=== PATIENT | female | born 1930 | race Caucasian/White ===

== ENCOUNTER 2016-12-28 17:46 | Inpatient (IN) | payer OTHER, MEDICARE ==
[~2016-12-28] VITALS: Ht 149.9 cm; Wt 71.5 kg
[~2016-12-28 17:46] MED LIST: ASPCH81X PO; CALCTAB5 PO; CHOL2000 PO; CYAN10005 PO; FERR325T51 PO; FRS/40 PO; LPR25 PO; MAGN250T3 PO; NTRGSL/4 UT; SYN25 PO; [UNRECOGNIZED DRUG - CODE] OPB
[2016-12-28] MEDS ORDERED: SODIUM CHLORIDE 0.9% 1000ML 1,000 ML IV STA (18:22)
[2016-12-28] MEDS ORDERED: ACETAMINOPHEN 500 MG TAB PO STA (18:30)
--- NOTE | 2016-12-28 19:27 | DIAGNOSTIC IMAGING REPORT ---
C-SPINE ROUTINE 4 OR 5 VIEWS CLINICAL HISTORY: Nontraumatic neck pain. COMPARISON STUDY: No previous studies for comparison. FINDINGS: There is minimal anterolisthesis of C3 on C4, C4 on C5 and C5 on C6. There is moderate disc space narrowing with osteophytosis at C6-C7. There is no fracture or suspicious lesion. There is moderate multilevel facet arthrosis. IMPRESSION: 1. No acute cervical spine fracture or subluxation. 2. Moderate degenerative disc disease at C6-C7 and moderate multilevel facet arthrosis. 3. Mild multilevel anterolisthesis of the cervical spine, as described above. Electronically signed by: George Rubi M.D. 12/28/2016 7:25 PM Dictated Date/Time: 12/28/2016 7:24 PM
--- NOTE | 2016-12-28 19:29 | DIAGNOSTIC IMAGING REPORT ---
FRONTAL CHEST RADIOGRAPH CLINICAL HISTORY: Nontraumatic shoulder and neck pain. COMPARISON STUDY: Chest radiograph April 08, 2016. FINDINGS: There are are median sternotomy wires and a prosthetic aortic valve. Moderate cardiomegaly is unchanged. There is no evidence of pulmonary edema. No pneumothorax or pleural effusion is present. IMPRESSION: 1. No acute findings. 2. No significant change in moderate cardiomegaly. Electronically signed by: George Rubi M.D. 12/28/2016 7:27 PM Dictated Date/Time: 12/28/2016 7:26 PM
[2016-12-28] MEDS ORDERED: LEVO25TA PO (19:34)
[2016-12-28 19:38] LABS: PARTIAL THROMBOPLASTIN RATIO 1.2
[2016-12-28 19:40] LABS: BASO % 0.3 %; BASO ABS # 0.04 K/uL (0-0.2); COMPLETE YES; EOS % 2.1 %; HEMATOCRIT 40.1 % (37-47); IG% 0.3 %; LYMPH % 11.8 %; LYMPH ABS # 1.38 K/uL (1.2-3.4); MEAN CELL VOLUME 87.2 fL (80-100); MEAN CORPUSCULAR HEMOGLOBIN 28.7 pg (25-34); MEAN CORPUSCULAR HGB CONC 32.9 g/dl (32-36); MEAN PLATELET VOLUME 11.4 fL (7.4-10.4); MONO % 10.8 %; NEUT % 74.7 %; PLATELET COUNT 178 K/uL (130-400); WHITE BLOOD COUNT 11.74 K/uL (4.8-10.8)
[2016-12-28 19:50] LABS: ALT/SGPT 17 U/L (12-78); AST/SGOT 15 U/L (15-37); BLOOD UREA NITROGEN 16 mg/dl (7-18); CALCIUM 8.8 mg/dl (8.5-10.1); CARBON DIOXIDE 32 mmol/L (21-32); CHLORIDE 104 mmol/L (98-107); CREATININE 0.87 mg/dl (0.60-1.20); GLUCOSE 108 mg/dl (70-99); POTASSIUM 3.7 mmol/L (3.5-5.1); SODIUM 142 mmol/L (136-145)
[2016-12-28 20:01] LABS: ALKALINE PHOSPHATASE 95 U/L (45-117); CKMB/CK RATIO 1.6 (0-3.0)
[2016-12-28] MEDS ORDERED: ASPIRIN 81 MG CHEW PO STA (20:32)
[2016-12-28] MEDS ORDERED: ACETAMINOPHEN 325 MG TAB PO PRN (21:00)
[2016-12-28] MEDS ORDERED: ALUMINUM/MAGNESIUM/SIMETH (MAALOX MAX) 30 ML UDC PO PRN (21:00)
[2016-12-28] MEDS ORDERED: MoRPHine SULFATE 2 MG/ML CARP IV PRN (21:00)
[2016-12-28] MEDS ORDERED: NITROGLYCERIN 0.4 MG SL PER TAB CHARGE SL PRN (21:00)
[2016-12-28] MEDS ORDERED: IV FLUIDS COMPLETED PRN (21:30)
--- NOTE | 2016-12-28 21:32 | EMERGENCY ROOM VISIT NOTE ---
History Report prepared by Oneyda: Patricia Licea Under the Supervision of: Dr. Arnaldo Toro M.D. First contact with patient: 18:20 Chief Complaint: CARDIAC ASSESSMENT Stated Complaint: PAIN IN SHOULDERS History of Present Illness The patient is a 86 year old female who presents to the Emergency Room with complaints of persistent neck and bilateral shoulder pain that began 2 days ago. The patient states that she initially developed left sided chest pain that radiated to the right side of her chest in addition to the neck and shoulder pain while she was at rest. She took 2 Nitro which made her chest pain resolve completely. The chest pain has not come back since then. The Nitro did not help her neck or shoulder pain. She has been using Icy Hot on her neck and shoulders which helps temporarily. Her neck pain was worse with movement to the point that she could not turn her head, but she notes that it is currently not as bad. Past medical history includes heart disease, a-fib, and blood clots. She has a history of an aortic valve replacement and bypass. She takes baby aspirin daily but denies use of other blood thinners. She follows up with Dr. Wood of Cardiology. Pt denies LOC, headache, fevers, chills, diaphoresis, visual changes, breathing difficulties, nausea, vomiting, abdominal pain, back pain, melena, hematochezia, urinary symptoms, numbness, weakness, lymphadenopathy, rash, or other complaints. Source of History: patient Onset: 2 days ago Position: neck, shoulder (bilateral) Timing: other (persistent) Modifying Factors (Relieving): other (Icy Hot) Associated Symptoms: + chest pain (resolved) Review of Systems See HPI for pertinent positives and negatives. A total of ten systems were reviewed and were otherwise negative. Past Medical & Surgical Medical Problems: (1) Acute Diastolic Hrt Failure (2) Acute Venous Embolism & Thrombosis Unsp Deep Vessels Of Le (3) Aortocoronary Bypass (4) Atrial fibrillation, currently in sinus rhythm (5) Congestive Heart Failure Nos (6) Hyperlipidemia Nec/Nos (7) Hypertension (8) Hypertension Nos (9) Mobitz type 2 second degree atrioventricular block Family History Cancer Heart disease Hypertension Kidney disease Social History Smoking Status: Never Smoker Alcohol Use: none Drug Use: none Marital Status: Housing Status: lives with family Occupation Status: retired Current/Historical Medications Scheduled Aspirin (Aspirin Chewable), 81 MG PO DAILY Cholecalciferol (Vitamin D3), 2,000 MG PO DAILY Cyanocobalamin (Vitamin B-12), 1,000 MCG PO DAILY Furosemide (Lasix), 40 MG PO DAILY Homeopathic Products (Similasan Dry Eye Relief), 1 DROP OPB BID Levothyroxine Sodium (Synthroid), 25 MCG PO DAILYBB Metoprolol Tartrate (Lopressor), 25 MG PO BID Scheduled PRN Nitroglycerin (Nitrostat), 0.4 MG UT UD PRN for Chest Pain Allergies Coded Allergies: Amlodipine (Verified Adverse Reaction, Mild, MUSCLE CRAMPS, 12/28/16) Clonidine (Verified Adverse Reaction, Mild, FATIGUE,DIZZINESS, 12/28/16) Diltiazem (Verified Adverse Reaction, Mild, VILLAGOMEZ/DIZZINESS, 12/28/16) Hydralazine (Verified Adverse Reaction, Mild, VILLAGOMEZ/DIZZINESS, 12/28/16) Hydrochlorothiazide w/Triamterene (Verified Adverse Reaction, Mild, DIZZINESS, 12/28/16) Levothyroxine (Verified Adverse Reaction, Mild, MUSCLE CRAMPS, 12/28/16) Valsartan (Verified Adverse Reaction, Mild, DIZZINESS, 12/28/16) CI Pigment Blue 63 (Verified Adverse Reaction, Unknown, NAUSEA, ?STROKE SYMPTOMS, 12/28/16) Lisinopril (Verified Adverse Reaction, Unknown, `, 12/28/16) Nebivolol (Verified Adverse Reaction, Unknown, NAUSEA, ?STROKE SYMPTOMS, ) Sorbitan (Verified Adverse Reaction, Unknown, NAUSEA, ?STROKE SYMPTOMS, ) Yellow Dye (Verified Adverse Reaction, Unknown, NAUSEA, ?STROKE SYMPTOMS, 12/28/16) Physical Exam Vital Signs Date Time Temp Pulse Resp B/P Pulse Ox O2 Delivery O2 Flow Rate FiO2 12/28/16 20:31 54 12/28/16 20:20 61 147/84 92 Room Air 12/28/16 18:44 92 12/28/16 18:38 59 16 175/71 91 Room Air 12/28/16 18:37 95 Room Air 12/28/16 18:37 95 Room Air 12/28/16 18:13 37.1 72 18 202/88 92 Room Air Physical Exam GENERAL: Awake, alert, well-appearing, in no distress HENT: Normocephalic, atraumatic. Oropharynx unremarkable. EYES: Normal conjunctiva. Sclera non-icteric. NECK: There is some mild neck discomfort on the right side elicited with range of motion testing. No nuchal rigidity. FROM. No JVD. RESPIRATORY: Clear to auscultation. CARDIAC: Regular rate, normal rhythm. Extremities warm and well perfused. Pulses equal. ABDOMEN: Soft, non-distended. No tenderness to palpation. No rebound or guarding. No masses. RECTAL: Deferred. MUSCULOSKELETAL: Chest examination reveals no tenderness. The back is symmetrical on inspection without obvious abnormality. There is no CVA tenderness to palpation. No joint edema. LOWER EXTREMITIES: Calves are equal size bilaterally and non-tender. No edema. No discoloration. NEURO: Normal sensorium. No sensory or motor deficits noted. SKIN: No rash or jaundice noted. Medical Decision & Procedures ER Provider Diagnostic Interpretation: Radiology results as stated below per my review and radiologist interpretation: C-SPINE ROUTINE 4 OR 5 VIEWS CLINICAL HISTORY: Nontraumatic neck pain. COMPARISON STUDY: No previous studies for comparison. FINDINGS: There is minimal anterolisthesis of C3 on C4, C4 on C5 and C5 on C6. There is moderate disc space narrowing with osteophytosis at C6-C7. There is no fracture or suspicious lesion. There is moderate multilevel facet arthrosis. IMPRESSION: 1. No acute cervical spine fracture or subluxation. 2. Moderate degenerative disc disease at C6-C7 and moderate multilevel facet arthrosis. 3. Mild multilevel anterolisthesis of the cervical spine, as described above. Electronically signed by: George Rubi M.D. 12/28/2016 7:25 PM Dictated Date/Time: 12/28/2016 7:24 PM FRONTAL CHEST RADIOGRAPH CLINICAL HISTORY: Nontraumatic shoulder and neck pain. COMPARISON STUDY: Chest radiograph April 08, 2016. FINDINGS: There are are median sternotomy wires and a prosthetic aortic valve. Moderate cardiomegaly is unchanged. There is no evidence of pulmonary edema. No pneumothorax or pleural effusion is present. IMPRESSION: 1. No acute findings. 2. No significant change in moderate cardiomegaly. Electronically signed by: George Rubi M.D. 12/28/2016 7:27 PM Dictated Date/Time: 12/28/2016 7:26 PM Laboratory Results 12/28/16 19:19 Red Blood Count 4.60, Mean Corpuscular Volume 87.2, Mean Corpuscular Hemoglobin 28.7, Mean Corpuscular Hemoglobin Concent 32.9, Mean Platelet Volume 11.4, Neutrophils (%) (Auto) 74.7, Lymphocytes (%) (Auto) 11.8, Monocytes (%) (Auto) 10.8, Eosinophils (%) (Auto) 2.1, Basophils (%) (Auto) 0.3, Neutrophils # (Auto ) 8.76, Lymphocytes # (Auto) 1.38, Monocytes # (Auto) 1.27, Eosinophils # (Auto ) 0.25, Basophils # (Auto) 0.04 12/28/16 19:19 Test 12/28/16 19:19 White Blood Count 11.74 K/uL (4.8-10.8) Red Blood Count 4.60 M/uL (4.2-5.4) Hemoglobin 13.2 g/dL (12.0-16.0) Hematocrit 40.1 % (37-47) Mean Corpuscular Volume 87.2 fL (80-100) Mean Corpuscular Hemoglobin 28.7 pg (25-34) Mean Corpuscular Hemoglobin Concent 32.9 g/dl (32-36) Platelet Count 178 K/uL (130-400) Mean Platelet Volume 11.4 fL (7.4-10.4) Neutrophils (%) (Auto) 74.7 % Lymphocytes (%) (Auto) 11.8 % Monocytes (%) (Auto) 10.8 % Eosinophils (%) (Auto) 2.1 % Basophils (%) (Auto) 0.3 % Neutrophils # (Auto) 8.76 K/uL (1.4-6.5) Lymphocytes # (Auto) 1.38 K/uL (1.2-3.4) Monocytes # (Auto) 1.27 K/uL (0.11-0.59) Eosinophils # (Auto) 0.25 K/uL (0-0.5) Basophils # (Auto) 0.04 K/uL (0-0.2) RDW Standard Deviation 45.9 fL (36.4-46.3) RDW Coefficient of Variation 14.4 % (11.5-14.5) Immature Granulocyte % (Auto) 0.3 % Immature Granulocyte # (Auto) 0.04 K/uL (0.00-0.02) Prothrombin Time 11.0 SECONDS (9.0-12.0) Prothromb Time International Ratio 1.0 (0.9-1.1) Activated Partial Thromboplast Time 31.3 SECONDS (21.0-31.0) Partial Thromboplastin Ratio 1.2 Anion Gap 6.0 mmol/L (3-11) Est Creatinine Clear Calc Drug Dose 44.5 ml/min Estimated GFR () 69.4 Estimated GFR (Non- 59.9 BUN/Creatinine Ratio 18.0 (10-20) Calcium Level 8.8 mg/dl (8.5-10.1) Magnesium Level 2.0 mg/dl (1.8-2.4) Total Bilirubin 0.7 mg/dl (0.2-1) Direct Bilirubin 0.2 mg/dl (0-0.2) Aspartate Amino Transf (AST/SGOT) 15 U/L (15-37) Alanine Aminotransferase (ALT/SGPT) 17 U/L (12-78) Alkaline Phosphatase 95 U/L (45-117) Total Creatine Kinase 43 U/L (26-192) Creatine Kinase MB 0.7 ng/ml (0.5-3.6) Creatine Kinase MB Ratio 1.6 (0-3.0) Troponin I < 0.015 ng/ml (0-0.045) Total Protein 6.8 gm/dl (6.4-8.2) Albumin 3.2 gm/dl (3.4-5.0) Thyroid Stimulating Hormone (TSH) 4.380 uIu/ml (0.300-4.500) Laboratory results reviewed by me Medications Administered Medications (Trade) Dose Ordered Sig/Shandra Route Start Time Stop Time Status Last Admin Dose Admin Sodium Chloride (Nss 1000ml) 1,000 ml @ 125 mls/hr Q8H STAT IV 12/28/16 18:22 12/29/16 02:21 12/28/16 18:56 125 MLS/HR Acetaminophen (Tylenol Tab) 1,000 mg NOW STAT PO 12/28/16 18:30 12/28/16 18:31 DC 12/28/16 18:55 1,000 MG Aspirin (Aspirin Chew) 324 mg NOW STAT PO 12/28/16 20:32 12/28/16 20:33 DC 12/28/16 20:44 324 MG ECG Indication: chest pain, back/shoulder pain Rate (beats per minute): 60 Rhythm: normal sinus Findings: LBBB, no acute ischemic change, left axis deviation Comparison ECG Date: 04/08/16 Change: PACs are no longer present. ED Course 1824: The patient was evaluated in room C4. A complete history and physical exam was performed. Ordered NSS 1000 ml @ 125 mls/hr IV. 1829: Ordered Acetaminophen 1000 mg PO. 2030: Upon reexamination, the patient was resting comfortably. I discussed the test results and treatment plan with her. The patient will be evaluated for further management. Ordered Aspirin 324 mg PO. Medical Decision Prior records/ancillary studies reviewed. Triage Nursing notes reviewed and agree them. Additional history obtained from the family. The patient's history was concerning for chest pain. Differential diagnosis: Etiologies such as cardiac ischemia, aortic dissection, pulmonary embolism, pneumonia, pneumothorax, musculoskeletal, infections, pericarditis, myocarditis , esophageal rupture, gastrointestinal, as well as others were entertained. Physical examination: As above. ER treatment provided: Oral Tylenol Oral aspirin On reassessment the patient felt better. Diagnostic interpretation by me: The electrocardiogram was negative for pathologic change. The labs revealed an unremarkable CBC and chemistry panel. Cardiac markers negative. Imaging studies: Chest x-ray and cervical spine as above The patient has a significant coronary history had chest pain relieved by nitroglycerin. Further evaluation will be necessary. The patient also had some neck pain which seems most likely musculoskeletal. Consultation: A consultation was placed with the hospitalist. The case was discussed and diagnostics were reviewed. The patient was evaluated in the ER for further treatment. The chart was completed utilizing [employer] Speech voice recognition software. Grammatical errors, random word insertions, pronoun errors, and incomplete sentences are an occasional consequence of this system due to software limitations, ambient noise, and hardware issues. Any formal questions or concerns about the content, text, or information contained within the body of this dictation should be directly addressed to the physician for clarification. Consults Time Called: 2029 Impression Primary Impression: Substernal chest pain Additional Impression: Neck pain Scribe Attestation The scribe's documentation has been prepared under my direction and personally reviewed by me in its entirety. I confirm that the note above accurately reflects all work, treatment, procedures, and medical decision making performed by me. Departure Information Dispostion Being Evaluated By Hospitalist Referrals RV. Steele MD (PCP) Patient Instructions [facility] Problem Qualifiers
[2016-12-28 22:55] VITALS: BP 182/71; PULSE 58; TEMP 36.8; O2SAT 93; Ht 149.9 cm; Wt 71.5 kg
[2016-12-28] MEDS: METOPROLOL TARTRATE 25 MG TAB PO SCH (23:11)
[2016-12-28] MEDS: HEPARIN SOD 5000 UNIT/0.5 ML CARP SQ SCH (23:12)
[2016-12-28] MEDS ORDERED: INFLUENZA ADMINISTRATION CHARGE ONE (23:15)
[2016-12-28] MEDS ORDERED: INFLUENZA VIRUS QUAD VACCINE 0.5 ML SYR IM. ONE (23:15)
[2016-12-28 23:17] VITALS: BP 142/63; PULSE 56; TEMP 37; O2SAT 94
[2016-12-29] VITALS (11 sets, daily range): BP systolic 123–195; BP diastolic 55–71; PULSE 51–71; TEMP 36.4–36.8; O2SAT 91–94
[2016-12-29] MEDS: HEPARIN SOD 5000 UNIT/0.5 ML CARP SQ SCH ×3 (05:46→20:20)
[2016-12-29] MEDS: LEVOTHYROXINE 25 MCG TAB PO SCH (05:47)
[2016-12-29] MEDS: ASPIRIN 81 MG CHEW PO SCH (08:11)
[2016-12-29] MEDS: FUROSEMIDE 40 MG TAB PO SCH (08:12)
[2016-12-29] MEDS: METOPROLOL TARTRATE 25 MG TAB PO SCH ×2 (08:12→20:19)
[2016-12-29] MEDS: CYANOCOBALAMIN 500 MCG TAB (VIT B-12) PO SCH (08:13)
[2016-12-29] MEDS ORDERED: TRAMADOL HCL 50 MG TAB PO PRN (12:00)
[2016-12-29] MEDS ORDERED: LIDODERM (LIDOCAINE) PATCH 5% TD ONE (12:30)
--- NOTE | 2016-12-29 12:35 | Progress Note ---
Subjective Date of Service: Dec 29, 2016. (Autumn Paul PA-C) Subjective Pt evaluation today including: conversation w/ patient, physical exam, chart review, lab review, review of studies, review of inpatient medication list Patient seen and evaluated. No acute events overnight. Patient has had no further chest pain. Continues to complain mostly of neck pain with movement and some shoulder pain bilaterally. CT of the neck reveals degenerative changes. She denies knowledge of history of polymyalgia rheumatica. Neck is nontender to palpation. Patient with full motion of shoulders and neck however this does produce pain. She denies jaw claudication, tenderness of the temporal region, or acute changes in vision. (Autumn Paul PA-C) Problem List Medical Problems: (1) Hypothyroidism Status: Acute (2) Left sided chest pain Status: Acute (3) Neck pain Status: Acute (4) Palpitations Status: Acute (5) Rapid atrial fibrillation Status: Acute (6) Substernal chest pain Status: Acute (Autumn Paul PA-C) Review of Systems Constitutional: No chills, No fever Eyes: No worsening of vision ENT: No nasal symptoms, No sore throat, No trouble swallowing Respiratory: No shortness of breath Cardiac: No chest pain Abdomen: No constipation, No diarrhea, No nausea, No pain, No vomiting Musculoskeletal: No muscle pain, No swelling Female : No dysuria Skin: No rash (Autumn Paul PA-C) Medications Current Inpatient Medications Medications (Trade) Dose Ordered Sig/Shandra Route Start Time Stop Time Status Last Admin Dose Admin Aspirin (Aspirin Chew) 81 mg DAILY PO 12/29/16 09:00 01/28/17 08:59 12/29/16 08:11 81 MG Cyanocobalamin (Vitamin B-12 Tab) 1,000 mcg DAILY PO 12/29/16 09:00 01/28/17 08:59 12/29/16 08:13 1,000 MCG Furosemide (Lasix Tab) 40 mg DAILY PO 12/29/16 09:00 01/28/17 08:59 Levothyroxine Sodium (Synthroid Tab) 25 mcg DAILYBB PO 12/29/16 06:00 01/28/17 06:59 12/29/16 05:47 25 MCG Metoprolol Tartrate (Lopressor Tab) 25 mg BID PO 12/28/16 21:00 01/27/17 20:59 12/29/16 08:12 25 MG Heparin Sodium (Porcine) (Heparin Sq 5000 Unit/0.5ml) 5,000 unit Q8 SQ 12/28/16 22:00 01/27/17 21:59 12/29/16 05:46 5,000 UNIT Acetaminophen (Tylenol Tab) 650 mg Q4H PRN PO 12/28/16 21:00 01/27/17 20:59 Al Hydrox/Mg Hydrox/Simethicone (Maalox Max Susp) 15 ml Q4H PRN PO 12/28/16 21:00 01/27/17 20:59 Nitroglycerin (Nitrostat Tab) 0.4 mg UD PRN SL 12/28/16 21:00 01/27/17 20:59 Morphine Sulfate (MoRPHine SULFATE INJ) 2 mg Q30M PRN IV 12/28/16 21:00 01/11/17 20:59 12/29/16 08:11 2 MG Miscellaneous (Iv Fluids Completed) 1 ea PRN PRN N/A 12/28/16 21:30 12/28/17 21:29 Lidocaine (Lidoderm Patch 5%) 1 patch QAM TD 12/30/16 09:00 01/29/17 08:59 Lidocaine (Lidoderm Patch 5%) 1 patch 1230 ONCE TD 12/29/16 12:30 12/29/16 12:31 Miscellaneous (Remove Lidoderm Patch) 1 ea DAILY@21 N/A 12/29/16 21:00 01/28/17 20:59 Tramadol HCl (Ultram Tab) 50 mg Q6H PRN PO 12/29/16 12:00 01/28/17 11:59 Prednisone (PredniSONE TAB) 20 mg DAILY PO 12/30/16 09:00 01/29/17 08:59 Prednisone (PredniSONE TAB) 20 mg 1230 ONCE PO 12/29/16 12:30 12/29/16 12:31 (Autumn Paul, MILLER) Objective Vital Signs Date Time Temp Pulse Resp B/P Pulse Ox O2 Delivery O2 Flow Rate FiO2 12/29/16 12:13 36.4 54 16 158/65 94 Room Air 12/29/16 12:00 Room Air 12/29/16 08:08 36.5 56 16 195/71 93 Room Air 167/55 12/29/16 08:00 91 Room Air 12/29/16 04:00 91 Room Air 12/29/16 03:19 36.8 71 18 123/62 91 Room Air 12/29/16 00:00 94 Room Air 12/28/16 23:17 37.0 56 142/63 94 Room Air 12/28/16 22:55 36.8 58 16 182/71 93 Room Air 12/28/16 21:54 37.1 54 16 147/84 92 12/28/16 20:31 54 12/28/16 20:20 61 147/84 92 Room Air 12/28/16 18:44 92 12/28/16 18:38 59 16 175/71 91 Room Air 12/28/16 18:37 95 Room Air 12/28/16 18:37 95 Room Air 12/28/16 18:13 37.1 72 18 202/88 92 Room Air (Autumn Paul, DELIA-C) Physical Exam General Appearance: WD/WN, no apparent distress Eyes: sclerae normal ENT: hearing grossly normal Neck: supple, no adenopathy, thyroid normal, no JVD, trachea midline, + pertinent finding (negative for tenderness with palpation of the spine) Respiratory/Chest: lungs clear, normal breath sounds, no respiratory distress, no accessory muscle use Cardiovascular: regular rate, rhythm, no gallop, no murmur Abdomen: normal bowel sounds, non tender, soft Extremities: non-tender, no pedal edema Neurologic/Psychiatric: alert, oriented x 3 Skin: normal color, warm/dry (Autumn Paul, PA-C) Laboratory Results Last 24 Hours Test 12/28/16 19:19 12/29/16 00:55 12/29/16 05:00 White Blood Count 11.74 K/uL Red Blood Count 4.60 M/uL Hemoglobin 13.2 g/dL Hematocrit 40.1 % Mean Corpuscular Volume 87.2 fL Mean Corpuscular Hemoglobin 28.7 pg Mean Corpuscular Hemoglobin Concent 32.9 g/dl Platelet Count 178 K/uL Mean Platelet Volume 11.4 fL Neutrophils (%) (Auto) 74.7 % Lymphocytes (%) (Auto) 11.8 % Monocytes (%) (Auto) 10.8 % Eosinophils (%) (Auto) 2.1 % Basophils (%) (Auto) 0.3 % Neutrophils # (Auto) 8.76 K/uL Lymphocytes # (Auto) 1.38 K/uL Monocytes # (Auto) 1.27 K/uL Eosinophils # (Auto) 0.25 K/uL Basophils # (Auto) 0.04 K/uL RDW Standard Deviation 45.9 fL RDW Coefficient of Variation 14.4 % Immature Granulocyte % (Auto) 0.3 % Immature Granulocyte # (Auto) 0.04 K/uL Prothrombin Time 11.0 SECONDS Prothromb Time International Ratio 1.0 Activated Partial Thromboplast Time 31.3 SECONDS Partial Thromboplastin Ratio 1.2 Sodium Level 142 mmol/L Potassium Level 3.7 mmol/L Chloride Level 104 mmol/L Carbon Dioxide Level 32 mmol/L Anion Gap 6.0 mmol/L Blood Urea Nitrogen 16 mg/dl Creatinine 0.87 mg/dl Est Creatinine Clear Calc Drug Dose 44.5 ml/min Estimated GFR () 69.4 Estimated GFR (Non- 59.9 BUN/Creatinine Ratio 18.0 Random Glucose 108 mg/dl Calcium Level 8.8 mg/dl Magnesium Level 2.0 mg/dl Total Bilirubin 0.7 mg/dl Direct Bilirubin 0.2 mg/dl Aspartate Amino Transf (AST/SGOT) 15 U/L Alanine Aminotransferase (ALT/SGPT) 17 U/L Alkaline Phosphatase 95 U/L Total Creatine Kinase 43 U/L Creatine Kinase MB 0.7 ng/ml Creatine Kinase MB Ratio 1.6 Troponin I < 0.015 ng/ml 0.020 ng/ml 0.020 ng/ml Total Protein 6.8 gm/dl Albumin 3.2 gm/dl Thyroid Stimulating Hormone (TSH) 4.380 uIu/ml Erythrocyte Sedimentation Rate 24 mm/hr C-Reactive Protein 6.92 mg/dl (Autumn Paul, NIRUC) Assessment and Plan Chest Pain (RESOLVED) and Neck/Shoulder Pain: - Patient reports no further chest pain; chest pain present prior to arrival was relieved with nitroglycerin - Neck and bilateral shoulder pain waxes and wanes - Serial cardiac enzymes have been negative - Echo (2016) - EF 55%; no wall motion abnormalities; LVH; increased right ventricular systolic pressure 40-50 mmHg - ESR and CRP with mild elevations however unlikely PMR and pain likely from degenerative changes as evidence on CT imaging - Tramadol 50 mg Q6H PRN, prednisone 20 mg daily, and Lidoderm patch 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 I agree w/ the santamaria components of her documentation. Pt denies any chest pain in several days. No sob. Neck pain improved. Shoulder pain improved. Neck still hurts with moving the neck. Denies recent fall/injury that preceded the pain. No fevers. VSS although BPs are labile gen - nad neck - JVD present; with passive ROM of the neck there is considerable restriction of movement; there is paraspinal tenderness on the right neck muscles heart - RRR, s1, s2 lungs - CTA b/l abd - soft, NT ext - no edema musculo - right/left shoulder - no pain with passive external rotation, abduction, adduction neuro - no proximal muscle weakness of shoulders; DTRs arms 2+ b/l sed rate 24 crp 6 wbc 11 Cr 0.8 A/P: 1. 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 Doubt PMR given her improvement of symptoms without steroids and given the normal sed rate. Will Rx the DJD/neck pain with tramadol prn, lidoderm patches prn, and low-dose steroids for a couple of days. 2. chest pain in setting of known CAD - resolved, no symptoms in several days. Cardiac enzymes neg x 3 sets. Tele stable. EKGs stable. Would not pursue additional w/u at this time. Possible that some of the pain could have been referred pain from the neck. watch overnight anticipate d/c in AM if stable/doing ok Heladio TA MD (Sanjeev Ta MD)
[2016-12-30] VITALS (8 sets, daily range): BP systolic 149–206; BP diastolic 62–93; PULSE 55–62; TEMP 36.5–36.9; O2SAT 92–97
[2016-12-30 04:31] LABS: URINE APPEARANCE CLOUDY (CLEAR); URINE BILIRUBIN NEG (NEG); URINE COLOR DK YELLOW; URINE EPITHELIAL CELL AUTO >30 /lpf (0-5); URINE NITRITE NEG (NEG); URINE PH 5.5 (4.5-7.5); URINE SPECIFIC GRAVITY 1.022 (1.000-1.030); UROBILINOGEN NEG (NEG)
[2016-12-30 04:35] LABS: MANUAL MICROSCOPIC REQUIRED? NO; REVIEW REQ? NO
[2016-12-30] MEDS: SODIUM CHLORIDE 0.9% 500ML 500 ML IV SCH ×2 (05:54→06:42)
[2016-12-30] MEDS: LEVOTHYROXINE 25 MCG TAB PO SCH (05:58)
[2016-12-30 06:12] LABS: HEMATOCRIT 38.4 % (37-47); MEAN CELL VOLUME 85.3 fL (80-100); MEAN CORPUSCULAR HEMOGLOBIN 27.8 pg (25-34); MEAN CORPUSCULAR HGB CONC 32.6 g/dl (32-36); MEAN PLATELET VOLUME 11.3 fL (7.4-10.4); PLATELET COUNT 187 K/uL (130-400)
[2016-12-30] MEDS: HEPARIN SOD 5000 UNIT/0.5 ML CARP SQ SCH ×3 (06:43→21:57)
[2016-12-30 06:46] LABS: BUN/CREATININE RATIO 20.8 (10-20); CALCIUM 9.1 mg/dl (8.5-10.1); CREATININE 0.91 mg/dl (0.60-1.20); MAGNESIUM 2.1 mg/dl (1.8-2.4)
[2016-12-30] MEDS: METOPROLOL TARTRATE 25 MG TAB PO SCH ×2 (08:00→20:22)
[2016-12-30] MEDS: CYANOCOBALAMIN 500 MCG TAB (VIT B-12) PO SCH (08:00)
[2016-12-30] MEDS: FUROSEMIDE 40 MG TAB PO SCH (08:01)
[2016-12-30] MEDS: ASPIRIN 81 MG CHEW PO SCH (08:01)
[2016-12-30] MEDS ORDERED: LIDODERM (LIDOCAINE) PATCH 5% TD SCH (09:00)
--- NOTE | 2016-12-30 12:56 | DIAGNOSTIC IMAGING REPORT ---
CHEST 2 VIEWS ROUTINE HISTORY: Hypoxic Episodes; H/O Pulm HTN COMPARISON: Chest 12/28/2016. FINDINGS: There are postoperative changes and an aortic valve prosthesis. The heart remains mildly enlarged. No pneumothorax. Progression of the diffuse interstitial thickening most pronounced within the left lung. This suggests mild pulmonary edema. Trace bilateral pleural effusions IMPRESSION: Interval development of mild pulmonary edema and trace bilateral pleural effusions. Electronically signed by: Jeison Bullock M.D. 12/30/2016 12:54 PM Dictated Date/Time: 12/30/2016 12:53 PM
[2016-12-30] MEDS ORDERED: FUROSEMIDE 40 MG/4 ML VIAL ONE (13:06)
[2016-12-30] MEDS ORDERED: FUROSEMIDE INJ 40 MG in SYRINGE 0 ML IV ONE (13:30)
--- NOTE | 2016-12-30 13:35 | Progress Note ---
Subjective Date of Service: Dec 30, 2016. (Autumn Paul PA-C) Subjective Pt evaluation today including: conversation w/ patient, physical exam, chart review, lab review, review of studies, review of inpatient medication list Patient seen and evaluated. Patient reports visual hallucinations overnight. Patient is able to recall these hallucinations and feels that they started after her lidocaine patch was applied. She states she was seeing everything is being covered in a black substance and bugs were crawling and making a black substance this appear. States that she also was seeing picture frames on the wilson and ceiling and that she was able to move them with her eyes. All symptoms are currently resolved. Patient is alert and oriented 3. During routine vital signs she was noted to be hypoxic. Patient does not utilize oxygen at home and reports that she normally does not get shortness of breath. Patient does have fluctuating high blood pressures which are consistent with previous admissions. She also has a known history of pulmonary hypertension with last echocardiogram showing 40-50 mmHg pressure. CXR obtained which shows mild pulmonary edema and trace bilateral pleural effusions which were not present on chest x-ray on admission. Patient is on Lasix 40 mg daily but she refused this medication yesterday morning. She states she is normally compliant with this at home unless she has to go out in public and she will hold her Lasix medication to reduce urinary frequency. Two-step was completed and patient qualifies for continuous oxygen at 2 L at rest and with ambulation. (Autumn Paul PA-C) Problem List Medical Problems: (1) Hypothyroidism Status: Acute (2) Left sided chest pain Status: Acute (3) Neck pain Status: Acute (4) Palpitations Status: Acute (5) Rapid atrial fibrillation Status: Acute (6) Substernal chest pain Status: Acute (Autumn Paul PA-C) Review of Systems Constitutional: No chills, No fever Respiratory: + dyspnea on exertion, No cough, No dyspnea at rest Cardiac: No chest pain Abdomen: No constipation, No diarrhea, No nausea, No pain, No vomiting Musculoskeletal: No muscle pain, No swelling Female : + urinary frequency, No dysuria Neurologic: No numbness/tingling, No vertigo Skin: No rash (Autumn Paul PA-C) Objective Vital Signs Date Time Temp Pulse Resp B/P Pulse Ox O2 Delivery O2 Flow Rate FiO2 3/15/17 12:00 Nasal Cannula 2.0 12/30/16 10:45 36.7 60 206/74 198/93 12/30/16 08:00 Nasal Cannula 2.0 12/30/16 07:28 36.6 58 20 173/67 94 Nasal Cannula 1.0 201/77 12/30/16 04:00 96 Nasal Cannula 12/30/16 02:53 36.6 55 20 186/62 96 Nasal Cannula 2.0 12/30/16 00:00 Room Air 12/29/16 22:42 36.6 52 17 161/63 91 Room Air 12/29/16 20:07 36.8 57 16 181/63 91 Room Air 12/29/16 20:00 91 Room Air 12/29/16 16:00 92 Room Air 12/29/16 15:28 36.8 51 16 174/56 92 Room Air (Autumn Paul, PA-C) Physical Exam General Appearance: WD/WN, no apparent distress Eyes: sclerae normal ENT: hearing grossly normal Neck: supple, no JVD, trachea midline Respiratory/Chest: lungs clear, normal breath sounds, no respiratory distress, no accessory muscle use, + decreased breath sounds Cardiovascular: regular rate, rhythm, no gallop, no murmur, + systolic murmur Abdomen: normal bowel sounds, non tender, soft Extremities: no pedal edema, no calf tenderness Neurologic/Psychiatric: alert, oriented x 3 Skin: normal color, warm/dry (Autumn Paul, PA-C) Laboratory Results Last 24 Hours Test 12/30/16 04:17 12/30/16 05:43 Urine Color DK YELLOW Urine Appearance CLOUDY Urine pH 5.5 Urine Specific [place] 1.022 Urine Protein NEG Urine Glucose (UA) NEG Urine Ketones TRACE Urine Occult Blood NEG Urine Nitrite NEG Urine Bilirubin NEG Urine Urobilinogen NEG Urine Leukocyte Esterase SMALL Urine WBC (Auto) 5-10 /hpf Urine RBC (Auto) 0-4 /hpf Urine Hyaline Casts (Auto) 1-5 /lpf Urine Epithelial Cells (Auto) >30 /lpf Urine Bacteria (Auto) 1+ White Blood Count 10.80 K/uL Red Blood Count 4.50 M/uL Hemoglobin 12.5 g/dL Hematocrit 38.4 % Mean Corpuscular Volume 85.3 fL Mean Corpuscular Hemoglobin 27.8 pg Mean Corpuscular Hemoglobin Concent 32.6 g/dl RDW Standard Deviation 44.8 fL RDW Coefficient of Variation 14.3 % Platelet Count 187 K/uL Mean Platelet Volume 11.3 fL Sodium Level 142 mmol/L Potassium Level 4.0 mmol/L Chloride Level 104 mmol/L Carbon Dioxide Level 32 mmol/L Anion Gap 6.0 mmol/L Blood Urea Nitrogen 19 mg/dl Creatinine 0.91 mg/dl Est Creatinine Clear Calc Drug Dose 37.8 ml/min Estimated GFR () 65.7 Estimated GFR (Non- 56.7 BUN/Creatinine Ratio 20.8 Random Glucose 100 mg/dl Calcium Level 9.1 mg/dl Magnesium Level 2.1 mg/dl (Autumn Paul, MILLER) Assessment and Plan Chest Pain (RESOLVED) and Neck/Shoulder Pain: IMPROVING - Echo (2016) - EF 55%; no wall motion abnormalities; LVH; increased right ventricular systolic pressure 40-50 mmHg - ESR and CRP with mild elevations however unlikely PMR and pain likely from degenerative changes as evidence on CT imaging - Tramadol 50 mg Q6H PRN - Prednisone 20 mg daily - DAY #2/5 Visual Hallucinations: RESOLVED - Patient feels that these occurred due to lidocaine patch - therefore will discontinue - Tramadol is on ordered as needed - will limit use as this may cause hallucinations as well - promote nonnarcotic pain management - Urinalysis with 1+ bacteria - however patient is asymptomatic, afebrile, and without leukocytosis - we'll defer antibiotic treatment at this time pending urine culture 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: - ASA 81 mg daily Acute Respiratory Failure with Hypoxia 2/2 Diastolic Congestive Heart Failure and Pulmonary HTN: - CXR - image and report reviewed - mild pulmonary edema and bilateral trace pleural effusions which were not present on imaging at admission - Lasix 40 mg IV 1 dose and Nitropaste 0.5 inch Q6H - 2 step reveals the need for continuous oxygen at 2 L NC at rest and with ambulation - Lasix 40 mg po daily Hypothyroidism: - Synthroid 25 mcg daily Paroxysmal Atrial Fibrillation: Rate Controlled - Metoprolol tartrate 25 mg BID DVT Prophylaxis: - Heparin 5000 units SC Q8H Code Status: FULL RESUSCITATION Disposition: - Possible discharge tomorrow pending adequate diuresis and symptom resolution - Rx on patient chart for home oxygen Discharge planning: home (Autumn Paul, MILLER) Attending Attestation: Pt seen/examined, chart reviewed, care plan d/w DELIA Paul. I agree w/ the santamaria components of her documentation. Overnight had delirium/encephalopathy. Was seeing bugs on her skin and on the ceiling, wilson, etc. During my visit which was at about 2pm today she states "I saw some bugs in there (the bathroom) earlier." She denies SMITH. She admits to not taking her lasix at times outside of the hospital. She reports significant stress at home with her who is doing poorly physically/mentally. VSS although BPs are high no fever gen - nad neck - JVD present at 90 degrees; with passive ROM of the neck there is no tenderness today and rotation is much better heart - RRR, s1, s2 lungs - bibasilar rales abd - soft, NT ext - 1+ edema b/l, varicose veins WBC count normal today Cr normal u/a with 1+ bacteria and LE A/P: 1. 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 IMPROVED. d/c the prednisone as this could have caused her encephalopathy. tramadol prn. 2. chest pain in setting of known CAD - resolved, no symptoms in several days. Cardiac enzymes neg x 3 sets. Tele stable. EKGs stable. Would not pursue additional ischemic w/u at this time. Possible that some of the pain could have been referred pain from the neck. 3. acute/chronic diastolic CHF - CXR today w/ pulm edema, new from 12/28 cxr. I suspect her markedly elevated BPs along with prednisone could have led to fluid retention. lasix 40mg IV x 1 follow clinical response treat the BP - see below 4. HTN - uncontrolled; add nitropaste q6h; diurese 5. encephalopathy - toxic from prednisone? metabolic from UTI? hospital psychosis/sundowning? may need very low dose seroquel at HS tonight but defer for now try to keep sleep/wake cycle intact with good activity during the day, sun exposure, etc 6. will update daughter and confirm that 's recent issues are in fact true and not part of her delirium will also inquire with daughter about pt's memory, cognition, mental status, etc change observation to admission status due to CHF and encephalopathy In my clinical judgment this beneficiary meets acute admission criteria, established by [facility], that includes being hospitalized through two midnights. Heladio REGALADO MD (Sanjeev Regalado MD)
[2016-12-30] MEDS: NITROGLYCERIN OINT 2% 1GM PACKET EXT SCH ×2 (14:12→20:22)
[2016-12-30] MEDS ORDERED: QUETIAPINE FUMARATE 25 MG TAB PO PRN (17:45)
[2016-12-30] MEDS: CEFAZOLIN IV 1,000 MG in DEXTROSE 5% 50ML 50 ML IV SCH (18:46)
[2016-12-30] MEDS ORDERED: HALOPERIDOL LACTATE 5 MG/ML 1 ML VIAL ONE (22:42)
--- NOTE | 2016-12-30 23:32 | Progress Note ---
Progress Note Date of Service Dec 30, 2016. Progress Note Called overnight that pt was feeling dizzy from Seroquel, then was walking hallways and was hitting staff members, staff spent about 20 minutes trying to calm her down Prescribed 5mg IM Haldol, checked on pt later, she was sleeping comfortably Resident Tracking Resident Involvement: Puppy Walker Coverage Note Care Provided: Adult Hospital Medicine
[2016-12-31] VITALS (10 sets, daily range): BP systolic 130–183; BP diastolic 64–100; PULSE 55–83; TEMP 36.1–37.1; O2SAT 93–98
[2016-12-31] MEDS: NITROGLYCERIN OINT 2% 1GM PACKET EXT SCH ×2 (02:00→08:16)
[2016-12-31 05:48] LABS: HEMATOCRIT 35.7 % (37-47); MEAN CELL VOLUME 86.2 fL (80-100); MEAN CORPUSCULAR HEMOGLOBIN 28.7 pg (25-34); MEAN CORPUSCULAR HGB CONC 33.3 g/dl (32-36); MEAN PLATELET VOLUME 10.7 fL (7.4-10.4); PLATELET COUNT 171 K/uL (130-400); RED BLOOD COUNT 4.14 M/uL (4.2-5.4); WHITE BLOOD COUNT 9.93 K/uL (4.8-10.8)
[2016-12-31] MEDS: HEPARIN SOD 5000 UNIT/0.5 ML CARP SQ SCH ×3 (06:00→22:00)
[2016-12-31] MEDS: LEVOTHYROXINE 25 MCG TAB PO SCH (06:14)
[2016-12-31] MEDS: CEFAZOLIN IV 1,000 MG in DEXTROSE 5% 50ML 50 ML IV SCH (06:16)
[2016-12-31 06:31] LABS: BUN/CREATININE RATIO 24.5 (10-20); CALCIUM 8.8 mg/dl (8.5-10.1); MAGNESIUM 2.1 mg/dl (1.8-2.4); POTASSIUM 3.2 mmol/L (3.5-5.1)
[2016-12-31] MEDS: METOPROLOL TARTRATE 25 MG TAB PO SCH ×2 (09:00→19:44)
[2016-12-31] MEDS: POTASSIUM CHLORIDE 20 MEQ TABCR PO SCH ×3 (09:00→19:43)
[2016-12-31] MEDS: ASPIRIN 81 MG CHEW PO SCH (09:00)
[2016-12-31] MEDS: CYANOCOBALAMIN 500 MCG TAB (VIT B-12) PO SCH (09:00)
[2016-12-31] MEDS: ISOSORBIDE MONONITRATE 30 MG TABCR PO SCH (09:00)
[2016-12-31] MEDS: CEPHALEXIN MONOHYDRATE 500 MG CAP PO SCH (19:43)
[2016-12-31] MEDS ORDERED: QUETIAPINE FUMARATE 25 MG TAB PO SCH (21:00)
--- NOTE | 2016-12-31 22:54 | Progress Note ---
Subjective Date of Service: Dec 31, 2016. Subjective Pt evaluation today including: conversation w/ patient, physical exam, chart review, lab review, review of inpatient medication list Pain: neck, but only mild PO Intake: poor this am, improved later in the day Voiding: no voiding problems overnight - had sundowning once again even despite seroquel was combative and getting out of bed she required IM haldol following such she slept the rest of the night she slept much of the morning and awoke before lunch during my visit she could not tell me the day but she knew she was in the hospital, that it was 2016, and could tell me about her /daughter/etc she still remembers "seeing bugs" on her arms 2 nights ago denies ANY new complaints today Problem List Medical Problems: (1) Hypothyroidism Status: Acute (2) Left sided chest pain Status: Acute (3) Neck pain Status: Acute (4) Palpitations Status: Acute (5) Rapid atrial fibrillation Status: Acute (6) Substernal chest pain Status: Acute Review of Systems Constitutional: No fever Respiratory: No cough, No dyspnea on exertion, No shortness of breath, No sputum Cardiac: No chest pain, No orthopnea Abdomen: + constipation, No pain Objective Vital Signs Date Time Temp Pulse Resp B/P Pulse Ox O2 Delivery O2 Flow Rate FiO2 12/31/16 20:00 Nasal Cannula 2.0 12/31/16 19:33 36.9 70 19 179/75 97 Nasal Cannula 2.0 12/31/16 15:49 36.6 55 20 130/71 96 Nasal Cannula 2.0 12/31/16 15:35 93 Nasal Cannula 2.0 12/31/16 12:10 93 Room Air 12/31/16 10:59 36.1 83 20 133/100 93 BiPAP 12/31/16 10:51 36.7 64 19 183/69 96 Nasal Cannula 2.0 12/31/16 09:57 36.8 58 16 169/70 98 Nasal Cannula 2.0 12/31/16 07:25 Room Air 12/31/16 06:47 37.1 57 20 157/64 95 Nasal Cannula 2.0 12/31/16 04:00 Nasal Cannula 2.0 12/31/16 03:50 37.1 58 15 156/72 94 Nasal Cannula 2.0 12/31/16 00:01 Nasal Cannula 2.0 12/30/16 23:12 36.6 56 16 149/66 92 Nasal Cannula 2.0 Physical Exam General Appearance: no apparent distress ENT: pharynx normal Neck: + JVD Respiratory/Chest: lungs clear, no respiratory distress, no accessory muscle use Cardiovascular: regular rate, rhythm, no gallop Abdomen: normal bowel sounds, non tender, soft, no organomegaly Extremities: no pedal edema Neurologic/Psychiatric: no motor/sensory deficits, alert, oriented x 3 Comments: varicose veins on legs Laboratory Results Last 24 Hours Test 12/31/16 05:33 White Blood Count 9.93 K/uL Red Blood Count 4.14 M/uL Hemoglobin 11.9 g/dL Hematocrit 35.7 % Mean Corpuscular Volume 86.2 fL Mean Corpuscular Hemoglobin 28.7 pg Mean Corpuscular Hemoglobin Concent 33.3 g/dl RDW Standard Deviation 46.0 fL RDW Coefficient of Variation 14.6 % Platelet Count 171 K/uL Mean Platelet Volume 10.7 fL Sodium Level 146 mmol/L Potassium Level 3.2 mmol/L Chloride Level 104 mmol/L Carbon Dioxide Level 38 mmol/L Anion Gap 4.0 mmol/L Blood Urea Nitrogen 24 mg/dl Creatinine 1.00 mg/dl Est Creatinine Clear Calc Drug Dose 33.7 ml/min Estimated GFR () 58.7 Estimated GFR (Non- 50.6 BUN/Creatinine Ratio 24.5 Random Glucose 76 mg/dl Calcium Level 8.8 mg/dl Magnesium Level 2.1 mg/dl Assessment and Plan 86yo female with: 1. 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 IMPROVED. 2. chest pain in setting of known CAD - resolved, no symptoms in several days. Cardiac enzymes neg x 3 sets shortly after admission. Tele stable since admission. EKGs stable. Would not pursue additional ischemic w/u at this time. Possible that some of the pain could have been referred pain from the neck. 3. acute/chronic diastolic CHF - resolved. no further lasix. 4. HTN - improved. stop nitropaste convert to imdur 30mg daily 5. 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 ? of UTI - although urine cx was negative she had a dirty u/a and it is possible a UTI contributed to her mental status received 24 hours of ancef Rx with keflex x 4 more days 7. pulmonary HTN - moderate on last echo likely reason for O2 requirement will need repeat 2-step prior to discharge 8. stage 3 CKD - repeat BMP am for stability 9. hypokalemia - replace; 2nd to diuresis; BMP am 10. hypernatremia - 2nd to over-diuresis; stop lasix; BMP am if she has a good night tonight hopefully home in AM Discharge planning: home with home health
[2017-01-01 04:08] VITALS: BP 172/60; PULSE 76; TEMP 37; O2SAT 98
[2017-01-01] MEDS: HEPARIN SOD 5000 UNIT/0.5 ML CARP SQ SCH (06:00)
[2017-01-01] MEDS: LEVOTHYROXINE 25 MCG TAB PO SCH (06:15)
[2017-01-01 06:59] VITALS: BP 173/57; PULSE 64; TEMP 36.8; O2SAT 96
[2017-01-01 07:06] LABS: BUN/CREATININE RATIO 24.3 (10-20); CALCIUM 8.8 mg/dl (8.5-10.1); CREATININE 0.79 mg/dl (0.60-1.20); POTASSIUM 4.7 mmol/L (3.5-5.1)
[2017-01-01] MEDS: ISOSORBIDE MONONITRATE 30 MG TABCR PO SCH (07:52)
[2017-01-01] MEDS: METOPROLOL TARTRATE 25 MG TAB PO SCH (07:52)
[2017-01-01] MEDS ORDERED: BISACODYL 10 MG SUPP PR STA (07:52)
[2017-01-01] MEDS: CEPHALEXIN MONOHYDRATE 500 MG CAP PO SCH (07:53)
[2017-01-01] MEDS: ASPIRIN 81 MG CHEW PO SCH (08:33)
[2017-01-01] MEDS: CYANOCOBALAMIN 500 MCG TAB (VIT B-12) PO SCH (08:33)
[2017-01-01] MEDS ORDERED: POLYETHYLENE (MIRALAX) 17 GM PACK PO PRN (09:00)
[2017-01-01] MEDS ORDERED: MAGNESIUM HYDROXIDE SUSP 30 ML UDC PO PRN (09:00)
[2017-01-01 10:44] VITALS: BP 135/58; PULSE 58; TEMP 37; O2SAT 98
--- NOTE | 2017-01-01 12:34 | Discharge Instructions ---
Discharge Instructions Date of Service Jan 01, 2017. (Autumn Paul PA-C) Admission Reason for Admission: Anterior Chest Wall Pain (Autumn Paul PA-C) Discharge Discharge Diagnosis / Problem: Non-Cardiac Chest Pain and Neck Pain (Autumn Paul PA-C) Discharge Goals Goal(s): Decrease discomfort, Improve function, Increase independence (Autumn Paul PA-C) Activity Recommendations Activity Limitations: as noted below Lifting Limitations: gradually increase as tolerated Exercise/Sports Limitations: as tolerated Shower/Bathe: no limitations . (Autumn Paul PA-C) Instructions / Follow-Up Instructions / Follow-Up Chest Pain and Neck Pain: - The symptoms are likely due to arthritic changes of the neck that were seen on imaging Acute on Chronic Diastolic Congestive Heart Failure/Pulmonary Hypertension/ Hypertension: - Due to need for oxygen we performed a chest x-ray that showed a little bit of fluid on the lungs - This was treated with Lasix (water pill) which improved your symptoms - Recommend to continue using your home Lasix as previously prescribed - A prescription will be provided for Imdur 30 mg daily - this medication is nitroglycerin and will help with your pulmonary hypertension and your elevated blood pressures - You were walked around the hospital during admission that showed that you will require oxygen at rest and with walking -- Prescription will be provided to have oxygen for home use -- You qualify to use 1 liter of oxygen with walking around but do not need oxygen with rest Urinary Tract Infection: - Continue Keflex 500 mg twice a day and a prescription will be provided Sleep Issues: - He will be provided with a prescription for Seroquel 12.5 mg to use at night as needed for sleep disturbances. - Please discuss with her family doctor if you continue to experience hallucinations. Follow-Up: - Please see your family doctor in 7-10 days (Autumn Paul PA-C) Current Hospital Diet Patient's current hospital diet: AHA Diet (Heart Healthy) (Autumn Paul PA-C) Discharge Diet Recommended Diet: AHA Diet (Heart Healthy) (Autumn Paul PA-C) Pending Studies Studies pending at discharge: no (Autumn Paul PA-C) Medical Emergencies . Who to Call and When: Medical Emergencies: If at any time you feel your situation is an emergency, please call 911 immediately. . (Autumn Paul PA-C) Non-Emergent Contact Non-Emergency issues call your: Primary Care Provider Call Non-Emergent contact if: you have a fever, your pain is concerning you, you have any medication questions . (Autumn Paul PA-C) . "Provider Documentation" section prepared by Autumn Paul. (Autumn Paul PA-C) Attending Attestation: Pt seen/examined and patient care plan d/w DELIA Paul on day of discharge. I agree with her discharge instructions as outlined. Sanjeev Regalado MD (Sanjeev Regalado MD) VTE Core Measure Inpt VTE Proph given/why not?: Unfractionated heparin SQ (Autumn Paul PA-C)
[2017-01-01] MEDS ORDERED: IMDSR30 PO (13:03)
[2017-01-01] MEDS ORDERED: KFL500 PO (13:03)
[2017-01-01] MEDS ORDERED: SRQ25 PO (13:03)
[2017-01-01] MEDS ORDERED: MCRK20 PO (15:12)
[2017-01-01 15:33] VITALS: BP 135/58; PULSE 58; TEMP 37; O2SAT 98
--- NOTE | 2017-01-01 17:53 | Discharge Summary ---
Discharge Summary Date of Service Jan 01, 2017. (Autumn Paul PA-C) Discharge Summary Admission Date: Dec 30, 2016 at 16:14 Discharge Date: Jan 01, 2017 Discharge Disposition: Home with services Principal Diagnosis: Atypical Chest Pain Problems/Secondary Diagnoses: Medical Problems: (1) Acute CHF (2) Acute Diastolic Hrt Failure (3) Acute Venous Embolism & Thrombosis Unsp Deep Vessels Of Le (4) Aortocoronary Bypass (5) Atrial fibrillation, currently in sinus rhythm (6) Congestive Heart Failure Nos (7) Encephalopathy acute (8) Hyperlipidemia Nec/Nos (9) Hypertension (10) Hypertension Nos (11) Mobitz type 2 second degree atrioventricular block Immunizations: Have You Had Influenza Vaccine: Yes Influenza Vaccine Date: Jul 28, 2012 History of Tetanus Vaccine?: Yes History of Pneumococcal: No History of Hepatitis B Vaccine: No Procedures: 1. C-SPINE ROUTINE 4 OR 5 VIEWS CLINICAL HISTORY: Nontraumatic neck pain. COMPARISON STUDY: No previous studies for comparison. FINDINGS: There is minimal anterolisthesis of C3 on C4, C4 on C5 and C5 on C6. There is moderate disc space narrowing with osteophytosis at C6-C7. There is no fracture or suspicious lesion. There is moderate multilevel facet arthrosis. IMPRESSION: 1. No acute cervical spine fracture or subluxation. 2. Moderate degenerative disc disease at C6-C7 and moderate multilevel facet arthrosis. 3. Mild multilevel anterolisthesis of the cervical spine, as described above. 2. FRONTAL CHEST RADIOGRAPH CLINICAL HISTORY: Nontraumatic shoulder and neck pain. COMPARISON STUDY: Chest radiograph April 08, 2016. FINDINGS: There are are median sternotomy wires and a prosthetic aortic valve. Moderate cardiomegaly is unchanged. There is no evidence of pulmonary edema. No pneumothorax or pleural effusion is present. IMPRESSION: 1. No acute findings. 2. No significant change in moderate cardiomegaly. 3. CHEST 2 VIEWS ROUTINE HISTORY: Hypoxic Episodes; H/O Pulm HTN COMPARISON: Chest 12/28/2016. FINDINGS: There are postoperative changes and an aortic valve prosthesis. The heart remains mildly enlarged. No pneumothorax. Progression of the diffuse interstitial thickening most pronounced within the left lung. This suggests mild pulmonary edema. Trace bilateral pleural effusions IMPRESSION: Interval development of mild pulmonary edema and trace bilateral pleural effusions. (Autumn Paul PA-C) Problems/Secondary Diagnoses: acute encephalopathy - toxic vs metabolic vs hospital psychosis - resolved suspected mild cognitive impairment vs early dementia hypothyroidism acute/chronic diastolic CHF CKD stage 3 hypokalemia - resolved cervical spine DJD new onset chronic respiratory failure on home O2; possibly 2nd to pulmonary HTN or undiagnosed lung disease (Sanjeev Regalado MD) Medication Reconciliation New Medications: Cephalexin Monohydrate (Cephalexin) 500 Mg Cap 500 MG PO BID, #7 CAP Take one pill tonight (01/01) then take twice a day until finished Isosorbide Mononitrate (Isosorbide Mononitrate ER) 30 Mg Tabcr 30 MG PO QAM for 30 Days Quetiapine Fumarate (Quetiapine Fumarate) 25 Mg Tab 12.5 MG PO HS PRN for Sleep, #15 TAB Take as needed for sleep disturbances Continued Medications: Aspirin (Aspirin Chewable) 81 Mg Chew 81 MG PO DAILY, TAB Cholecalciferol (Vitamin D3) 2,000 Unit Cap 2000 MG PO DAILY, 3 Refills Cyanocobalamin (Vitamin B-12) 1,000 Mcg Tab 1000 MCG PO DAILY, TAB Furosemide (Lasix) 40 Mg Tab 40 MG PO DAILY, TAB Homeopathic Products (Similasan Dry Eye Relief) 1 Jeevan Jeevan 1 DROP OPB BID Levothyroxine Sodium (Synthroid) 25 Mcg Tab 25 MCG PO DAILYBB, #30 Metoprolol Tartrate (Lopressor) 25 Mg Tab 25 MG PO BID, #60 TAB Nitroglycerin (Nitrostat) 0.4 Mg Tab 0.4 MG UT UD PRN for Chest Pain, BTL Discharge Exam Review of Systems: Constitutional: No chills, No fever Eyes: No worsening of vision ENT: No nasal symptoms, No sore throat, No trouble swallowing Respiratory: + dyspnea on exertion, No cough, No dyspnea at rest Cardiovascular: No chest pain Abdomen: No constipation, No diarrhea, No nausea, No pain, No vomiting Musculoskeletal: No calf pain, No swelling Genitourinary - Female: No dysuria Neurologic: No vertigo Integumentary: No rash Physical Exam: General Appearance: WD/WN, no apparent distress Eyes: sclerae normal ENT: hearing grossly normal Neck: supple, no JVD, trachea midline Respiratory/Chest: lungs clear, normal breath sounds, no respiratory distress, no accessory muscle use Cardiovascular: regular rate, rhythm, no gallop, no murmur Abdomen / GI: normal bowel sounds, non tender, soft Extremities: no calf tenderness, no pedal edema Neurologic/Psychiatric: alert, oriented x 3 Skin: normal color, warm/dry (Autumn Paul, MILLER) Hospital Course ED NOTE: The patient is a 86 year old female who presents to the Emergency Room with complaints of persistent neck and bilateral shoulder pain that began 2 days ago. The patient states that she initially developed left sided chest pain that radiated to the right side of her chest in addition to the neck and shoulder pain while she was at rest. She took 2 Nitro which made her chest pain resolve completely. The chest pain has not come back since then. The Nitro did not help her neck or shoulder pain. She has been using Icy Hot on her neck and shoulders which helps temporarily. Her neck pain was worse with movement to the point that she could not turn her head, but she notes that it is currently not as bad. Past medical history includes heart disease, a-fib, and blood clots. She has a history of an aortic valve replacement and bypass. She takes baby aspirin daily but denies use of other blood thinners. She follows up with Dr. Wood of Cardiology. Pt denies LOC, headache, fevers, chills, diaphoresis, visual changes, breathing difficulties, nausea, vomiting, abdominal pain, back pain, melena, hematochezia, urinary symptoms, numbness, weakness, lymphadenopathy, rash, or other complaints. HOSPITAL COURSE: Ms. Ralph was admitted for chest pain rule out with atypical pain of the neck and shoulders. It is suspected that her pain was more musculoskeletal with some radiation down into the chest. Upon initial admission , only complaint was of this neck pain and shoulder pain which has completely resolved. CT of the cervical spine with evidence of degenerative changes. Please see procedures for official report. Due to her known coronary artery disease she was placed on telemetry for rhythm monitoring. Cardiac enzymes were obtained and negative. No additional echocardiogram or stress testing was warranted. Previous echocardiogram from March 2016 with ejection fraction 55%, normal segmental wall motion, moderate LVH, and right ventricular systolic pressure elevation 40-50 mmHg. Due to inclement weather and concern for patient safety with she was initially unable to be discharged home. Neck pain was treated with lidocaine patch and prednisone 20 mg daily. After administration, patient was noted to be hallucinating. She was able to recall these hallucinations which consisted of bugs crawling around and picture frames moving onto wilson. She contributes this to the lidocaine patch however suspicion is low. Likely this was an episode of sundowning versus prednisone. Patient continued to have occasional sundowning. She was started on Seroquel at bedtime. She was discharged home with a prescription for Seroquel 12.5 mg HS PRN. EKG obtained without evidence of prolonged QT. Is was obtained that did show 1+ bacteria however urine culture without significant growth. She was started on antibiotics and converted to Keflex 500 mg twice a day and a prescription was provided. Due to this finding she was gently hydrated with one 500 mL bolus.The patient experienced a hypoxic episode. Due to her history of pulmonary hypertension a chest x-ray was performed. Report reveals mild pulmonary congestion and trace pleural effusions bilaterally which were not present on initial x-ray on admission. Patient is intermittently compliant with medications and refused several medications during admission. Upon chest x -ray findings she was treated with Lasix 40 mg IV 1 dose. Nitropaste 0.5 inch Q6H initiated. She diuresed sufficiently and was continued on her normal home dose furosemide. She was placed on Imdur 30 mg daily and a prescription was provided. Due to these hypoxic episodes at 2 step was performed. Patient did qualify for oxygen at 1 L with ambulation. A prescription was provided set up with home oxygen. Home health services through [facility] initiated. PT evaluations obtained patient is safe to return home. Patient expresses concern for her who has been showing signs of confusion. She states that he is exhibiting some odd behavior including purchasing a gun online. Updated daughter, who reports that there is a gun in the home but it is appropriately locked up. She has expressed that both of her parents have some underlying dementia. Daughter expresses that she is able to care for both of her parents at home but would benefit from home health services. DVT Prophylaxis: - Heparin 5000 units SC Q8H Code Status: FULL RESUSCITATION Disposition: - PCP follow-up in 7-10 days Total Time Spent: Greater than 30 minutes This includes examination of the patient, discharge planning, medication reconciliation, and communication with other providers. (Autumn Paul PA-C) Attending Attestation: Pt seen & examined and care plan d/w DELIA Paul on the day of discharge. I agree with the santamaria components of her discharge summary. 86yo female with history of CAD, chronic diastolic CHF, and HTN who presented with posterior neck pain that radiated to her b/l shoulders. About 2-3 days prior to presentation she had had a transient episode of chest pain. Work-up while here revealed considerable cervical spine DJD; this was felt to be the cause of her neck/shoulder pain. PMR was not suspected. Cardiac enzymes and telemetry while hospitalized were normal. On the first night of her admission she developed sundowning. This ultimately required the usage of antipsychotics. She responded well to these without side effects or QT prolongation. Cause of her encephalopathy was not entirely known; possibly induced by prednisone, UTI, or simply hospital psychosis. We later found out from her family that she had been having memory issues for at least 6 months at home. Her course was complicated by acute/chronic diastolic CHF. Despite adequate diuresis the patient continued to have an O2 requirement with activity only. Two-step exercise oxygen test demonstrated a need for oxygen with activity. It is possible that her O2 requirement is from pulmonary HTN or, alternatively, an undetermined pulmonary process. Discharge exam: gen - NAD neck - no JVD heart - RRR, s1, s2 lungs - CTA b/l abd - soft, NT ext - no edema psych - a/o x 3 Sanjeev Regalado MD (Sanjeev Regalado MD) Discharge Instructions Please refer to the electronic Patient Visit Report (Discharge Instructions) for additional information. (Autumn Paul, PA-C) Additional Copies To RV. Steele MD
--- NOTE | 2017-02-12 19:21 | History and Physical ---
History & Physical Date & Time of Service: Dec 28, 2016 at 23:09 Chief Complaint: Anterior Chest Wall Pain Primary Care Physician: RV. Steele MD History of Present Illness Source: patient 86 y/o F Hx CAD, diastolic CHF, AVR, pulmonary HTN, LBBB. Pt has had neck and shoulder pain for 3-4 days which is her primary complaint, however she then developed central CP which lasted a few minutes and was relieved by 2 NTG. She denies SOB, N/V, diaphoresis or lightheadedness. Her shoulder and neck pain are exacerbated by movement and came about acutely. Imaging obtained in the ER revealed degenerative disease and arthrosis without acute findings. EKG was unchanged and initial troponin is negative. Past Medical/Surgical History Medical Problems: (1) Acute Diastolic Hrt Failure Status: Resolved (2) Acute Venous Embolism & Thrombosis Unsp Deep Vessels Of Le Status: Resolved (3) Aortocoronary Bypass Status: Resolved (4) Atrial fibrillation, currently in sinus rhythm Status: Resolved (5) Congestive Heart Failure Nos Status: Chronic (6) Hyperlipidemia Nec/Nos Status: Chronic (7) Hypertension Nos Status: Chronic (8) Mobitz type 2 second degree atrioventricular block Status: Resolved Family History Cancer Heart disease Hypertension Kidney disease Social History Smoking Status: Never Smoker Drug Use: none Marital Status: Housing status: lives with family Occupational Status: retired Immunizations History of Influenza Vaccine: Yes Influenza Vaccine Date: Jul 28, 2012 History of Tetanus Vaccine?: Yes History of Pneumococcal: No History of Hepatitis B Vaccine: No Multi-Drug Resistant Organisms History of MDRO: No Allergies Coded Allergies: Amlodipine (Verified Adverse Reaction, Mild, MUSCLE CRAMPS, 12/28/16) Clonidine (Verified Adverse Reaction, Mild, FATIGUE,DIZZINESS, 12/28/16) Diltiazem (Verified Adverse Reaction, Mild, VILLAGOMEZ/DIZZINESS, 12/28/16) Hydralazine (Verified Adverse Reaction, Mild, VILLAGOMEZ/DIZZINESS, 12/28/16) Hydrochlorothiazide w/Triamterene (Verified Adverse Reaction, Mild, DIZZINESS, 12/28/16) Levothyroxine (Verified Adverse Reaction, Mild, MUSCLE CRAMPS, 12/28/16) Valsartan (Verified Adverse Reaction, Mild, DIZZINESS, 12/28/16) CI Pigment Blue 63 (Verified Adverse Reaction, Unknown, NAUSEA, ?STROKE SYMPTOMS, 12/28/16) Lisinopril (Verified Adverse Reaction, Unknown, `, 12/28/16) Nebivolol (Verified Adverse Reaction, Unknown, NAUSEA, ?STROKE SYMPTOMS, ) Sorbitan (Verified Adverse Reaction, Unknown, NAUSEA, ?STROKE SYMPTOMS, ) Yellow Dye (Verified Adverse Reaction, Unknown, NAUSEA, ?STROKE SYMPTOMS, 12/28/16) Home Medications Scheduled Aspirin (Aspirin Chewable), 81 MG PO DAILY Cephalexin Monohydrate (Cephalexin), 500 MG PO BID Cholecalciferol (Vitamin D3), 2,000 MG PO DAILY Cyanocobalamin (Vitamin B-12), 1,000 MCG PO DAILY Furosemide (Lasix), 40 MG PO DAILY Homeopathic Products (Similasan Dry Eye Relief), 1 DROP OPB BID Isosorbide Mononitrate (Isosorbide Mononitrate ER), 30 MG PO QAM Levothyroxine Sodium (Synthroid), 25 MCG PO DAILYBB Metoprolol Tartrate (Lopressor), 25 MG PO BID Scheduled PRN Nitroglycerin (Nitrostat), 0.4 MG UT UD PRN for Chest Pain Quetiapine Fumarate (Quetiapine Fumarate), 12.5 MG PO HS PRN for Sleep Review of Systems Constitutional: No chills, No fever, No sweats Eyes: No eye pain, No worsening of vision ENT: No hearing loss, No nasal symptoms, No unusual epistaxis Respiratory: No cough, No sputum, No wheezing Cardiovascular: + chest pain, No PND, No orthopnea Abdomen: No nausea, No pain, No vomiting Musculoskeletal: + joint pain, + muscle pain, + problem reported (Neck and shoulder pain as above.) Physical Exam Vital Signs Date Time Temp Pulse Resp B/P Pulse Ox O2 Delivery O2 Flow Rate FiO2 12/28/16 22:55 36.8 58 16 182/71 93 Room Air 12/28/16 21:54 37.1 54 16 147/84 92 12/28/16 20:31 54 12/28/16 20:20 61 147/84 92 Room Air 12/28/16 18:44 92 12/28/16 18:38 59 16 175/71 91 Room Air 12/28/16 18:37 95 Room Air 12/28/16 18:37 95 Room Air 12/28/16 18:13 37.1 72 18 202/88 92 Room Air Diagnostics Laboratory Results Results Past 24 Hours Test 12/28/16 19:19 12/28/16 23:00 Range/Units White Blood Count 11.74 4.8-10.8 K/uL Red Blood Count 4.60 4.2-5.4 M/uL Hemoglobin 13.2 12.0-16.0 g/dL Hematocrit 40.1 37-47 % Mean Corpuscular Volume 87.2 80-100 fL Mean Corpuscular Hemoglobin 28.7 25-34 pg Mean Corpuscular Hemoglobin Concent 32.9 32-36 g/dl Platelet Count 178 130-400 K/uL Mean Platelet Volume 11.4 7.4-10.4 fL Neutrophils (%) (Auto) 74.7 % Lymphocytes (%) (Auto) 11.8 % Monocytes (%) (Auto) 10.8 % Eosinophils (%) (Auto) 2.1 % Basophils (%) (Auto) 0.3 % Neutrophils # (Auto) 8.76 1.4-6.5 K/uL Lymphocytes # (Auto) 1.38 1.2-3.4 K/uL Monocytes # (Auto) 1.27 0.11-0.59 K/uL Eosinophils # (Auto) 0.25 0-0.5 K/uL Basophils # (Auto) 0.04 0-0.2 K/uL RDW Standard Deviation 45.9 36.4-46.3 fL RDW Coefficient of Variation 14.4 11.5-14.5 % Immature Granulocyte % (Auto) 0.3 % Immature Granulocyte # (Auto) 0.04 0.00-0.02 K/uL Prothrombin Time 11.0 9.0-12.0 SECONDS Prothromb Time International Ratio 1.0 0.9-1.1 Activated Partial Thromboplast Time 31.3 21.0-31.0 SECONDS Partial Thromboplastin Ratio 1.2 Sodium Level 142 136-145 mmol/L Potassium Level 3.7 3.5-5.1 mmol/L Chloride Level 104 98-107 mmol/L Carbon Dioxide Level 32 21-32 mmol/L Anion Gap 6.0 3-11 mmol/L Blood Urea Nitrogen 16 7-18 mg/dl Creatinine 0.87 0.60-1.20 mg/dl Est Creatinine Clear Calc Drug Dose 44.5 ml/min Estimated GFR () 69.4 Estimated GFR (Non- 59.9 BUN/Creatinine Ratio 18.0 10-20 Random Glucose 108 70-99 mg/dl Calcium Level 8.8 8.5-10.1 mg/dl Magnesium Level 2.0 1.8-2.4 mg/dl Total Bilirubin 0.7 0.2-1 mg/dl Direct Bilirubin 0.2 0-0.2 mg/dl Aspartate Amino Transf (AST/SGOT) 15 15-37 U/L Alanine Aminotransferase (ALT/SGPT) 17 12-78 U/L Alkaline Phosphatase 95 45-117 U/L Total Creatine Kinase 43 26-192 U/L Creatine Kinase MB 0.7 0.5-3.6 ng/ml Creatine Kinase MB Ratio 1.6 0-3.0 Troponin I < 0.015 0-0.045 ng/ml Total Protein 6.8 6.4-8.2 gm/dl Albumin 3.2 3.4-5.0 gm/dl Thyroid Stimulating Hormone (TSH) 4.380 0.300-4.500 uIu/ml Diagnostic Radiology XR cervical 1. No acute cervical spine fracture or subluxation. 2. Moderate degenerative disc disease at C6-C7 and moderate multilevel facet arthrosis. 3. Mild multilevel anterolisthesis of the cervical spine, as described above. Impression Advanced Directives Existing Power of School Lunch Manager: No VTE Prophylaxis VTE Risk Assessment Done? Y/N: Yes Risk Level: Very Low
== END 2017-01-01 16:06 | disposition home health service (06) | DRG 551 ==
LOC: ENRESERVDT → ENRESERVTM → C.EDB 17:48 → C.2T 21:02 → OBSVTOIN 12-30 16:14 → C.2T 12-30 18:39
PROVIDERS: ADMIT Internal Medicine; ATTEND Internal Medicine
DX: M47.892 Other spondylosis, cervical region (principal); I50.33 Acute on chronic diastolic (congestive) heart failure; J96.01 Acute respiratory failure with hypoxia; G93.40 Encephalopathy, unspecified; E87.0 Hyperosmolality and hypernatremia; R07.89 Other chest pain; I27.2 Other secondary pulmonary hypertension; E03.9 Hypothyroidism, unspecified; N18.3 Chronic kidney disease, stage 3 (moderate); I48.0 Paroxysmal atrial fibrillation; R44.1 Visual hallucinations; E78.5 Hyperlipidemia, unspecified; I12.9 Hypertensive chronic kidney disease with stage 1 through stage 4 chronic kidney disease, or unspecified chronic kidney disease; I44.1 Atrioventricular block, second degree; E87.6 Hypokalemia; I25.10 Atherosclerotic heart disease of native coronary artery without angina pectoris; Z86.718 Personal history of other venous thrombosis and embolism; Z95.1 Presence of aortocoronary bypass graft; Z95.2 Presence of prosthetic heart valve

== ENCOUNTER → 2017-02-09 | Outpatient (CLI) | payer OTHER, MEDICARE ==
[~2017-02-09] MED LIST changes: -CALCTAB5 PO; +CEFD1CAP14 PO; +CEFD300C3 PO; +DICL1GEL12 TOP; -FERR325T51 PO; +IMDSR30 PO; +KFL500 PO; +LEVO25TA PO; -MAGN250T3 PO; +METO25TA56 PO; +OXGN; +RIVA1.5T PO; +SRQ25 PO; -SYN25 PO; +VLTG EXT; +XRL15 PO
[2017-02-09 12:26] LABS: BASO % 0.3 %; BASO ABS # 0.03 K/uL (0-0.2); COMPLETE YES; EOS % 4.2 %; HEMATOCRIT 44.5 % (37-47); IG% 0.2 %; LYMPH % 17.7 %; LYMPH ABS # 1.61 K/uL (1.2-3.4); MEAN CELL VOLUME 88.1 fL (80-100); MEAN CORPUSCULAR HEMOGLOBIN 28.5 pg (25-34); MEAN CORPUSCULAR HGB CONC 32.4 g/dl (32-36); MEAN PLATELET VOLUME 11.9 fL (7.4-10.4); MONO % 9.9 %; NEUT % 67.7 %; PLATELET COUNT 207 K/uL (130-400); RED BLOOD COUNT 5.05 M/uL (4.2-5.4); WHITE BLOOD COUNT 9.09 K/uL (4.8-10.8)
[2017-02-09 13:39] LABS: C-REACTIVE PROTEIN 0.36 mg/dl (0-0.29); THYROID STIMULATING HORMONE 5.14 uIu/ml (0.300-4.500)
== END | disposition home or self-care (01) ==
LOC: C.LAB1850 11:08
PROVIDERS: ATTEND Internal Medicine
DX: D64.9 Anemia, unspecified (principal); E55.9 Vitamin D deficiency, unspecified; R53.83 Other fatigue; E03.9 Hypothyroidism, unspecified; E53.8 Deficiency of other specified B group vitamins

== ENCOUNTER → 2017-03-09 | Outpatient (CLI) | payer OTHER, MEDICARE | END | disposition home or self-care (01) | LOC: C.MAMM 10:59 | PROVIDERS: ATTEND Internal Medicine Endocrinology, Diabetes & Metabolism | DX: E55.9 Vitamin D deficiency, unspecified (principal); M85.851 Other specified disorders of bone density and structure, right thigh; M85.852 Other specified disorders of bone density and structure, left thigh ==

== ENCOUNTER 2017-07-07 08:34 | Emergency (ER) | payer OTHER, MEDICARE ==
[~2017-07-07] VITALS: Ht 149.9 cm; Wt 72.0 kg
[~2017-07-07 08:34] MED LIST changes: -CEFD1CAP14 PO; -CEFD300C3 PO; -DICL1GEL12 TOP; -METO25TA56 PO; -OXGN; -RIVA1.5T PO; -VLTG EXT; -XRL15 PO
[2017-07-07 08:43] VITALS: TEMP 37; O2SAT 94; Ht 149.9 cm; Wt 72.0 kg
[2017-07-07] MEDS ORDERED: METOPROLOL TARTRATE 1 MG/ML VIAL IV STA (08:48)
--- NOTE | 2017-07-07 09:20 | EMERGENCY ROOM VISIT NOTE ---
History Report prepared by Oneyda: Miranda Esposito Under the Supervision of: Dr. Don Hernandez M.D. First contact with patient: 08:42 Chief Complaint: CARDIAC ASSESSMENT Stated Complaint: CHEST PAIN History of Present Illness The patient is a 86 year old female who presents to the Emergency Room for a cardiac assessment. The patient developed chest pain/pressure shortly after she woke up this morning. This pain developed about 2 hours prior to her arrival in the ED. She had never experienced pain like this before. She rated her pain as an 8/10 in severity. She was also feeling short of breath. EMS arrived on scene and placed the patient on NC/O2, which improved her symptoms. The patient has a history of an aortic valve replacement and atrial fibrillation/flutter. She denies any history of a previous GA. She denies any recent fevers or chills. small lipoma to the right of the 1_ pretiebaila pedal edema sternotomy scar and to the right of scar has small lipoma. hx of arthiritis. 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 Please see Additional Medical History Sheet. 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 (4) Aortocoronary Bypass (5) Atrial fibrillation, currently in sinus rhythm (6) Congestive Heart Failure Nos (7) Encephalopathy acute (8) Hyperlipidemia Nec/Nos (9) Hypertension (10) Hypertension Nos (11) Mobitz type 2 second degree atrioventricular block Family History Cancer Heart disease Hypertension Kidney disease Social History Smoking Status: Never Smoker Alcohol Use: none Drug Use: none Marital Status: Housing Status: lives with significant other Occupation Status: retired Current/Historical Medications Scheduled Aspirin (Aspirin Chewable), 81 MG PO DAILY Cholecalciferol (Vitamin D3), 2,000 MG PO DAILY Cyanocobalamin (Vitamin B-12), 1,000 MCG PO DAILY Furosemide (Lasix), 40 MG PO DAILY Homeopathic Products (Similasan Dry Eye Relief), 1 DROP OPB BID Allergies Coded Allergies: Amlodipine (Verified Adverse Reaction, Mild, MUSCLE CRAMPS, 07/07/17) Clonidine (Verified Adverse Reaction, Mild, FATIGUE,DIZZINESS, 07/07/17) Diltiazem (Verified Adverse Reaction, Mild, VILLAGOMEZ/DIZZINESS, 07/07/17) Hydralazine (Verified Adverse Reaction, Mild, VILLAGOMEZ/DIZZINESS, 07/07/17) Hydrochlorothiazide w/Triamterene (Verified Adverse Reaction, Mild, DIZZINESS, 07/07/17) Levothyroxine (Verified Adverse Reaction, Mild, MUSCLE CRAMPS, 07/07/17) Valsartan (Verified Adverse Reaction, Mild, DIZZINESS, 07/07/17) CI Pigment Blue 63 (Verified Adverse Reaction, Unknown, NAUSEA, ?STROKE SYMPTOMS, 07/07/17) Lisinopril (Verified Adverse Reaction, Unknown, `, 07/07/17) Nebivolol (Verified Adverse Reaction, Unknown, NAUSEA, ?STROKE SYMPTOMS, ) Sorbitan (Verified Adverse Reaction, Unknown, NAUSEA, ?STROKE SYMPTOMS, ) Yellow Dye (Verified Adverse Reaction, Unknown, NAUSEA, ?STROKE SYMPTOMS, 07/07/17) Physical Exam Vital Signs Date Time Temp Pulse Resp B/P (MAP) Pulse Ox O2 Delivery O2 Flow Rate FiO2 07/07/17 12:10 72 18 169/89 95 07/07/17 11:05 70 16 171/85 07/07/17 10:23 98 16 165/95 07/07/17 09:58 77 16 129/60 94 07/07/17 09:25 73 16 139/71 94 Nasal Cannula 2.0 07/07/17 09:10 86 16 131/103 95 Nasal Cannula 2.0 07/07/17 08:59 99 134/96 07/07/17 08:48 118 07/07/17 08:43 94 Room Air 07/07/17 08:43 37.0 120 16 134/96 94 Room Air Physical Exam GENERAL: Patient awake, alert, oriented x 3. Patient follows commands. Patient does not appear toxic. Patient is adequately hydrated and well- nourished. SKIN: No erythema, pallor, cyanosis or rash HEENT: Normal head, pupils equal, reactive to light and accommodation. Ears normal. Oral cavity and posterior pharynx appear normal. Neck: Without adenopathy, no neck vein distention. LUNGS: Clear to auscultation. No wheezes, no rales, no rhonchi. HEART: Irregularly irregular rate with rapid rhythm. No murmurs. ABDOMEN: No masses, no rebound, no hepatomegaly or splenomegaly. BACK: Patient is kyphotic. EXTREMITIES: No signs of trauma. 1+ pedal/pretibial edema. NEUROLOGIC: Cranial nerves II-XII within normal limits. No gross motor sensory function deficits. Medical Decision & Procedures ER Provider Diagnostic Interpretation: Radiology results as stated below per my review and radiologist interpretation: CHEST ONE VIEW PORTABLE CLINICAL HISTORY: A fib cardiac arrhythmia COMPARISON STUDY: 12/30/2016 FINDINGS: Moderate stable cardiomegaly. Prior median sternotomy. Diaphragms are smooth. Moderate prominence of the pulmonary vasculature considered chronic. IMPRESSION: Chronic and postoperative change. No acute process. The above report was generated using voice recognition software. It may contain grammatical, syntax or spelling errors. Electronically signed by: Rubio Rosa M.D. 07/07/2017 9:19 AM Dictated Date/Time: 07/07/2017 9:19 AM Laboratory Results 07/07/17 09:05 07/07/17 09:05 Test 07/07/17 09:05 07/07/17 10:15 Red Blood Count 4.55 M/uL (4.2-5.4) Mean Corpuscular Volume 90.3 fL (80-100) Mean Corpuscular Hemoglobin 28.8 pg (25-34) Mean Corpuscular Hemoglobin Concent 31.9 g/dl (32-36) RDW Standard Deviation 47.6 fL (36.4-46.3) RDW Coefficient of Variation 14.5 % (11.5-14.5) Mean Platelet Volume 11.2 fL (7.4-10.4) Anion Gap 6.0 mmol/L (3-11) Est Creatinine Clear Calc Drug Dose 39.4 ml/min Estimated GFR () 69.4 Estimated GFR (Non- 59.9 BUN/Creatinine Ratio 23.2 (10-20) Calcium Level 8.9 mg/dl (8.5-10.1) Troponin I 0.018 ng/ml (0-0.045) Thyroid Stimulating Hormone (TSH) 3.120 uIu/ml (0.300-4.500) Urine Color DK YELLOW Urine Appearance CLEAR (CLEAR) Urine pH 5.0 (4.5-7.5) Urine Specific Prospect 1.027 (1.000-1.030) Urine Protein TRACE (NEG) Urine Glucose (UA) NEG (NEG) Urine Ketones NEG (NEG) Urine Occult Blood NEG (NEG) Urine Nitrite NEG (NEG) Urine Bilirubin NEG (NEG) Urine Urobilinogen NEG (NEG) Urine Leukocyte Esterase SMALL (NEG) Urine WBC (Auto) 5-10 /hpf (0-5) Urine RBC (Auto) 0-4 /hpf (0-4) Urine Hyaline Casts (Auto) 1-5 /lpf (0-5) Urine Epithelial Cells (Auto) >30 /lpf (0-5) Urine Bacteria (Auto) 1+ (NEG) Laboratory results as stated above per my review. Medications Administered Medications (Trade) Dose Ordered Sig/Shandra Route Start Time Stop Time Status Last Admin Dose Admin Metoprolol Tartrate (Lopressor Iv) 15 mg NOW STAT IV 07/07/17 08:48 07/07/17 08:50 DC 07/07/17 08:59 5 MG Metoprolol Tartrate (Lopressor Tab) 25 mg NOW STAT PO 07/07/17 10:01 07/07/17 10:02 DC 07/07/17 10:22 25 MG ECG Indication: chest pain Rate (beats per minute): 111 Rhythm: atrial fibrillation Findings: LBBB, left axis deviation ED Course 0842: Past medical records reviewed. The patient was evaluated in room A2. A complete history and physical examination was performed. 0848: Lopressor 15 mg IV 0958: Upon reevaluation the patient is resting comfortably. 1001: Lopressor 25 mg PO 1052: At this time I spoke with Dr. Mendez of cardiology. We discussed the patient's case. We discussed the options of Coumadin or other anticoagulation and he did not feel that it was necessary at this time. He recommended having the patient follow-up as an outpatient. 1055: I reassessed the patient at this time. She is feeling better and resting comfortably. I discussed the results and treatment plan with the patient. I answered all pertaining questions that she had. She expressed understanding and verbalized agreement. The patient will be discharged home after we arrange outpatient follow-up with cardiology. 1129: The patient has a follow-up appointment scheduled with cardiology. She was feeling well and was discharged home. Medical Decision Differential diagnoses includes A-fib, A-flutter, GA, metabolic disorder. Review of old records reveals a prior history of intermittent atrial fibrillation/atrial flutter. The patient was in a sinus rhythm recently. The patient arrived here with atrial fibrillation with a rate of around 140. Rate was controlled with 3 doses of metoprolol 5 mg IV. The patient was also given an oral dose of Metoprolol 25 mg. Multiple labs, EKG and imaging were obtained. Please see above. Blood sugar is elevated to 172. The patient was observed in the ED for approximately 3 hours. I discussed care with Dr. Mendez. We discussed options regarding anticoagulation but opted to wait and not prescribe those medications at this time.. The patient will be discharged and followed up with cardiology this week. Medication Reconcilliation Current Medication List: was personally reviewed by me Blood Pressure Screening Patient's blood pressure: Normal blood pressure Consults Time Called: 1052 Consulting Physician: Dr. Mendez Returned Call: [phone] At this time I spoke with Dr. Mendez of cardiology. We discussed the patient's case. We discussed the options of Coumadin or other anticoagulation and he did not feel that it was necessary at this time. He recommended having the patient follow-up as an outpatient. Impression Primary Impression: Atrial fibrillation Scribe Attestation The scribe's documentation has been prepared under my direction and personally reviewed by me in its entirety. I confirm that the note above accurately reflects all work, treatment, procedures, and medical decision making performed by me. Departure Information Dispostion Home / Self-Care Referrals RV. Steele MD (PCP) Forms IMPORTANT VISIT INFORMATION Patient Instructions My [facility] Additional Instructions Follow-up with cardiology this week as scheduled. Continue all of your current medications as prescribed. Return here sooner if you develop chest pain, shortness of breath or a fast heart rate. Problem Qualifiers Primary Impression: Atrial fibrillation Atrial fibrillation type: unspecified Qualified Codes: I48.91 - Unspecified atrial fibrillation
[2017-07-07 09:23] LABS: HEMATOCRIT 41.1 % (37-47); MEAN CELL VOLUME 90.3 fL (80-100); MEAN CORPUSCULAR HEMOGLOBIN 28.8 pg (25-34); MEAN CORPUSCULAR HGB CONC 31.9 g/dl (32-36); MEAN PLATELET VOLUME 11.2 fL (7.4-10.4); PLATELET COUNT 181 K/uL (130-400); RED BLOOD COUNT 4.55 M/uL (4.2-5.4); WHITE BLOOD COUNT 8.79 K/uL (4.8-10.8)
[2017-07-07 09:42] LABS: BUN/CREATININE RATIO 23.2 (10-20); CALCIUM 8.9 mg/dl (8.5-10.1); CREATININE 0.87 mg/dl (0.60-1.20); POTASSIUM 3.8 mmol/L (3.5-5.1)
[2017-07-07 09:52] LABS: THYROID STIMULATING HORMONE 3.12 uIu/ml (0.300-4.500)
[2017-07-07] MEDS ORDERED: METOPROLOL TARTRATE 50 MG TAB PO STA (10:01)
[2017-07-07 10:36] LABS: MANUAL MICROSCOPIC REQUIRED? NO; REVIEW REQ? NO; URINE APPEARANCE CLEAR (CLEAR); URINE BILIRUBIN NEG (NEG); URINE COLOR DK YELLOW; URINE EPITHELIAL CELL AUTO >30 /lpf (0-5); URINE NITRITE NEG (NEG); URINE SPECIFIC GRAVITY 1.027 (1.000-1.030); UROBILINOGEN NEG (NEG); ZZUR CULT IF INDIC CLEAN CATCH YES
[2017-07-07 12:10] VITALS: BP 169/89; PULSE 72; O2SAT 95
[2017-07-18] MEDS ORDERED: CEFD300C3 PO (14:29)
[2017-07-18] MEDS ORDERED: VLTG EXT (14:29)
[2017-07-18] MEDS ORDERED: OXGN (14:41)
== END 2017-07-07 12:10 | disposition home or self-care (01) ==
LOC: EDBD 08:34 → C.EDA 08:38
DX: I48.91 Unspecified atrial fibrillation (principal); I10 Essential (primary) hypertension; E78.5 Hyperlipidemia, unspecified; I50.9 Heart failure, unspecified; I50.30 Unspecified diastolic (congestive) heart failure; G93.40 Encephalopathy, unspecified; Z95.1 Presence of aortocoronary bypass graft; Z86.718 Personal history of other venous thrombosis and embolism; Z79.82 Long term (current) use of aspirin; Z79.899 Other long term (current) drug therapy; Z88.8 Allergy status to other drugs, medicaments and biological substances; Z91.018 Allergy to other foods

== ENCOUNTER 2017-07-13 09:44 | Inpatient (IN) | payer OTHER, MEDICARE ==
[~2017-07-13] VITALS: Ht 154.9 cm; Wt 68.1 kg
[~2017-07-13 09:44] MED LIST changes: -IMDSR30 PO; -KFL500 PO; -LEVO25TA PO; -LPR25 PO; -NTRGSL/4 UT; -SRQ25 PO
[2017-07-13 10:18] LABS: BASO % 0.2 %; BASO ABS # 0.02 K/uL (0-0.2); COMPLETE YES; EOS % 2.7 %; HEMATOCRIT 40.7 % (37-47); IG% 0.2 %; LYMPH % 10.2 %; LYMPH ABS # 1.02 K/uL (1.2-3.4); MEAN CELL VOLUME 89.8 fL (80-100); MEAN CORPUSCULAR HEMOGLOBIN 29.1 pg (25-34); MEAN CORPUSCULAR HGB CONC 32.4 g/dl (32-36); MEAN PLATELET VOLUME 11.4 fL (7.4-10.4); MONO % 9.9 %; NEUT % 76.8 %; PLATELET COUNT 189 K/uL (130-400); RED BLOOD COUNT 4.53 M/uL (4.2-5.4); WHITE BLOOD COUNT 9.98 K/uL (4.8-10.8)
[2017-07-13 10:27] LABS: INR 1.3 (0.9-1.1); PARTIAL THROMBOPLASTIN RATIO 1.4; PROTHROMBIN TIME (PATIENT) 14.6 SECONDS (9.0-12.0)
[2017-07-13] MEDS ORDERED: METOPROLOL TARTRATE 1 MG/ML VIAL IV STA (10:29)
--- NOTE | 2017-07-13 10:33 | DIAGNOSTIC IMAGING REPORT ---
CHEST ONE VIEW PORTABLE HISTORY: 86 years-old Female EVALUATE WEAKNESS acute weakness with shortness of breath. COMPARISON: Chest radiograph 07/07/2017 TECHNIQUE: Portable upright AP view of the chest FINDINGS: Cardiac silhouette is again mildly enlarged. Prior median sternotomy. There is atherosclerosis of the aorta. No pneumothorax or large pleural effusion identified. Only vascular congestion is noted with background interstitial coarsening which appears chronic. Linear subsegmental opacities are present of the bilateral lung bases with blunting right costophrenic angle suggesting atelectasis. Calcifications about the bilateral humeral heads are noted suggesting calcific tendinosis or calcific bursitis. IMPRESSION: 1. Cardiomegaly with mild pulmonary vascular congestion and progressive linear bibasilar opacities suggesting atelectasis. 2. No lobar airspace consolidation to suggest pneumonia. The above report was generated using voice recognition software. It may contain grammatical, syntax or spelling errors. Electronically signed by: Fortino Mcallister M.D. 07/13/2017 10:31 AM Dictated Date/Time: 07/13/2017 10:27 AM
[2017-07-13 10:35] LABS: ALT/SGPT 57 U/L (12-78); BLOOD UREA NITROGEN 16 mg/dl (7-18); CALCIUM 8.8 mg/dl (8.5-10.1); CARBON DIOXIDE 27 mmol/L (21-32); CHLORIDE 108 mmol/L (98-107); CREATININE 0.93 mg/dl (0.60-1.20); GLUCOSE 126 mg/dl (70-99); MAGNESIUM 2.2 mg/dl (1.8-2.4); POTASSIUM 4.1 mmol/L (3.5-5.1); SODIUM 143 mmol/L (136-145)
[2017-07-13 10:46] LABS: ALKALINE PHOSPHATASE 112 U/L (45-117); AST/SGOT 35 U/L (15-37); CKMB/CK RATIO 3.8 (0-3.0)
[2017-07-13] MEDS ORDERED: RIVA1.5T PO (11:12)
[2017-07-13] MEDS ORDERED: METO25TA56 PO (11:12)
[2017-07-13] MEDS ORDERED: DIGOXIN 0.125 MG TAB PO ONE (13:00)
[2017-07-13 13:35] VITALS: O2SAT 94; Ht 154.9 cm; Wt 68.1 kg
[2017-07-13] MEDS ORDERED: ACETAMINOPHEN 325 MG TAB PO PRN (13:45)
[2017-07-13] MEDS ORDERED: NITROGLYCERIN 0.4 MG SL PER TAB CHARGE SL PRN (13:45)
[2017-07-13] MEDS ORDERED: METOPROLOL TARTRATE 50 MG TAB PO ONE (13:54)
[2017-07-13] MEDS ORDERED: METOPROLOL TARTRATE 1 MG/ML VIAL IV PRN (14:00)
[2017-07-13] MEDS ORDERED: DIGOXIN 0.25 MG TAB PO ONE (14:30)
[2017-07-13] MEDS ORDERED: INFLUENZA ADMINISTRATION CHARGE ONE (14:45)
[2017-07-13] MEDS ORDERED: INFLUENZA VACCINE HIGH DOSE 65+ 0.5 ML SYR IM. ONE (14:45)
--- NOTE | 2017-07-13 15:01 | EMERGENCY ROOM VISIT NOTE ---
History Report prepared by Oneyda: Ronn Noguera Under the Supervision of: Dr. Arnaldo Toro M.D. First contact with patient: 09:54 Chief Complaint: TACHYCARDIA Stated Complaint: DIFFICULTING BREATHING W/EXERTION, TACHYCARDIA History of Present Illness The patient is a 86 year old female who presents to the Emergency Room with complaints of constant tachycardia starting yesterday. The patient additionally states that she has been short of breath. The patient has a history of A-fib with RVR on June 06 which lasted for about a day. Afterwards, she was put on Xarelto. She states that she has a bovine aortic valve. She states that it is worse with exertion, and improved with rest, and she states that laying down does not make it worse. The patient additionally has a history of atrial flutter , left bundle branch block, and CHF. Pt denies LOC, headache, dizziness, fevers , chills, diaphoresis, visual changes, neck pain, chest pain, nausea, vomiting, abdominal pain, back pain, leg swelling, leg pain, melena, hematochezia, urinary symptoms, numbness, weakness, lymphadenopathy, rash, or other complaints. Source of History: patient Onset: Position: other (heart) Quality: other (tachycardia) Timing: constant Modifying Factors (Worsening): exertion Modifying Factors (Relieving): rest Associated Symptoms: + SOB Review of Systems See HPI for pertinent positives and negatives. A total of ten systems were reviewed and were otherwise negative. 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 (4) Aortocoronary Bypass (5) Atrial fibrillation, currently in sinus rhythm (6) Congestive Heart Failure Nos (7) Encephalopathy acute (8) Hyperlipidemia Nec/Nos (9) Hypertension (10) Hypertension Nos (11) Mobitz type 2 second degree atrioventricular block (12) SVT (supraventricular tachycardia) Family History Cancer Heart disease Hypertension Kidney disease Social History Smoking Status: Never Smoker Alcohol Use: none Drug Use: none Marital Status: Housing Status: lives with significant other Occupation Status: retired Current/Historical Medications Scheduled Aspirin (Aspirin Chewable), 81 MG PO DAILY Cholecalciferol (Vitamin D3), 2,000 MG PO DAILY Cyanocobalamin (Vitamin B-12), 1,000 MCG PO DAILY Furosemide (Lasix), 40 MG PO DAILY Homeopathic Products (Similasan Dry Eye Relief), 1 DROP OPB BID Metoprolol Tartrate (Lopressor) (Lopressor), 25 MG PO BID Rivaroxaban (Xarelto), 15 MG PO BID Allergies Coded Allergies: Amlodipine (Verified Adverse Reaction, Mild, MUSCLE CRAMPS, 07/13/17) Clonidine (Verified Adverse Reaction, Mild, FATIGUE,DIZZINESS, 07/13/17) Diltiazem (Verified Adverse Reaction, Mild, VILLAGOMEZ/DIZZINESS, 07/13/17) Hydralazine (Verified Adverse Reaction, Mild, VILLAGOMEZ/DIZZINESS, 07/13/17) Hydrochlorothiazide w/Triamterene (Verified Adverse Reaction, Mild, DIZZINESS, 07/13/17) Levothyroxine (Verified Adverse Reaction, Mild, MUSCLE CRAMPS, 07/13/17) Valsartan (Verified Adverse Reaction, Mild, DIZZINESS, 07/13/17) CI Pigment Blue 63 (Verified Adverse Reaction, Unknown, NAUSEA, ?STROKE SYMPTOMS, 07/13/17) Lisinopril (Verified Adverse Reaction, Unknown, `, 07/13/17) Nebivolol (Verified Adverse Reaction, Unknown, NAUSEA, ?STROKE SYMPTOMS, ) Sorbitan (Verified Adverse Reaction, Unknown, NAUSEA, ?STROKE SYMPTOMS, ) Yellow Dye (Verified Adverse Reaction, Unknown, NAUSEA, ?STROKE SYMPTOMS, 07/13/17) Physical Exam Vital Signs Date Time Temp Pulse Resp B/P (MAP) Pulse Ox O2 Delivery O2 Flow Rate FiO2 07/13/17 14:18 94 117/87 95 Nasal Cannula 2.0 07/13/17 14:16 88 07/13/17 14:08 88 21 133/103 95 Room Air 07/13/17 13:35 94 Nasal Cannula 2.0 07/13/17 13:06 122 07/13/17 12:59 Nasal Cannula 2.0 07/13/17 12:59 120 89 Room Air 07/13/17 12:00 92 16 128/89 95 Nasal Cannula 2.0 07/13/17 11:45 114 20 142/91 95 Room Air 07/13/17 11:08 88 18 118/85 97 Nasal Cannula 2.0 07/13/17 11:02 84 18 129/79 98 Nasal Cannula 2.0 07/13/17 10:45 88 137/74 07/13/17 10:28 89 07/13/17 10:21 95 Nasal Cannula 2.0 07/13/17 10:15 95 Nasal Cannula 2.0 07/13/17 10:15 95 Nasal Cannula 2.0 07/13/17 10:10 91 Room Air 07/13/17 10:09 123 07/13/17 09:50 36.6 127 20 164/93 95 Room Air Physical Exam GENERAL: Awake, alert, tired-appearing, in no distress HENT: Normocephalic, atraumatic. Oropharynx unremarkable. EYES: Normal conjunctiva. Sclera non-icteric. NECK: Supple. No nuchal rigidity. FROM. No JVD. RESPIRATORY: Clear to auscultation. CARDIAC: Tachycardic rate, irregular rhythm. Extremities warm and well perfused. Pulses equal. ABDOMEN: Soft, non-distended. No tenderness to palpation. No rebound or guarding. No masses. RECTAL: Deferred. MUSCULOSKELETAL: Chest examination reveals no tenderness. The back is symmetrical on inspection without obvious abnormality. There is no CVA tenderness to palpation. No joint edema. LOWER EXTREMITIES: Calves are equal size bilaterally and non-tender. No edema. No discoloration. NEURO: Normal sensorium. No sensory or motor deficits noted. SKIN: No rash or jaundice noted. Medical Decision & Procedures ER Provider Diagnostic Interpretation: Radiology results as stated below per my review and radiologist interpretation: CHEST ONE VIEW PORTABLE HISTORY: 86 years-old Female EVALUATE WEAKNESS acute weakness with shortness of breath. COMPARISON: Chest radiograph 07/07/2017 TECHNIQUE: Portable upright AP view of the chest FINDINGS: Cardiac silhouette is again mildly enlarged. Prior median sternotomy. There is atherosclerosis of the aorta. No pneumothorax or large pleural effusion identified. Only vascular congestion is noted with background interstitial coarsening which appears chronic. Linear subsegmental opacities are present of the bilateral lung bases with blunting right costophrenic angle suggesting atelectasis. Calcifications about the bilateral humeral heads are noted suggesting calcific tendinosis or calcific bursitis. IMPRESSION: 1. Cardiomegaly with mild pulmonary vascular congestion and progressive linear bibasilar opacities suggesting atelectasis. 2. No lobar airspace consolidation to suggest pneumonia. The above report was generated using voice recognition software. It may contain grammatical, syntax or spelling errors. Electronically signed by: Fortino Mcallister M.D. 07/13/2017 10:31 AM Dictated Date/Time: 07/13/2017 10:27 AM Laboratory Results 07/13/17 10:05 Red Blood Count 4.53, Mean Corpuscular Volume 89.8, Mean Corpuscular Hemoglobin 29.1, Mean Corpuscular Hemoglobin Concent 32.4, Mean Platelet Volume 11.4, Neutrophils (%) (Auto) 76.8, Lymphocytes (%) (Auto) 10.2, Monocytes (%) (Auto) 9.9, Eosinophils (%) (Auto) 2.7, Basophils (%) (Auto) 0.2, Neutrophils # (Auto) 7.66, Lymphocytes # (Auto) 1.02, Monocytes # (Auto) 0.99, Eosinophils # (Auto) 0.27, Basophils # (Auto) 0.02 07/13/17 10:05 Test 07/13/17 10:05 White Blood Count 9.98 K/uL (4.8-10.8) Red Blood Count 4.53 M/uL (4.2-5.4) Hemoglobin 13.2 g/dL (12.0-16.0) Hematocrit 40.7 % (37-47) Mean Corpuscular Volume 89.8 fL (80-100) Mean Corpuscular Hemoglobin 29.1 pg (25-34) Mean Corpuscular Hemoglobin Concent 32.4 g/dl (32-36) Platelet Count 189 K/uL (130-400) Mean Platelet Volume 11.4 fL (7.4-10.4) Neutrophils (%) (Auto) 76.8 % Lymphocytes (%) (Auto) 10.2 % Monocytes (%) (Auto) 9.9 % Eosinophils (%) (Auto) 2.7 % Basophils (%) (Auto) 0.2 % Neutrophils # (Auto) 7.66 K/uL (1.4-6.5) Lymphocytes # (Auto) 1.02 K/uL (1.2-3.4) Monocytes # (Auto) 0.99 K/uL (0.11-0.59) Eosinophils # (Auto) 0.27 K/uL (0-0.5) Basophils # (Auto) 0.02 K/uL (0-0.2) RDW Standard Deviation 48.5 fL (36.4-46.3) RDW Coefficient of Variation 14.8 % (11.5-14.5) Immature Granulocyte % (Auto) 0.2 % Immature Granulocyte # (Auto) 0.02 K/uL (0.00-0.02) Prothrombin Time 14.6 SECONDS (9.0-12.0) Prothromb Time International Ratio 1.3 (0.9-1.1) Activated Partial Thromboplast Time 37.0 SECONDS (21.0-31.0) Partial Thromboplastin Ratio 1.4 Anion Gap 8.0 mmol/L (3-11) Est Creatinine Clear Calc Drug Dose 38.3 ml/min Estimated GFR () 64.0 Estimated GFR (Non- 55.3 BUN/Creatinine Ratio 17.0 (10-20) Calcium Level 8.8 mg/dl (8.5-10.1) Magnesium Level 2.2 mg/dl (1.8-2.4) Total Bilirubin 0.7 mg/dl (0.2-1) Direct Bilirubin 0.3 mg/dl (0-0.2) Aspartate Amino Transf (AST/SGOT) 35 U/L (15-37) Alanine Aminotransferase (ALT/SGPT) 57 U/L (12-78) Alkaline Phosphatase 112 U/L (45-117) Total Creatine Kinase 55 U/L (26-192) Creatine Kinase MB 2.1 ng/ml (0.5-3.6) Creatine Kinase MB Ratio 3.8 (0-3.0) Troponin I < 0.015 ng/ml (0-0.045) Total Protein 6.7 gm/dl (6.4-8.2) Albumin 3.2 gm/dl (3.4-5.0) Thyroid Stimulating Hormone (TSH) 2.790 uIu/ml (0.300-4.500) Digoxin Level 0.1 ng/ml (0.8-2.0) Laboratory results reviewed by me Medications Administered Medications (Trade) Dose Ordered Sig/Shandra Route Start Time Stop Time Status Last Admin Dose Admin Metoprolol Tartrate (Lopressor Iv) 2.5 mg NOW STAT IV 07/13/17 10:29 07/13/17 10:30 DC 07/13/17 10:45 2.5 MG Digoxin (Lanoxin Tab) 0.125 mg NOW ONCE PO 07/13/17 13:00 07/13/17 13:01 DC 07/13/17 13:06 0.125 MG Metoprolol Tartrate (Lopressor Tab) 50 mg 1354 ONCE PO 07/13/17 13:54 07/13/17 13:55 DC 07/13/17 14:16 50 MG ECG Indication: tachycardia Rate (beats per minute): 123 Rhythm: atrial flutter Findings: LBBB, no acute ischemic change, left axis deviation ED Course 1018: The patient was evaluated in room A9. A complete history and physical exam was performed. 1029: Lopressor IV 2.5mg IV 1229: I discussed the patient's case with Dr. Jones, Cardiology, and recommends oral digoxin. If the patient can ambulate and is doing well, the she can go home and follow up with him. If she does not do well, then she should be evaluated by the hospitalist. 1240: I reevaluated the patient, and she was doing well. 1300: Digoxin Tab 0.125mg PO 1319: I reevaluated her, and she did not do well on her ambulation trial. I updated the patient on the treatment plan, and she was agreeable. 1410: Discussed the patient's case with Dr. Kang, [facility]. The patient will be evaluated for further treatment and disposition. Medical Decision Triage Nursing notes reviewed. The patient's presentation and history were concerning for rapid A. fib and shortness of breath. Etiologies such as dysrhythmia, pneumonia, COPD, reactive airway disease, CHF, cardiac ischemia, pulmonary embolism, pneumothorax, musculoskeletal, infections , gastrointestinal, as well as others were entertained. The patient was evaluated. She was in rapid A. fib. She was given 2.5 mg of IV Lopressor. She was observed. Her blood work was unremarkable. Chest x-ray as above. The patient had a consultation placed with cardiology. Digoxin and outpatient follow-up was recommended if the patient could tolerate exertion. The patient had an ambulatory trial performed and was found that developed hypoxia and tachycardia. Because of this she will need further evaluation and management in the hospital. She was given a dose of oral digoxin. Consultation was made with internal medicine. The patient was evaluated in the Emergency Room for further management. Medication Reconcilliation Current Medication List: was personally reviewed by me Blood Pressure Screening Patient's blood pressure: Normal blood pressure Consults Time Called: 1223 Consulting Physician: Dr. Jones Returned Call: 1221 I discussed the patient's case with Dr. Jones, Cardiology, and recommends oral digoxin. If the patient can ambulate and is doing well, the she can go home and follow up with him. If she does not do well, then she should be evaluated by the hospitalist. Additional Consults: Time Called: 1324 Consulted Physician: Dr. Kang Returned Call: [phone] Additional Comments: Discussed the patient's case with Dr. Kang, [facility]. The patient will be evaluated for further treatment and disposition. Impression Primary Impression: Atrial fibrillation with rapid ventricular response Scribe Attestation The scribe's documentation has been prepared under my direction and personally reviewed by me in its entirety. I confirm that the note above accurately reflects all work, treatment, procedures, and medical decision making performed by me. Departure Information Dispostion Being Evaluated By Hospitalist Referrals RV. Steele MD (PCP) Patient Instructions My [facility]
[2017-07-13 15:15] VITALS: BP 170/108; PULSE 122; TEMP 36.6; O2SAT 100
[2017-07-13] MEDS ORDERED: PNEUMOCOCCAL ADMINISTRATION CHARGE ONE (15:30)
[2017-07-13] MEDS ORDERED: PNEUMOCOCCAL POLYSACCHARIDES 25 MCG/0.5 ML VIAL/SYR IM. ONE (15:30)
[2017-07-13] MEDS: NSS + 20MEQ KCL 1000ML 1,000 ML IV SCH (15:47)
--- NOTE | 2017-07-13 17:44 | Cardiology Consultation ---
Cardiology Consultation Date of Consultation: Jul 13, 2017. Requesting Physician: Elisabeth Reason for Consultation: tachycardia Pt evaluation today including: conversation w/ patient, physical exam, chart review, lab review, review of studies, conversation w/ investment consultant History of Present Illness The patient is an 86-year-old woman with remote history of atrial fibrillation who was evaluated in [facility] Emergency room on the 07 of July for tachycardia, palpitations and dyspnea on exertion. She was discovered to have atrial fibrillation. She received some beta blockers in the emergency room was discharged with follow-up the following day in the clinic. At that visit she was felt to still be in atrial fibrillation and advised to start anticoagulation and digoxin. Patient did start anticoagulation but not digoxin. She states her approximately 2 days she felt well and had resume most of her usual activity. However earlier today she developed worsening shortness of breath with exertion and rapid heart rates. She presented to the emergency room again today and was noted to have a tachycardia described as atrial fibrillation. The patient was administered a very small dose of the metoprolol and then ambulated. She continues to have rapid rates with ambulation and dyspnea with exertion. She states that she does not have notable dizziness or lightheadedness associated with these episodes. She has not suffered a syncopal episode. She denies any associated chest pain or chest discomfort. She states that she does become slightly while [place] when she ambulates but is limited mostly by the dyspnea and tachycardia. In general she is an active woman who is accustomed to gardening and reading. She is able to perform routine activity with minimal limitation. She does not report limiting dyspnea or exertional chest discomfort. Generally speaking she is not aware of any palpitations. She denies any dyspnea at rest. She has no orthopnea or paroxysmal nocturnal dyspnea. She has not described any swelling in her lower extremities. Past Medical/Surgical History Aortic valve disease status post replacement Anemia Bradycardia Cataracts Hypertension Hyperlipidemia Atrial fibrillation Hypothyroidism Nephrolithiasis Sleep apnea Surgical history Bioprosthetic aortic valve replacement in 2002 Hysterectomy Knee surgery Family History Cancer Heart disease Hypertension Kidney disease Hypertension Social History Smoking Status: Never Smoker History of Alcohol Use: No Patient currently lives with her who has progressive dementia Review of Systems Constitutional: + see HPI Respiratory: + see HPI Cardiac: + see HPI Female : + see HPI Neurologic: + see HPI Heme: + see HPI Skin: + see HPI All Other Systems: Reviewed and Negative Allergies Coded Allergies: Amlodipine (Verified Adverse Reaction, Mild, MUSCLE CRAMPS, 07/13/17) Clonidine (Verified Adverse Reaction, Mild, FATIGUE,DIZZINESS, 07/13/17) Diltiazem (Verified Adverse Reaction, Mild, VILLAGOMEZ/DIZZINESS, 07/13/17) Hydralazine (Verified Adverse Reaction, Mild, VILLAGOMEZ/DIZZINESS, 07/13/17) Hydrochlorothiazide w/Triamterene (Verified Adverse Reaction, Mild, DIZZINESS, 07/13/17) Levothyroxine (Verified Adverse Reaction, Mild, MUSCLE CRAMPS, 07/13/17) Valsartan (Verified Adverse Reaction, Mild, DIZZINESS, 07/13/17) CI Pigment Blue 63 (Verified Adverse Reaction, Unknown, NAUSEA, ?STROKE SYMPTOMS, 07/13/17) Lisinopril (Verified Adverse Reaction, Unknown, `, 07/13/17) Nebivolol (Verified Adverse Reaction, Unknown, NAUSEA, ?STROKE SYMPTOMS, ) Sorbitan (Verified Adverse Reaction, Unknown, NAUSEA, ?STROKE SYMPTOMS, ) Yellow Dye (Verified Adverse Reaction, Unknown, NAUSEA, ?STROKE SYMPTOMS, 07/13/17) Medications Current Inpatient Medications Medications (Trade) Dose Ordered Sig/Shandra Route Start Time Stop Time Status Last Admin Dose Admin Potassium Chloride/Sodium Chloride 1,000 ml @ 100 mls/hr Q10H IV 07/13/17 16:00 08/12/17 15:59 07/13/17 15:47 100 MLS/HR Acetaminophen (Tylenol Tab) 650 mg Q4H PRN PO 07/13/17 13:45 08/12/17 13:44 Nitroglycerin (Nitrostat Tab) 0.4 mg UD PRN SL 07/13/17 13:45 08/12/17 13:44 Aspirin (Ecotrin Tab) 81 mg QAM PO 07/14/17 09:00 08/13/17 08:59 Cyanocobalamin (Vitamin B-12 Tab) 1,000 mcg DAILY PO 07/14/17 09:00 08/13/17 08:59 Metoprolol Tartrate (Lopressor Tab) 50 mg BID PO 07/13/17 21:00 08/12/17 20:59 Rivaroxaban (Xarelto Tab) 15 mg BID PO 07/13/17 21:00 08/12/17 20:59 Cholecalciferol (Vitamin D Tab) 2,000 inter.unit QAM PO 07/14/17 09:00 08/13/17 08:59 Metoprolol Tartrate (Lopressor Iv) 5 mg Q4 PRN IV 07/13/17 14:00 08/12/17 13:59 Physical Exam Vital Signs Past 12 Hours Date Time Temp Pulse Resp B/P (MAP) Pulse Ox O2 Delivery O2 Flow Rate FiO2 07/13/17 16:34 118 07/13/17 15:15 36.6 122 20 170/108 (128) 100 Nasal Cannula 2.0 07/13/17 15:02 90 20 146/99 94 Nasal Cannula 2.0 07/13/17 14:18 94 117/87 95 Nasal Cannula 2.0 07/13/17 14:16 88 07/13/17 14:08 88 21 133/103 95 Room Air 07/13/17 13:35 94 Nasal Cannula 2.0 07/13/17 13:06 122 07/13/17 12:59 Nasal Cannula 2.0 07/13/17 12:59 120 89 Room Air 07/13/17 12:00 92 16 128/89 95 Nasal Cannula 2.0 07/13/17 11:45 114 20 142/91 95 Room Air 07/13/17 11:08 88 18 118/85 97 Nasal Cannula 2.0 07/13/17 11:02 84 18 129/79 98 Nasal Cannula 2.0 07/13/17 10:45 88 137/74 07/13/17 10:28 89 07/13/17 10:21 95 Nasal Cannula 2.0 07/13/17 10:15 95 Nasal Cannula 2.0 07/13/17 10:15 95 Nasal Cannula 2.0 07/13/17 10:10 91 Room Air 07/13/17 10:09 123 07/13/17 09:50 36.6 127 20 164/93 95 Room Air She is alert and oriented x3. Mood affect appear normal. She answered all questions appropriately. HEENT: Sclerae are anicteric. Pupils are equal and reactive to light and accommodation. Extraocular movements were intact. Neuro: Cranial nerves intact Neck: Examination of the submandibular region did not reveal any significant lymphadenopathy. Carotids are palpable bilaterally and free of bruits on auscultation. There was no evidence of jugular venous distention. The thyroid was not enlarged. Lungs: Lungs are clear to auscultation bilaterally. There are no rales wheezes or rhonchi. She has normal respiratory effort without use of accessory muscles. There is normal pulmonary excursion. Chest: She has well-healed sternotomy scar. Cardiac: The rhythm was irregular. S1 and S2 were normal. S2 is crisp. There are no murmurs on examination. The PMI was not markedly displaced on palpation. Abdomen: The abdomen was soft and nontender. Extremities: Patient has bilateral radial pulses that are equal in intensity. There is no evidence cyanosis or clubbing. There was no evidence of significant peripheral edema bilaterally. Skin: There are no rashes noted on examination today. Data Laboratory Results: Last 24 Hours Test 07/13/17 10:05 White Blood Count 9.98 K/uL Red Blood Count 4.53 M/uL Hemoglobin 13.2 g/dL Hematocrit 40.7 % Mean Corpuscular Volume 89.8 fL Mean Corpuscular Hemoglobin 29.1 pg Mean Corpuscular Hemoglobin Concent 32.4 g/dl Platelet Count 189 K/uL Mean Platelet Volume 11.4 fL Neutrophils (%) (Auto) 76.8 % Lymphocytes (%) (Auto) 10.2 % Monocytes (%) (Auto) 9.9 % Eosinophils (%) (Auto) 2.7 % Basophils (%) (Auto) 0.2 % Neutrophils # (Auto) 7.66 K/uL Lymphocytes # (Auto) 1.02 K/uL Monocytes # (Auto) 0.99 K/uL Eosinophils # (Auto) 0.27 K/uL Basophils # (Auto) 0.02 K/uL RDW Standard Deviation 48.5 fL RDW Coefficient of Variation 14.8 % Immature Granulocyte % (Auto) 0.2 % Immature Granulocyte # (Auto) 0.02 K/uL Prothrombin Time 14.6 SECONDS Prothromb Time International Ratio 1.3 Activated Partial Thromboplast Time 37.0 SECONDS Partial Thromboplastin Ratio 1.4 Sodium Level 143 mmol/L Potassium Level 4.1 mmol/L Chloride Level 108 mmol/L Carbon Dioxide Level 27 mmol/L Anion Gap 8.0 mmol/L Blood Urea Nitrogen 16 mg/dl Creatinine 0.93 mg/dl Est Creatinine Clear Calc Drug Dose 38.3 ml/min Estimated GFR () 64.0 Estimated GFR (Non- 55.3 BUN/Creatinine Ratio 17.0 Random Glucose 126 mg/dl Calcium Level 8.8 mg/dl Magnesium Level 2.2 mg/dl Total Bilirubin 0.7 mg/dl Direct Bilirubin 0.3 mg/dl Aspartate Amino Transf (AST/SGOT) 35 U/L Alanine Aminotransferase (ALT/SGPT) 57 U/L Alkaline Phosphatase 112 U/L Total Creatine Kinase 55 U/L Creatine Kinase MB 2.1 ng/ml Creatine Kinase MB Ratio 3.8 Troponin I < 0.015 ng/ml Total Protein 6.7 gm/dl Albumin 3.2 gm/dl Thyroid Stimulating Hormone (TSH) 2.790 uIu/ml Digoxin Level 0.1 ng/ml Imaging: Chest x-ray did not demonstrate any acute cardiopulmonary process EKG: Consistent with atrial flutter and left bundle branch block Telemetry reviewed: Atrial flutter with variable ventricular response Echocardiogram performed on 04/09/2016: Normal left ventricular systolic function. Normal aortic valve gradient. Moderate to severe mitral annular calcification with [id number] mitral regurgitation. Assessment & Plan 1. Atrial flutter: Patient had atrial fibrillation during her last evaluation emergency room. She reports having had 2 days of feeling better. Whether she converted at that time or simply had improved rate control is not clear. Her symptoms appear to worsen today and her rhythm upon presentation with atrial flutter. This is much more difficult to control and is not likely to resolve on its own. More aggressive rate control would likely be ineffective and has the potential to cause significant bradycardia upon conversion. I think for the current rhythm the best strategy would be cardioversion. I discussed with the patient the option for cardioversion including the risks benefits and alternatives. Given the abbreviated duration of her anticoagulation she would require a FIDEL prior to any cardioversion to exclude clot in the left atrial appendage. I described this to her will plan on proceeding tomorrow. She should be maintained on her current dose of Xarelto which is appropriately dose for her renal function. Long-term, she is likely to be more aggressive therapy. She will have additional episodes of atrial fibrillation and possibly atrial flutter. More aggressive rate control would be hampered by her baseline bradycardia. I did describe the potential need for a pacemaker in the future based on any recurrent episodes and difficulty with rate control. While some patients would be a candidate for a a flutter ablation, with her history of atrial fibrillation this would likely be less satisfactory. Attempts at rhythm control could be made. Once again given her baseline bradycardia agents such as sotalol, amiodarone or dronedarone would be less desirable. Dofetilide would be possible but her renal function is slightly compromise based on her GFR calculation. 2. Valvular heart disease: Patient has a normally functioning bioprosthetic valve. She also had an element of mitral valve disease and her last evaluation in 2015. We will re-evaluate the valve tomorrow. She is not likely to be a candidate for any mitral valve surgery given her advanced age and prior history. However, this may give us some information regarding her risk of recurrent atrial arrhythmias.
[2017-07-13 20:00] VITALS: BP 142/42; PULSE 84; TEMP 37; O2SAT 96
--- NOTE | 2017-07-13 20:16 | History and Physical ---
History & Physical Date & Time of Service: Jul 13, 2017 at 20:05 Chief Complaint: SVT Primary Care Physician: RV. Steele MD History of Present Illness Source: patient The patient is an 86-year-old female with PMH of atrial flutter, left bundle branch block, CHF, A. fib with RVR, who presents emergency department with increased heart rate since early yesterday, accompanied by shortness of breath. She has a history of A. fib with RVR on June 06, he was placed on Xarelto at that time. Her tachycardia is worse with activity, and is improved by rest. Past Medical/Surgical History Medical Problems: (1) Acute Diastolic Hrt Failure Status: Resolved (2) Acute Venous Embolism & Thrombosis Unsp Deep Vessels Of Le Status: Resolved (3) Aortocoronary Bypass Status: Resolved (4) Atrial fibrillation, currently in sinus rhythm Status: Resolved (5) Congestive Heart Failure Nos Status: Chronic (6) Hyperlipidemia Nec/Nos Status: Chronic (7) Hypertension Nos Status: Chronic (8) Mobitz type 2 second degree atrioventricular block Status: Resolved Family History Cancer Heart disease Hypertension Kidney disease Social History Smoking Status: Never Smoker Smokeless Tobacco Use: No Alcohol Use: none Drug Use: none Marital Status: Housing status: lives with family Occupational Status: retired Immunizations History of Influenza Vaccine: Yes Influenza Vaccine Date: Jul 28, 2012 History of Tetanus Vaccine?: Yes History of Pneumococcal: No History of Hepatitis B Vaccine: No Multi-Drug Resistant Organisms History of MDRO: No Allergies Coded Allergies: Amlodipine (Verified Adverse Reaction, Mild, MUSCLE CRAMPS, 07/13/17) Clonidine (Verified Adverse Reaction, Mild, FATIGUE,DIZZINESS, 07/13/17) Diltiazem (Verified Adverse Reaction, Mild, VILLAGOMEZ/DIZZINESS, 07/13/17) Hydralazine (Verified Adverse Reaction, Mild, VILLAGOMEZ/DIZZINESS, 07/13/17) Hydrochlorothiazide w/Triamterene (Verified Adverse Reaction, Mild, DIZZINESS, 07/13/17) Levothyroxine (Verified Adverse Reaction, Mild, MUSCLE CRAMPS, 07/13/17) Valsartan (Verified Adverse Reaction, Mild, DIZZINESS, 07/13/17) CI Pigment Blue 63 (Verified Adverse Reaction, Unknown, NAUSEA, ?STROKE SYMPTOMS, 07/13/17) Lisinopril (Verified Adverse Reaction, Unknown, `, 07/13/17) Nebivolol (Verified Adverse Reaction, Unknown, NAUSEA, ?STROKE SYMPTOMS, ) Sorbitan (Verified Adverse Reaction, Unknown, NAUSEA, ?STROKE SYMPTOMS, ) Yellow Dye (Verified Adverse Reaction, Unknown, NAUSEA, ?STROKE SYMPTOMS, 07/13/17) Home Medications Scheduled Aspirin (Aspirin Chewable), 81 MG PO DAILY Cholecalciferol (Vitamin D3), 2,000 MG PO DAILY Cyanocobalamin (Vitamin B-12), 1,000 MCG PO DAILY Furosemide (Lasix), 40 MG PO DAILY Homeopathic Products (Similasan Dry Eye Relief), 1 DROP OPB BID Metoprolol Tartrate (Lopressor) (Lopressor), 25 MG PO BID Rivaroxaban (Xarelto), 15 MG PO BID Review of Systems The patient denies chest pain, cough, lower extremity swelling, vision change, hearing change, sore throat, fevers, chills, sweats, weight change, fatigue, nausea, vomiting, diarrhea or constipation, abdominal pain, pelvic pain, blood in urine or stool, dysuria, urinary frequency or urgency, lightheadedness, dizziness, headache, memory loss, rash, abnormal bruising or bleeding, imbalance , focal or generalized weakness, numbness or tingling in arms or legs, generalized arthralgias or myalgias, back or neck pain, night sweats, or allergy symptoms. The review of systems is otherwise negative other than for that already noted above, and at least 10 systems have been reviewed. Physical Exam Vital Signs Date Time Temp Pulse Resp B/P (MAP) Pulse Ox O2 Delivery O2 Flow Rate FiO2 07/13/17 16:34 118 07/13/17 15:15 36.6 122 20 170/108 (128) 100 Nasal Cannula 2.0 07/13/17 15:02 90 20 146/99 94 Nasal Cannula 2.0 07/13/17 14:18 94 117/87 95 Nasal Cannula 2.0 07/13/17 14:16 88 07/13/17 14:08 88 21 133/103 95 Room Air 07/13/17 13:35 94 Nasal Cannula 2.0 07/13/17 13:06 122 07/13/17 12:59 Nasal Cannula 2.0 07/13/17 12:59 120 89 Room Air 07/13/17 12:00 92 16 128/89 95 Nasal Cannula 2.0 07/13/17 11:45 114 20 142/91 95 Room Air 07/13/17 11:08 88 18 118/85 97 Nasal Cannula 2.0 07/13/17 11:02 84 18 129/79 98 Nasal Cannula 2.0 07/13/17 10:45 88 137/74 07/13/17 10:28 89 07/13/17 10:21 95 Nasal Cannula 2.0 07/13/17 10:15 95 Nasal Cannula 2.0 07/13/17 10:15 95 Nasal Cannula 2.0 07/13/17 10:10 91 Room Air 07/13/17 10:09 123 07/13/17 09:50 36.6 127 20 164/93 95 Room Air The patient is awake, well-developed and adequately nourished, alert and oriented 3, normocephalic and atraumatic, lying in bed and in no acute distress. HEENT--PERRL, EOMI, mucous membranes and oropharynx dry. Neck--supple, no JVD or bruits, thyroid normal, trachea midline, no adenopathy. Heart--tachycardic, no murmurs, rubs or gallops. Lungs--clear bilaterally with good air movement, no respiratory distress, no accessory muscle use. Abdomen--normal bowel sounds and soft, nontender and nondistended, no hernias or masses, no organomegaly. Extremities--no cyanosis, clubbing or edema. There are good distal pulses b/l. Dermatologic--normal skin turgor, normal color, warm and dry, no abnormal lymph nodes, no rash. Neurologic--cranial nerves II through XII grossly intact, motor and sensory examination normal. Rheumatologic--normal range of motion, nontender, muscles and joints. Psychiatric--normal affect. Diagnostics Laboratory Results Results Past 24 Hours Test 07/13/17 10:05 07/13/17 17:44 Range/Units White Blood Count 9.98 4.8-10.8 K/uL Red Blood Count 4.53 4.2-5.4 M/uL Hemoglobin 13.2 12.0-16.0 g/dL Hematocrit 40.7 37-47 % Mean Corpuscular Volume 89.8 80-100 fL Mean Corpuscular Hemoglobin 29.1 25-34 pg Mean Corpuscular Hemoglobin Concent 32.4 32-36 g/dl Platelet Count 189 130-400 K/uL Mean Platelet Volume 11.4 7.4-10.4 fL Neutrophils (%) (Auto) 76.8 % Lymphocytes (%) (Auto) 10.2 % Monocytes (%) (Auto) 9.9 % Eosinophils (%) (Auto) 2.7 % Basophils (%) (Auto) 0.2 % Neutrophils # (Auto) 7.66 1.4-6.5 K/uL Lymphocytes # (Auto) 1.02 1.2-3.4 K/uL Monocytes # (Auto) 0.99 0.11-0.59 K/uL Eosinophils # (Auto) 0.27 0-0.5 K/uL Basophils # (Auto) 0.02 0-0.2 K/uL RDW Standard Deviation 48.5 36.4-46.3 fL RDW Coefficient of Variation 14.8 11.5-14.5 % Immature Granulocyte % (Auto) 0.2 % Immature Granulocyte # (Auto) 0.02 0.00-0.02 K/uL Prothrombin Time 14.6 9.0-12.0 SECONDS Prothromb Time International Ratio 1.3 0.9-1.1 Activated Partial Thromboplast Time 37.0 21.0-31.0 SECONDS Partial Thromboplastin Ratio 1.4 Sodium Level 143 136-145 mmol/L Potassium Level 4.1 3.5-5.1 mmol/L Chloride Level 108 98-107 mmol/L Carbon Dioxide Level 27 21-32 mmol/L Anion Gap 8.0 3-11 mmol/L Blood Urea Nitrogen 16 7-18 mg/dl Creatinine 0.93 0.60-1.20 mg/dl Est Creatinine Clear Calc Drug Dose 38.3 ml/min Estimated GFR () 64.0 Estimated GFR (Non- 55.3 BUN/Creatinine Ratio 17.0 10-20 Random Glucose 126 70-99 mg/dl Calcium Level 8.8 8.5-10.1 mg/dl Magnesium Level 2.2 1.8-2.4 mg/dl Total Bilirubin 0.7 0.2-1 mg/dl Direct Bilirubin 0.3 0-0.2 mg/dl Aspartate Amino Transf (AST/SGOT) 35 15-37 U/L Alanine Aminotransferase (ALT/SGPT) 57 12-78 U/L Alkaline Phosphatase 112 45-117 U/L Total Creatine Kinase 55 26-192 U/L Creatine Kinase MB 2.1 0.5-3.6 ng/ml Creatine Kinase MB Ratio 3.8 0-3.0 Troponin I < 0.015 0-0.045 ng/ml Total Protein 6.7 6.4-8.2 gm/dl Albumin 3.2 3.4-5.0 gm/dl Thyroid Stimulating Hormone (TSH) 2.790 0.300-4.500 uIu/ml Digoxin Level 0.1 0.8-2.0 ng/ml Microbiology Results 07/13/17 MRSA DNA Surveillance Screen, Received Pending Diagnostic Radiology Patient Name: CORONA SUNG Unit Number: [id number] Dictated: 07/13/171026 Transcribed: 07/13/171026 JRB Printed Date/Time: [~ rep prt dt]/[~ rep prt tm] [~ rep ct labl] - [~ rep ct ivnm] [facility] Radiology Department [place], [place] [id number] Dictated: 07/13/171026 Transcribed: 07/13/171026 JRB Printed Date/Time: [~ rep prt dt]/[~ rep prt tm] [~ rep ct labl] - [~ rep ct ivnm] [~ rep ct add3]] CHEST ONE VIEW PORTABLE HISTORY: 86 years-old Female EVALUATE WEAKNESS acute weakness with shortness of breath. COMPARISON: Chest radiograph 07/07/2017 TECHNIQUE: Portable upright AP view of the chest FINDINGS: Cardiac silhouette is again mildly enlarged. Prior median sternotomy. There is atherosclerosis of the aorta. No pneumothorax or large pleural effusion identified. Only vascular congestion is noted with background interstitial coarsening which appears chronic. Linear subsegmental opacities are present of the bilateral lung bases with blunting right costophrenic angle suggesting atelectasis. Calcifications about the bilateral humeral heads are noted suggesting calcific tendinosis or calcific bursitis. IMPRESSION: 1. Cardiomegaly with mild pulmonary vascular congestion and progressive linear bibasilar opacities suggesting atelectasis. 2. No lobar airspace consolidation to suggest pneumonia. The above report was generated using voice recognition software. It may contain grammatical, syntax or spelling errors. Electronically signed by: Fortino Mcallister M.D. 07/13/2017 10:31 AM Dictated Date/Time: 07/13/2017 10:27 AM The status of this report is Signed. Draft = Not yet reviewed or approved by Radiologist. Signed = Reviewed and approved by Radiologist. <AttendingPhy></AttendingPhy> <FamilyPhy>Asael Wood M.D.</FamilyPhy> < PrimaryPhy>RV. Steele MD</PrimaryPhy> <UnitNumber>[id number]</ UnitNumber> <VisitNumber>[id number]</VisitNumber> <PatientName>CORONA SUNG </PatientName> <DateOfBirth>1930</DateOfBirth> <Location>[facility]</Location> <ServiceDate>07/13/17</ServiceDate> <MNE>ESINDI</MNE> <OrderingPhy>Arnaldo Toro MD</OrderingPhy> <OrderingPhyMNE>f rep ord dr plunkett</OrderingPhyMNE> < DictatingPhyMNE>f rep dict dr plunkett</DictatingPhyMNE> <CCListMNE>f rep ct dimitrios</ CCListMNE> <AdmittingPhyMNE>f pt admit dr plunkett</AdmittingPhyMNE> <AttendingPhyMNE >f pt attend dr plunkett</AttendingPhyMNE> <ConsultingPhyMNE>f pt consult dr plunkett</ConsultingPhyMNE> <FamilyPhyMNE>f pt fam dr plunkett</FamilyPhyMNE> <OtherPhyMNE>f pt other dr plunkett</OtherPhyMNE> < PrimaryPhyMNE>f pt prim care dr plunkett</PrimaryPhyMNE> <ReferringPhyMNE>f pt referring dr plunkett</ReferringPhyMNE> EKG EKG shows atrial flutter with 2-1 heart block at 123 bpm, left axis deviation, left bundle branch block. Impression Assessment and Plan Atrial flutter with 2-1 heart block/left axis deviation/left bundle-branch block /A. fib with RVR history/CHF-- The patient will be admitted to telemetry for serial cardiac enzymes, cardiac rhythm monitoring and a 2-D echocardiogram with Dopplers. Continue aspirin chewable 81 mg by mouth daily, furosemide 40 mg by mouth daily , and Xarelto 15 mg by mouth twice a day. Increased metoprolol tartrate from 25 mg twice a day to 50 mg by mouth twice a day. Vitamin B12 deficiency-- Continue supplement 1000 g by mouth daily. Level of Care Telemetry Advanced Directives Existing Advance Directive: No Existing Living Will: Yes Existing Power of Piping Manager: No Resuscitation Status FULL RESUSCITATION VTE Prophylaxis VTE Risk Assessment Done? Y/N: Yes Risk Level: Moderate Given or contraindicated: Other Anticoagulation (Xarelto)
[2017-07-13] MEDS: RIVAROXABAN TAB 15 MG TAB PO SCH (20:18)
[2017-07-13] MEDS: METOPROLOL TARTRATE 50 MG TAB PO SCH (20:18)
--- NOTE | 2017-07-13 20:22 | Progress Note ---
Progress Note Date of Service Jul 13, 2017. Progress Note 86 year old lady previously with excellent functional capacity for her age presented with increasing SMITH and was found to be AFlutter with RVR. She is planned for FIDEL and cardioversion due to insufficient duration of anticoagulation. 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 Labs and studies were reviewed. On exam the patient is now rate controlled but remains in AFlutt. She is edentulous and her airway exam is reassuring. I discussed the anesthesia plan and addressed all patient concerns regarding risks and benefits. Consent was obtained. 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
[2017-07-13 21:27] LABS: CKMB/CK RATIO 3.9 (0-3.0)
[2017-07-13 23:40] VITALS: BP 132/99; PULSE 95; TEMP 36.7; O2SAT 90
[2017-07-13 23:59] VITALS: O2SAT 92
[2017-07-14] VITALS (13 sets, daily range): BP systolic 124–170; BP diastolic 58–98; PULSE 51–117; TEMP 36.5–37.1; O2SAT 89–96
[2017-07-14] MEDS: NSS + 20MEQ KCL 1000ML 1,000 ML IV SCH ×2 (01:12→11:59)
[2017-07-14] MEDS ORDERED: LIDOCAINE HCL 2% 2 ML VIAL (20MG/ML) ONE (07:17)
[2017-07-14] MEDS ORDERED: PROPOFOL IV EMULSION 10 MG/ML 20 ML VIAL IV ONE (07:18)
--- NOTE | 2017-07-14 07:52 | Procedure Note ---
Procedure Note Date of Service Jul 14, 2017. Procedure Note Procedure performed: Electrocardioversion Staff can line examiner: Red Jones MD Indication: The patient is an 86-year-old woman with a history of atrial fibrillation who presented to [facility] with symptomatic atrial flutter. Based on her symptoms and difficulty controlling her rate she was advised to consider cardioversion Procedure in detail: The patient was informed of the risks benefits and alternatives to the intended procedure. She understood such which proceed. She was taken to the cardiac catheterization holding area. A general anesthetic was administered by the Anesthesiology Service. Once appropriately anesthetized the patient underwent an initial cardioversion from atrial flutter to atrial fibrillation with 30 joules delivered in a biphasic fashion. Atrial fibrillation with subsequent converted to normal sinus rhythm with additional application of 200 joules delivered in a biphasic fashion. This returned the patient to sinus rhythm. Subsequent to the procedure the patient appeared to be neurologically intact. The rhythm was confirmed with an EKG. There are no immediate complications. Impression: Successful cardioversion from atrial flutter to sinus rhythm Plan: Patient will need to be maintained on her daily dose of Xarelto I would reduce her metoprolol to her prior dose of 25 milligrams twice daily
--- NOTE | 2017-07-14 08:59 | Anesthesiology Progress Note ---
Anesthesia Post Op Note Date & Time Jul 14, 2017 at 08:58 Vital Signs Pain Intensity: 0 Vital Signs Past 12 Hours Date Time Temp Pulse Resp B/P (MAP) Pulse Ox O2 Delivery O2 Flow Rate FiO2 07/14/17 08:10 53 18 125/55 (78) 92 Nasal Cannula 6 07/14/17 08:00 53 18 138/55 (82) 90 Nasal Cannula 6 07/14/17 07:50 53 18 124/55 (78) 90 Nasal Cannula 6 07/14/17 07:45 51 20 126/61 89 Nasal Cannula 6 07/14/17 07:40 106 20 124/61 90 Nasal Cannula 6 07/14/17 07:35 115 20 170/98 93 Nasal Cannula 6 07/14/17 07:30 106 20 156/95 93 Nasal Cannula 6 07/14/17 07:25 117 18 164/92 93 Nasal Cannula 6 07/14/17 04:00 92 4.0 07/14/17 04:00 36.5 93 24 126/87 (100) 92 Nasal Cannula 4.0 07/13/17 23:59 92 2.0 07/13/17 23:50 119 07/13/17 23:40 36.7 95 20 132/99 (110) 90 Nasal Cannula 2.0 Notes Mental Status: alert / awake / arousable, participated in evaluation Pt Amnestic to Procedure: Yes Nausea / Vomiting: adequately controlled Pain: adequately controlled Airway Patency, RR, SpO2: stable & adequate BP & HR: stable & adequate Hydration State: stable & adequate Anesthetic Complications: no major complications apparent
[2017-07-14] MEDS: METOPROLOL TARTRATE 50 MG TAB PO SCH (09:00)
--- NOTE | 2017-07-14 10:56 | Clinical Documentation Query ---
CLINICAL DOCUMENTATION QUERY QUERY 1 OF 2 86 year old female who presents to the Emergency Room with complaints of constant tachycardia starting yesterday. The patient additionally states that she has been short of breath. In your clinical opinion is this patient being managed for: ( X) Acute on chronic diastolic (congestive) heart failure ( ) Not Agree ( ) Other explanation of clinical findings (Please Explain) ( ) Unable to determine (Please Define) ( ) Need to Discuss The medical record reflects the following clinical findings, treatment, and risk factors. Clinical Indicators: Atrial flutter with 2-1 heart block/left axis deviation/left bundle-branch block/A. fib with RVR history/documented history of chronic diastolic CHF/ HTN/shortness of breath with hypoxia (89% RA) Treatment: O2, monitor, I&O, home lasix PO Risk Factors: Age/A-flutter with RVR/hx A-Fib/chronic diastolic CHF QUERY 2 OF 2 Chronic Kidney Disease (CKD), stages 1-5. Documenting the stage of CKD will improve data integrity and will help clarify vague terms such as "renal insufficiency" or "chronic renal failure." The stages of CKD according to the [employer] are as follows: Stage I: GFR >90 Stage II: GFR 60-89 Stage III: GFR 30-59 Stage IV: GFR 15-29 Stage V: GFR <15 The patient's GFR is 55.3. In your clinical opinion is this patient being managed for: ( X ) Chronic kidney disease, stage 3 ( ) Not Agree Please clarify and document your clinical opinion in the progress notes and discharge summary. Terms such as "probable", "suspected", "likely", "questionable", "possible", or "still to be ruled out" are acceptable. IF IN AGREEMENT, YOU MUST DOCUMENT ABOVE DIAGNOSTIC STATEMENT IN DAILY PROGRESS NOTES AND DISCHARGE SUMMARY. This document is not part of the patient's record. Thank You, Blanca Colvin RN [phone]
[2017-07-14] MEDS ORDERED: NURSING VERBAL MED ORDER ONE (11:45)
--- NOTE | 2017-07-14 11:56 | TEE ---
*NOTICE TO RECEIVING CONSTITUTION PARTY AGENCY This information is strictly Confidential and protected under [place] law. [place] law prohibits you from making any further disclosure of this information unless further disclosure is expressly permitted by the written consent of the person to whom it pertains or is authorized by law. A general authorization for the release of medical or other information is not sufficient for this purpose. Hospital accepts no responsibility if the information is made available to any other person, INCLUDING THE PATIENT. Interpretation Summary * Name: CORONA SUNG Study Date: 07/14/2017 07:14 AM BP: 168/102 mmHg * Patient Location: .MSICU\S\E111\S\1 HR: 115 * : 1930 (M/d/yyy) Gender: Female Height: 61 in * Age: 86 yrs Ethnicity: [place] Weight: 155 lb * Ordering Physician: Christopher. Jones MD * Performed By: Stephanie Hewitt * * Reason For Study: A-FLUTTER * BSA: 1.7 m2 * -- Conclusions -- * There is a bioprosthetic aortic valve. * There is mild to moderate mitral regurgitation. * No thrombus is detected in the left atrial appendage. * Left ventricular systolic function is normal. * There is moderate concentric left ventricular hypertrophy. Procedure Details * The transesophageal portion of this study was personally supervised by the undersigned interpreting physician. * FIDEL Probe #1 utilized for procedure. * The study was performed in Cardiac Catheterization Lab. * Time out was conducted by the physician, nurse, and technology adoption manager with positive identification of patient and procedure. * Informed consent for Transesophageal Echocardiogram was obtained prior to the procedure. * An intravenous line was placed. A topical anesthetic agent was used for oropharangeal anesthesia. A bite block was inserted. * Sedation performed by the anesthesia department. * The patient's vital signs, including blood pressure, heart rate, pulse oximetry and cardiac rhythm were monitored throughout the procedure . * Start time was 7:26am 10mg of lidocaine and 50mg of propofol was used during the test. End time was 7:39am. * A multifrequency, multiplane transesopheageal echocardiographic endoscope was inserted and manipulated in the standard fashion to achieve multiplane views. * The transesophageal probe was passed without difficulty. * Limited views were obtained. * The patient tolerated the procedure well without evidence of orophangeal or esophageal trauma. * A 2D transesophageal echocardiogram with spectral and color flow Doppler was performed. * A 2D transesophageal echocardiogram was performed. * A 2D transesophageal echocardiogram with color flow Doppler was performed. * A 2D transesophageal echocardiogram with Doppler and color flow Doppler was performed. Left Ventricle * The left ventricle is grossly normal size. * There is moderate concentric left ventricular hypertrophy. * Left ventricular systolic function is normal. Atria * The left atrium is borderline dilated. * No thrombus is detected in the left atrial appendage. * Right atrial size is normal. * The interatrial septum is intact with no evidence for an atrial septal defect. Mitral Valve * The mitral valve leaflets appear thickened, but open well. * There is mild to moderate mitral regurgitation. Tricuspid Valve * The tricuspid valve anatomy is normal. * There is mild tricuspid regurgitation. Aortic Valve * There is no significant aortic regurgitation. * There is a bioprosthetic aortic valve. Pericardium * There is no pericardial effusion. Right Ventricle * The right ventricular wall motion is normal.
[2017-07-14] MEDS: METOPROLOL TARTRATE 25 MG TAB PO SCH ×2 (11:58→20:44)
[2017-07-14] MEDS: RIVAROXABAN TAB 15 MG TAB PO SCH (11:58)
[2017-07-14] MEDS: CYANOCOBALAMIN 500 MCG TAB (VIT B-12) PO SCH (11:59)
[2017-07-14] MEDS: CHOLECALCIFEROL 1000 INTER.UNIT TAB PO SCH (11:59)
[2017-07-14] MEDS: ASPIRIN 81 MG ECTAB PO SCH (11:59)
--- NOTE | 2017-07-14 12:24 | Cardiology Follow-Up ---
Subjective Date of Service: Jul 14, 2017. Pt evaluation today including: conversation w/ patient, physical exam, chart review, lab review, conversation w/ attending History of Present Illness She is feeling well after her cardioversion. She claims to be tired and not sleep well last night. She denies any breathing difficulty currently she has no symptoms of discomfort. Social History Smoking Status: Never Smoker History of Alcohol Use: No Review of Systems Respiratory: + see HPI Cardiac: + see HPI Objective Vital Signs Past 12 Hours Date Time Temp Pulse Resp B/P (MAP) Pulse Ox O2 Delivery O2 Flow Rate FiO2 07/14/17 08:30 36.5 52 25 146/79 (101) 95 Nasal Cannula 4.0 07/14/17 08:30 96 Nasal Cannula 4.0 07/14/17 08:10 53 18 125/55 (78) 92 Nasal Cannula 6 07/14/17 08:00 53 18 138/55 (82) 90 Nasal Cannula 6 07/14/17 07:50 53 18 124/55 (78) 90 Nasal Cannula 6 07/14/17 07:45 51 20 126/61 89 Nasal Cannula 6 07/14/17 07:40 106 20 124/61 90 Nasal Cannula 6 07/14/17 07:35 115 20 170/98 93 Nasal Cannula 6 07/14/17 07:30 106 20 156/95 93 Nasal Cannula 6 07/14/17 07:25 117 18 164/92 93 Nasal Cannula 6 07/14/17 04:00 92 4.0 07/14/17 04:00 36.5 93 24 126/87 (100) 92 Nasal Cannula 4.0 Last Recorded Weight-Kilograms: 67.500 Physical Exam She is alert and oriented x3. Mood affect appear normal. She answered all questions appropriately. HEENT: Sclerae are anicteric. Pupils are equal and reactive to light and accommodation. Extraocular movements were intact. Neuro: Cranial nerves intact Neck: Examination of the submandibular region did not reveal any significant lymphadenopathy. Carotids are palpable bilaterally and free of bruits on auscultation. There was no evidence of jugular venous distention. The thyroid was not enlarged. Lungs: Lungs are clear to auscultation bilaterally. There are no rales wheezes or rhonchi. She has normal respiratory effort without use of accessory muscles. There is normal pulmonary excursion. Chest: She has well-healed sternotomy scar. Cardiac: The rhythm was regular with occasional ectopy. S1 and S2 were normal. S2 is crisp. There are no murmurs on examination. The PMI was not markedly displaced on palpation. Abdomen: The abdomen was soft and nontender. Extremities: Patient has bilateral radial pulses that are equal in intensity. There is no evidence cyanosis or clubbing. There was no evidence of significant peripheral edema bilaterally. Skin: There are no rashes noted on examination today. Data Laboratory Results: Last 24 Hours Test 07/13/17 20:53 Total Creatine Kinase 36 U/L Creatine Kinase MB 1.4 ng/ml Creatine Kinase MB Ratio 3.9 Troponin I 0.021 ng/ml Telemetry reviewed: Currently in sinus rhythm Assessment and Plan 1. Atrial flutter: Converted from atrial flutter to atrial fibrillation today. Subsequent cardioversion returned her to sinus rhythm. Reviewed to see a significant improvement in her symptoms that she has not yet been out of bed. She has relatively slow heart rate and is not a good candidate for any increase in her beta-leslie dose. Her returned to 25 mg twice daily and she should be discharged on this dose. If she has recurrent episodes of atrial flutter or fibrillation she may require permanent pacing in order to facilitate more adequate rate control or even antiarrhythmic therapy. He should be maintained on her current dose of Xarelto. I think if she is ambulatory later today and has no oxygen requirement she could be discharged home. 2. Valvular heart disease: Aortic valve appeared well functioning on her echocardiogram today. He has [id number] mitral regurgitation.
[2017-07-14] MEDS ORDERED: FUROSEMIDE INJ 40 MG in SYRINGE 0 ML IV SCH (13:45)
[2017-07-14] MEDS ORDERED: XRL15 PO (15:25)
[2017-07-14 22:15] LABS: URINE APPEARANCE CLEAR (CLEAR); URINE BILIRUBIN NEG (NEG); URINE COLOR YELLOW; URINE NITRITE NEG (NEG); URINE SPECIFIC GRAVITY 1.016 (1.000-1.030); UROBILINOGEN NEG (NEG)
[2017-07-14 22:16] LABS: MANUAL MICROSCOPIC REQUIRED? NO; REVIEW REQ? NO
--- NOTE | 2017-07-14 23:57 | Progress Note ---
Subjective Date of Service: Jul 14, 2017. Subjective Pt evaluation today including: conversation w/ patient, physical exam, chart review, lab review, review of studies (echo), conversation w/ medical cost consultant ( cardiology) Pain: denies PO Intake: npo s/p cardioversion Voiding: no voiding problems patient successfully cardioverted this am from a. flutter to a. fib and finally NSR she is in sinus sayda during my visit staff have noted O2 requirement she denies any dyspnea during my assessment Problem List Medical Problems: (1) Atrial fibrillation Status: Acute (2) Atrial fibrillation with rapid ventricular response Status: Acute (3) Hypothyroidism Status: Acute (4) Left sided chest pain Status: Acute (5) Neck pain Status: Acute (6) Palpitations Status: Acute (7) Rapid atrial fibrillation Status: Acute (8) Substernal chest pain Status: Acute Review of Systems Constitutional: No fever Respiratory: No shortness of breath Cardiac: No chest pain Abdomen: No pain Objective Vital Signs Date Time Temp Pulse Resp B/P (MAP) Pulse Ox O2 Delivery O2 Flow Rate FiO2 07/14/17 20:12 37.1 76 23 162/86 (111) 94 Nasal Cannula 2.0 07/14/17 20:00 93 Nasal Cannula 2.0 07/14/17 16:15 36.7 60 22 143/58 (86) 93 Nasal Cannula 2.0 07/14/17 16:00 93 Nasal Cannula 2.0 07/14/17 12:00 96 Nasal Cannula 2.0 07/14/17 08:30 36.5 52 25 146/79 (101) 95 Nasal Cannula 4.0 07/14/17 08:30 96 Nasal Cannula 4.0 07/14/17 08:10 53 18 125/55 (78) 92 Nasal Cannula 6 07/14/17 08:00 53 18 138/55 (82) 90 Nasal Cannula 6 07/14/17 07:50 53 18 124/55 (78) 90 Nasal Cannula 6 07/14/17 07:45 51 20 126/61 89 Nasal Cannula 6 07/14/17 07:40 106 20 124/61 90 Nasal Cannula 6 07/14/17 07:35 115 20 170/98 93 Nasal Cannula 6 07/14/17 07:30 106 20 156/95 93 Nasal Cannula 6 07/14/17 07:25 117 18 164/92 93 Nasal Cannula 6 07/14/17 04:00 92 4.0 07/14/17 04:00 36.5 93 24 126/87 (100) 92 Nasal Cannula 4.0 07/13/17 23:59 92 2.0 07/13/17 23:50 119 Physical Exam General Appearance: no apparent distress ENT: pharynx normal Neck: + JVD Respiratory/Chest: no respiratory distress, no accessory muscle use, + rales ( fine, both bases (mild)) Cardiovascular: no gallop, no murmur, + bradycardia Abdomen: normal bowel sounds, non tender, soft, no organomegaly Extremities: no pedal edema Neurologic/Psychiatric: alert Laboratory Results Last 24 Hours Test 07/14/17 21:30 Urine Color YELLOW Urine Appearance CLEAR Urine pH 5.0 Urine Specific [place] 1.016 Urine Protein NEG Urine Glucose (UA) NEG Urine Ketones NEG Urine Occult Blood NEG Urine Nitrite NEG Urine Bilirubin NEG Urine Urobilinogen NEG Urine Leukocyte Esterase NEG Assessment and Plan 86yo female: 1. a flutter - s/p successful FIDEL cardioversion this am by Dr. Jones. Now sinus sayda. Cont BB but reduce dose back to 25mg BID. Xarelto - correct dose is 15mg once daily. 2. acute hypoxic respiratory failure - O2 requirement this am and was hypoxic last pm. I took care of Ms. Ralph in December 2016. During that admission, despite Rx of her diastolic CHF, she required O2 w/ activity. The exact etiology was uncertain. Her acute O2 requirement may be from acute/chronic diastolic CHF. d/c fluids, lasix IV x 1. If her o2 requirement persists consider primary lung disease (prior chest x- rays with interstitial infiltrates - perhaps chronic ILD?), pulmonary HTN, other. 3. CKD stage 3 - creatinine stable this am. BMP in am. 4. possible acute/chronic diastolic CHF - stop fluids, lasix IV, re-eval in am. 5. h/o hypothyroidism - TSH is compensated w/o meds at this time. 6. HTN - controlled. 7. DVT proph - xarelto. 8. PT eval to ensure she will be safe to return home 9. h/o CAD - noted. No ischemic symptoms at this time. Troponins negative. continue telemetry status Continued [facility] stay due to: multiple IV medications needed Discharge planning: uncertain
[2017-07-15] VITALS (7 sets, daily range): BP systolic 128–168; BP diastolic 58–71; PULSE 52–83; TEMP 36.7–37.7; O2SAT 90–96
[2017-07-15 06:40] LABS: BUN/CREATININE RATIO 20.6 (10-20); CALCIUM 8.7 mg/dl (8.5-10.1); CREATININE 0.82 mg/dl (0.60-1.20); POTASSIUM 3.8 mmol/L (3.5-5.1)
--- NOTE | 2017-07-15 07:49 | DIAGNOSTIC IMAGING REPORT ---
CHEST 2 VIEWS ROUTINE CLINICAL HISTORY: 86 years-old Female presenting with ?CHF. TECHNIQUE: Portable upright AP view of the chest was obtained. COMPARISON: 07/13/2017. FINDINGS: Median sternotomy wires and prosthetic aortic valve noted. Atherosclerosis of the aortic arch. Cardiac silhouette remains mildly enlarged. Persistent prominence of lung markings with a mid to basilar predominance. Hazy opacity in the right lower lung. Trace bilateral pleural effusions suspected. No pneumothorax. Degenerative changes of the thoracic spine. Upper abdomen normal. IMPRESSION: 1. Cardiomegaly with interstitial prominence and developing right basilar opacity. This is favored to represent volume overload with developing pulmonary edema, although a focal consolidation in the right lower lung cannot be excluded. Continued follow-up advised. 2. Trace bilateral pleural effusions suggested. Electronically signed by: Bryan Bautista M.D. 07/15/2017 7:48 AM Dictated Date/Time: 07/15/2017 7:44 AM
[2017-07-15] MEDS: METOPROLOL TARTRATE 25 MG TAB PO SCH ×2 (08:45→20:33)
[2017-07-15] MEDS: CYANOCOBALAMIN 500 MCG TAB (VIT B-12) PO SCH (08:46)
[2017-07-15] MEDS: CHOLECALCIFEROL 1000 INTER.UNIT TAB PO SCH (08:46)
[2017-07-15] MEDS: ASPIRIN 81 MG ECTAB PO SCH (08:46)
--- NOTE | 2017-07-15 09:18 | Cardiology Follow-Up ---
Subjective Date of Service: Jul 15, 2017. Pt evaluation today including: conversation w/ patient, physical exam, chart review, lab review, review of studies History of Present Illness This morning the patient complains of some mild abdominal discomfort. This appears to be lower abdominal. He is nontender to palpation. It did not seem to worsen with eating breakfast. She described as a somewhat crampy in nature. She also has which she describes as kidney pain. She states that she had some element of dyspnea on exertion yesterday when she was ambulatory. She did not describe dizziness. She has no chest pain. Social History Smoking Status: Never Smoker History of Alcohol Use: No Review of Systems Respiratory: No shortness of breath Cardiac: No chest pain Objective Vital Signs Past 12 Hours Date Time Temp Pulse Resp B/P (MAP) Pulse Ox O2 Delivery O2 Flow Rate FiO2 07/15/17 07:25 37.3 83 24 164/69 (100) 91 Nasal Cannula 2.0 07/15/17 05:00 37.7 52 22 168/71 (103) 90 Nasal Cannula 2.0 07/15/17 04:00 93 Nasal Cannula 2.0 07/14/17 23:59 37.0 75 21 163/61 (95) 90 Nasal Cannula 07/14/17 23:59 93 Nasal Cannula 2.0 Last Recorded Weight-Kilograms: 63.100 Physical Exam She is alert and oriented x3. Mood affect appear normal. She answered all questions appropriately. HEENT: Sclerae are anicteric. Pupils are equal and reactive to light and accommodation. Extraocular movements were intact. Neuro: Cranial nerves intact Neck: Examination of the submandibular region did not reveal any significant lymphadenopathy. Carotids are palpable bilaterally and free of bruits on auscultation. There was no evidence of jugular venous distention. The thyroid was not enlarged. Lungs: Lungs are clear to auscultation bilaterally. There are no rales wheezes or rhonchi. She has normal respiratory effort without use of accessory muscles. There is normal pulmonary excursion. Chest: She has well-healed sternotomy scar. Cardiac: The rhythm was regular with occasional ectopy. S1 and S2 were normal. S2 is crisp. There are no murmurs on examination. The PMI was not markedly displaced on palpation. Abdomen: The abdomen was soft and nontender. There was no pain with palpation. No rebound. Extremities: Patient has bilateral radial pulses that are equal in intensity. There is no evidence cyanosis or clubbing. There was no evidence of significant peripheral edema bilaterally. Skin: There are no rashes noted on examination today. Data Laboratory Results: Last 24 Hours Test 07/14/17 21:30 07/15/17 06:03 Urine Color YELLOW Urine Appearance CLEAR Urine pH 5.0 Urine Specific [place] 1.016 Urine Protein NEG Urine Glucose (UA) NEG Urine Ketones NEG Urine Occult Blood NEG Urine Nitrite NEG Urine Bilirubin NEG Urine Urobilinogen NEG Urine Leukocyte Esterase NEG Sodium Level 140 mmol/L Potassium Level 3.8 mmol/L Chloride Level 103 mmol/L Carbon Dioxide Level 29 mmol/L Anion Gap 8.0 mmol/L Blood Urea Nitrogen 17 mg/dl Creatinine 0.82 mg/dl Est Creatinine Clear Calc Drug Dose 41.1 ml/min Estimated GFR () 74.6 Estimated GFR (Non- 64.3 BUN/Creatinine Ratio 20.6 Random Glucose 93 mg/dl Calcium Level 8.7 mg/dl EKG: Sinus rhythm with PACs and left bundle branch block Telemetry reviewed: Sinus rhythm with sinus bradycardia Assessment and Plan 1. Atrial flutter: Maintaining sinus rhythm. She has been maintained on Xarelto and should continue on the current dose. She also has a history of atrial fibrillation which is likely better tolerated than the flutter. This point will continue her on her metoprolol 25 milligrams b.i.d.. We will monitor her for recurrence. Based on the nature of her symptoms and the rhythm identified at the time of recurrence we will need to developed an alternate strategy for control. 2. Valvular heart disease: Normally functioning bioprosthetic aortic valve. Mild to moderate mitral regurgitation 3. Abdominal pain: Patient's symptoms appear to be quite mild. Unclear whether these started prior to her admission. She appears to be tolerating a diet and had no pain with palpation. There is always concern for a mesenteric thrombus in the setting of an atrial arrhythmia. However, at this point I think this is unlikely given the very mild nature of her symptoms. 4. Hypoxia: She still has a slight oxygen requirement. Her lung examination is clear today. She may have an element of diastolic dysfunction. Will reinitiate her outpatient oral Lasix. The possibility of some intrinsic lung disease also exists.
[2017-07-15] MEDS: FUROSEMIDE 40 MG TAB PO SCH (10:50)
[2017-07-15] MEDS: RIVAROXABAN TAB 15 MG TAB PO SCH (16:11)
--- NOTE | 2017-07-15 16:50 | Progress Note ---
Subjective Date of Service: Jul 15, 2017. Subjective Pt remains well but is asymptomatic with her bradycardia after successful cardioversion to sinus, will need to ambulate and also discover why she is hypoxic Problem List Medical Problems: (1) Atrial fibrillation Status: Acute (2) Atrial fibrillation with rapid ventricular response Status: Acute (3) Hypothyroidism Status: Acute (4) Left sided chest pain Status: Acute (5) Neck pain Status: Acute (6) Palpitations Status: Acute (7) Rapid atrial fibrillation Status: Acute (8) Substernal chest pain Status: Acute Review of Systems Constitutional: No fever, No chills Respiratory: + dyspnea on exertion, No cough, No sputum, No shortness of breath Cardiac: No chest pain, No PND, No edema Objective Vital Signs Date Time Temp Pulse Resp B/P (MAP) Pulse Ox O2 Delivery O2 Flow Rate FiO2 07/15/17 07:25 37.3 83 24 164/69 (100) 91 Nasal Cannula 2.0 07/15/17 05:00 37.7 52 22 168/71 (103) 90 Nasal Cannula 2.0 07/15/17 04:00 93 Nasal Cannula 2.0 07/14/17 23:59 37.0 75 21 163/61 (95) 90 Nasal Cannula 07/14/17 23:59 93 Nasal Cannula 2.0 07/14/17 20:12 37.1 76 23 162/86 (111) 94 Nasal Cannula 2.0 07/14/17 20:00 93 Nasal Cannula 2.0 07/14/17 16:15 36.7 60 22 143/58 (86) 93 Nasal Cannula 2.0 07/14/17 16:00 93 Nasal Cannula 2.0 07/14/17 12:00 96 Nasal Cannula 2.0 07/14/17 08:30 36.5 52 25 146/79 (101) 95 Nasal Cannula 4.0 07/14/17 08:30 96 Nasal Cannula 4.0 Physical Exam General Appearance: WD/WN, no apparent distress Eyes: PERRL, EOMI Respiratory/Chest: chest non-tender, lungs clear, normal breath sounds Cardiovascular: regular rate, rhythm, + systolic murmur Abdomen: normal bowel sounds, no organomegaly, no pulsatile mass Extremities: no pedal edema, no calf tenderness Neurologic/Psychiatric: alert, oriented x 3 Laboratory Results Last 24 Hours Test 07/14/17 21:30 07/15/17 06:03 Urine Color YELLOW Urine Appearance CLEAR Urine pH 5.0 Urine Specific [place] 1.016 Urine Protein NEG Urine Glucose (UA) NEG Urine Ketones NEG Urine Occult Blood NEG Urine Nitrite NEG Urine Bilirubin NEG Urine Urobilinogen NEG Urine Leukocyte Esterase NEG Sodium Level 140 mmol/L Potassium Level 3.8 mmol/L Chloride Level 103 mmol/L Carbon Dioxide Level 29 mmol/L Anion Gap 8.0 mmol/L Blood Urea Nitrogen 17 mg/dl Creatinine 0.82 mg/dl Est Creatinine Clear Calc Drug Dose 41.1 ml/min Estimated GFR () 74.6 Estimated GFR (Non- 64.3 BUN/Creatinine Ratio 20.6 Random Glucose 93 mg/dl Calcium Level 8.7 mg/dl Assessment and Plan 86yo F who underwent Cardioversion 07/14, had some post procedure hypoxia from acute on chronic diastolic heart failure a flutter - s/p successful FIDEL cardioversion by Dr. Jones. post procedure bradycardia will reduce metoprolol dose back to 25mg BID. Xarelto - 15mg once daily. Acute hypoxic respiratory failure - O2 requirement this am and was hypoxic last pm, current consideration is acute on chronic diastolic heart failure. During the admission of December 2016, despite Rx of her diastolic CHF, she required O2 w/ activity. If her o2 requirement persists consider primary lung disease (prior chest x- rays with interstitial infiltrates - perhaps chronic ILD?), pulmonary HTN, cardiology has started po lasix daily h/o CAD - noted. No ischemic symptoms CKD stage 3 - stable h/o hypothyroidism - TSH is compensated no medication pre hospital DVT proph - xarelto. Continued [facility] stay due to: multiple IV medications needed Discharge planning: uncertain
[2017-07-16] VITALS (8 sets, daily range): BP systolic 131–153; BP diastolic 56–65; PULSE 51–62; TEMP 36.7–37.4; O2SAT 91–93
[2017-07-16] MEDS ORDERED: GUAIFENESIN 600 MG TABCR PO ONE (04:27)
[2017-07-16] MEDS: CYANOCOBALAMIN 500 MCG TAB (VIT B-12) PO SCH (08:26)
[2017-07-16] MEDS: CHOLECALCIFEROL 1000 INTER.UNIT TAB PO SCH (08:26)
[2017-07-16] MEDS: FUROSEMIDE 40 MG TAB PO SCH (08:26)
[2017-07-16] MEDS: ASPIRIN 81 MG ECTAB PO SCH (08:26)
[2017-07-16] MEDS: METOPROLOL TARTRATE 25 MG TAB PO SCH ×2 (08:27→20:38)
[2017-07-16] MEDS: GUAIFENESIN 600 MG TABCR PO SCH ×2 (08:29→20:38)
[2017-07-16] MEDS ORDERED: OXYCODONE HCL IR 5 MG TAB (IMMEDIATE RELEASE) PO PRN (09:00)
--- NOTE | 2017-07-16 09:57 | DIAGNOSTIC IMAGING REPORT ---
LUMBAR SPINE 2 OR 3 VIEWS CLINICAL HISTORY: 86 years-old Female presenting with back pain. TECHNIQUE: Frontal, lateral, and coned in lateral views of the lumbar spine were obtained. COMPARISON: 02/23/2013. FINDINGS: Normal lumbar lordosis. Vertebral bodies maintain normal height and alignment. Minimal intervertebral disc height loss at L2-3. Remainder of intervertebral disc spaces essentially preserved. Anterior osteophytosis noted at nearly every level. Facet arthropathy suggested at L4-5 and L5-S1. No significant osseous neural foraminal narrowing is apparent. No radiographic evidence of fracture or subluxation. 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 Nonobstructive bowel gas pattern. Calcification projects over the left ilium, unchanged in position, possibly bone island. Round calcification in the right upper quadrant consistent with a gallstone. IMPRESSION: 1. Mild multilevel degenerative change. This is similar to 2012. 2. No radiographic evidence of acute osseous injury of the lumbar spine. Electronically signed by: Bryan Bautista M.D. 07/16/2017 9:56 AM Dictated Date/Time: 07/16/2017 9:53 AM
[2017-07-16] MEDS: ACETAMINOPHEN 500 MG TAB PO PRN ×2 (12:16→23:43)
--- NOTE | 2017-07-16 16:15 | Progress Note ---
Subjective Date of Service: Jul 16, 2017. Subjective pt has some back pain, she has improvement with tylenol, no other complaints of chest pain or sob, but did do well at PT Problem List Medical Problems: (1) Atrial fibrillation Status: Acute (2) Atrial fibrillation with rapid ventricular response Status: Acute (3) Hypothyroidism Status: Acute (4) Left sided chest pain Status: Acute (5) Neck pain Status: Acute (6) Palpitations Status: Acute (7) Rapid atrial fibrillation Status: Acute (8) Substernal chest pain Status: Acute Review of Systems Constitutional: No fever, No chills Respiratory: No cough, No shortness of breath Objective Vital Signs Date Time Temp Pulse Resp B/P (MAP) Pulse Ox O2 Delivery O2 Flow Rate FiO2 07/16/17 15:47 37.1 53 18 131/64 (86) 92 Room Air 2.0 07/16/17 12:00 Nasal Cannula 2.0 07/16/17 11:29 37.0 51 19 144/56 (85) 91 Nasal Cannula 2.0 07/16/17 08:00 Nasal Cannula 3.0 07/16/17 07:02 37.0 62 18 153/62 (92) 92 Nasal Cannula 3.0 07/16/17 04:00 Nasal Cannula 3.0 07/16/17 03:53 37.3 58 16 140/57 (84) 93 Nasal Cannula 3.0 07/16/17 00:31 93 Nasal Cannula 3.0 07/16/17 00:00 Nasal Cannula 3.0 07/15/17 23:40 37.0 58 20 130/64 (86) 90 Nasal Cannula 2.0 07/15/17 20:00 Nasal Cannula 2.0 07/15/17 18:00 37.1 61 18 128/62 (84) 96 Room Air Physical Exam General Appearance: WD/WN, + mild distress Eyes: PERRL, EOMI Respiratory/Chest: chest non-tender, lungs clear, normal breath sounds Cardiovascular: no murmur, + bradycardia Abdomen: normal bowel sounds, non tender, soft Extremities: no pedal edema, no calf tenderness Neurologic/Psychiatric: alert, oriented x 3, + pertinent finding (no radicular back pain or pain with slr) Assessment and Plan 86yo F who underwent Cardioversion 07/14, had some post procedure hypoxia from acute on chronic diastolic heart failure a flutter - s/p successful FIDEL cardioversion by Dr. Jones. post procedure bradycardia will reduce metoprolol dose back to 25mg BID. Xarelto - 15mg once daily. [facility] c/o pain is 19.95$ a month Acute hypoxic respiratory failure - O2 requirement this am and was hypoxic last pm, current consideration is acute on chronic diastolic heart failure. During the admission of December 2016, despite Rx of her diastolic CHF, she required O2 w/ activity. If her o2 requirement persists consider primary lung disease (prior chest x- rays with interstitial infiltrates - perhaps chronic ILD?), pulmonary HTN, cardiology has started po lasix daily h/o CAD - noted. No ischemic symptoms CKD stage 3 - stable h/o hypothyroidism - TSH is compensated no medication pre hospital DVT proph - xarelto. Pt is living will ill slightly confused , will need home health and close outpt follow up Continued [facility] stay due to: multiple IV medications needed Discharge planning: uncertain
[2017-07-16] MEDS: RIVAROXABAN TAB 15 MG TAB PO SCH (18:57)
[2017-07-17 06:55] VITALS: BP 133/63; PULSE 52; TEMP 37.1; O2SAT 91
[2017-07-17 07:46] VITALS: PULSE 67
[2017-07-17] MEDS: CHOLECALCIFEROL 1000 INTER.UNIT TAB PO SCH (07:49)
[2017-07-17] MEDS: ASPIRIN 81 MG ECTAB PO SCH (07:49)
[2017-07-17] MEDS: GUAIFENESIN 600 MG TABCR PO SCH ×2 (07:49→20:13)
[2017-07-17] MEDS: CYANOCOBALAMIN 500 MCG TAB (VIT B-12) PO SCH (07:49)
[2017-07-17] MEDS: METOPROLOL TARTRATE 25 MG TAB PO SCH ×2 (07:49→20:13)
[2017-07-17] MEDS: FUROSEMIDE 40 MG TAB PO SCH (07:50)
[2017-07-17] MEDS ORDERED: TRAMADOL HCL 50 MG TAB PO PRN (13:00)
[2017-07-17] MEDS: ACETAMINOPHEN 500 MG TAB PO SCH ×2 (13:51→20:12)
[2017-07-17] MEDS: DICLOFENAC SOD 1% GEL 100 GM TUBE EXT SCH ×3 (13:52→21:00)
--- NOTE | 2017-07-17 15:07 | DIAGNOSTIC IMAGING REPORT ---
(CHEST) THORAX WITHOUT CLINICAL HISTORY: 86 years-old Female presenting with eval for ILD. TECHNIQUE: Multidetector CT imaging of the chest was performed without the use of intravenous contrast. IV contrast: None. A dose lowering technique was used consistent with the principles of ALARA (as low as reasonably achievable). COMPARISON: 10/02/2009. CT DOSE (mGy.cm): The estimated cumulative dose is 259.82 mGy.cm. FINDINGS: [employer] topogram: Median sternotomy wires and cardiomegaly. Hyperinflation. On soft tissue windows, normal thyroid and thoracic inlet. Subcutaneous cystic lesion in the midline of the anterior chest wall, unchanged and likely sebaceous cyst. Multiple prominent subcentimeter mediastinal lymph nodes, possibly reactive. Evaluation of the alberto is limited due to lack of intravenous contrast. Atherosclerosis of aorta. Multichamber enlargement of the heart. Mitral annular, coronary artery, and aortic valve calcification. No pericardial effusion. Moderate right and small left pleural effusions. Cholelithiasis. On lung windows, dependent opacities and volume loss likely passive atelectasis. Patchy groundglass opacities in the left upper and lower lobes as well as more solid nodular consolidation in the left upper lobe measuring 2 cm in diameter (series 3 image 26). Mosaic attenuation in the upper lobes. Few punctate nodules bilaterally measuring up to 4 mm. No significant interlobular septal thickening. Airways patent. On bone windows, degenerative changes of the spine. Well-healed sternotomy. IMPRESSION: 1. Focal nodular consolidation in the left upper lobe. This is indeterminate. Given associated patchy groundglass opacities in the left upper lobe, this may be infectious. Follow-up after treatment should be considered to exclude an underlying neoplastic nodule. Alternatively, groundglass opacity could relate to pulmonary edema, although this be expected to have more of a basilar predominance. 2. Mosaic attenuation in the upper lobes could suggest small airways disease. 3. Cardiomegaly. 4. Moderate right and small left pleural effusions with associated extensive passive atelectasis. Electronically signed by: Bryan Bautista M.D. 07/17/2017 3:06 PM Dictated Date/Time: 07/17/2017 2:54 PM
[2017-07-17 15:09] VITALS: BP 128/67; PULSE 76; TEMP 37.6; O2SAT 95
[2017-07-17] MEDS ORDERED: POTASSIUM CHLORIDE 10 MEQ TABCR PO ONE (16:00)
[2017-07-17] MEDS ORDERED: FUROSEMIDE INJ 20 MG in SYRINGE 0 ML IV ONE (16:00)
[2017-07-17] MEDS: RIVAROXABAN TAB 15 MG TAB PO SCH (16:05)
[2017-07-17] MEDS: CEFDINIR 300 MG CAP PO SCH (20:19)
[2017-07-17 20:21] VITALS: BP 170/69; PULSE 80
--- NOTE | 2017-07-17 21:13 | Progress Note ---
Subjective Date of Service: Jul 17, 2017. Subjective Pt evaluation today including: conversation w/ patient, physical exam, chart review, lab review, review of studies (CT chest), review of inpatient medication list Pain: back, started yesterday PO Intake: good Voiding: no voiding problems asks about when she might be discharged denies any dyspnea at rest denies cough feels pretty good no chest pain or palpitations no prior h/o smoking or occupational exposures still w/ o2 requirement Problem List Medical Problems: (1) Atrial fibrillation Status: Acute (2) Atrial fibrillation with rapid ventricular response Status: Acute (3) Hypothyroidism Status: Acute (4) Left sided chest pain Status: Acute (5) Neck pain Status: Acute (6) Palpitations Status: Acute (7) Rapid atrial fibrillation Status: Acute (8) Substernal chest pain Status: Acute Review of Systems Constitutional: No fever Respiratory: No dyspnea at rest Cardiac: No chest pain, No orthopnea Abdomen: No pain Objective Vital Signs Date Time Temp Pulse Resp B/P (MAP) Pulse Ox O2 Delivery O2 Flow Rate FiO2 07/17/17 15:51 Nasal Cannula 2.0 07/17/17 15:09 37.6 76 18 128/67 (87) 95 Nasal Cannula 2.0 07/17/17 08:00 Nasal Cannula 2.0 07/17/17 07:46 67 07/17/17 06:55 37.1 52 18 133/63 (86) 91 Nasal Cannula 2.0 07/17/17 00:00 Nasal Cannula 2.0 07/16/17 23:43 37.4 62 16 132/56 (81) 91 Nasal Cannula 2.0 Physical Exam General Appearance: no apparent distress ENT: pharynx normal Neck: + JVD Respiratory/Chest: lungs clear, no respiratory distress, no accessory muscle use Cardiovascular: no gallop, no murmur, + irregularly irregular Abdomen: normal bowel sounds, non tender, soft, no organomegaly Extremities: no pedal edema Neurologic/Psychiatric: alert, oriented x 3 Skin: + pertinent finding (varicose veins legs) Comments: musculoskeletal - back - tender paraspinal areas l-spine region on right; no SI joint pain Assessment and Plan 86yo female: 1. a flutter - s/p successful FIDEL cardioversion by Dr. Jones earlier this stay. Cont BB 25mg BID. Xarelto 15mg daily. 2. acute hypoxic respiratory failure - O2 requirement - ongoing. I took care of Ms. Ralph in December 2016. During that admission, despite Rx of her diastolic CHF, she required O2 w/ activity. The exact etiology was uncertain. Due to ongoing hypoxia will repeat her CT chest. r/o ILD, ongoing CHF, etc. 3. CKD stage 3 - creatinine stable this am. BMP in am. 4. acute/chronic diastolic CHF - still with JVD; give another dose of lasix IV today. Repeat labs am. 5. h/o hypothyroidism - TSH is compensated w/o meds at this time. 6. HTN - controlled. 7. DVT proph - xarelto. 8. h/o CAD - noted. No ischemic symptoms at this time. 9. 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 tylenol 1gm TID voltaren gel qid k-pad heating pad system PT, OT x-rays reviewed hopefully d/c home tomorrow two-step o2 test tomorrow Continued [facility] stay due to: multiple IV medications needed Discharge planning: uncertain
[2017-07-17 23:56] VITALS: BP 110/46; PULSE 53; TEMP 36.4; O2SAT 90
[2017-07-18] VITALS: O2SAT 90
[2017-07-18 07:27] VITALS: BP 152/67; PULSE 49; TEMP 36.7; O2SAT 91
[2017-07-18 07:41] LABS: BUN/CREATININE RATIO 22.4 (10-20); CALCIUM 9.1 mg/dl (8.5-10.1); CREATININE 0.97 mg/dl (0.60-1.20); POTASSIUM 3.6 mmol/L (3.5-5.1)
[2017-07-18 08:21] VITALS: BP 130/65; PULSE 71
[2017-07-18] MEDS: CYANOCOBALAMIN 500 MCG TAB (VIT B-12) PO SCH (08:22)
[2017-07-18] MEDS: METOPROLOL TARTRATE 25 MG TAB PO SCH (08:22)
[2017-07-18] MEDS: GUAIFENESIN 600 MG TABCR PO SCH (08:22)
[2017-07-18] MEDS: ASPIRIN 81 MG ECTAB PO SCH (08:22)
[2017-07-18] MEDS: CHOLECALCIFEROL 1000 INTER.UNIT TAB PO SCH (08:23)
[2017-07-18] MEDS: ACETAMINOPHEN 500 MG TAB PO SCH ×2 (08:23→13:23)
[2017-07-18] MEDS: CEFDINIR 300 MG CAP PO SCH (08:23)
[2017-07-18] MEDS: DICLOFENAC SOD 1% GEL 100 GM TUBE EXT SCH ×3 (08:24→17:25)
[2017-07-18] MEDS: FUROSEMIDE 40 MG TAB PO SCH (08:24)
[2017-07-18] MEDS ORDERED: VLTG EXT (14:29)
[2017-07-18] MEDS ORDERED: CEFD300C3 PO (14:29)
[2017-07-18] MEDS ORDERED: OXGN (14:41)
--- NOTE | 2017-07-18 14:41 | Discharge Instructions ---
Discharge Instructions Date of Service Jul 18, 2017. Admission Reason for Admission: atrial flutter Discharge Discharge Diagnosis / Problem: atrial flutter -- with electrical cardioversion by Dr. Jones Discharge Goals Goal(s): Learn about illness, Diagnostic testing, Therapeutic intervention Activity Recommendations Activity Limitations: resume your previous activity . Instructions / Follow-Up Instructions / Follow-Up From Dr. Regalado: 1. Atrial flutter - * Dr. Jones shocked the heart to put your heart back in a normal rhythm * continue your metoprolol 25mg twice a day * continue your xarelto blood thinner once a day * please see Dr. Wood within the next week if possible 2. Left upper lobe lung nodule - * this was seen on your CAT scan of the lungs * this could represent a small area of infection or could represent something more serious * please take 9 days of omnicef (cefdinir) antibiotic in the event it represents a small amount of infection * you will need a repeat CAT scan in the future * you will need a pulmonary referral (lung specialist) after discharge * the lung specialist will determine when to get a repeat CAT scan 3. Congestive heart failure - * you had a mild amount of congestive heart failure in the midst of your hospital stay * it is doing much better at this time * please resume your lasix 40mg once daily starting 07/19/17 * check your weight every day * watch your salt intake (no more than 2000mg each day) * watch your fluid intake (no more than 1500cc each day) Call your Primary Care doctor or cattle feeder if any of the following symptoms or problems start or get worse: * Shortness of breath or difficulty breathing * Wake up at night short of breath * Chest pain * Cough * Swelling of your hands, feet, or legs * More fatigued or tired with your normal activity * Palpitations - sudden fast heart beats WEIGHT * Weigh yourself every morning after using the bathroom. * Use the same scale. * Wear the same amount of clothing. * Write your weight down on a chart. * Call your Primary Care doctor or cattle feeder if you gain more than 2-3 pounds in 1-2 days. MEDICATIONS * Use this discharge instruction sheet for medication instructions. * Take your medications at the time your doctor ordered. * Do not skip a dose of your medicines. * If you miss a dose of medicine, take it as soon as possible, but DO NOT DOUBLE A DOSE. * Read your medicine information when you get home. * Know all of the side effects of your medicine. If in doubt, ask your pharmacist * Call your Primary Care doctor's office if you have any side effects. * Be sure all of your doctors know what medicine and herbs you take (including cold, flu, and herbal medicine). Take the following with you to your follow-up doctor appointments: * Weight Chart * Medication List * List of questions Do not drink excessive alcohol, beer or wine. 4. Oxygen - please use your oxygen at all times -- 2 liters continuously. People should NOT smoke in your home as this could lead to a fire. Take your oxygen with you at all times when you leave your home. 5. Return to [facility] if - * you develop chest pain, shortness of breath, rapid pulse / palpitations ( heart feels like it is racing) * you develop fever over 100.4 degrees * any other concerns 6. Follow-up - * please see Dr. Wood within 1 week * please see your family doctor - Dr. Childs - within 4-5 days 7. Back pain - * may use the voltaren gel that was given to you at discharge * simply rub the gel in the area of pain and use 4 times a day * may also use [id number] tylenol for pain * heating pad may help as well. Current Hospital Diet Patient's current hospital diet: AHA Diet (Heart Healthy) Discharge Diet Recommended Diet: AHA Diet (Heart Healthy) Fluid Restriction: 1500 ml (6 cups) Procedures Procedures Performed: 1. cardioversion (shocking of the heart) - successful. 2. chest x-rays. 3. lumbar spine x-rays. 4. CAT scan of the lungs showing a nodule in the left upper lobe. Pending Studies Studies pending at discharge: no Medical Emergencies . Who to Call and When: Call 911 or go to the Emergency Room if: * If at any time you feel your situation is an emergency * You have tightness or pain in your chest that does not go away with rest or Nitroglycerin * You are very short of breath even with rest . Non-Emergent Contact Non-Emergency issues call your: Primary Care Provider Call Non-Emergent contact if: temperature is above 100.5, your pain is not controlled, your pain is worsening, your pain is unusual for you, your pain is concerning you, you have any medication questions . . "Provider Documentation" section prepared by Sanjeev Regalado. . VTE Core Measure Inpt VTE Proph given/why not?: Other Anticoagulation (Xarelto)
[2017-07-18 15:28] VITALS: BP 130/65; PULSE 71; TEMP 36.7; O2SAT 91
[2017-07-18] MEDS: RIVAROXABAN TAB 15 MG TAB PO SCH (16:59)
--- NOTE | 2017-07-18 22:46 | Discharge Summary ---
Discharge Summary Date of Service Jul 18, 2017. Discharge Summary Admission Date: Jul 13, 2017 at 13:49 Discharge Date: Jul 18, 2017 Discharge Disposition: Home with services Principal Diagnosis: rapid a. flutter s/p cardioversion Problems/Secondary Diagnoses: 1. Aortic valve disease status post replacement with bioprosthetic valve in 2002 2. CKD stage 3 3. chronic hypoxic respiratory failure, exact etiology uncertain 4. HTN 5. hyperlipidemia 6. probable acute/chronic diastolic CHF 7. hypothyroidism 8. atrial fibrillation 9. history of sleep apnea 10. history of nephrolithiasis 11. HAYLEE lung consolidation/nodule - will need follow-up CT imaging in future Immunizations: Have You Had Influenza Vaccine: Yes Influenza Vaccine Date: Jul 28, 2012 History of Tetanus Vaccine?: Yes History of Pneumococcal: No History of Hepatitis B Vaccine: No Procedures: 1. elective FIDEL cardioversion - Dr. Red Jones; successful hoahaoism of NSR from a. flutter/fib 2. CT chest, noncontrast: IMPRESSION: 1. Focal nodular consolidation in the left upper lobe. This is indeterminate. Given associated patchy groundglass opacities in the left upper lobe, this may be infectious. Follow-up after treatment should be considered to exclude an underlying neoplastic nodule. Alternatively, groundglass opacity could relate to pulmonary edema, although this be expected to have more of a basilar predominance. 2. Mosaic attenuation in the upper lobes could suggest small airways disease. 3. Cardiomegaly. 4. Moderate right and small left pleural effusions with associated extensive passive atelectasis. 3. transesophageal echocardiogram: * -- Conclusions -- * There is a bioprosthetic aortic valve. * There is mild to moderate mitral regurgitation. * No thrombus is detected in the left atrial appendage. * Left ventricular systolic function is normal. * There is moderate concentric left ventricular hypertrophy. 4. lumbar spine x-rays: IMPRESSION: 1. Mild multilevel degenerative change. This is similar to 2013. Consultations: cardiology - Red Jones MD PT OT Medication Reconciliation New Medications: Home O2 Therapy (Oxygen) Gas 2 LITERS NA CONTINOUS, #1 0 Refills Cefdinir (Cefdinir) 300 Mg Cap 300 MG PO BID for 9 Days, #18 CAP 0 Refills Diclofenac Sod (Voltaren) 100 Appln/100 Gm Gel 1 APPLN EXT QID, #1 TUBE 1 Refill apply to areas of pain on back Continued Medications: Aspirin (Aspirin Chewable) 81 Mg Chew 81 MG PO DAILY, TAB Cholecalciferol (Vitamin D3) 2,000 Unit Cap 2000 MG PO DAILY, 3 Refills Cyanocobalamin (Vitamin B-12) 1,000 Mcg Tab 1000 MCG PO DAILY, TAB Furosemide (Lasix) 40 Mg Tab 40 MG PO DAILY, TAB Homeopathic Products (Similasan Dry Eye Relief) 1 Jeevan Jeevan 1 DROP OPB BID Metoprolol Tartrate (Lopressor) (Lopressor) 25 Mg Tab 25 MG PO BID, TAB Rivaroxaban (Xarelto) 15 Mg Tab 15 MG PO DAILY Referrals At Discharge Follow up Referrals: Pharmacogeneticist Referral - Within 1 Week with Asael Wood M.D. Physician Referral - Within 1 Week with RV. Ivette MD Discharge Exam Physical Exam: General Appearance: no apparent distress ENT: pharynx normal Neck: + JVD Respiratory/Chest: lungs clear, no respiratory distress, no accessory muscle use Cardiovascular: regular rate, rhythm, no gallop, no murmur, normal peripheral pulses Abdomen / GI: normal bowel sounds, non tender, soft, no organomegaly Extremities: no pedal edema, + pertinent finding (varicose veins legs b/l ) Neurologic/Psychiatric: alert, oriented x 3 Hospital Course HISTORY OF PRESENT ILLNESS: The patient is an 86-year-old woman with remote history of atrial fibrillation who was evaluated in [facility] Emergency room on the 07 of July for tachycardia, palpitations and dyspnea on exertion. She was discovered to have atrial fibrillation. She received some beta blockers in the emergency room and was discharged with follow-up the following day in the cardiology clinic. At that visit she was felt to still be in atrial fibrillation and advised to start anticoagulation and digoxin. Patient did start anticoagulation with xarelto but not digoxin. She states for approximately 2 days she felt well and was able to resume most of her usual activity. However, on the day of admission, she developed worsening shortness of breath with exertion and rapid heart rates. She presented to the emergency room again and was noted to have a tachycardia described as atrial fibrillation. The patient was administered a very small dose of metoprolol without appreciable benefit. She continues to have rapid rates with ambulation and dyspnea with exertion. She states that she does not have notable dizziness or lightheadedness associated with these episodes. She has not suffered a syncopal episode. She denies any associated chest pain or chest discomfort. HOSPITAL COURSE: About 24 hours after admission the patient underwent a successful FIDEL cardioversion by Dr. Jones. During the FIDEL the patient converted from a. flutter to a. fib to NSR. She remained in NSR for the remainder of her stay following her cardioversion. Beta leslie and xarelto were continued post-FIDEL. Her hospital stay was complicated by hypoxia, an oxygen requirement, and low back pain. Of note - in December 2016 the patient was discharged home with home O2. She apparently used it for a period of time and ultimately it was discontinued. Despite treatment of suspected acute/chronic diastolic CHF her oxygen requirement persisted. CT chest was done to exclude interstitial lung disease (ILD) or any other process that would explain her O2 need. CT did NOT show findings suggestive of ILD. There was an area of consolidation in the HAYLEE of undetermined etiology, however. As a precautionary measure she was begun on antibiotics in the event the lesion represented a focus of infection. [id number] I do not believe that the HAYLEE pathology was the principal cause of her oxygen requirement. I counseled the patient that she will need the following - 1. follow[facility]up with [facility] for additional testing 2. repeat CT chest in the future to ensure the HAYLEE lung lesion has resolved 3. 2 liters of NC O2 at ALL TIMES Past echocardiograms have demonstrated some element of pulmonary HTN and thus perhaps this condition is contributing to her oxygen requirement. Her back pain gradually improved with use of voltaren gel and pain medications. All other medical problems including her CKD stage 3, HTN, etc remained stable while hospitalized. She was seen by PT/OT both of whom felt she could return home. However, home health, PT, and OT were all recommended and will be arranged for her following discharge. Total Time Spent: Greater than 30 minutes This includes examination of the patient, discharge planning, medication reconciliation, and communication with other providers. Discharge Instructions Please refer to the electronic Patient Visit Report (Discharge Instructions) for additional information. Follow-Up 1. see PCP, Dr. Childs, within [address] Wood or Dr. Jones, [facility], within 1 week Additional Copies To RV. Steele MD; Asael Wood M.D.; Red Jones MD
== END 2017-07-18 18:20 | disposition home health service (06) | DRG 308 ==
LOC: C.EDB 09:46 → C.MSICU 13:49 → ENRESERV 14:25 → C.MSICU 07-15 13:34 → C.2T 07-15 17:52 → ENRESERV 07-16 16:45 → C.MS2W 07-16 18:20
PROVIDERS: ADMIT Hospitalist; ATTEND Internal Medicine
PROC: 5A2204Z Restoration of Cardiac Rhythm, Single (ICD-10-PCS; principal; 2017-07-14 07:30)
DX: I48.92 Unspecified atrial flutter (principal); I50.33 Acute on chronic diastolic (congestive) heart failure; I38 Endocarditis, valve unspecified; N18.3 Chronic kidney disease, stage 3 (moderate); E78.5 Hyperlipidemia, unspecified; I12.9 Hypertensive chronic kidney disease with stage 1 through stage 4 chronic kidney disease, or unspecified chronic kidney disease; I44.7 Left bundle-branch block, unspecified; E53.8 Deficiency of other specified B group vitamins; G47.30 Sleep apnea, unspecified; Z95.1 Presence of aortocoronary bypass graft; Z79.82 Long term (current) use of aspirin; Z80.9 Family history of malignant neoplasm, unspecified; Z82.49 Family history of ischemic heart disease and other diseases of the circulatory system; Z84.1 Family history of disorders of kidney and ureter

== ENCOUNTER 2017-07-27 04:31 | Emergency (ER) | payer OTHER, MEDICARE ==
[~2017-07-27] VITALS: Ht 160 cm; Wt 68.9 kg
[~2017-07-27 04:31] MED LIST changes: +CEFD300C3 PO; +METO25TA56 PO; +OXGN; +VLTG EXT; +XRL15 PO
[2017-07-27 04:37] VITALS: Ht 160 cm; Wt 68.9 kg
[2017-07-27] MEDS ORDERED: METOPROLOL TARTRATE 25 MG TAB PO STA (04:51)
[2017-07-27] MEDS ORDERED: DILTIAZEM HCL 5 MG/ML 5 ML VIAL IV STA (04:51)
[2017-07-27] MEDS ORDERED: METOPROLOL TARTRATE 50 MG TAB ONE (05:00)
--- NOTE | 2017-07-27 05:01 | EMERGENCY ROOM VISIT NOTE ---
History Report prepared by Oneyda: Noe Hargrove Under the Supervision of: Betsy OrozcoO. First contact with patient: 04:36 Chief Complaint: RAPID HEART RATE Stated Complaint: RAID AF Nursing Triage Summary: Pt ran out of metoprolol 2 days ago and has been experiencing intermittent tachycardia. Tonight it became worse. EMS reports sustained a-fib at 130's-150' s prior to medication. Pt states she feels better after medication (HR 70's-100's after meds). Pt denies symptoms upon arrival. History of Present Illness The patient is an 86 year old female who presents to the Emergency Room with complaints of a worsening rapid heart rate beginning two days ago. The patient states she ran out of metoprolol 2 days ago, and she has been experiencing an intermittent rapid heart rate. She reports she typically would go to the pharmacy to get her medication, but her at-home arranged for her to receive her medication through the mail. The patient notes she did not receive her medication yet, and she was supposed to receive it yesterday. She states she is set up to receive it as soon as possible. She reports her heart was racing extremely fast, and she became dizzy. The patient notes she has had this happen to her before, but it resolved on its own. She states she takes 25mg of metoprolol twice a day. The patient reports she takes aspirin daily, and she was never placed on a blood thinner before. She denies nausea, shortness of breath, and medication alterations. Source of History: patient Onset: 2 days ago Position: other (global) Quality: other (rapid heart rate) Timing: intermittent Associated Symptoms: No SOB, No nausea Note: Associated symptoms: dizziness Denies: medication alterations Review of Systems See HPI for pertinent positives & negatives. A total of 10 systems reviewed and were otherwise negative. 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 (4) Aortocoronary Bypass (5) Atrial fibrillation, currently in sinus rhythm (6) Congestive Heart Failure Nos (7) Encephalopathy acute (8) Hyperlipidemia Nec/Nos (9) Hypertension (10) Hypertension Nos (11) Mobitz type 2 second degree atrioventricular block (12) SVT (supraventricular tachycardia) Family History Cancer Heart disease Hypertension Kidney disease Social History Smoking Status: Never Smoker Alcohol Use: none Drug Use: none Marital Status: Housing Status: lives with significant other Occupation Status: retired Current/Historical Medications Scheduled Aspirin (Aspirin Chewable), 81 MG PO DAILY Cefdinir (Omnicef), 300 MG PO BID Cholecalciferol (Vitamin D3), 2,000 MG PO DAILY Cyanocobalamin (Vitamin B-12), 1,000 MCG PO DAILY Furosemide (Lasix), 40 MG PO DAILY Homeopathic Products (Similasan Dry Eye Relief), 1 DROP OPB BID Metoprolol Tartrate (Lopressor) (Lopressor), 25 MG PO BID Rivaroxaban (Xarelto), 15 MG PO DAILY Scheduled PRN Diclofenac Sodium (Topical) (Voltaren 1% Top Gel), 1 APPLN TOP QID PRN for BACK PAIN Home O2 Therapy (Oxygen), 2 LITERS NA HS PRN for Shortness of Breath Allergies Coded Allergies: Amlodipine (Verified Adverse Reaction, Mild, MUSCLE CRAMPS, 07/27/17) Clonidine (Verified Adverse Reaction, Mild, FATIGUE,DIZZINESS, 07/27/17) Diltiazem (Verified Adverse Reaction, Mild, VILLAGOMEZ/DIZZINESS, 07/27/17) Hydralazine (Verified Adverse Reaction, Mild, VILLAGOMEZ/DIZZINESS, 07/27/17) Hydrochlorothiazide w/Triamterene (Verified Adverse Reaction, Mild, DIZZINESS, 07/27/17) Levothyroxine (Verified Adverse Reaction, Mild, MUSCLE CRAMPS, 07/27/17) Valsartan (Verified Adverse Reaction, Mild, DIZZINESS, 07/27/17) CI Pigment Blue 63 (Verified Adverse Reaction, Unknown, NAUSEA, ?STROKE SYMPTOMS, 07/27/17) Lisinopril (Verified Adverse Reaction, Unknown, `, 07/27/17) Nebivolol (Verified Adverse Reaction, Unknown, NAUSEA, ?STROKE SYMPTOMS, 07/27/17) Sorbitan (Verified Adverse Reaction, Unknown, NAUSEA, ?STROKE SYMPTOMS, ) Yellow Dye (Verified Adverse Reaction, Unknown, NAUSEA, ?STROKE SYMPTOMS, 07/27/17) Physical Exam Vital Signs Date Time Temp Pulse Resp B/P (MAP) Pulse Ox O2 Delivery O2 Flow Rate FiO2 07/27/17 09:37 75 18 122/69 94 07/27/17 08:38 70 18 126/66 95 Room Air 07/27/17 07:06 67 18 123/50 93 Room Air 07/27/17 06:03 55 17 99 07/27/17 06:01 135/75 07/27/17 05:48 51 20 95 07/27/17 05:46 143/63 07/27/17 05:33 59 18 99 07/27/17 05:29 Nasal Cannula 2.0 07/27/17 05:28 59 20 131/67 98 Nasal Cannula 2.0 07/27/17 05:21 143/68 87 Room Air 07/27/17 05:16 74 16 95 07/27/17 05:02 156/74 07/27/17 05:01 108 13 91 07/27/17 04:46 124 14 96 Room Air 07/27/17 04:40 108 07/27/17 04:37 147/77 07/27/17 04:37 37.0 122 19 147/77 97 Room Air Physical Exam GENERAL: alert, well appearing, well nourished, no distress, non-toxic EYE EXAM: normal conjunctiva, PERRL and EOM's grossly intact OROPHARYNX: no exudate, no erythema, lips, buccal mucosa, and tongue normal and mucous membranes are moist NECK: supple, no nuchal rigidity, no adenopathy, non-tender LUNGS: Clear to auscultation. Normal chest wall mechanics HEART: Irregular and tachycardic. no murmurs, S1 normal and S2 normal ABDOMEN: abdomen soft, non-tender, normo-active bowel sounds, no masses, no rebound or guarding. BACK: Back is symmetrical on inspection and there is no deformity, no midline tenderness, no CVA tenderness. SKIN: no rashes and no bruising UPPER EXTREMITIES: upper extremities are grossly normal. LOWER EXTREMITIES: No pitting edema. NEURO EXAM: Normal sensorium, cranial nerves II-XII grossly intact, normal speech, no gross weakness of arms, no gross weakness of legs. Medical Decision & Procedures ER Provider Diagnostic Interpretation: XRAY:Chest: A one view study was reviewed, no cardiomegaly, no effusion, no wide mediastinum, sternotomy wires present, no focal infiltrate was seen. Improved compared to prior. Laboratory Results 07/27/17 05:15 Red Blood Count 4.26, Mean Corpuscular Volume 89.4, Mean Corpuscular Hemoglobin 29.1, Mean Corpuscular Hemoglobin Concent 32.5, Mean Platelet Volume 10.6, Neutrophils (%) (Auto) 75.3, Lymphocytes (%) (Auto) 11.9, Monocytes (%) (Auto) 9.6, Eosinophils (%) (Auto) 2.5, Basophils (%) (Auto) 0.4, Neutrophils # (Auto) 5.70, Lymphocytes # (Auto) 0.90, Monocytes # (Auto) 0.73, Eosinophils # (Auto) 0.19, Basophils # (Auto) 0.03 07/27/17 05:15 Test 07/27/17 05:15 White Blood Count 7.57 K/uL (4.8-10.8) Red Blood Count 4.26 M/uL (4.2-5.4) Hemoglobin 12.4 g/dL (12.0-16.0) Hematocrit 38.1 % (37-47) Mean Corpuscular Volume 89.4 fL (80-100) Mean Corpuscular Hemoglobin 29.1 pg (25-34) Mean Corpuscular Hemoglobin Concent 32.5 g/dl (32-36) Platelet Count 283 K/uL (130-400) Mean Platelet Volume 10.6 fL (7.4-10.4) Neutrophils (%) (Auto) 75.3 % Lymphocytes (%) (Auto) 11.9 % Monocytes (%) (Auto) 9.6 % Eosinophils (%) (Auto) 2.5 % Basophils (%) (Auto) 0.4 % Neutrophils # (Auto) 5.70 K/uL (1.4-6.5) Lymphocytes # (Auto) 0.90 K/uL (1.2-3.4) Monocytes # (Auto) 0.73 K/uL (0.11-0.59) Eosinophils # (Auto) 0.19 K/uL (0-0.5) Basophils # (Auto) 0.03 K/uL (0-0.2) RDW Standard Deviation 46.7 fL (36.4-46.3) RDW Coefficient of Variation 14.2 % (11.5-14.5) Immature Granulocyte % (Auto) 0.3 % Immature Granulocyte # (Auto) 0.02 K/uL (0.00-0.02) Prothrombin Time 11.5 SECONDS (9.0-12.0) Prothromb Time International Ratio 1.1 (0.9-1.1) Urine Color YELLOW Urine Appearance CLEAR (CLEAR) Urine pH 7.5 (4.5-7.5) Urine Specific [place] 1.013 (1.000-1.030) Urine Protein NEG (NEG) Urine Glucose (UA) NEG (NEG) Urine Ketones TRACE (NEG) Urine Occult Blood NEG (NEG) Urine Nitrite NEG (NEG) Urine Bilirubin NEG (NEG) Urine Urobilinogen NEG (NEG) Urine Leukocyte Esterase NEG (NEG) Anion Gap 8.0 mmol/L (3-11) Est Creatinine Clear Calc Drug Dose 41.9 ml/min Estimated GFR () 68.5 Estimated GFR (Non- 59.1 BUN/Creatinine Ratio 16.0 (10-20) Calcium Level 8.5 mg/dl (8.5-10.1) Magnesium Level 2.2 mg/dl (1.8-2.4) Total Bilirubin 0.6 mg/dl (0.2-1) Aspartate Amino Transf (AST/SGOT) 21 U/L (15-37) Alanine Aminotransferase (ALT/SGPT) 24 U/L (12-78) Alkaline Phosphatase 96 U/L (45-117) Troponin I < 0.015 ng/ml (0-0.045) Pro-B-Type Natriuretic Peptide 2625 pg/ml (0-1800) Total Protein 6.7 gm/dl (6.4-8.2) Albumin 3.1 gm/dl (3.4-5.0) Globulin 3.6 gm/dl (2.5-4.0) Albumin/Globulin Ratio 0.9 (0.9-2) Thyroid Stimulating Hormone (TSH) 2.050 uIu/ml (0.300-4.500) Laboratory results per my review. Medications Administered Medications (Trade) Dose Ordered Sig/Shandra Route Start Time Stop Time Status Last Admin Dose Admin Diltiazem HCl (Cardizem Inj) 10 mg NOW STAT IV 07/27/17 04:51 07/27/17 04:52 DC 07/27/17 04:51 10 MG Metoprolol Tartrate (Lopressor Tab) 50 mg STK-MED ONCE .ROUTE 07/27/17 05:00 07/27/17 05:01 DC 07/27/17 05:00 25 MG ECG Indication: palpitations Rate (beats per minute): 97 Rhythm: atrial fibrillation Findings: LBBB, left axis deviation Comparison ECG Date: 07/15/17 Change: no significant change ED Course 0440: The patient was evaluated in room A03. A complete history and physical exam was performed. 0451: Ordered Cardizem 10mg IV 0500: Ordered Metoprolol Tartrate 25mg po. 0614: I reevaluated the patient, she is still in atrial fibrillation; however, the rate is controlled. 0634: I discussed the patient's case with Dr. Gann, [facility] Hospitalist. He will evaluate the patient for further management and care. 0654: Dr. Gann suggested the patient be evaluated by cardiology to evaluate the patient for outpatient treatment. 0659: I discussed the patient's case with Dr. Toney, Cardiology. He agrees with the treatment plan. The patient will follow up as an outpatient. 0719: Case management is helping the patient find medication sources. Medical Decision Differential diagnosis includes etiologies such as premature contractions, electrolyte abnormality, cardiac dysrhythmia, thyroid dysfunction, pulmonary embolism, infection, gastrointestinal, as well as others were entertained. Upon further investigation, patient found to be taking anticoagulation daily, Xarelto. Patient now with recurrence of her A. fib, likely in part due to missing her metoprolol over the last 2 days. Patient had prior FIDEL and successful cardioversion recently. Patient here otherwise with stable vital signs, reassuring labs, and symptoms resolved once patient rate controlled. Case management involved to help sure patient could obtain her usual metoprolol. I discussed the case initially with hospitalist for admission and then after additional information came to light during their evaluation, discussed with cardiology as patient seems stable for potential outpatient management. They were agreeable with plan, and patient subsequently arranged for discharge and close outpatient follow-up. Medication Reconcilliation Current Medication List: was personally reviewed by me Blood Pressure Screening Patient's blood pressure: Elevated blood pressure Blood pressure disposition: Elevated BP felt to be situational Consults Time Called: 0615 Consulting Physician: Dr. Gann, [facility] Hospitalist Returned Call: 0634 I discussed the patient's case with Dr. Gann [facility] Hospitalist. He will evaluate the patient for further management and care. 0654: Dr. Gann suggested the patient be evaluated by cardiology to evaluate the patient for outpatient treatment. Additional Consults: Time Called: 0658 Consulted Physician: Dr. Toney, Cardiology Returned Call: [phone] Additional Comments: I discussed the patient's case with Dr. Toney, Cardiology. He agrees with the treatment plan. The patient will follow up as an outpatient. Impression Primary Impression: A-fib Additional Impression: Palpitations Critical Care I have personally spent greater than 35 minutes of critical care time in the direct management of this patient. This includes bedside care, interpretation of diagnostic studies, and testing, discussion with consultants, patient, and family members, and other required patient management activities. This 35 minutes is in excess of all separately billable procedures. Scribe Attestation The scribe's documentation has been prepared under my direction and personally reviewed by me in its entirety. I confirm that the note above accurately reflects all work, treatment, procedures, and medical decision making performed by me. Departure Information Dispostion Home / Self-Care Referrals RV. Steele MD (PCP) Patient Instructions My [facility] Additional Instructions Please call and follow-up with cardiology. Please take your regular medications as prescribed. Please take your metoprolol daily. If you have any recurrent palpitations, develop lightheadedness, dizziness, vomiting, fevers, bleeding from any site, chest pain/pressure, or you have any other new or concerning symptoms, please return to the emergency room. Problem Qualifiers Primary Impression: A-fib Atrial fibrillation type: unspecified Qualified Codes: I48.91 - Unspecified atrial fibrillation
[2017-07-27] MEDS ORDERED: DICL1GEL12 TOP (05:07)
[2017-07-27] MEDS ORDERED: CEFD1CAP14 PO (05:07)
[2017-07-27] MEDS ORDERED: OXGN (05:07)
[2017-07-27 05:36] LABS: BASO % 0.4 %; BASO ABS # 0.03 K/uL (0-0.2); COMPLETE YES; EOS % 2.5 %; HEMATOCRIT 38.1 % (37-47); IG% 0.3 %; LYMPH % 11.9 %; MEAN CELL VOLUME 89.4 fL (80-100); MEAN CORPUSCULAR HEMOGLOBIN 29.1 pg (25-34); MEAN CORPUSCULAR HGB CONC 32.5 g/dl (32-36); MEAN PLATELET VOLUME 10.6 fL (7.4-10.4); MONO % 9.6 %; NEUT % 75.3 %; PLATELET COUNT 283 K/uL (130-400); RED BLOOD COUNT 4.26 M/uL (4.2-5.4); WHITE BLOOD COUNT 7.57 K/uL (4.8-10.8)
[2017-07-27 05:46] LABS: URINE APPEARANCE CLEAR (CLEAR); URINE BILIRUBIN NEG (NEG); URINE COLOR YELLOW; URINE NITRITE NEG (NEG); URINE PH 7.5 (4.5-7.5); URINE SPECIFIC GRAVITY 1.013 (1.000-1.030); UROBILINOGEN NEG (NEG)
[2017-07-27 05:48] LABS: MANUAL MICROSCOPIC REQUIRED? NO; REVIEW REQ? NO
[2017-07-27 05:50] LABS: INR 1.1 (0.9-1.1); PROTHROMBIN TIME (PATIENT) 11.5 SECONDS (9.0-12.0)
[2017-07-27 05:52] LABS: ALT/SGPT 24 U/L (12-78); AST/SGOT 21 U/L (15-37); BLOOD UREA NITROGEN 14 mg/dl (7-18); CALCIUM 8.5 mg/dl (8.5-10.1); CARBON DIOXIDE 28 mmol/L (21-32); CHLORIDE 109 mmol/L (98-107); CREATININE 0.88 mg/dl (0.60-1.20); GLUCOSE 100 mg/dl (70-99); MAGNESIUM 2.2 mg/dl (1.8-2.4); POTASSIUM 3.3 mmol/L (3.5-5.1); SODIUM 145 mmol/L (136-145)
[2017-07-27 06:03] LABS: ALB/GLOB RATIO 0.9 (0.9-2); ALKALINE PHOSPHATASE 96 U/L (45-117)
--- NOTE | 2017-07-27 07:13 | DIAGNOSTIC IMAGING REPORT ---
CHEST ONE VIEW PORTABLE CLINICAL HISTORY: 86 years-old Female presenting with palpitations. TECHNIQUE: Portable upright AP view of the chest was obtained. COMPARISON: 07/15/2017. FINDINGS: Median sternotomy wires and prosthetic aortic valve again noted. Atherosclerosis of aortic arch. Cardiac silhouette mildly enlarged, unchanged. Slight persistence of pulmonary vascular prominence in the upper lungs. Interval decrease in right mid and lower lung opacity. Minimal bandlike opacity at the left lung base persists. No large effusion or pneumothorax. Degenerative changes of the thoracic spine. Upper abdomen normal. IMPRESSION: 1. Interval decrease in right mid and lower lung opacity. Minimal left basilar atelectasis persists. 2. Cardiomegaly with mild pulmonary vascular prominence. No patrick pulmonary edema. Electronically signed by: Bryan Bautista M.D. 07/27/2017 7:11 AM Dictated Date/Time: 07/27/2017 7:10 AM
[2017-07-27 09:37] VITALS: BP 122/69; PULSE 75; O2SAT 94
== END 2017-07-27 09:38 | disposition home or self-care (01) ==
LOC: EDBD 04:31 → C.EDA 04:32
DX: I48.91 Unspecified atrial fibrillation (principal); R00.2 Palpitations; I50.9 Heart failure, unspecified; Z86.718 Personal history of other venous thrombosis and embolism; I11.0 Hypertensive heart disease with heart failure; E78.5 Hyperlipidemia, unspecified; Z80.9 Family history of malignant neoplasm, unspecified; Z82.49 Family history of ischemic heart disease and other diseases of the circulatory system; Z84.1 Family history of disorders of kidney and ureter; Z79.82 Long term (current) use of aspirin; Z79.899 Other long term (current) drug therapy; Z79.01 Long term (current) use of anticoagulants

== ENCOUNTER 2017-12-27 02:39 | Inpatient (IN) | payer OTHER, MEDICARE ==
[~2017-12-27] VITALS: Ht 157.5 cm; Wt 66.5 kg
[2017-12-27] VITALS (14 sets, daily range): BP systolic 114–162; BP diastolic 56–76; PULSE 55–74; TEMP 36.5–37; O2SAT 89–97; Ht 157.5 cm; Wt 66.5 kg
[~2017-12-27 02:39] MED LIST changes: +CEFD1CAP14 PO; -CEFD300C3 PO; +DICL1GEL12 TOP; -VLTG EXT
--- NOTE | 2017-12-27 02:54 | EMERGENCY ROOM VISIT NOTE ---
History Report prepared by Oneyda: Horace Aguillon Under the Supervision of: Dr. Arabella Maldonado D.O. First contact with patient: 02:43 Chief Complaint: CARDIAC ASSESSMENT Stated Complaint: NECK PAIN/SHORT OF BREATH History of Present Illness The patient is an 87 year old female who presents to the Emergency Room with complaints of constant left-sided chest pain beginning 2 hours ago. The patient states that her chest pain woke her up tonight. She notes that her chest pain was located in her left chest, but reports that it radiated to her shoulder and felt like a "burning with an occasional stabbing pain." She also complains of SOB. The patient states that she waited 2 hours before calling EMS. Upon EMS arrival, the patient notes that she was no longer having any pain. She reports that she is currently experiencing pain in her left chest rated at a 3-4/10. The patient states that her pain worsens when she takes a deep breath. She notes that she was not experiencing any pain throughout the day. She denies any leg swelling. She reports that she has a history of an aortic valve replacement. Source of History: patient Onset: 2 hours ago Position: chest (left-sided) Symptom Intensity: 3-4/10 Quality: other ("burning with an occasional stabbing pain") Timing: constant Modifying Factors (Worsening): breathing (deep breaths) Associated Symptoms: + SOB Note: The patient denies any leg swelling. Review of Systems See HPI for pertinent positives & negatives. A total of 10 systems reviewed and were otherwise negative. 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 (4) Aortocoronary Bypass (5) Atrial fibrillation, currently in sinus rhythm (6) Congestive Heart Failure Nos (7) Encephalopathy acute (8) Hyperlipidemia Nec/Nos (9) Hypertension (10) Hypertension Nos (11) Mobitz type 2 second degree atrioventricular block (12) SVT (supraventricular tachycardia) Family History Cancer Heart disease Hypertension Kidney disease Social History Smoking Status: Never Smoker Alcohol Use: none Drug Use: none Marital Status: Housing Status: lives with family Occupation Status: retired Current/Historical Medications Scheduled Aspirin (Aspirin Ec), 81 MG PO DAILY Cholecalciferol (Vitamin D3), 1,000 UNIT PO DAILY Digoxin (Digoxin), 0.125 MG PO DAILY Furosemide (Lasix), 40 MG PO DAILY Isosorbide Mononitrate Ext Rel (Imdur Ext Rel), 30 MG PO DAILY Levothyroxine Sodium (Levothyroxine Sodium), 25 MCG PO DAILY Magnesium (Magnesium 250 mg), 250 MG PO DAILY Metoprolol Tartrate (Lopressor) (Lopressor), 25 MG PO BID Warfarin Sod (Jantoven), 5 MG PO DAILY Allergies Coded Allergies: Amlodipine (Verified Adverse Reaction, Mild, MUSCLE CRAMPS, 12/27/17) Clonidine (Verified Adverse Reaction, Mild, FATIGUE,DIZZINESS, 12/27/17) Diltiazem (Verified Adverse Reaction, Mild, VILLAGOMEZ/DIZZINESS, 12/27/17) Hydralazine (Verified Adverse Reaction, Mild, VILLAGOMEZ/DIZZINESS, 12/27/17) Hydrochlorothiazide w/Triamterene (Verified Adverse Reaction, Mild, DIZZINESS, 12/27/17) Levothyroxine (Verified Adverse Reaction, Mild, MUSCLE CRAMPS, 12/27/17) Valsartan (Verified Adverse Reaction, Mild, DIZZINESS, 12/27/17) CI Pigment Blue 63 (Verified Adverse Reaction, Unknown, NAUSEA, ?STROKE SYMPTOMS, 12/27/17) Lisinopril (Verified Adverse Reaction, Unknown, `, 12/27/17) Nebivolol (Verified Adverse Reaction, Unknown, NAUSEA, ?STROKE SYMPTOMS, ) Sorbitan (Verified Adverse Reaction, Unknown, NAUSEA, ?STROKE SYMPTOMS, 10/04) Yellow Dye (Verified Adverse Reaction, Unknown, NAUSEA, ?STROKE SYMPTOMS, 12/27/17) Physical Exam Vital Signs Date Time Temp Pulse Resp B/P (MAP) Pulse Ox O2 Delivery O2 Flow Rate FiO2 12/27/17 06:10 65 12/27/17 05:45 97 Nasal Cannula 2.0 12/27/17 05:45 97 Nasal Cannula 2.0 12/27/17 05:42 86 Room Air 12/27/17 05:01 149/70 12/27/17 05:00 49 22 92 12/27/17 04:01 156/83 12/27/17 04:00 54 17 92 12/27/17 03:56 61 14 169/80 92 Room Air 12/27/17 03:09 58 13 92 12/27/17 03:02 168/65 3/12/18 02:48 61 12/27/17 02:44 173/76 12/27/17 02:39 93 Room Air 12/27/17 02:39 93 Room Air 12/27/17 02:39 36.7 67 13 173/76 93 Room Air Physical Exam HEENT: Head - normocephalic and atraumatic Pupils are equal, round, and reactive to light. Extraocular eye muscles are intact, and sclera are anicteric. Nose - moist nasal mucosa without discharge. Mouth - moist buccal mucosa. Oropharynx is nonerythematous and there is no tonsillar exudate or edema noted. Neck: Supple; no JVD, nuchal rigidity, cervical lymphadenopathy. Heart: Regular rate and rhythm. There is a normal S1 and S2 with no murmurs, clicks, or gallops appreciated. Lungs: Clear to auscultation bilaterally with no wheezes, rales, or rhonchi. Abdomen: Soft, completely nontender, nondistended, with good bowel sounds. There are no palpable pulsatile masses or hepatosplenomegaly. There is no guarding, rigidity, or rebound noted. Extremities: No evidence of cyanosis, clubbing, or edema. There are easily palpable peripheral pulses. Skin: warm and dry with good turgor and no rashes. Medical Decision & Procedures ER Provider Diagnostic Interpretation: Radiology results as stated below per my review and interpretation: CHEST X-RAY: Moderate pulmonary vascular congestion. Median sternotomy wires. CT CHEST With Contrast: Comparison is made to prior CT chest on 07/17/2017. No pulmonary embolus identified. Prominence of the pulmonary artery may represent pulmonary arterial hypertension. Atherosclerotic changes of the aorta without aneurysm. Small right greater than left pleural effusions. Associated atelectasis. Interlobular septal thickening and mild groundglass opacities throughout the lungs may represent pulmonary edema. Findings are suggestive of CHF. Reflux of contrast into the hepatic veins suggests elevated right heart pressures. Cardiomegaly. Coronary artery and mitral annular calcifications. Aortic valve prosthesis. Median sternotomy changes. Nonspecific thickening of the adrenal glands. Similar probably sebaceous cyst in the anterior chest wall. Nonspecific mildly enlarged mediastinal and hilar lymph nodes. Radiologist: Washington Batista M.D. Laboratory Results 12/27/17 02:46 Red Blood Count 4.42, Mean Corpuscular Volume 87.3, Mean Corpuscular Hemoglobin 29.0, Mean Corpuscular Hemoglobin Concent 33.2, Mean Platelet Volume 11.4, Neutrophils (%) (Auto) 78.4, Lymphocytes (%) (Auto) 9.8, Monocytes (%) (Auto) 8.2, Eosinophils (%) (Auto) 2.9, Basophils (%) (Auto) 0.3, Neutrophils # (Auto) 8.98, Lymphocytes # (Auto) 1.12, Monocytes # (Auto) 0.94, Eosinophils # (Auto) 0.33, Basophils # (Auto) 0.03 12/27/17 02:46 Test 12/27/17 02:46 12/27/17 06:25 White Blood Count 11.45 K/uL (4.8-10.8) Red Blood Count 4.42 M/uL (4.2-5.4) Hemoglobin 12.8 g/dL (12.0-16.0) Hematocrit 38.6 % (37-47) Mean Corpuscular Volume 87.3 fL (80-100) Mean Corpuscular Hemoglobin 29.0 pg (25-34) Mean Corpuscular Hemoglobin Concent 33.2 g/dl (32-36) Platelet Count 209 K/uL (130-400) Mean Platelet Volume 11.4 fL (7.4-10.4) Neutrophils (%) (Auto) 78.4 % Lymphocytes (%) (Auto) 9.8 % Monocytes (%) (Auto) 8.2 % Eosinophils (%) (Auto) 2.9 % Basophils (%) (Auto) 0.3 % Neutrophils # (Auto) 8.98 K/uL (1.4-6.5) Lymphocytes # (Auto) 1.12 K/uL (1.2-3.4) Monocytes # (Auto) 0.94 K/uL (0.11-0.59) Eosinophils # (Auto) 0.33 K/uL (0-0.5) Basophils # (Auto) 0.03 K/uL (0-0.2) RDW Standard Deviation 48.1 fL (36.4-46.3) RDW Coefficient of Variation 15.2 % (11.5-14.5) Immature Granulocyte % (Auto) 0.4 % Immature Granulocyte # (Auto) 0.05 K/uL (0.00-0.02) Prothrombin Time 11.4 SECONDS (9.0-12.0) Prothromb Time International Ratio 1.1 (0.9-1.1) Activated Partial Thromboplast Time 25.1 SECONDS (21.0-31.0) Partial Thromboplastin Ratio 1.0 D-Dimer 1700 ug/L FEU (0-500) Anion Gap 7.0 mmol/L (3-11) Est Creatinine Clear Calc Drug Dose 38.8 ml/min Estimated GFR () 62.8 Estimated GFR (Non- 54.2 BUN/Creatinine Ratio 17.2 (10-20) Calcium Level 8.6 mg/dl (8.5-10.1) Total Creatine Kinase 146 U/L (26-192) Creatine Kinase MB 16.2 ng/ml (0.5-3.6) Creatine Kinase MB Ratio 11.1 (0-3.0) Triglycerides Level 124 mg/dl (0-150) Cholesterol Level 129 mg/dl (0-200) HDL Cholesterol 31 mg/dl LDL Cholesterol, Calculated 73 mg/dl VLDL Cholesterol, Calculated 25 mg/dl Cholesterol/HDL Ratio 4.2 Laboratory results per my review. Medications Administered Medications (Trade) Dose Ordered Sig/Shandra Route Start Time Stop Time Status Last Admin Dose Admin Nitroglycerin (Nitrostat Tab) 0.4 mg NOW STAT SL 12/27/17 02:56 12/27/17 02:59 DC 12/27/17 03:06 0.4 MG Heparin Sodium/ Dextrose (Heparin 25,000 Unit/500ml D5W) 25,000 unit STK-MED ONCE .ROUTE 12/27/17 05:57 12/27/17 05:58 DC 12/27/17 06:23 25,000 UNIT Nitroglycerin (Nitroglycerin 2% Oint) 18 inch STK-MED ONCE EXT 12/27/17 06:12 12/27/17 06:13 DC 12/27/17 06:14 1 [facility] Procedure 0256: Nitroglycerin 0.4mg SL 0535: Heparin Sodium/Dextrose 1ea N/A ECG Per My Interpretation Indication: chest pain Rate (beats per minute): 70 Rhythm: atrial fibrillation Findings: LBBB Comparison ECG Date: 07/27/2017 Change: no significant change ED Course 0248: Past medical records reviewed. The patient was evaluated in room B6. A complete history and physical exam was performed. Labs are drawn as above and a 12-lead EKG was obtained. 0256: Nitroglycerin 0.4mg SL. The patient had a portable chest x-ray as described above. 0336: The patient states that nitroglycerin did not help with her pain. The patient had an elevated d-dimer and will go for CT scan of the chest to rule out PE. 0534: Upon reevaluation, I discussed findings and results with the patient. She verbalized agreement of the treatment plan. I spoke with Dr. Kang ( resident) of the [facility] Hospitalist Service. The patient will be evaluated for further management and care. 0535: Heparin drip was started. Medical Decision The patient is an 87 year old female who presents to the Emergency Room with complaints of constant left-sided chest pain beginning 2 hours ago. Differential diagnoses include: pneumonia, PE, CHF, acute coronary syndrome, and STEMI. Lab Results Show: White count 11.4. Stable H&H. Troponin 1.29. Total CK of 147. CK-MB 16.2. Glucose 108. Normal renal function. D dimer 36719. This is an 87-year-old female patient presents to the emergency department with a sudden onset of left-sided chest discomfort that radiated up to her left shoulder. Chest x-ray was concerning for pulmonary vascular congestion/CHF. The patient' s chest discomfort was not relieved with nitroglycerin. CT scan showed no evidence of PE. This appears to be consistent with a non-ST segment elevation AK and CHF. The patient was started on heparin drip. She is currently chest pain-free. I discussed the case with the [facility] hospitalist resident. Medication Reconcilliation Current Medication List: was personally reviewed by me Blood Pressure Screening Patient's blood pressure: Elevated blood pressure Blood pressure disposition: Elevated BP felt to be situational (secondary to CHF) Consults Time Called: [phone] Consulting Physician: Dr. Kang - Hospitalist, [facility] Returned Call: [phone] Discussed the patient's case. The patient will be evaluated for further management. Impression Primary Impression: NSTEMI (non-ST elevated myocardial infarction) Additional Impression: CHF (congestive heart failure) Scribe Attestation The scribe's documentation has been prepared under my direction and personally reviewed by me in its entirety. I confirm that the note above accurately reflects all work, treatment, procedures, and medical decision making performed by me. Departure Information Dispostion Being Evaluated By Hospitalist Referrals RV. Steele MD (PCP) Patient Instructions My [facility] Problem Qualifiers Additional Impression: CHF (congestive heart failure) Heart failure type: unspecified Heart failure chronicity: acute Qualified Codes: I50.9 - Heart failure, unspecified
[2017-12-27] MEDS ORDERED: NITROGLYCERIN 0.4 MG SL PER TAB CHARGE SL STA (02:56)
[2017-12-27 03:07] LABS: BASO % 0.3 %; BASO ABS # 0.03 K/uL (0-0.2); EOS % 2.9 %; EOS ABS # 0.33 K/uL (0-0.5); HEMATOCRIT 38.6 % (37-47); HEMOGLOBIN 12.8 g/dL (12.0-16.0); IG# 0.05 K/uL (0.00-0.02); LYMPH % 9.8 %; LYMPH ABS # 1.12 K/uL (1.2-3.4); MEAN CELL VOLUME 87.3 fL (80-100); MEAN CORPUSCULAR HGB CONC 33.2 g/dl (32-36); MEAN PLATELET VOLUME 11.4 fL (7.4-10.4); MONO % 8.2 %; MONO ABS # 0.94 K/uL (0.11-0.59); NEUT % 78.4 %; NEUT ABS # 8.98 K/uL (1.4-6.5); PLATELET COUNT 209 K/uL (130-400); RED CELL DISTRIBUTION WIDTH CV 15.2 % (11.5-14.5); RED CELL DISTRIBUTION WIDTH SD 48.1 fL (36.4-46.3); WHITE BLOOD COUNT 11.45 K/uL (4.8-10.8)
[2017-12-27] MEDS ORDERED: ISOS30TA35 PO (03:15)
[2017-12-27] MEDS ORDERED: LNX125 PO (03:15)
[2017-12-27] MEDS ORDERED: LEVO25TA5 PO (03:17)
[2017-12-27] MEDS ORDERED: ASPI81TA28 PO (03:17)
[2017-12-27] MEDS ORDERED: MAGN250T3 PO (03:17)
[2017-12-27] MEDS ORDERED: CHOL1000 PO (03:18)
[2017-12-27] MEDS ORDERED: WARF5TAB7 PO (03:22)
[2017-12-27 03:26] LABS: CALCIUM 8.6 mg/dl (8.5-10.1); CREATININE 0.94 mg/dl (0.60-1.20); POTASSIUM 4.1 mmol/L (3.5-5.1)
[2017-12-27 03:27] LABS: INR 1.1 (0.9-1.1); PTT PATIENT 25.1 SECONDS (21.0-31.0)
[2017-12-27 03:36] LABS: CKMB 16.2 ng/ml (0.5-3.6)
[2017-12-27] MEDS ORDERED: OPTIRAY 320 IV PRN (03:45)
[2017-12-27] MEDS ORDERED: HEPARIN 25000 UNIT/500 ML D5W ONE (05:57)
[2017-12-27] MEDS ORDERED: NITROGLYCERIN 2% OINTMENT 30GM TUBE EXT ONE (06:12)
--- NOTE | 2017-12-27 06:13 | History and Physical ---
History & Physical Date & Time of Service: Dec 27, 2017 at 06:13 Chief Complaint: Neck Pain/Short Of Breath Primary Care Physician: RV. Steele MD History of Present Illness Source: patient 87-year-old female with past medical history of hypertension, hyperlipidemia, chronic kidney disease, chronic diastolic CHF, atrial fibrillation, sleep apnea presented to the ER with complaints of left-sided chest pain which started when she went to bed but worsened at around 3 AM. She stated the pain was radiating to her left neck area and had occasional stabbing pain. Denies any lightheadedness or dizziness but complains of nausea , tachycardia and shortness of breath. Past Medical/Surgical History 1. Aortic valve disease status post replacement with bioprosthetic valve in 2002 2. CKD stage 3 3. chronic hypoxic respiratory failure, exact etiology uncertain 4. HTN 5. hyperlipidemia 6. probable acute/chronic diastolic CHF 7. hypothyroidism 8. atrial fibrillation 9. history of sleep apnea 10. history of nephrolithiasis 11. HAYLEE lung consolidation/nodule - will need follow-up CT imaging in future Family History Cancer Heart disease Hypertension Kidney disease Social History Smoking Status: Never Smoker Smokeless Tobacco Use: No Alcohol Use: none Drug Use: none Marital Status: Housing status: lives with family Occupational Status: retired Immunizations History of Influenza Vaccine: Yes Influenza Vaccine Date: Jul 28, 2012 History of Tetanus Vaccine?: Yes History of Pneumococcal: No History of Hepatitis B Vaccine: No Allergies Coded Allergies: Amlodipine (Verified Adverse Reaction, Mild, MUSCLE CRAMPS, 12/27/17) Clonidine (Verified Adverse Reaction, Mild, FATIGUE,DIZZINESS, 12/27/17) Diltiazem (Verified Adverse Reaction, Mild, VILLAGOMEZ/DIZZINESS, 12/27/17) Hydralazine (Verified Adverse Reaction, Mild, VILLAGOMEZ/DIZZINESS, 12/27/17) Hydrochlorothiazide w/Triamterene (Verified Adverse Reaction, Mild, DIZZINESS, 12/27/17) Levothyroxine (Verified Adverse Reaction, Mild, MUSCLE CRAMPS, 12/27/17) Valsartan (Verified Adverse Reaction, Mild, DIZZINESS, 12/27/17) CI Pigment Blue 63 (Verified Adverse Reaction, Unknown, NAUSEA, ?STROKE SYMPTOMS, 12/27/17) Lisinopril (Verified Adverse Reaction, Unknown, `, 12/27/17) Nebivolol (Verified Adverse Reaction, Unknown, NAUSEA, ?STROKE SYMPTOMS, ) Sorbitan (Verified Adverse Reaction, Unknown, NAUSEA, ?STROKE SYMPTOMS, 10/04) Yellow Dye (Verified Adverse Reaction, Unknown, NAUSEA, ?STROKE SYMPTOMS, 12/27/17) Home Medications Scheduled Aspirin (Aspirin Ec), 81 MG PO DAILY Atorvastatin (Lipitor), 40 MG PO QAM Cholecalciferol (Vitamin D3), 1,000 UNIT PO DAILY Clopidogrel Bisulfate (Clopidogrel), 75 MG PO QAM Digoxin (Digoxin), 0.125 MG PO DAILY Furosemide (Lasix), 40 MG PO DAILY Isosorbide Mononitrate Ext Rel (Imdur Ext Rel), 30 MG PO DAILY Levothyroxine Sodium (Levothyroxine Sodium), 25 MCG PO DAILY Losartan Potassium (Losartan Potassium), 50 MG PO QAM Magnesium (Magnesium 250 mg), 250 MG PO DAILY Metoprolol Tartrate (Lopressor) (Lopressor), 0.5 TAB PO BID Review of Systems Constitutional: No fever, No chills Eyes: No worsening of vision ENT: No hearing loss Respiratory: No cough, No sputum Cardiovascular: No chest pain Abdomen: No pain, No nausea, No vomiting Genitourinary - Female: No dysuria, No urinary frequency, No urinary urgency Neurologic: No memory loss Psychiatric: No depression symptoms Endocrine: No fatigue Hematologic / Lymphatic: No abnormal bleeding/bruising Physical Exam Vital Signs Date Time Temp Pulse Resp B/P (MAP) Pulse Ox O2 Delivery O2 Flow Rate FiO2 12/27/17 06:10 65 12/27/17 05:45 97 Nasal Cannula 2.0 12/27/17 05:45 97 Nasal Cannula 2.0 12/27/17 05:42 86 Room Air 12/27/17 05:01 149/70 12/27/17 05:00 49 22 92 12/27/17 04:01 156/83 12/27/17 04:00 54 17 92 12/27/17 03:56 61 14 169/80 92 Room Air 12/27/17 03:09 58 13 92 12/27/17 03:02 168/65 12/27/17 02:48 61 12/27/17 02:44 173/76 12/27/17 02:39 93 Room Air 12/27/17 02:39 93 Room Air 12/27/17 02:39 36.7 67 13 173/76 93 Room Air General Appearance: WD/WN Eyes: normal inspection ENT: normal ENT inspection, hearing grossly normal Neck: supple Respiratory/Chest: chest non-tender, normal breath sounds, + crackles Cardiovascular: + irregularly irregular Abdomen/GI: normal bowel sounds, non tender, soft Extremities/Musculoskelatal: + pedal edema (trace) Neurologic/Psych: alert, normal mood/affect, oriented x 3 Skin: normal color Diagnostics Laboratory Results Results Past 24 Hours Test 12/27/17 02:46 Range/Units White Blood Count 11.45 4.8-10.8 K/uL Red Blood Count 4.42 4.2-5.4 M/uL Hemoglobin 12.8 12.0-16.0 g/dL Hematocrit 38.6 37-47 % Mean Corpuscular Volume 87.3 80-100 fL Mean Corpuscular Hemoglobin 29.0 25-34 pg Mean Corpuscular Hemoglobin Concent 33.2 32-36 g/dl Platelet Count 209 130-400 K/uL Mean Platelet Volume 11.4 7.4-10.4 fL Neutrophils (%) (Auto) 78.4 % Lymphocytes (%) (Auto) 9.8 % Monocytes (%) (Auto) 8.2 % Eosinophils (%) (Auto) 2.9 % Basophils (%) (Auto) 0.3 % Neutrophils # (Auto) 8.98 1.4-6.5 K/uL Lymphocytes # (Auto) 1.12 1.2-3.4 K/uL Monocytes # (Auto) 0.94 0.11-0.59 K/uL Eosinophils # (Auto) 0.33 0-0.5 K/uL Basophils # (Auto) 0.03 0-0.2 K/uL RDW Standard Deviation 48.1 36.4-46.3 fL RDW Coefficient of Variation 15.2 11.5-14.5 % Immature Granulocyte % (Auto) 0.4 % Immature Granulocyte # (Auto) 0.05 0.00-0.02 K/uL Prothrombin Time 11.4 9.0-12.0 SECONDS Prothromb Time International Ratio 1.1 0.9-1.1 Activated Partial Thromboplast Time 25.1 21.0-31.0 SECONDS Partial Thromboplastin Ratio 1.0 D-Dimer 1700 0-500 ug/L FEU Sodium Level 140 136-145 mmol/L Potassium Level 4.1 3.5-5.1 mmol/L Chloride Level 106 98-107 mmol/L Carbon Dioxide Level 27 21-32 mmol/L Anion Gap 7.0 3-11 mmol/L Blood Urea Nitrogen 16 7-18 mg/dl Creatinine 0.94 0.60-1.20 mg/dl Est Creatinine Clear Calc Drug Dose 38.8 ml/min Estimated GFR () 62.8 Estimated GFR (Non- 54.2 BUN/Creatinine Ratio 17.2 10-20 Random Glucose 108 70-99 mg/dl Calcium Level 8.6 8.5-10.1 mg/dl Total Creatine Kinase 146 26-192 U/L Creatine Kinase MB 16.2 0.5-3.6 ng/ml Creatine Kinase MB Ratio 11.1 0-3.0 Troponin I 1.290 0-0.045 ng/ml Diagnostic Radiology [~ rep ct add3]] CT ANGIOGRAPHY OF THE CHEST, PULMONARY EMBOLUS PROTOCOL CLINICAL HISTORY: Left-sided chest pain and shortness of breath. COMPARISON STUDY: Chest CT July 17, 2017 and chest radiograph December 27, 2017. TECHNIQUE: Following IV administration of 91 mL of [id number]-[id number], helical axial images of the chest were obtained utilizing the pulmonary embolus protocol. Maximal intensity projections and sagittal and coronal reformats were viewed on an independent 3D workstation. IV contrast was administered without complication. A dose lowering technique was utilized adhering to the principles of ALARA. CT DOSE: 250.63 mGy.cm FINDINGS: No pulmonary emboli are identified although the segmental and subsegmental pulmonary arteries are suboptimally assessed due to respiratory motion. There are median sternotomy wires and postsurgical findings consistent with bypass grafting. Moderate cardiomegaly is noted. There is a prosthetic aortic valve. There is no pericardial effusion. There are mildly enlarged mediastinal and bilateral bilateral hilar lymph nodes. Index subcarinal lymph node measures 1.1 cm in short axis diameter. 2.4 cm water attenuation right anterior chest wall lesion is unchanged from earlier exams. This is likely benign. This likely reflects a sebaceous cyst. Small right and trace left pleural effusions are present. Is no pneumothorax. There are calcified mediastinal and hilar lymph nodes. There are mild groundglass opacities and interlobular septal thickening within the lungs. A few left lung nodules are unchanged since CT of October 02, 2009. There are no suspicious osseous lesions. There is reflux of contrast into the IVC and hepatic veins. IMPRESSION: 1. No pulmonary emboli identified although segmental and subsegmental pulmonary arteries suboptimally assessed due to respiratory motion. 2. Groundglass opacities and interlobular septal thickening suggestive of pulmonary edema. 3. Small right and trace left pleural effusions. 4. Moderate cardiomegaly. 5. Mild mediastinal and bilateral hilar lymphadenopathy. This is nonspecific. Electronically signed by: George Rubi M.D. 12/27/2017 6:51 AM Dictated Date/Time: 12/27/2017 6:43 AM [~ rep ct add3]] CHEST ONE VIEW PORTABLE CLINICAL HISTORY: cp dyspnea COMPARISON STUDY: 07/27/2017 FINDINGS: Moderate cardiomegaly. Prior median sternotomy. Increased prominence of the bronchovascular markings bilaterally. IMPRESSION: Mild congestive failure versus diffuse bilateral parenchymal infiltrative change. The above report was generated using voice recognition software. It may contain grammatical, syntax or spelling errors. Electronically signed by: Rubio Rosa M.D. 12/27/2017 6:50 AM EKG Atrial fibrillation Left axis deviation Left bundle branch block Abnormal ECG When compared with ECG of 27-DEC-2017 02:41, (unconfirmed) Previous ECG has undetermined rhythm, needs review Impression Assessment and Plan 87-year-old female with past medical history of hypertension, hyperlipidemia, chronic kidney disease, chronic diastolic CHF, atrial fibrillation, sleep apnea presented to the ER with complaints of left-sided chest pain which started when she went to bed but worsened at around 3 AM. She stated the pain was radiating to her left neck area and had occasional stabbing pain. Denies any lightheadedness or dizziness but complains of nausea , tachycardia and shortness of breath. Precordial chest pain: -EKG concerning for Atrial fibrillation, Left axis deviation, Left bundle branch block - CTA chest negative for pulmonary embolism but suggestive of pulmonary edema and small bilateral pleural effusions -Initial troponin I.2, trended q6 hours -Continue aspirin, metoprolol, Imdur -Started on low-dose heparin drip and nitro paste -Cardiology consult Atrial fibrillation: -Currently rate controlled -Continue Lopressor 25 mg twice daily, digoxin - Anticoagulation with Coumadin but patient states that she has not been using it. - INR 1.1 CHF -continue Lasix 40 mg daily: -Last echo: 07/04: * There is a bioprosthetic aortic valve. * There is mild to moderate mitral regurgitation. * No thrombus is detected in the left atrial appendage. * Left ventricular systolic function is normal. * There is moderate concentric left ventricular hypertrophy Hypothyroidism: -Continue Synthroid DVT prophylaxis: Heparin drip DNR Disposition: admitted to telemetry Attending addendum: I have physically seen this patient, have supervised the medical residents activities, and agree with the H&P unless as otherwise noted. Assessment and Plan: Precordial chest pain/atrial fibrillation/left bundle branch block/pulmonary edema/bioprosthetic aortic valve The patient will be admitted to telemetry for serial cardiac enzymes, serial EKG's, cardiac rhythm monitoring and a 2-D echocardiogram with Dopplers. Continue aspirin, M Shira and metoprolol tartrate. Heparin drip low dose without bolus per protocol. Continue Lasix 40 mg daily. Consult cardiology Resuscitation Status DNR VTE Prophylaxis Will order VTE Prophylaxis: Yes Resident Tracking Resident Involvement: Resident Care Provided Care Provided: Adult Hospital Medicine
[2017-12-27] MEDS ORDERED: ACETAMINOPHEN 325 MG TAB PO PRN (06:15)
[2017-12-27] MEDS ORDERED: POLYETHYLENE (MIRALAX) 17 GM PACK PO PRN (06:15)
[2017-12-27] MEDS ORDERED: ONDANSETRON INJ 2 MG/ML 2 ML VIAL IV PRN (06:15)
[2017-12-27] MEDS ORDERED: HEPARIN IV LOW DOSE NO BOLUS SCH (06:22)
[2017-12-27] MEDS ORDERED: HEPARIN 25,000 UNIT/500ML D5W 500 ML IV PRN (06:30)
--- NOTE | 2017-12-27 06:51 | DIAGNOSTIC IMAGING REPORT ---
CHEST ONE VIEW PORTABLE CLINICAL HISTORY: cp dyspnea COMPARISON STUDY: 07/27/2017 FINDINGS: Moderate cardiomegaly. Prior median sternotomy. Increased prominence of the bronchovascular markings bilaterally. IMPRESSION: Mild congestive failure versus diffuse bilateral parenchymal infiltrative change. The above report was generated using voice recognition software. It may contain grammatical, syntax or spelling errors. Electronically signed by: Rubio Rosa M.D. 12/27/2017 6:50 AM Dictated Date/Time: 12/27/2017 6:49 AM
--- NOTE | 2017-12-27 06:53 | DIAGNOSTIC IMAGING REPORT ---
CT ANGIOGRAPHY OF THE CHEST, PULMONARY EMBOLUS PROTOCOL CLINICAL HISTORY: Left-sided chest pain and shortness of breath. COMPARISON STUDY: Chest CT July 17, 2017 and chest radiograph December 27, 2017. TECHNIQUE: Following IV administration of 91 mL of Optiray-320, helical axial images of the chest were obtained utilizing the pulmonary embolus protocol. Maximal intensity projections and sagittal and coronal reformats were viewed on an independent 3D workstation. IV contrast was administered without complication. A dose lowering technique was utilized adhering to the principles of ALARA. CT DOSE: 250.63 mGy.cm FINDINGS: No pulmonary emboli are identified although the segmental and subsegmental pulmonary arteries are suboptimally assessed due to respiratory motion. There are median sternotomy wires and postsurgical findings consistent with bypass grafting. Moderate cardiomegaly is noted. There is a prosthetic aortic valve. There is no pericardial effusion. There are mildly enlarged mediastinal and bilateral bilateral hilar lymph nodes. Index subcarinal lymph node measures 1.1 cm in short axis diameter. 2.4 cm water attenuation right anterior chest wall lesion is unchanged from earlier exams. This is likely benign. This likely reflects a sebaceous cyst. Small right and trace left pleural effusions are present. Is no pneumothorax. There are calcified mediastinal and hilar lymph nodes. There are mild groundglass opacities and interlobular septal thickening within the lungs. A few left lung nodules are unchanged since CT of October 02, 2009. There are no suspicious osseous lesions. There is reflux of contrast into the IVC and hepatic veins. IMPRESSION: 1. No pulmonary emboli identified although segmental and subsegmental pulmonary arteries suboptimally assessed due to respiratory motion. 2. Groundglass opacities and interlobular septal thickening suggestive of pulmonary edema. 3. Small right and trace left pleural effusions. 4. Moderate cardiomegaly. 5. Mild mediastinal and bilateral hilar lymphadenopathy. This is nonspecific. Electronically signed by: George Rubi M.D. 12/27/2017 6:51 AM Dictated Date/Time: 12/27/2017 6:43 AM
[2017-12-27] MEDS ORDERED: ASPIRIN 324 MG CHEW PO STA (06:55)
--- NOTE | 2017-12-27 07:55 | Family Medicine Progress Note ---
Progress Note Date of Service Dec 27, 2017. Subjective Pt evaluation today including: conversation w/ patient, physical exam, chart review, lab review, review of studies, conversation w/ cardiology consultants, review of inpatient medication list Patient states she is comfortable, she has not had recurrent chest pain symptoms since admission. She denies palpitations, heart racing, dyspnea, nausea , diaphoresis. She acknowledges she has a prosthetic aortic valve. She states she has history of atrial fibrillation, but was never put on warfarin, she is unsure why. She denies other cardiac history. She otherwise has not had fevers/chills, headaches, abdominal pain, lower extremity swelling or rashes. She states she is tolerating diet without nausea or vomiting, ambulating without exacerbating symptoms, and voiding and stooling appropriately. ROS is unremarkable except as noted above. Objective Vital Signs Date Time Temp Pulse Resp B/P (MAP) Pulse Ox O2 Delivery O2 Flow Rate FiO2 12/27/17 07:02 163/77 12/27/17 06:55 97 Nasal Cannula 2.0 12/27/17 06:11 60 17 97 Nasal Cannula 2.0 12/27/17 06:10 65 12/27/17 06:06 72 23 97 Nasal Cannula 2.0 12/27/17 06:02 174/80 12/27/17 05:45 97 Nasal Cannula 2.0 12/27/17 05:45 97 Nasal Cannula 2.0 12/27/17 05:42 86 Room Air 12/27/17 05:06 39 21 12/27/17 05:01 149/70 12/27/17 05:00 49 22 92 12/27/17 04:01 156/83 12/27/17 04:00 54 17 92 12/27/17 03:56 61 14 169/80 92 Room Air 12/27/17 03:09 58 13 92 12/27/17 03:02 168/65 12/27/17 02:48 61 12/27/17 02:44 173/76 12/27/17 02:39 93 Room Air 12/27/17 02:39 93 Room Air 12/27/17 02:39 36.7 67 13 173/76 93 Room Air Physical Exam General Appearance: WD/WN, no apparent distress Eyes: normal inspection ENT: hearing grossly normal, pharynx normal Neck: supple, no adenopathy, no JVD Respiratory/Chest: chest non-tender, lungs clear, normal breath sounds, no respiratory distress, no accessory muscle use Cardiovascular: + bradycardia, + irregularly irregular Abdomen: normal bowel sounds, non tender, soft Extremities: no calf tenderness, + pedal edema (trace) Neurologic/Psychiatric: alert, normal mood/affect Skin: normal color, warm/dry, no rash Laboratory Results Results Past 24 Hours Test 12/27/17 02:46 12/27/17 06:58 12/27/17 08:38 12/27/17 12:07 Range/Units White Blood Count 11.45 4.8-10.8 K/uL Red Blood Count 4.42 4.2-5.4 M/uL Hemoglobin 12.8 12.0-16.0 g/dL Hematocrit 38.6 37-47 % Mean Corpuscular Volume 87.3 80-100 fL Mean Corpuscular Hemoglobin 29.0 25-34 pg Mean Corpuscular Hemoglobin Concent 33.2 32-36 g/dl Platelet Count 209 130-400 K/uL Mean Platelet Volume 11.4 7.4-10.4 fL Neutrophils (%) (Auto) 78.4 % Lymphocytes (%) (Auto) 9.8 % Monocytes (%) (Auto) 8.2 % Eosinophils (%) (Auto) 2.9 % Basophils (%) (Auto) 0.3 % Neutrophils # (Auto) 8.98 1.4-6.5 K/uL Lymphocytes # (Auto) 1.12 1.2-3.4 K/uL Monocytes # (Auto) 0.94 0.11-0.59 K/uL Eosinophils # (Auto) 0.33 0-0.5 K/uL Basophils # (Auto) 0.03 0-0.2 K/uL RDW Standard Deviation 48.1 36.4-46.3 fL RDW Coefficient of Variation 15.2 11.5-14.5 % Immature Granulocyte % (Auto) 0.4 % Immature Granulocyte # (Auto) 0.05 0.00-0.02 K/uL Prothrombin Time 11.4 9.0-12.0 SECONDS Prothromb Time International Ratio 1.1 0.9-1.1 Activated Partial Thromboplast Time 25.1 28.7 21.0-31.0 SECONDS Partial Thromboplastin Ratio 1.0 1.1 D-Dimer 1700 0-500 ug/L FEU Sodium Level 140 136-145 mmol/L Potassium Level 4.1 3.5-5.1 mmol/L Chloride Level 106 98-107 mmol/L Carbon Dioxide Level 27 21-32 mmol/L Anion Gap 7.0 3-11 mmol/L Blood Urea Nitrogen 16 7-18 mg/dl Creatinine 0.94 0.60-1.20 mg/dl Est Creatinine Clear Calc Drug Dose 38.8 ml/min Estimated GFR () 62.8 Estimated GFR (Non- 54.2 BUN/Creatinine Ratio 17.2 10-20 Random Glucose 108 70-99 mg/dl Calcium Level 8.6 8.5-10.1 mg/dl Total Creatine Kinase 146 26-192 U/L Creatine Kinase MB 16.2 0.5-3.6 ng/ml Creatine Kinase MB Ratio 11.1 0-3.0 Troponin I 1.290 13.700 46.500 0-0.045 ng/ml Triglycerides Level 124 0-150 mg/dl Cholesterol Level 129 0-200 mg/dl HDL Cholesterol 31 mg/dl LDL Cholesterol, Calculated 73 mg/dl VLDL Cholesterol, Calculated 25 mg/dl Cholesterol/HDL Ratio 4.2 Digoxin Level 1.4 0.8-2.0 ng/ml Assessment and Plan 87 year old female with past medical history of chronic diastolic CHF, atrial fibrillation, hypertension, hyperlipidemia, chronic kidney disease, sleep apnea presented to the ED with chest pain and admitted for NSTEMI. NSTEMI: S/p PCI of late-mid to distal LAD with single BLAYNE - Continue heparin drip and nitro paste - Continue aspirin, metoprolol, Imdur. - Started clopidogrel (dual-antiplatelet therapy for at least 1 year) - Started atorvastatin - Started on IVF NSS @ 100cc/hr per cardiology, furosemide held - Serial troponin show elevations: 1.29 -> 13.7 -> 46.5. Continue labs q6h until downtrending - Echo report pending - will trace - Continue monitoring in telemetry - Cardiac rehab referral on discharge - CTA chest negative for pulmonary embolism but suggestive of pulmonary edema and small bilateral pleural effusions. Atrial fibrillation: - Currently rate controlled, with some episodes of bradycardia - Continue metoprolol and digoxin - Patient was supposed to be on warfarin with anticoagulation but did not comply with regimen. INR 1.1 on admission. Currently on therapeutic heparin - May need to restarted on warfarin Hypertension: - Continue losartan and metoprolol Hypothyroidism: - Continue Synthroid Dementia Mild dementia, which the patient is able to mask well at times. Discussion with patient's PCP, Dr. Childs reveals that patient's licence was recently revoked and despite patient's views to the contrary, patient is not able to manage her own care/medication regimen. Discussion with reveals that patient cares for herself and manages medication administration by herself. He does admit he has to prompt her on occasions. - dining services manager consulted DVT prophylaxis: - Heparin drip Code status: DNR Continued [facility] stay due to: abnormal vital signs Discharge planning: uncertain Resident Tracking Resident Involvement: Resident Care Provided Care Provided: Adult Hospital Medicine
[2017-12-27] MEDS ORDERED: NITROGLYCERIN 2% OINTMENT 30GM TUBE EXT SCH (12:00)
[2017-12-27 12:36] LABS: PTT PATIENT 28.7 SECONDS (21.0-31.0)
[2017-12-27] MEDS ORDERED: MIDAZOLAM HCL 1 MG/ML 2ML VIAL ONE (13:18)
[2017-12-27] MEDS ORDERED: FENTANYL CITRATE INJ 50 MCG/1 ML 2 ML VIAL ONE (13:19)
[2017-12-27] MEDS ORDERED: NiCARDipine HCL INJ 2.5 MG/ML 10 ML AMP ONE (13:19)
[2017-12-27] MEDS ORDERED: HEPARIN SOD (PORCINE) 1000 UNIT/ML 10 ML VIAL ONE (13:19)
[2017-12-27] MEDS ORDERED: NITROGLYCERIN/D5W 100MCG/ML 20ML SYR ONE (13:20)
[2017-12-27] MEDS ORDERED: LIDOCAINE HCL 1% 20 ML VIAL ONE (13:23)
[2017-12-27] MEDS ORDERED: HEPARIN IV BOLUS 4,000 UNIT in SYRINGE 0 ML IV ONE (14:00)
[2017-12-27] MEDS ORDERED: CLOPIDOGREL BISULFATE 300 MG TAB PO ONE (15:00)
--- NOTE | 2017-12-27 15:10 | Post Sedation Assessment ---
Post Sedation Assessment General Date of Sedation Dec 27, 2017. Vital Signs: Vital Signs Past 12 Hours Date Time Temp Pulse Resp B/P (MAP) Pulse Ox O2 Delivery O2 Flow Rate FiO2 12/27/17 15:02 61 16 134/69 (90) 92 Room Air 12/27/17 14:57 66 16 152/76 (101) 92 Room Air 12/27/17 14:52 63 16 148/66 (93) 92 Room Air 12/27/17 11:26 37.0 63 18 149/69 (95) 89 12/27/17 08:43 36.8 74 16 155/71 (99) 92 Room Air 12/27/17 08:00 92 Room Air 12/27/17 07:56 63 18 171/87 93 12/27/17 07:02 163/77 12/27/17 06:55 97 Nasal Cannula 2.0 12/27/17 06:11 60 17 97 Nasal Cannula 2.0 12/27/17 06:10 65 12/27/17 06:06 72 23 97 Nasal Cannula 2.0 12/27/17 06:02 174/80 12/27/17 05:45 97 Nasal Cannula 2.0 12/27/17 05:45 97 Nasal Cannula 2.0 12/27/17 05:42 86 Room Air 12/27/17 05:06 39 21 12/27/17 05:01 149/70 12/27/17 05:00 49 22 92 12/27/17 04:01 156/83 12/27/17 04:00 54 17 92 12/27/17 03:56 61 14 169/80 92 Room Air Post Procedure Recovery Score Activity: (2) Moves 4 extremities * Respiration: (2) Deep breath/cough Circulation: (2) +/-20% PreAnes Value Consciousness: (2) Fully Awake Oxygen Saturation: (2) > 92% On Room Air Post Anesthesia Score: 10 Discharge Sedation Level of Care: Fast Track Phase II Post Sedation Plan On clinical assessment, the patient appears to have tolerated the sedation without complications. Patient is recovering as anticipated. Patient will continue to be monitored by nursing and may be discharged when sedation discharge criteria are met per below protocol. Upon Completions of procedure and additional 15 minutes continue every 5 minute vital signs and the P.A.R. score; then discharge to a Phase I or Fast Track to Phase II per the following guidelines: * Discharge Patient to appropriate Phase II area if PAR is 8 or greater or return to pre- procedure baseline. The post - procedure orders will be as directed. * If PAR score is less than 8 or not return to pre-procedure baseline then patient will follow Phase I monitoring till PAR is reached for Phase II. The Phase I may be done in procedure room or may call to secure a Phase I area. * If naloxone or flumazenil are used for reversal, hold in Phase I for an additional 60 -120 minutes before discharge to Phase II. Please call the Sedation Physician to re-evaluate and complete post-note for discharge to Phase II area. Do NOT discharge from procedure sedation or Phase 1 until post- sedation evaluation note is complete by procedure /sedation MD Sedation Discharge Instructions to be given to the patient at discharge to home.
--- NOTE | 2017-12-27 15:10 | Pre Sedation Assessment ---
Pre Sedation Assessment General Date of Sedation: Dec 27, 2017. Vital Signs Past 12 Hours Date Time Temp Pulse Resp B/P (MAP) Pulse Ox O2 Delivery O2 Flow Rate FiO2 12/27/17 15:02 61 16 134/69 (90) 92 Room Air 12/27/17 14:57 66 16 152/76 (101) 92 Room Air 12/27/17 14:52 63 16 148/66 (93) 92 Room Air 12/27/17 11:26 37.0 63 18 149/69 (95) 89 12/27/17 08:43 36.8 74 16 155/71 (99) 92 Room Air 12/27/17 08:00 92 Room Air 12/27/17 07:56 63 18 171/87 93 12/27/17 07:02 163/77 12/27/17 06:55 97 Nasal Cannula 2.0 12/27/17 06:11 60 17 97 Nasal Cannula 2.0 12/27/17 06:10 65 12/27/17 06:06 72 23 97 Nasal Cannula 2.0 12/27/17 06:02 174/80 12/27/17 05:45 97 Nasal Cannula 2.0 12/27/17 05:45 97 Nasal Cannula 2.0 12/27/17 05:42 86 Room Air 12/27/17 05:06 39 21 12/27/17 05:01 149/70 12/27/17 05:00 49 22 92 12/27/17 04:01 156/83 12/27/17 04:00 54 17 92 12/27/17 03:56 61 14 169/80 92 Room Air Review Cardiovascular: regular rate, rhythm, no edema Lungs: chest non-tender, lungs clear Pre-Sedation Airway Assessment Smoking Status: Never Smoker Hx of Sleep Apnea: No Hx of difficult intubation: No Short Thick Neck: No Thyro-mental Distance: > 3 Finger Breadths Oral Cavity: Dentures Mallampati Classification: Class III ASA Classification: Class III NPO Status Date of Last Intake of Fluids: Dec 26, 2017 Time of Last Intake of Fluids: 2199 Date of Last Intake of Solids: Dec 26, 2017 Time of Last Intake of Solids: 2199 Procedure Planning Contraindications for Sedation: None Current Medications Reviewed: Yes Notes The planned sedation has been discussed with the patient. Informed Consent was obtained. I have identified the patient, determined the appropriateness of sedation and have assessed the patient immediately prior to the procedure. All medicine(s) and interventions are by my order.
--- NOTE | 2017-12-27 15:34 | Cardiac Catheterization ---
Procedure Note Procedure Date Dec 27, 2017. 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 Moderate 1st diagonal with luminal irregularities. Circumflex - Dominant, large caliber, 30-40% mid stenosis; moderate OM3 with 50- 60% proximal stenosis RCA - Non-dominant, luminal irregularities. -- PCI -- Antithrombotic therapy: Heparin, Clopidogrel Procedure: LM cannulated with EBU 3.5 guide BMW wire passed across lesion into apical LAD Mid LAD lesion predilated with 2.5 compliant balloon Distal/apical LAD treated with POBA with 2.0 balloon. Dilated mid-distal lesion stented with 2.25 x 26 Mahesh BLAYNE Post stent inflation extravasation noted from distal aspect of stent --> treated with 4 min low pressure balloon inflation Post balloon tamponade no further extravasation noted IC vasodilators administered for spasm Post procedure AGUSTÍN 3 flow, stent well expanded with minimal residual stenosis and no apparent cardiac complications. Arterial Closure: TR Band Summary: 1. Severe single vessel coronary artery disease - Subtotal late-mid LAD occlusion with distal severe diffuse disease 2. Moderate non-obstructive circumflex disease - Mid segment 30-40%; OM3 50-60% stenosis 3. Successful PCI of late-mid to distal LAD with single BLAYNE (2.25 x 26 Christine BLAYNE) . - POBA with 2.0 balloon to severe diffuse apical LAD disease Recommendations: To PCU for continued monitoring Loaded with clopidogrel 600mg in pathology laboratory aides teacher Continue dual-antiplatelet therapy for at least 1 year Continue statin, and ASCVD risk factor modification Consult cardiac Rehab Hemodynamics Rest Ao: 149/59/95 Final Ao: 145/49/89 LV: -- Recommendations PCI without planned CABG Specimens None Radiation Exposure (mGy) 3082 Contrast (mls) 160 Visi Fluids (cc crystalloids) 120 NS Drains None Anesthesia Moderate Procedural Complication(s) None Disposition PCU ACC Data Cardiac Status Clinical evaluation leading to the procedure CAD Presntation: Non STEMI Anginal Classification: CCS IV Heart Failure: No, NYHA Class: CCS I Cardiogenic Shock w/in 24Hrs: No Cardiac Arrest w/in 24Hrs: No Imaging studies past 6 months: No Stress studies past 6 months: No Closure Device Percutaneous Entry Location: Radial Closure Device: Radial Band Recommendations: PCI without planned CABG PCI Indication: PCI for high risk Non-STEMI Lesion Segment Name: Mid to distal LAD Culprit Artery: Yes Stenosis Prior to Rx (%): 99 Chronic Total Occlusion: No IVUS: No FFR: No Pre-Procedure AGUSTÍN Flow: 1 Previously Treated Lesion: No Lesion Complexity: Non-High/Non-C Lesion Length (mm): 35 Thrombus Present: No Bifurcation Lesion: No Guidewire Across Lesion: Yes Guidewire: Stenosis Post-Procedure (%): 0 Post-Procedure AGUSTÍN Flow: 3 Device(s) Deployed: Yes Intraprocedure Events Significant Dissection: No Perforation: No
[2017-12-27] MEDS ORDERED: SODIUM CHLORIDE 0.9% 1000ML 1,000 ML IV SCH (16:00)
[2017-12-27] MEDS ORDERED: NURSING DECISION MEDICATION ORDER SCH (20:00)
[2017-12-27] MEDS: METOPROLOL TARTRATE 25 MG TAB PO SCH (20:20)
--- NOTE | 2017-12-27 23:50 | CARDIOLOGY CONSULTATION ---
DATE OF CONSULTATION: 12/27/2017 CONSULTATION REQUESTED BY: Dr. Mustafa. REASON FOR CONSULTATION: NSTEMI. HISTORY OF PRESENT ILLNESS: Mr. Ralph is an 87-year-old woman with a complex past medical history as outlined below for whom cardiology was consulted for further management of an NSTEMI. The patient is followed by Dr. Wood as an outpatient and was last seen in cardiology clinic back in July 2017. She was in her usual state of health until the night prior to admission when developed some brief intermittent chest discomfort. She went to sleep as usual but was awoken around 2 in the morning with severe substernal chest pain that did not resolve and as a result lead her to contact EMS. On arrival, she was found to have a chronic old left bundle branch with subtle changes in 1 and aVL from prior EKG. Her initial troponin was positive at 1.29 before rising to 13.7 this morning. The patient's chest pain resolved in the ED and at time of interview this morning, the patient was chest pain free. The patient eventually underwent a diagnostic cardiac catheterization via right radial artery, which showed a subtotal occlusion of her late mid LAD with diffuse distal LAD disease. This was treated with placement of 1 drug-eluting stent to her mid to distal LAD and balloon angioplasty to her apical LAD. The procedure was complicated by limited LAD perforation which was treated with balloon tamponade and resulting resolution of extravasation. No significant pericardial effusion noticed onpost-procedure echocardiogram and post-procedure patient was chest pain free, hemodynamically stable. PAST MEDICAL HISTORY: 1. History of valvular heart disease, status post bioprosthetic AVR in 2002 at [place] (per report, no significant coronary artery disease at that time. 2. Paroxysmal atrial fibrillation. 3. Tachybrady syndrome. 4. Hypertension. 5. Pulmonary hypertension. 6. Chronic left bundle branch block. 7. Diastolic heart failure. 8. Hypothyroidism. 9. Osteoarthritis. 10. Prediabetes. 11. Sleep apnea. FAMILY HISTORY: Noncontributory based on patient's age and known comorbidities. SOCIAL HISTORY: Denies significant alcohol or illicit drugs. She is and lives with her and one of her children. HOME MEDICATIONS: Include aspirin 81, cholecalciferol, digoxin 0.25, furosemide 40, isosorbide mononitrate 30 mg, levothyroxine, magnesium, metoprolol tartrate 25 mg b.i.d. and Coumadin. ALLERGIES: INCLUDE AMLODIPINE, CLONIDINE, DILTIAZEM, HYDRALAZINE, HYDROCHLOROTHIAZIDE WITH TRIAMTERENE, LEVOTHYROXINE, LISINOPRIL, NEBIVOLOL, SORBITAN, VALSARTAN AND YELLOW DYE. REVIEW OF SYSTEMS: Otherwise negative unless stated in HPI. PHYSICAL EXAMINATION: VITAL SIGNS: Temperature 36.5, pulse 62, blood pressure 129/72, satting 97% on 2 liters. GENERAL: The patient appeared comfortable in no acute distress post-procedure. HEENT: Sclerae are anicteric. Oropharynx is clear. Mucous members are moist. NECK: Supple with no lymphadenopathy. She has no jugular venous distention. She has no bruits. CARDIAC: She has distant heart sounds. She is irregularly irregular with a 2/6 systolic murmur heard best at the left upper sternal border and a holosystolic murmur heard at the apex. ABDOMEN: Soft, nontender. EXTREMITIES: Warm with no significant lower extremity edema. SKIN: Showed no rashes or lesions. NEUROLOGIC: Grossly nonfocal. LABORATORY DATA: Sodium 140, potassium 4.1, BUN of 16, creatinine 0.9, troponin 1.29-13.7-46.5, total cholesterol of 119, triglycerides 124, HDL 31, LDL of 73. Hemoglobin of 12.8. INR of 1.1. Digoxin level was 1.4. Chest x-ray showed questionable congestion, no other acute cardiopulmonary process. A CTA was negative for PE. There are ground-glass opacities and septal thickening suggestive of questionable pulmonary edema with small right trace left pleural effusions. Prior cardiac studies include a FIDEL on June 2017 showed normal LV size and function, moderate LVH, normal functioning bioprosthetic aortic valve, mild to moderate MR. Echo, March 2016, EF of 55%, expected transvalvular gradient across bioprosthetic aortic valve, moderate TI, moderate to severe MAC with mild to moderate MR and mild pulmonary hypertension with an estimated PASP of 40-50. IMPRESSION AND PLAN: 1. Pnw-CN-[id number] elevation myocardial infarction. 2. Single vessel coronary artery disease status post PCI with drug-eluting stent in mid to distal LAD 3. Atrial fibrillation, tachybrady syndrome. 4. Chronic left bundle branch block. 5. Pulmonary hypertension. 6. Chronic diastolic heart failure. 7. Hypertension. Mrs. Ralph is now status post percutaneous coronary intervention with drug-eluting stent to mid LAD and POBA to apical LAD for high risk NSTEMI. The patient tolerated the procedure well with good angiographic result. Post-procedure, the patient is chest pain free, hemodynamically and electrically stable. Going forward, recommend continuing on dual antiplatelet therapy with aspirin and Plavix. Will plan to resume home metoprolol 25 mg b.i.d. If unable to tolerate long term care administrator, would have to consider possible pacemaker now with Class I indication for beta- leslie therapy. Also plan to start and titrate ARB and statin as able. Repeat echocardiogram is pending. We will continue to follow along while in hospital. Thank you for allowing us to participate in care of this patient. LEROY
[2017-12-28] VITALS (7 sets, daily range): BP systolic 123–156; BP diastolic 62–84; PULSE 59–82; TEMP 36.7–37.1; O2SAT 91–96
[2017-12-28 06:46] LABS: HEMATOCRIT 36.3 % (37-47); HEMOGLOBIN 11.7 g/dL (12.0-16.0); MEAN CELL VOLUME 88.1 fL (80-100); MEAN CORPUSCULAR HEMOGLOBIN 28.4 pg (25-34); MEAN CORPUSCULAR HGB CONC 32.2 g/dl (32-36); MEAN PLATELET VOLUME 10.8 fL (7.4-10.4); PLATELET COUNT 179 K/uL (130-400); RED CELL DISTRIBUTION WIDTH CV 15.9 % (11.5-14.5); RED CELL DISTRIBUTION WIDTH SD 50.5 fL (36.4-46.3); WHITE BLOOD COUNT 11.16 K/uL (4.8-10.8)
[2017-12-28 06:53] LABS: PTT PATIENT 25.9 SECONDS (21.0-31.0)
[2017-12-28 07:15] LABS: CREATININE 0.93 mg/dl (0.60-1.20)
--- NOTE | 2017-12-28 07:42 | Family Medicine Progress Note ---
Progress Note Date of Service Dec 28, 2017. Subjective Pt evaluation today including: conversation w/ patient, physical exam, chart review, lab review, review of studies, conversation w/ field service consultant, review of inpatient medication list Patient states she is comfortable, she has not had recurrent chest pain symptoms since admission. She denies palpitations, heart racing, dyspnea, nausea , diaphoresis. She otherwise has not had fevers/chills, headaches, abdominal pain, lower extremity swelling or rashes. She states she is tolerating diet without nausea or vomiting, ambulating without exacerbating symptoms, and voiding and stooling appropriately. ROS is unremarkable except as noted above. Objective Vital Signs Date Time Temp Pulse Resp B/P (MAP) Pulse Ox O2 Delivery O2 Flow Rate FiO2 12/28/17 07:03 37.1 59 18 144/62 (89) 96 Nasal Cannula 2.0 12/28/17 04:00 Nasal Cannula 3.0 12/28/17 03:46 37.0 71 18 156/74 (101) 95 12/28/17 00:00 Nasal Cannula 3.0 12/27/17 23:45 37.0 55 16 114/58 (76) 93 3.0 12/27/17 20:00 Nasal Cannula 3.0 12/27/17 19:01 36.8 69 20 161/69 (99) 95 Nasal Cannula 3.0 12/27/17 18:26 36.5 74 18 151/56 (87) 97 Nasal Cannula 2.0 12/27/17 17:26 36.5 74 18 144/58 (86) 97 Nasal Cannula 2.0 12/27/17 16:56 36.5 70 18 142/58 (86) 97 Nasal Cannula 2.0 12/27/17 16:26 36.5 62 18 129/72 (91) 97 Nasal Cannula 2.0 12/27/17 16:11 36.5 66 18 136/76 (96) 97 Nasal Cannula 2.0 12/27/17 15:56 36.5 65 18 128/72 (90) 97 Nasal Cannula 2.0 12/27/17 15:41 36.5 59 18 132/74 (93) 96 Nasal Cannula 2.0 12/27/17 15:19 36.9 65 16 162/70 (100) 95 Nasal Cannula 2.0 12/27/17 15:07 63 16 137/69 (91) 92 Room Air 12/27/17 15:02 61 16 134/69 (90) 92 Room Air 12/27/17 14:57 66 16 152/76 (101) 92 Room Air 12/27/17 14:52 63 16 148/66 (93) 92 Room Air 12/27/17 11:26 37.0 63 18 149/69 (95) 89 12/27/17 08:43 36.8 74 16 155/71 (99) 92 Room Air 12/27/17 08:00 92 Room Air 12/27/17 07:56 63 18 171/87 93 Physical Exam Notes: General Appearance: WD/WN, no apparent distress Eyes: normal inspection ENT: hearing grossly normal, pharynx normal Neck: supple, no adenopathy, no JVD Respiratory/Chest: chest non-tender, lungs clear, normal breath sounds, no respiratory distress, no accessory muscle use Cardiovascular: + tachycardia, + bradycardia, + irregularly irregular Abdomen: normal bowel sounds, non tender, soft Extremities: no calf tenderness, + pedal edema (trace) Neurologic/Psychiatric: alert, normal mood/affect Skin: normal color, warm/dry, no rash Laboratory Results Results Past 24 Hours Test 12/28/17 06:29 Range/Units White Blood Count 11.16 4.8-10.8 K/uL Red Blood Count 4.12 4.2-5.4 M/uL Hemoglobin 11.7 12.0-16.0 g/dL Hematocrit 36.3 37-47 % Mean Corpuscular Volume 88.1 80-100 fL Mean Corpuscular Hemoglobin 28.4 25-34 pg Mean Corpuscular Hemoglobin Concent 32.2 32-36 g/dl RDW Standard Deviation 50.5 36.4-46.3 fL RDW Coefficient of Variation 15.9 11.5-14.5 % Platelet Count 179 130-400 K/uL Mean Platelet Volume 10.8 7.4-10.4 fL Activated Partial Thromboplast Time 25.9 21.0-31.0 SECONDS Partial Thromboplastin Ratio 1.0 Sodium Level 139 136-145 mmol/L Potassium Level 4.0 3.5-5.1 mmol/L Chloride Level 105 98-107 mmol/L Carbon Dioxide Level 27 21-32 mmol/L Anion Gap 7.0 3-11 mmol/L Blood Urea Nitrogen 16 7-18 mg/dl Creatinine 0.93 0.60-1.20 mg/dl Est Creatinine Clear Calc Drug Dose 37.0 ml/min Estimated GFR () 63.6 Estimated GFR (Non- 54.9 BUN/Creatinine Ratio 17.1 10-20 Random Glucose 118 70-99 mg/dl Calcium Level 8.0 8.5-10.1 mg/dl Troponin I 14.900 0-0.045 ng/ml Assessment and Plan 87 year old female with past medical history of chronic diastolic CHF, atrial fibrillation, hypertension, hyperlipidemia, chronic kidney disease, sleep apnea presented to the ED with chest pain and admitted for NSTEMI. NSTEMI: S/p PCI of late-mid to distal LAD with single BLAYNE. Serial troponin show elevations peaked at 46.5, then downtrended. Echo shows borderline concentric LVH with EF 55-60%. Akinesis of the septum and dyskinesis of the apical portions of the septum and right ventricle. - Continue heparin drip and nitro paste - Continue aspirin, metoprolol, Imdur. - Started clopidogrel (dual-antiplatelet therapy for at least 1 year) - Started atorvastatin and losartan - Started on IVF NSS @ 100cc/hr per cardiology, furosemide held - Continue monitoring in telemetry - Cardiac rehab referral on discharge Moderate to Severe TR - Moderate to severe tricuspid regurgitation. Elevated RV systolic pressure at 50- 60mmHg, worsened since echo in 2016. CTA chest negative for pulmonary embolism but suggestive of pulmonary edema and small bilateral pleural effusions. - Consider sleep study as outpatient. Atrial fibrillation: s/p AVR - Intermittent episodes of bradycardia and tachycardia, usually rate controlled - Continue metoprolol and digoxin - Patient was supposed to be on warfarin with anticoagulation but did not comply with regimen. INR 1.1 on admission. Restarted on warfarin with heparin bridge Hypertension: - Continue Imdur, losartan and metoprolol Hypothyroidism: - Continue levothyroxine Dementia Mild dementia, which the patient is able to mask well at times. Discussion with patient's PCP, Dr. Childs reveals that patient's licence was recently revoked and despite patient's views to the contrary, patient is not able to manage her own care/medication regimen. Discussion with reveals that patient cares for herself and manages medication administration by herself. He does admit he has to prompt her on occasions. [place] Cognitive Assessment screen administered with score 19/30, which is consistent with mild cognitive impairment - fitness services manager consulted DVT prophylaxis: - Heparin drip Discharge planning: uncertain Resident Tracking Resident Involvement: Resident Care Provided Care Provided: Adult Hospital Medicine Reviewed: Pt Seen/Exam by Me Constitutional: denies: fever Respiratory: negative: short of breath Cardiovascular: denies chest pain Gastrointestinal/Abdominal: negative: abdominal pain General Appearance: no apparent distress Respiratory: lungs clear, no respiratory distress Cardiovascular: regular rate, rhythm Neurologic/Psychiatric: alert, oriented x 3 Skin Characteristics: warm/dry Assessment/Plan Resident Physician Supervision Note: I independently interviewed and examined the patient and verified the santamaria history and physical, reviewed labs and image studies, discussed the case with the resident Dr. Rizzo and agree with the findings and care plan.
[2017-12-28] MEDS: CLOPIDOGREL BISULFATE 75 MG TAB PO SCH (07:56)
[2017-12-28] MEDS: LOSARTAN POTASSIUM 25 MG TAB PO SCH (07:56)
[2017-12-28] MEDS: METOPROLOL TARTRATE 25 MG TAB PO SCH ×2 (07:56→19:45)
[2017-12-28] MEDS: ASPIRIN 81 MG ECTAB PO SCH (07:56)
[2017-12-28] MEDS: ATORVASTATIN 40 MG TAB PO SCH (07:56)
--- NOTE | 2017-12-28 12:10 | ECHOCARDIOGRAM REPORT ---
*NOTICE TO RECEIVING LIBERTARIAN AGENCY This information is strictly Confidential and protected under [place] law. [place] law prohibits you from making any further disclosure of this information unless further disclosure is expressly permitted by the written consent of the person to whom it pertains or is authorized by law. A general authorization for the release of medical or other information is not sufficient for this purpose. Hospital accepts no responsibility if the information is made available to any other person, INCLUDING THE PATIENT. Interpretation Summary * Name: CORONA SUNG Study Date: 12/27/2017 02:40 PM BP: 149/69 mmHg * Patient Location: C.2T\S\S241\S\1 HR: 63 * : 1930 (M/d/y) Gender: Female Height: 62 in * Age: 87 yrs Ethnicity: [place] Weight: 162 lb * Ordering Physician: Hyacinth Keyes * Referring Physician: Self, Referred * Performed By: Areli Christopher RDCS * * Reason For Study: Chest Pain, S/P Cath * BSA: 1.7 m2 * -- Conclusions -- * There is borderline concentric left ventricular hypertrophy. * Left ventricular systolic function is normal. * There are regional wall motion abnormalities as specified. * The left atrium is mildly dilated. * There is a bioprosthetic aortic valve. * There is severe mitral annular calcification. * There is mild to moderate mitral regurgitation. * There is moderate to severe tricuspid regurgitation. * Right ventricular systolic pressure is elevated at 50-60mmHg. * Compared to a study from 04/09/2016, there are new wall motion abnormalities and the pulmonary pressures are slightly higher * Aortic valve gradients appears stable. Procedure Details * A complete two-dimensional transthoracic echocardiogram was performed (2D, M-mode, Doppler and color flow Doppler). Left Ventricle * The left ventricle is normal in size. * There is borderline concentric left ventricular hypertrophy. * Ejection Fraction = 55-60%. * Left ventricular systolic function is normal. * There are regional wall motion abnormalities as specified. * There is akinesis of the septum and dyskinesis of the apical portions of the septum and right ventricle. Right Ventricle * The right ventricle is normal in size and function. * The right ventricular systolic function is normal as assessed by tricuspid annular plane systolic excursion (TAPSE) (normal >1.5 cm). Atria * The left atrium is mildly dilated. * Right atrial size is normal. Mitral Valve * There is severe mitral annular calcification. * There is no mitral valve stenosis. * There is mild to moderate mitral regurgitation. Tricuspid Valve * The tricuspid valve is not well visualized, but is grossly normal. * There is moderate to severe tricuspid regurgitation. * Right ventricular systolic pressure is elevated at 50-60mmHg. Aortic Valve * There is no significant aortic regurgitation. * There is a bioprosthetic aortic valve. * Gradients appear normal for this valve Great Vessels * The aortic root is normal size. Pericardium/Pleural * There is no pericardial effusion. Right Ventricle * There are regional wall motion abnormalities. Great Vessels * Normal inferior vena cava diameter and respiratory variation suggests normal central venous pressure. MMode 2D Measurements and Calculations IVSd 1.4 cm IVSs 1.5 cm LVIDd 4.2 cm LVIDs 2.9 cm LVPWd 1.2 cm LVPWs 1.5 cm IVS/LVPW 1.2 FS 31.3 % EDV(Teich) 77.3 ml ESV(Teich) 31.3 ml EF(Teich) 59.5 % EDV(cubed) 72.6 ml ESV(cubed) 23.5 ml EF(cubed) 67.5 % % IVS thick 9.6 % % LVPW thick 26.6 % LV mass(C)d 199.3 grams LV mass(C)dI 114.0 grams/m\S\2 LV mass(C)s 154.2 grams LV mass(C)sI 88.2 grams/m\S\2 SV(Teich) 46.0 ml SI(Teich) 26.3 ml/m\S\2 SV(cubed) 49.0 ml SI(cubed) 28.0 ml/m\S\2 Ao root diam 2.5 cm Ao root area 4.7 cm\S\2 ACS 1.5 cm LA dimension 3.9 cm LA/Ao 1.6 LVOT diam 1.9 cm LVOT area 2.9 cm\S\2 LVAd ap4 28.8 cm\S\2 LVLd ap4 8.4 cm EDV(MOD-sp4) 79.7 ml EDV(sp4-el) 83.6 ml LVAs ap4 16.5 cm\S\2 LVLs ap4 7.5 cm ESV(MOD-sp4) 31.9 ml ESV(sp4-el) 30.9 ml EF(MOD-sp4) 60.0 % EF(sp4-el) 63.1 % LVAd ap2 27.6 cm\S\2 LVLd ap2 8.4 cm EDV(MOD-sp2) 86.0 ml EDV(sp2-el) 77.5 ml LVAs ap2 18.6 cm\S\2 LVLs ap2 8.0 cm ESV(MOD-sp2) 42.0 ml ESV(sp2-el) 36.5 ml EF(MOD-sp2) 51.2 % EF(sp2-el) 52.9 % LVLd %diff -0.57 % EDV(MOD-bp) 81.2 ml LVLs %diff 6.8 % ESV(MOD-bp) 36.8 ml EF(MOD-bp) 54.7 % SV(MOD-sp4) 47.8 ml SI(MOD-sp4) 27.3 ml/m\S\2 SV(MOD-sp2) 44.0 ml SI(MOD-sp2) 25.2 ml/m\S\2 SV(MOD-bp) 44.4 ml SI(MOD-bp) 25.4 ml/m\S\2 SV(sp4-el) 52.8 ml SI(sp4-el) 30.2 ml/m\S\2 SV(sp2-el) 41.0 ml SI(sp2-el) 23.5 ml/m\S\2 Doppler Measurements and Calculations MV E max kade 172.6 cm/sec MV A max kade 52.8 cm/sec MV E/A 3.3 MV V2 max 171.4 cm/sec MV max PG 11.8 mmHg MV V2 mean 85.8 cm/sec MV mean PG 3.7 mmHg MV V2 VTI 34.9 cm MVA(VTI) 2.0 cm\S\2 MV P1/2t max kade 182.2 cm/sec MV P1/2t 70.6 msec MVA(P1/2t) 3.1 cm\S\2 MV dec slope 755.5 cm/sec\S\2 MV dec time 0.21 sec Ao V2 max 245.6 cm/sec Ao max PG 24.1 mmHg Ao max PG (full) 18.2 mmHg Ao V2 mean 147.0 cm/sec Ao mean PG 10.4 mmHg Ao mean PG (full) 8.2 mmHg Ao V2 VTI 44.2 cm SHAY(I,A) 1.6 cm\S\2 SHAY(I,D) 1.6 cm\S\2 SHAY(V,A) 1.4 cm\S\2 SHAY(V,D) 1.4 cm\S\2 AI max kade 211.9 cm/sec AI max PG 18.0 mmHg AI dec slope 119.0 cm/sec\S\2 AI P1/2t 521.4 msec LV V1 max PG 5.9 mmHg LV V1 mean PG 2.3 mmHg LV V1 max 121.3 cm/sec LV V1 mean 65.7 cm/sec LV V1 VTI 24.0 cm SV(Ao) 208.6 ml SI(Ao) 119.3 ml/m\S\2 SV(LVOT) 70.0 ml SI(LVOT) 40.0 ml/m\S\2 PA V2 max 127.6 cm/sec PA max PG 6.9 mmHg PI max kade 201.8 cm/sec PI max PG 16.5 mmHg PI dec slope 301.7 cm/sec\S\2 PI P1/2t 195.8 msec TR max kade 339.6 cm/sec
[2017-12-28] MEDS: DIGOXIN 0.125 MG TAB PO SCH (16:11)
--- NOTE | 2017-12-28 22:05 | Cardiology Follow-Up ---
Subjective Subjective Date of Service: Dec 28, 2017. Pt evaluation today including: conversation w/ patient, physical exam, chart review, lab review, review of studies, review of inpatient medication list Additional Details: Feeling well. No chest pain. Up walking to bathroom. No other new complaints. Tele reviewed - atrial fibrillation, intermittent bradycardia to 40s and intermittently tachy to 120-130s Problem List Medical Problems: (1) A-fib Status: Acute (2) Atrial fibrillation Status: Acute (3) Atrial fibrillation with rapid ventricular response Status: Acute (4) CHF (congestive heart failure) Status: Acute (5) Hypothyroidism Status: Acute (6) Left sided chest pain Status: Acute (7) Neck pain Status: Acute (8) NSTEMI (non-ST elevated myocardial infarction) Status: Acute (9) Palpitations Status: Acute (10) Palpitations Status: Acute (11) Rapid atrial fibrillation Status: Acute (12) Substernal chest pain Status: Acute Review of Systems Constitutional: No fever, No chills Respiratory: No cough Cardiac: No chest pain, No orthopnea Heme: No abnormal bleeding/bruising Skin: No rash Objective Vital Signs Last Vital Signs Documentation Date Time Temp Pulse Resp B/P (MAP) Pulse Ox O2 Delivery O2 Flow Rate FiO2 12/28/17 19:42 36.9 82 22 134/65 (88) 92 Nasal Cannula 1.5 Physical Exam: General Appearance: no apparent distress ENT: hearing grossly normal Neck: no JVD Respiratory/Chest: lungs clear, no respiratory distress, no accessory muscle use, + wheezing (few at right bases) Cardiovascular: + systolic murmur (2/6 systolic murmur), + irregularly irregular, + pertinent finding (right radial artery access site--no hematoma/ ecchymosis, intact distal pulses/sensation) Abdomen: normal bowel sounds, non tender, soft Extremities: no calf tenderness, + pertinent finding (no edema, signs of chronic venous insufficiency) Neurologic/Psychiatric: alert, normal mood/affect Skin: normal color, warm/dry, no rash Assessment and Plan 1. [id number] elevation myocardial infarction. 2. Single vessel coronary artery disease status post PCI with drug-eluting stent in mid to distal LAD 3. Atrial fibrillation, tachybrady syndrome. 4. Apical akinesis 5. Chronic diastolic heart failure 6. Hypertension 7. Pulmonary hypertension 8. Well-functioning bioprothestic AVR Chest pain free. Troponin peaked. Hemodynamically stable. No access site complications. Apical akinesis but overall LV function preserved. Well perfused today without significant congestion. AF ventricular rates for most part reasonably controlled, occasional asymptomatic bradycardia. -- Continue DAPT with ASA, plavix -- continue current beta-leslie, digoxin -- Titrate ARB as needed for BP -- Resume home lasix tomorrow AM -- Ideally would resume coumadin but appears patient has not been taking for months -- may be of benefit to hold and simplify regimen so that more likely to adhere to DAPT. -- Potentially OK for discharge tomorrow from a cardiac standpoint Discharge planning: uncertain Medications: Current Inpatient Medications Medications (Trade) Dose Ordered Sig/Shandra Route Start Time Stop Time Status Last Admin Dose Admin Ioversol (Optiray 320) 100 ml UD PRN IV 12/27/17 03:45 12/31/17 03:44 Acetaminophen (Tylenol Tab) 650 mg Q4H PRN PO 12/27/17 06:15 01/26/18 06:14 Ondansetron HCl (Zofran Inj) 4 mg Q6H PRN IV 12/27/17 06:15 01/26/18 06:14 Polyethylene (Miralax Powder Packet) 17 gm DAILY PRN PO 12/27/17 06:15 01/26/18 06:14 Clopidogrel Bisulfate (plAVix TAB) 75 mg QAM PO 12/28/17 09:00 01/27/18 08:59 12/28/17 07:56 75 MG Aspirin (Ecotrin Tab) 81 mg DAILY PO 12/28/17 09:00 01/27/18 08:59 12/28/17 07:56 81 MG Digoxin (Lanoxin Tab) 0.125 mg DAILY@1600 PO 12/28/17 16:00 01/27/18 15:59 12/28/17 16:11 0.125 MG Metoprolol Tartrate (Lopressor Tab) 25 mg BID PO 12/27/17 21:00 01/26/18 20:59 12/28/17 19:45 25 MG Atorvastatin Calcium (Lipitor Tab) 40 mg QAM PO 12/28/17 09:00 01/27/18 08:59 12/28/17 07:56 40 MG Losartan Potassium (coZAAR TAB) 25 mg QAM PO 12/28/17 09:00 01/27/18 08:59 12/28/17 07:56 25 MG Warfarin Sodium (Coumadin Tab) 5 mg DAILY@16 PO 12/29/17 16:00 01/28/18 15:59 Lab Results: 12/28/17 06:29 12/28/17 06:29 Test 12/28/17 06:29 Red Blood Count 4.12 M/uL (4.2-5.4) Mean Corpuscular Volume 88.1 fL (80-100) Mean Corpuscular Hemoglobin 28.4 pg (25-34) Mean Corpuscular Hemoglobin Concent 32.2 g/dl (32-36) RDW Standard Deviation 50.5 fL (36.4-46.3) RDW Coefficient of Variation 15.9 % (11.5-14.5) Mean Platelet Volume 10.8 fL (7.4-10.4) Activated Partial Thromboplast Time 25.9 SECONDS (21.0-31.0) Partial Thromboplastin Ratio 1.0 Anion Gap 7.0 mmol/L (3-11) Est Creatinine Clear Calc Drug Dose 37.0 ml/min Estimated GFR () 63.6 Estimated GFR (Non- 54.9 BUN/Creatinine Ratio 17.1 (10-20) Calcium Level 8.0 mg/dl (8.5-10.1) Troponin I 14.900 ng/ml (0-0.045)
[2017-12-29] VITALS (9 sets, daily range): BP systolic 123–164; BP diastolic 47–83; PULSE 54–72; TEMP 36.3–37.1; O2SAT 90–96
[2017-12-29] MEDS: LEVOTHYROXINE 25 MCG TAB PO SCH (06:01)
[2017-12-29 07:44] LABS: INR 1.1 (0.9-1.1); PTT PATIENT 27.3 SECONDS (21.0-31.0)
[2017-12-29] MEDS: ATORVASTATIN 40 MG TAB PO SCH (07:50)
[2017-12-29] MEDS: CLOPIDOGREL BISULFATE 75 MG TAB PO SCH (07:50)
[2017-12-29] MEDS: MAGNESIUM OXIDE 400 MG TAB PO SCH (07:50)
[2017-12-29] MEDS: METOPROLOL TARTRATE 25 MG TAB PO SCH ×2 (07:50→20:50)
[2017-12-29] MEDS: CHOLECALCIFEROL 1000 INTER.UNIT TAB PO SCH (07:50)
[2017-12-29] MEDS: ISOSORBIDE MONONITRATE 30 MG TABCR PO SCH (07:51)
[2017-12-29] MEDS: LOSARTAN POTASSIUM 25 MG TAB PO SCH (07:51)
[2017-12-29] MEDS: ASPIRIN 81 MG ECTAB PO SCH (07:51)
--- NOTE | 2017-12-29 11:49 | Cardiology Follow-Up ---
Subjective Subjective Date of Service: Dec 29, 2017. Pt evaluation today including: conversation w/ patient, physical exam, chart review, lab review, review of studies, conversation w/ outreach consultant, review of inpatient medication list Additional Details: Denies chest pain or shortness of breath this morning. Intermittent hypoxia requiring 1-2 liters Tele reviewed -- remains in AF, HR around 70s overnight with intermittent high 30/low 40s. Brief tachy episodes yesterday to 130-140s. Problem List Medical Problems: (1) A-fib Status: Acute (2) Atrial fibrillation Status: Acute (3) Atrial fibrillation with rapid ventricular response Status: Acute (4) CHF (congestive heart failure) Status: Acute (5) Hypothyroidism Status: Acute (6) Left sided chest pain Status: Acute (7) Neck pain Status: Acute (8) NSTEMI (non-ST elevated myocardial infarction) Status: Acute (9) Palpitations Status: Acute (10) Palpitations Status: Acute (11) Rapid atrial fibrillation Status: Acute (12) Substernal chest pain Status: Acute Review of Systems Constitutional: No fever, No chills Respiratory: No cough Cardiac: No chest pain, No orthopnea Heme: No abnormal bleeding/bruising Skin: No rash Objective Vital Signs Last Vital Signs Documentation Date Time Temp Pulse Resp B/P (MAP) Pulse Ox O2 Delivery O2 Flow Rate FiO2 12/29/17 08:00 Nasal Cannula 1.0 12/29/17 07:18 37.0 54 16 145/68 (93) 90 Physical Exam: General Appearance: no apparent distress ENT: hearing grossly normal Neck: no JVD Respiratory/Chest: lungs clear, no respiratory distress, no accessory muscle use, + stridor, + wheezing Cardiovascular: + systolic murmur (2/6 systolic murmur), + irregularly irregular, + pertinent finding (right radial artery access site--no hematoma/ ecchymosis, intact distal pulses/sensation) Abdomen: normal bowel sounds, non tender, soft Extremities: no calf tenderness, + pertinent finding (no edema, signs of chronic venous insufficiency) Neurologic/Psychiatric: alert, normal mood/affect Skin: normal color, warm/dry, no rash Assessment and Plan 1. [id number] elevation myocardial infarction. 2. Single vessel coronary artery disease status post PCI with drug-eluting stent in mid to distal LAD 3. Atrial fibrillation with variable ventricular response 4. Apical akinesis 5. Chronic diastolic heart failure 6. Hypertension 7. Pulmonary hypertension 8. Well-functioning bioprothestic AVR Remains chest pain free. Remains in atrial fibrillation, ventricular rates variable, intermittently with asymptomatic bradycardia -- restart home Lasix this morning. -- Continue DAPT with ASA, plavix -- continue current beta-leslie, digoxin -- Titrate ARB as needed for BP -- patient has not been taking Coumadin recently an effort to simplify current regimen will hold off anticoagulation for now If able to wean off oxygen and walk halls without symptoms okay from cardiac standpoint for discharge with close cardiac follow-up. Would plan for patient to be seen back in 1-2 weeks Appreciate Hospital Medicine team care. Discharge planning: uncertain Medications: Current Inpatient Medications Medications (Trade) Dose Ordered Sig/Shandra Route Start Time Stop Time Status Last Admin Dose Admin Ioversol (Optiray 320) 100 ml UD PRN IV 12/27/17 03:45 12/31/17 03:44 Acetaminophen (Tylenol Tab) 650 mg Q4H PRN PO 12/27/17 06:15 01/26/18 06:14 Ondansetron HCl (Zofran Inj) 4 mg Q6H PRN IV 12/27/17 06:15 01/26/18 06:14 Polyethylene (Miralax Powder Packet) 17 gm DAILY PRN PO 12/27/17 06:15 01/26/18 06:14 Clopidogrel Bisulfate (plAVix TAB) 75 mg QAM PO 12/28/17 09:00 01/27/18 08:59 12/29/17 07:50 75 MG Aspirin (Ecotrin Tab) 81 mg DAILY PO 12/28/17 09:00 01/27/18 08:59 12/29/17 07:51 81 MG Digoxin (Lanoxin Tab) 0.125 mg DAILY@1600 PO 12/28/17 16:00 01/27/18 15:59 12/28/17 16:11 0.125 MG Metoprolol Tartrate (Lopressor Tab) 25 mg BID PO 12/27/17 21:00 01/26/18 20:59 12/29/17 07:50 25 MG Atorvastatin Calcium (Lipitor Tab) 40 mg QAM PO 12/28/17 09:00 01/27/18 08:59 12/29/17 07:50 40 MG Losartan Potassium (coZAAR TAB) 25 mg QAM PO 12/28/17 09:00 01/27/18 08:59 12/29/17 07:51 25 MG Warfarin Sodium (Coumadin Tab) 5 mg DAILY@16 PO 12/29/17 16:00 01/28/18 15:59 Cholecalciferol (Vitamin D Tab) 1,000 inter.unit DAILY PO 12/29/17 09:00 01/28/18 08:59 12/29/17 07:50 1,000 INTER.UNIT Isosorbide Mononitrate (Imdur Ext Rel Tab) 30 mg DAILY PO 12/29/17 09:00 01/28/18 08:59 12/29/17 07:51 30 MG Levothyroxine Sodium (Synthroid Tab) 25 mcg DAILYBB PO 12/29/17 06:00 01/28/18 05:59 12/29/17 06:01 25 MCG Magnesium Oxide (Mag-Ox Tab) 200 mg DAILY PO 12/29/17 09:00 01/28/18 08:59 12/29/17 07:50 200 MG Lab Results: Test 12/29/17 06:59 Prothrombin Time 11.4 SECONDS (9.0-12.0) Prothromb Time International Ratio 1.1 (0.9-1.1) Activated Partial Thromboplast Time 27.3 SECONDS (21.0-31.0) Partial Thromboplastin Ratio 1.1
[2017-12-29] MEDS ORDERED: FUROSEMIDE 40 MG TAB PO ONE (12:32)
--- NOTE | 2017-12-29 14:46 | Family Medicine Progress Note ---
Progress Note Date of Service Dec 29, 2017. Subjective Pt evaluation today including: conversation w/ patient, physical exam, chart review, lab review, review of studies, conversation w/ neuropsychology medical consultant, review of inpatient medication list Patient states she is comfortable, she has not had recurrent chest pain symptoms since admission. She denies palpitations, heart racing, dyspnea, nausea , diaphoresis. She is still on oxygen but is not sure why since she "feels fine. " She otherwise has not had fevers/chills, headaches, abdominal pain, lower extremity swelling or rashes. She states she is tolerating diet without nausea or vomiting, ambulating without exacerbating symptoms, and voiding and stooling appropriately. ROS is unremarkable except as noted above. Objective Vital Signs Date Time Temp Pulse Resp B/P (MAP) Pulse Ox O2 Delivery O2 Flow Rate FiO2 12/29/17 12:00 Nasal Cannula 1.0 12/29/17 11:33 37.1 61 18 127/61 (83) 93 Room Air 12/29/17 08:00 Nasal Cannula 1.0 12/29/17 07:18 37.0 54 16 145/68 (93) 90 Nasal Cannula 1.0 12/29/17 04:00 Nasal Cannula 1.5 12/29/17 03:39 36.7 59 18 123/64 (83) 96 2.0 12/29/17 00:09 36.7 67 16 135/47 (76) 94 2.0 12/29/17 00:00 Nasal Cannula 1.5 12/28/17 20:00 Nasal Cannula 1.5 12/28/17 19:42 36.9 82 22 134/65 (88) 92 Nasal Cannula 1.5 12/28/17 16:11 71 12/28/17 16:10 92 Nasal Cannula 1.5 12/28/17 16:04 36.9 74 22 155/84 (107) 92 Nasal Cannula 2.0 Physical Exam General Appearance: WD/WN, no apparent distress, + pertinent finding (2L O2 via nasal cannula) Eyes: normal inspection ENT: hearing grossly normal Neck: supple, no adenopathy, no JVD Respiratory/Chest: chest non-tender, lungs clear, normal breath sounds, no respiratory distress, no accessory muscle use Cardiovascular: regular rate, rhythm, + irregularly irregular Abdomen: normal bowel sounds, non tender, soft Extremities: no pedal edema, no calf tenderness Neurologic/Psychiatric: alert, normal mood/affect, oriented x 3 Skin: normal color, warm/dry, no rash Laboratory Results Results Past 24 Hours Test 12/29/17 06:59 Range/Units Prothrombin Time 11.4 9.0-12.0 SECONDS Prothromb Time International Ratio 1.1 0.9-1.1 Activated Partial Thromboplast Time 27.3 21.0-31.0 SECONDS Partial Thromboplastin Ratio 1.1 Assessment and Plan 87 year old female with past medical history of chronic diastolic CHF, atrial fibrillation, hypertension, hyperlipidemia, chronic kidney disease, sleep apnea presented to the ED with chest pain and admitted for NSTEMI. NSTEMI: S/p PCI of late-mid to distal LAD with single BLAYNE. Serial troponin show elevations peaked at 46.5, then downtrended. Echo shows borderline concentric LVH with EF 55-60%. Akinesis of the septum and dyskinesis of the apical portions of the septum and right ventricle. - Continue aspirin, clopidogrel (dual-antiplatelet therapy for at least 1 year) , metoprolol, losartan, Imdur, atorvastatin. - Continue monitoring in telemetry - Cardiac rehab referral on discharge Hypoxia sec to fluid overload. - Patient has ongoing oxygen demand, likely secondary to fluid overload. Will diurese with furosemide 40mg daily (home med), and reassess oxygen requirements tomorrow. Moderate to Severe TR: Moderate to severe tricuspid regurgitation. Elevated RV systolic pressure at 50- 60mmHg, worsened since echo in 2016. CTA chest negative for pulmonary embolism but suggestive of pulmonary edema and small bilateral pleural effusions. - Consider sleep study as outpatient Atrial fibrillation s/p AVR (bioprosthetic valve): - Intermittent episodes of bradycardia and tachycardia, usually rate controlled - Continue metoprolol and digoxin - Patient was supposed to be on warfarin with anticoagulation but did not comply with regimen. INR 1.1 on admission. Discussed with cardiology - recommend placing emphasis on compliance with dual anti-platelet therapy and leaving patient off of anticoagulation. Given age and renal status, patient not a great candidate for NOAC either. Discussed switching metoprolol tartrate to succinate to simplify regimen further, but given patient's sayda episodes in 30s -40s, will leave her on shorter acting doses for now. Hypertension: - Continue metoprolol and Imdur. Losartan titrated up to 50mg. Hypothyroidism: - Continue levothyroxine Dementia Mild dementia, which the patient is able to mask well at times. Discussion with patient's PCP, Dr. Childs reveals that patient's licence was recently revoked and despite patient's views to the contrary, patient is not able to manage her own care/medication regimen. Discussion with reveals that patient cares for herself and manages medication administration by herself. He does admit he has to prompt her on occasions. 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 [place] Cognitive Assessment screen administered with score 19/30, which is consistent with mild cognitive impairment - client services administrator consulted - Discussed with pharmacy option of pre-packaged medication calendar. Pharmacy will try to correspond further with case management to determine feasibility. DVT prophylaxis: - Heparin BID SC Continued [facility] stay due to: abnormal vital signs Discharge planning: home Resident Tracking Resident Involvement: Resident Care Provided Care Provided: Adult Hospital Medicine Reviewed: Pt Seen/Exam by Me History has been needing oxygen. failed 2 step. lasix given and to monitor overnight Constitutional: denies: fever Respiratory: negative: short of breath Cardiovascular: denies chest pain General Appearance: no apparent distress Respiratory: lungs clear, no respiratory distress Cardiovascular: regular rate, rhythm Gastrointestinal: soft Neurologic/Psychiatric: alert, oriented x 3 Skin Characteristics: warm/dry Assessment/Plan Resident Physician Supervision Note: I independently interviewed and examined the patient and verified the santamaria history and physical, reviewed labs and image studies, discussed the case with the resident Dr. Rizzo and agree with the findings and care plan.
[2017-12-29] MEDS ORDERED: LOSARTAN POTASSIUM 25 MG TAB PO ONE (15:30)
[2017-12-29] MEDS ORDERED: WARFARIN SOD 5 MG TAB PO SCH (16:00)
[2017-12-29] MEDS: DIGOXIN 0.125 MG TAB PO SCH (16:09)
[2017-12-29] MEDS: HEPARIN SOD 5000 UNIT/0.5 ML CARP SQ SCH (20:53)
[2017-12-30] VITALS (7 sets, daily range): BP systolic 124–171; BP diastolic 67–77; PULSE 59–79; TEMP 36.7–37.1; O2SAT 91–97
[2017-12-30] MEDS: LEVOTHYROXINE 25 MCG TAB PO SCH (06:12)
[2017-12-30 06:53] LABS: HEMATOCRIT 36.6 % (37-47); HEMOGLOBIN 11.7 g/dL (12.0-16.0); MEAN CELL VOLUME 89.1 fL (80-100); MEAN CORPUSCULAR HEMOGLOBIN 28.5 pg (25-34); MEAN PLATELET VOLUME 11.5 fL (7.4-10.4); PLATELET COUNT 211 K/uL (130-400); RED CELL DISTRIBUTION WIDTH CV 16.1 % (11.5-14.5); RED CELL DISTRIBUTION WIDTH SD 51.9 fL (36.4-46.3)
[2017-12-30 07:00] LABS: INR 1.1 (0.9-1.1); PTT PATIENT 27.8 SECONDS (21.0-31.0)
[2017-12-30 07:24] LABS: CALCIUM 8.4 mg/dl (8.5-10.1); CREATININE 1.02 mg/dl (0.60-1.20); POTASSIUM 4.1 mmol/L (3.5-5.1)
[2017-12-30] MEDS: CLOPIDOGREL BISULFATE 75 MG TAB PO SCH (07:41)
[2017-12-30] MEDS: CHOLECALCIFEROL 1000 INTER.UNIT TAB PO SCH (07:41)
[2017-12-30] MEDS: ISOSORBIDE MONONITRATE 30 MG TABCR PO SCH (07:41)
[2017-12-30] MEDS: METOPROLOL TARTRATE 25 MG TAB PO SCH ×2 (07:41→20:36)
[2017-12-30] MEDS: ATORVASTATIN 40 MG TAB PO SCH (07:41)
[2017-12-30] MEDS: MAGNESIUM OXIDE 400 MG TAB PO SCH (07:41)
[2017-12-30] MEDS: ASPIRIN 81 MG ECTAB PO SCH (07:41)
[2017-12-30] MEDS: FUROSEMIDE 40 MG TAB PO SCH (07:41)
[2017-12-30] MEDS: LOSARTAN POTASSIUM 50 MG TAB PO SCH (07:42)
[2017-12-30] MEDS: HEPARIN SOD 5000 UNIT/0.5 ML CARP SQ SCH ×2 (07:42→20:38)
[2017-12-30] MEDS ORDERED: FUROSEMIDE INJ 20 MG in SYRINGE 0 ML IV ONE (12:30)
--- NOTE | 2017-12-30 13:57 | Cardiology Follow-Up ---
Subjective Subjective Date of Service: Dec 30, 2017. Pt evaluation today including: conversation w/ patient, conversation w/ family , chart review, lab review, review of studies, conversation w/ store consultant, review of inpatient medication list Additional Details: Feeling well. Denies chest pain. No other new concerns Telemetry reviewed -- AF, primarily in 60-70s, occasional brief episodes to 130- 140s, asymptomatic Problem List Medical Problems: (1) A-fib Status: Acute (2) Atrial fibrillation Status: Acute (3) Atrial fibrillation with rapid ventricular response Status: Acute (4) CHF (congestive heart failure) Status: Acute (5) Hypothyroidism Status: Acute (6) Left sided chest pain Status: Acute (7) Neck pain Status: Acute (8) NSTEMI (non-ST elevated myocardial infarction) Status: Acute (9) Palpitations Status: Acute (10) Palpitations Status: Acute (11) Rapid atrial fibrillation Status: Acute (12) Substernal chest pain Status: Acute Review of Systems Constitutional: No fever, No chills Respiratory: No cough Cardiac: No chest pain, No orthopnea Heme: No abnormal bleeding/bruising Skin: No rash Objective Vital Signs Last Vital Signs Documentation Date Time Temp Pulse Resp B/P (MAP) Pulse Ox O2 Delivery O2 Flow Rate FiO2 12/30/17 12:00 Nasal Cannula 2.0 12/30/17 11:32 36.8 73 20 157/72 (100) 93 Physical Exam: General Appearance: no apparent distress, + pertinent finding (2L O2 via nasal cannula) ENT: hearing grossly normal Neck: supple, no adenopathy, + JVD (~10) Respiratory/Chest: lungs clear, normal breath sounds, no accessory muscle use Cardiovascular: regular rate, rhythm, + irregularly irregular Abdomen: normal bowel sounds, non tender, soft Extremities: no pedal edema, no calf tenderness Neurologic/Psychiatric: alert, normal mood/affect, oriented x 3 Skin: normal color, warm/dry, no rash Assessment and Plan 1. [id number] elevation myocardial infarction. 2. Single vessel coronary artery disease status post PCI with drug-eluting stent in mid to distal LAD 3. Atrial fibrillation with variable ventricular response 4. Ischemic cardiomyopathy/Acute on chronic diastolic heart failure 5. Hypertension 6. Pulmonary hypertension 7. Well-functioning bioprothestic AVR Remains chest pain free. Ventricular rates variable but reasonably controlled and no symptomatic bradycardia. Persistent systemic venous congestion on exam today. -- Agree with IV diuretics today; follow-up I/Os and weights, renal function -- titrate losartan for BP -- continue DAPT with ASA/plavix -- no change to current beta-leslie, digoxin. -- coumadin held -- restart home Lasix this morning. -- Continue DAPT with ASA, plavix -- continue current beta-leslie, digoxin -- Titrate ARB as needed for BP -- patient has not been taking Coumadin recently an effort to simplify current regimen will hold off anticoagulation for now If able to wean off oxygen and walk halls without symptoms okay from cardiac standpoint for discharge with close cardiac follow-up. Would plan for patient to be seen back in 1-2 weeks Appreciate Hospital Medicine team care. Continued [facility] stay due to: abnormal vital signs Discharge planning: home Medications: Current Inpatient Medications Medications (Trade) Dose Ordered Sig/Shandra Route Start Time Stop Time Status Last Admin Dose Admin Ioversol (Optiray 320) 100 ml UD PRN IV 12/27/17 03:45 12/31/17 03:44 Acetaminophen (Tylenol Tab) 650 mg Q4H PRN PO 12/27/17 06:15 01/26/18 06:14 Ondansetron HCl (Zofran Inj) 4 mg Q6H PRN IV 12/27/17 06:15 01/26/18 06:14 Polyethylene (Miralax Powder Packet) 17 gm DAILY PRN PO 12/27/17 06:15 01/26/18 06:14 Clopidogrel Bisulfate (plAVix TAB) 75 mg QAM PO 12/28/17 09:00 01/27/18 08:59 12/30/17 07:41 75 MG Aspirin (Ecotrin Tab) 81 mg DAILY PO 12/28/17 09:00 01/27/18 08:59 12/30/17 07:41 81 MG Digoxin (Lanoxin Tab) 0.125 mg DAILY@1600 PO 12/28/17 16:00 01/27/18 15:59 12/29/17 16:09 0.125 MG Metoprolol Tartrate (Lopressor Tab) 25 mg BID PO 12/27/17 21:00 01/26/18 20:59 12/30/17 07:41 25 MG Atorvastatin Calcium (Lipitor Tab) 40 mg QAM PO 12/28/17 09:00 01/27/18 08:59 12/30/17 07:41 40 MG Cholecalciferol (Vitamin D Tab) 1,000 inter.unit DAILY PO 12/29/17 09:00 01/28/18 08:59 12/30/17 07:41 1,000 INTER.UNIT Isosorbide Mononitrate (Imdur Ext Rel Tab) 30 mg DAILY PO 12/29/17 09:00 01/28/18 08:59 12/30/17 07:41 30 MG Levothyroxine Sodium (Synthroid Tab) 25 mcg DAILYBB PO 12/29/17 06:00 01/28/18 05:59 12/30/17 06:12 25 MCG Magnesium Oxide (Mag-Ox Tab) 200 mg DAILY PO 12/29/17 09:00 01/28/18 08:59 12/30/17 07:41 200 MG Furosemide (Lasix Tab) 40 mg DAILY PO 12/30/17 09:00 01/29/18 08:59 12/30/17 07:41 40 MG Heparin Sodium (Porcine) (Heparin Sq 5000 Unit/0.5ml) 5,000 unit Q12 SQ 12/29/17 21:00 01/28/18 20:59 12/30/17 07:42 5,000 UNIT Losartan Potassium (coZAAR TAB) 50 mg QAM PO 12/30/17 09:00 01/27/18 08:59 12/30/17 07:42 50 MG Lab Results: 12/30/17 06:06 12/30/17 06:06 Test 12/30/17 06:06 Red Blood Count 4.11 M/uL (4.2-5.4) Mean Corpuscular Volume 89.1 fL (80-100) Mean Corpuscular Hemoglobin 28.5 pg (25-34) Mean Corpuscular Hemoglobin Concent 32.0 g/dl (32-36) RDW Standard Deviation 51.9 fL (36.4-46.3) RDW Coefficient of Variation 16.1 % (11.5-14.5) Mean Platelet Volume 11.5 fL (7.4-10.4) Prothrombin Time 11.6 SECONDS (9.0-12.0) Prothromb Time International Ratio 1.1 (0.9-1.1) Activated Partial Thromboplast Time 27.8 SECONDS (21.0-31.0) Partial Thromboplastin Ratio 1.1 Anion Gap 5.0 mmol/L (3-11) Est Creatinine Clear Calc Drug Dose 35.1 ml/min Estimated GFR () 56.9 Estimated GFR (Non- 49.1 BUN/Creatinine Ratio 15.4 (10-20) Calcium Level 8.4 mg/dl (8.5-10.1)
[2017-12-30] MEDS: DIGOXIN 0.125 MG TAB PO SCH (15:45)
[2017-12-31] VITALS (8 sets, daily range): BP systolic 101–154; BP diastolic 55–74; PULSE 54–73; TEMP 36.7–37.1; O2SAT 87–96
--- NOTE | 2017-12-31 02:42 | Family Medicine Progress Note ---
Progress Note Date of Service Dec 30, 2017. Subjective Pt evaluation today including: conversation w/ patient, physical exam, chart review, lab review, review of studies, conversation w/ work and family life consultant, review of inpatient medication list Patient states she is comfortable, she has not had recurrent chest pain symptoms since admission. She denies palpitations, heart racing, nausea, diaphoresis. With furosemide she has been frequenting the toilet and notes dyspnea on exertion without the supplemental oxygen. She otherwise has not had fevers/chills, headaches, abdominal pain, lower extremity swelling or rashes. She states she is tolerating diet without nausea or vomiting, and stooling appropriately. ROS is unremarkable except as noted above. Objective Vital Signs Date Time Temp Pulse Resp B/P (MAP) Pulse Ox O2 Delivery O2 Flow Rate FiO2 12/31/17 00:01 Nasal Cannula 2.0 12/30/17 23:35 36.7 59 18 124/67 (86) 97 Nasal Cannula 3.0 12/30/17 20:00 Nasal Cannula 2.0 12/30/17 19:12 36.8 70 20 151/72 (98) 95 Nasal Cannula 2.0 12/30/17 16:00 Nasal Cannula 2.0 12/30/17 15:45 64 12/30/17 15:38 36.7 70 20 159/77 (104) 97 Nasal Cannula 2.0 12/30/17 12:00 Nasal Cannula 2.0 12/30/17 11:32 36.8 73 20 157/72 (100) 93 Nasal Cannula 2.0 12/30/17 09:10 36.9 74 20 154/73 (100) 91 12/30/17 08:00 Nasal Cannula 2.0 12/30/17 07:38 37.1 79 20 171/75 (107) 94 Nasal Cannula 2.0 12/30/17 04:55 37.1 69 18 159/75 (103) 94 Nasal Cannula 12/30/17 04:02 Nasal Cannula 2.0 Physical Exam Notes: General Appearance: WD/WN, no apparent distress, + pertinent finding (2L O2 via nasal cannula) Eyes: normal inspection ENT: hearing grossly normal Neck: supple, no adenopathy, JVD Respiratory/Chest: chest non-tender, lungs clear, normal breath sounds, no respiratory distress, no accessory muscle use Cardiovascular: regular rate, rhythm, + irregularly irregular Abdomen: normal bowel sounds, non tender, soft Extremities: no pedal edema, no calf tenderness Neurologic/Psychiatric: alert, normal mood/affect, oriented x 3 Skin: normal color, warm/dry, no rash Laboratory Results Results Past 24 Hours Test 12/30/17 06:06 Range/Units White Blood Count 11.10 4.8-10.8 K/uL Red Blood Count 4.11 4.2-5.4 M/uL Hemoglobin 11.7 12.0-16.0 g/dL Hematocrit 36.6 37-47 % Mean Corpuscular Volume 89.1 80-100 fL Mean Corpuscular Hemoglobin 28.5 25-34 pg Mean Corpuscular Hemoglobin Concent 32.0 32-36 g/dl RDW Standard Deviation 51.9 36.4-46.3 fL RDW Coefficient of Variation 16.1 11.5-14.5 % Platelet Count 211 130-400 K/uL Mean Platelet Volume 11.5 7.4-10.4 fL Prothrombin Time 11.6 9.0-12.0 SECONDS Prothromb Time International Ratio 1.1 0.9-1.1 Activated Partial Thromboplast Time 27.8 21.0-31.0 SECONDS Partial Thromboplastin Ratio 1.1 Sodium Level 140 136-145 mmol/L Potassium Level 4.1 3.5-5.1 mmol/L Chloride Level 104 98-107 mmol/L Carbon Dioxide Level 31 21-32 mmol/L Anion Gap 5.0 3-11 mmol/L Blood Urea Nitrogen 16 7-18 mg/dl Creatinine 1.02 0.60-1.20 mg/dl Est Creatinine Clear Calc Drug Dose 35.1 ml/min Estimated GFR () 56.9 Estimated GFR (Non- 49.1 BUN/Creatinine Ratio 15.4 10-20 Random Glucose 92 70-99 mg/dl Calcium Level 8.4 8.5-10.1 mg/dl Assessment and Plan 87 year old female with past medical history of chronic diastolic CHF, atrial fibrillation, hypertension, hyperlipidemia, chronic kidney disease, sleep apnea presented to the ED with chest pain and admitted for NSTEMI. NSTEMI: S/p PCI of late-mid to distal LAD with single BLAYNE. Serial troponin show elevations peaked at 46.5, then downtrended. Echo shows borderline concentric LVH with EF 55-60%. Akinesis of the septum and dyskinesis of the apical portions of the septum and right ventricle. - Continue aspirin, clopidogrel (dual-antiplatelet therapy for at least 1 year) , metoprolol, losartan, Imdur, atorvastatin. - Continue monitoring in telemetry - Cardiac rehab referral on discharge Hypoxia likely secondary to fluid overload - Will continue diuresis with furosemide 40mg daily (home med), and reassess oxygen requirements tomorrow. s/p extra dose of IV furosemide 20mg this morning. Pulm HTN with moderate to severe TR: Echo shows moderate to severe tricuspid regurgitation. Elevated RV systolic pressure at 50-60mmHg, worsened since echo in 2016. CTA chest negative for pulmonary embolism but suggestive of pulmonary edema and small bilateral pleural effusions. - Consider sleep study as outpatient Atrial fibrillation s/p AVR (bioprosthetic valve): - Intermittent episodes of bradycardia and tachycardia, usually rate controlled - Continue metoprolol and digoxin - Patient was supposed to be on warfarin with anticoagulation but did not comply with regimen. INR 1.1 on admission. Discussed with cardiology - recommend placing emphasis on compliance with dual anti-platelet therapy and leaving patient off of anticoagulation. Given age and renal status, patient not a great candidate for NOAC either. Discussed switching metoprolol tartrate to succinate to simplify regimen further, but given patient's sayda episodes in 30s -40s, will leave her on shorter acting doses for now. Hypertension: - Continue metoprolol, losartan and Imdur. Hypothyroidism: - Continue levothyroxine Dementia Mild dementia, which the patient is able to mask well at times. Discussion with patient's PCP, Dr. Childs reveals that patient's licence was recently revoked and despite patient's views to the contrary, patient is not able to manage her own care/medication regimen. Discussion with reveals that patient cares for herself and manages medication administration by herself. He does admit he has to prompt her on occasions. 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 [place] Cognitive Assessment screen administered with score 19/30, which is consistent with mild cognitive impairment - environmental services supervisor consulted - Discussed with pharmacy option of pre-packaged medication calendar. Pharmacy will try to correspond further with case management to determine feasibility. DVT prophylaxis: - Heparin BID SC Continued [facility] stay due to: abnormal vital signs Discharge planning: home with home health Resident Tracking Resident Involvement: Resident Care Provided Care Provided: Adult Hospital Medicine Reviewed: Pt Seen/Exam by Me History still needing oxygen at rest Constitutional: denies: fever Respiratory: negative: short of breath Cardiovascular: denies chest pain General Appearance: no apparent distress Respiratory: lungs clear, no respiratory distress Cardiovascular: irregularly irregular Neurologic/Psychiatric: alert, oriented x 3 Skin Characteristics: warm/dry Assessment/Plan Resident Physician Supervision Note: I independently interviewed and examined the patient and verified the santamaria history and physical, reviewed labs and image studies, discussed the case with the resident Dr. Rizzo and agree with the findings and care plan.
[2017-12-31 05:54] LABS: HEMATOCRIT 35.5 % (37-47); HEMOGLOBIN 11.4 g/dL (12.0-16.0); MEAN CELL VOLUME 89.4 fL (80-100); MEAN CORPUSCULAR HEMOGLOBIN 28.7 pg (25-34); MEAN CORPUSCULAR HGB CONC 32.1 g/dl (32-36); MEAN PLATELET VOLUME 10.9 fL (7.4-10.4); PLATELET COUNT 201 K/uL (130-400); RED CELL DISTRIBUTION WIDTH CV 15.9 % (11.5-14.5); RED CELL DISTRIBUTION WIDTH SD 51.4 fL (36.4-46.3); WHITE BLOOD COUNT 10.04 K/uL (4.8-10.8)
[2017-12-31 06:04] LABS: INR 1.1 (0.9-1.1); PTT PATIENT 27.4 SECONDS (21.0-31.0)
[2017-12-31] MEDS: LEVOTHYROXINE 25 MCG TAB PO SCH (06:09)
[2017-12-31 06:33] LABS: CALCIUM 8.2 mg/dl (8.5-10.1); CREATININE 0.95 mg/dl (0.60-1.20); POTASSIUM 3.8 mmol/L (3.5-5.1)
[2017-12-31] MEDS: MAGNESIUM OXIDE 400 MG TAB PO SCH (08:29)
[2017-12-31] MEDS: ASPIRIN 81 MG ECTAB PO SCH (08:29)
[2017-12-31] MEDS: METOPROLOL TARTRATE 25 MG TAB PO SCH ×2 (08:30→21:03)
[2017-12-31] MEDS: ISOSORBIDE MONONITRATE 30 MG TABCR PO SCH (08:30)
[2017-12-31] MEDS: CLOPIDOGREL BISULFATE 75 MG TAB PO SCH (08:30)
[2017-12-31] MEDS: LOSARTAN POTASSIUM 50 MG TAB PO SCH (08:30)
[2017-12-31] MEDS: CHOLECALCIFEROL 1000 INTER.UNIT TAB PO SCH (08:30)
[2017-12-31] MEDS: FUROSEMIDE 40 MG TAB PO SCH (08:30)
[2017-12-31] MEDS: ATORVASTATIN 40 MG TAB PO SCH (08:30)
[2017-12-31] MEDS: HEPARIN SOD 5000 UNIT/0.5 ML CARP SQ SCH ×2 (08:31→21:11)
--- NOTE | 2017-12-31 09:04 | Cardiology Follow-Up ---
Subjective Subjective Date of Service: Dec 31, 2017. Pt evaluation today including: conversation w/ patient, physical exam, chart review, lab review, review of studies, review of inpatient medication list Additional Details: Feeling fine. No chest pain. No other new complaints. Tele reviewed -- primarily in 70-80s, intermittently tachy to 130s, rare bradycardia to 30s. Problem List Medical Problems: (1) A-fib Status: Acute (2) Atrial fibrillation Status: Acute (3) Atrial fibrillation with rapid ventricular response Status: Acute (4) CHF (congestive heart failure) Status: Acute (5) Hypothyroidism Status: Acute (6) Left sided chest pain Status: Acute (7) Neck pain Status: Acute (8) NSTEMI (non-ST elevated myocardial infarction) Status: Acute (9) Palpitations Status: Acute (10) Palpitations Status: Acute (11) Rapid atrial fibrillation Status: Acute (12) Substernal chest pain Status: Acute Review of Systems Constitutional: No fever, No chills Respiratory: No cough Cardiac: No chest pain, No orthopnea Heme: No abnormal bleeding/bruising Skin: No rash Objective Vital Signs Last Vital Signs Documentation Date Time Temp Pulse Resp B/P (MAP) Pulse Ox O2 Delivery O2 Flow Rate FiO2 12/31/17 08:02 Nasal Cannula 2.0 12/31/17 07:59 36.8 58 16 152/74 (100) 96 12/31/17 05:31 92 Physical Exam: General Appearance: no apparent distress, + pertinent finding (2L O2 via nasal cannula) ENT: hearing grossly normal Neck: supple, no adenopathy, + JVD (~10) Respiratory/Chest: lungs clear, normal breath sounds, no accessory muscle use Cardiovascular: + JVD (~9-10), + systolic murmur (2/6 systolic ejection murmur , crisp bioprothestic closure), + irregularly irregular Abdomen: normal bowel sounds, non tender, soft Extremities: no pedal edema, no calf tenderness Neurologic/Psychiatric: alert, normal mood/affect Skin: normal color, warm/dry, no rash Assessment and Plan 1. [id number] elevation myocardial infarction. 2. Single vessel coronary artery disease status post PCI with drug-eluting stent in mid to distal LAD 3. Atrial fibrillation with variable ventricular response 4. Ischemic cardiomyopathy/Acute on chronic diastolic heart failure 5. Hypertension 6. Pulmonary hypertension 7. Well-functioning bioprothestic AVR Comfortable, still requiring O2. Lungs clear, JVP still elevated. Modest diuresis yesterday. Renal function stable. -- Would continue IV diuresis --> 40mg IV today, follow-up I/Os and weights, renal function -- continue DAPT with ASA/plavix -- continue current beta-leslie, losartan, digoxin. -- coumadin held -- On discharge will need close heart failure follow-up next week. Will arrange cardiac rehab as an outpatient. Continued [facility] stay due to: abnormal vital signs Discharge planning: home with home health Medications: Current Inpatient Medications Medications (Trade) Dose Ordered Sig/Shandra Route Start Time Stop Time Status Last Admin Dose Admin Acetaminophen (Tylenol Tab) 650 mg Q4H PRN PO 12/27/17 06:15 01/26/18 06:14 Ondansetron HCl (Zofran Inj) 4 mg Q6H PRN IV 12/27/17 06:15 01/26/18 06:14 Polyethylene (Miralax Powder Packet) 17 gm DAILY PRN PO 12/27/17 06:15 01/26/18 06:14 Clopidogrel Bisulfate (plAVix TAB) 75 mg QAM PO 12/28/17 09:00 01/27/18 08:59 12/31/17 08:30 75 MG Aspirin (Ecotrin Tab) 81 mg DAILY PO 12/28/17 09:00 01/27/18 08:59 12/31/17 08:29 81 MG Digoxin (Lanoxin Tab) 0.125 mg DAILY@1600 PO 12/28/17 16:00 01/27/18 15:59 12/30/17 15:45 0.125 MG Metoprolol Tartrate (Lopressor Tab) 25 mg BID PO 12/27/17 21:00 01/26/18 20:59 12/31/17 08:30 25 MG Atorvastatin Calcium (Lipitor Tab) 40 mg QAM PO 12/28/17 09:00 01/27/18 08:59 12/31/17 08:30 40 MG Cholecalciferol (Vitamin D Tab) 1,000 inter.unit DAILY PO 12/29/17 09:00 01/28/18 08:59 12/31/17 08:30 1,000 INTER.UNIT Isosorbide Mononitrate (Imdur Ext Rel Tab) 30 mg DAILY PO 12/29/17 09:00 01/28/18 08:59 12/31/17 08:30 30 MG Levothyroxine Sodium (Synthroid Tab) 25 mcg DAILYBB PO 12/29/17 06:00 01/28/18 05:59 12/31/17 06:09 25 MCG Magnesium Oxide (Mag-Ox Tab) 200 mg DAILY PO 12/29/17 09:00 01/28/18 08:59 12/31/17 08:29 200 MG Furosemide (Lasix Tab) 40 mg DAILY PO 12/30/17 09:00 01/29/18 08:59 12/31/17 08:30 40 MG Heparin Sodium (Porcine) (Heparin Sq 5000 Unit/0.5ml) 5,000 unit Q12 SQ 12/29/17 21:00 01/28/18 20:59 12/31/17 08:31 5,000 UNIT Losartan Potassium (coZAAR TAB) 50 mg QAM PO 12/30/17 09:00 01/27/18 08:59 12/31/17 08:30 50 MG Lab Results: 12/31/17 05:40 12/31/17 05:40 Test 12/31/17 05:40 Red Blood Count 3.97 M/uL (4.2-5.4) Mean Corpuscular Volume 89.4 fL (80-100) Mean Corpuscular Hemoglobin 28.7 pg (25-34) Mean Corpuscular Hemoglobin Concent 32.1 g/dl (32-36) RDW Standard Deviation 51.4 fL (36.4-46.3) RDW Coefficient of Variation 15.9 % (11.5-14.5) Mean Platelet Volume 10.9 fL (7.4-10.4) Prothrombin Time 11.5 SECONDS (9.0-12.0) Prothromb Time International Ratio 1.1 (0.9-1.1) Activated Partial Thromboplast Time 27.4 SECONDS (21.0-31.0) Partial Thromboplastin Ratio 1.1 Anion Gap 5.0 mmol/L (3-11) Est Creatinine Clear Calc Drug Dose 37.1 ml/min Estimated GFR () 62.0 Estimated GFR (Non- 53.5 BUN/Creatinine Ratio 15.7 (10-20) Calcium Level 8.2 mg/dl (8.5-10.1)
--- NOTE | 2017-12-31 11:55 | Family Medicine Progress Note ---
Progress Note Date of Service Dec 31, 2017. Subjective Pt evaluation today including: conversation w/ patient, physical exam, chart review, lab review, review of studies, conversation w/ talent acquisition consultant, review of inpatient medication list Patient states she is comfortable, she has not had recurrent chest pain symptoms since admission. She denies palpitations, heart racing, nausea, diaphoresis. With furosemide she has been frequenting the toilet and notes dyspnea on exertion without the supplemental oxygen, although she states this is improved from yesterday. She otherwise has not had fevers/chills, headaches, abdominal pain, lower extremity swelling or rashes. She states she is tolerating diet without nausea or vomiting, and stooling appropriately. ROS is unremarkable except as noted above. Objective Vital Signs Date Time Temp Pulse Resp B/P (MAP) Pulse Ox O2 Delivery O2 Flow Rate FiO2 12/31/17 11:52 36.8 64 16 139/71 (93) 95 Nasal Cannula 2.0 12/31/17 08:02 Nasal Cannula 2.0 12/31/17 07:59 36.8 58 16 152/74 (100) 96 Nasal Cannula 2.0 12/31/17 05:31 87 Nasal Cannula 3.0 92 12/31/17 04:02 36.7 72 18 116/55 (75) 96 Nasal Cannula 3.0 12/31/17 04:02 Nasal Cannula 3.0 12/31/17 00:01 Nasal Cannula 2.0 12/30/17 23:35 36.7 59 18 124/67 (86) 97 Nasal Cannula 3.0 12/30/17 20:00 Nasal Cannula 2.0 12/30/17 19:12 36.8 70 20 151/72 (98) 95 Nasal Cannula 2.0 12/30/17 16:00 Nasal Cannula 2.0 12/30/17 15:45 64 12/30/17 15:38 36.7 70 20 159/77 (104) 97 Nasal Cannula 2.0 12/30/17 12:00 Nasal Cannula 2.0 Physical Exam Notes: General Appearance: WD/WN, no apparent distress, + pertinent finding (2L O2 via nasal cannula) Eyes: normal inspection ENT: hearing grossly normal Neck: supple, no adenopathy, JVD Respiratory/Chest: chest non-tender, lungs clear, normal breath sounds, no respiratory distress, no accessory muscle use Cardiovascular: regular rate, rhythm, + irregularly irregular Abdomen: normal bowel sounds, non tender, soft Extremities: no pedal edema, no calf tenderness Neurologic/Psychiatric: alert, normal mood/affect, oriented x 3 Skin: normal color, warm/dry, no rash Laboratory Results Results Past 24 Hours Test 12/31/17 05:40 Range/Units White Blood Count 10.04 4.8-10.8 K/uL Red Blood Count 3.97 4.2-5.4 M/uL Hemoglobin 11.4 12.0-16.0 g/dL Hematocrit 35.5 37-47 % Mean Corpuscular Volume 89.4 80-100 fL Mean Corpuscular Hemoglobin 28.7 25-34 pg Mean Corpuscular Hemoglobin Concent 32.1 32-36 g/dl RDW Standard Deviation 51.4 36.4-46.3 fL RDW Coefficient of Variation 15.9 11.5-14.5 % Platelet Count 201 130-400 K/uL Mean Platelet Volume 10.9 7.4-10.4 fL Prothrombin Time 11.5 9.0-12.0 SECONDS Prothromb Time International Ratio 1.1 0.9-1.1 Activated Partial Thromboplast Time 27.4 21.0-31.0 SECONDS Partial Thromboplastin Ratio 1.1 Sodium Level 140 136-145 mmol/L Potassium Level 3.8 3.5-5.1 mmol/L Chloride Level 103 98-107 mmol/L Carbon Dioxide Level 32 21-32 mmol/L Anion Gap 5.0 3-11 mmol/L Blood Urea Nitrogen 15 7-18 mg/dl Creatinine 0.95 0.60-1.20 mg/dl Est Creatinine Clear Calc Drug Dose 37.1 ml/min Estimated GFR () 62.0 Estimated GFR (Non- 53.5 BUN/Creatinine Ratio 15.7 10-20 Random Glucose 87 70-99 mg/dl Calcium Level 8.2 8.5-10.1 mg/dl Assessment and Plan 87 year old female with past medical history of chronic diastolic CHF, atrial fibrillation, hypertension, hyperlipidemia, chronic kidney disease, sleep apnea presented to the ED with chest pain and admitted for NSTEMI. NSTEMI: S/p PCI of late-mid to distal LAD with single BLAYNE. Serial troponin show elevations peaked at 46.5, then downtrended. Echo shows borderline concentric LVH with EF 55-60%. Akinesis of the septum and dyskinesis of the apical portions of the septum and right ventricle. - Continue aspirin, clopidogrel (dual-antiplatelet therapy for at least 1 year) , metoprolol, losartan, Imdur, atorvastatin. - Continue monitoring in telemetry - Cardiac rehab referral on discharge Hypoxia likely secondary to fluid overload - O2 via nasal cannula per protocol, wean as tolerated - Will continue diuresis with furosemide 40mg daily (home med), and reassess oxygen requirements tomorrow. - s/p extra dose of IV furosemide 40mg this morning for more aggressive diuresis. 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 Elevated RV systolic pressure at 50-60mmHg, worsened since echo in 2016. CTA chest negative for pulmonary embolism but suggestive of pulmonary edema and small bilateral pleural effusions. - Consider sleep study as outpatient Atrial fibrillation s/p AVR (bioprosthetic valve): - Intermittent episodes of bradycardia and tachycardia, usually rate controlled - Continue metoprolol and digoxin - Patient was supposed to be on warfarin with anticoagulation but did not comply with regimen. INR 1.1 on admission. Discussed with cardiology - recommend placing emphasis on compliance with dual anti-platelet therapy and leaving patient off of anticoagulation. Given age and renal status, patient not a great candidate for NOAC either. Discussed switching metoprolol tartrate to succinate to simplify regimen further, but given patient's sayda episodes in 30s -40s, will leave her on shorter acting doses for now. Hypertension: - Continue metoprolol, losartan and Imdur. Hypothyroidism: - Continue levothyroxine Dementia Mild dementia, which the patient is able to mask well at times. Discussion with patient's PCP, Dr. Childs reveals that patient's licence was recently revoked and despite patient's views to the contrary, patient is not able to manage her own care/medication regimen. Discussion with reveals that patient cares for herself and manages medication administration by herself. He does admit he has to prompt her on occasions. 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 [place] Cognitive Assessment screen administered with score 19/30, which is consistent with mild cognitive impairment - managed services consultant consulted DVT prophylaxis: - Heparin BID SC Continued [facility] stay due to: abnormal vital signs Discharge planning: home Resident Tracking Resident Involvement: Resident Care Provided Care Provided: Adult Hospital Medicine Reviewed: Pt Seen/Exam by Me History remains hypoxic and needing oxygen Constitutional: denies: fever Respiratory: negative: short of breath Cardiovascular: denies chest pain General Appearance: no apparent distress Respiratory: lungs clear, no respiratory distress Cardiovascular: irregularly irregular Gastrointestinal: normal bowel sounds, non tender, soft Neurologic/Psychiatric: alert, oriented x 3 Skin Characteristics: warm/dry Assessment/Plan Resident Physician Supervision Note: I independently interviewed and examined the patient and verified the santamaria history and physical, reviewed labs and image studies, discussed the case with the resident Dr. Rizzo and agree with the findings and care plan.
[2017-12-31] MEDS ORDERED: FUROSEMIDE INJ 40 MG in SYRINGE 0 ML IV ONE (12:15)
[2017-12-31] MEDS: DIGOXIN 0.125 MG TAB PO SCH (15:47)
[2018-01-01] VITALS (9 sets, daily range): BP systolic 99–153; BP diastolic 47–72; PULSE 44–78; TEMP 36.5–36.9; O2SAT 93–96
[2018-01-01] MEDS: LEVOTHYROXINE 25 MCG TAB PO SCH (06:23)
[2018-01-01 06:58] LABS: MEAN CORPUSCULAR HEMOGLOBIN 27.5 pg (25-34); MEAN PLATELET VOLUME 11.3 fL (7.4-10.4); PLATELET COUNT 240 K/uL (130-400); RED CELL DISTRIBUTION WIDTH CV 15.7 % (11.5-14.5); RED CELL DISTRIBUTION WIDTH SD 50.9 fL (36.4-46.3); WHITE BLOOD COUNT 9.18 K/uL (4.8-10.8)
[2018-01-01 07:08] LABS: PTT PATIENT 26.3 SECONDS (21.0-31.0)
[2018-01-01 07:19] LABS: CALCIUM 8.5 mg/dl (8.5-10.1); CREATININE 1.14 mg/dl (0.60-1.20); POTASSIUM 3.9 mmol/L (3.5-5.1)
[2018-01-01] MEDS: ATORVASTATIN 40 MG TAB PO SCH (07:35)
[2018-01-01] MEDS: ASPIRIN 81 MG ECTAB PO SCH (07:35)
[2018-01-01] MEDS: FUROSEMIDE 40 MG TAB PO SCH (07:35)
[2018-01-01] MEDS: CHOLECALCIFEROL 1000 INTER.UNIT TAB PO SCH (07:35)
[2018-01-01] MEDS: ISOSORBIDE MONONITRATE 30 MG TABCR PO SCH (07:35)
[2018-01-01] MEDS: METOPROLOL TARTRATE 25 MG TAB PO SCH ×2 (07:35→20:48)
[2018-01-01] MEDS: LOSARTAN POTASSIUM 50 MG TAB PO SCH (07:35)
[2018-01-01] MEDS: MAGNESIUM OXIDE 400 MG TAB PO SCH (07:36)
[2018-01-01] MEDS: CLOPIDOGREL BISULFATE 75 MG TAB PO SCH (07:36)
[2018-01-01] MEDS: HEPARIN SOD 5000 UNIT/0.5 ML CARP SQ SCH ×2 (07:40→20:49)
[2018-01-01] MEDS ORDERED: FUROSEMIDE 40 MG/4 ML VIAL ONE (12:30)
[2018-01-01] MEDS ORDERED: NURSING VERBAL MED ORDER ONE (12:45)
--- NOTE | 2018-01-01 15:41 | Family Medicine Progress Note ---
Progress Note Date of Service Jan 01, 2018. Subjective Pt evaluation today including: conversation w/ patient, physical exam, chart review, lab review The patient was seen and examined at bedside. No acute overnight events. Telemetry showed sinus rhythm in the 60-80s overnight. Pt is doing well. Has no complaints. Would like to go home. Is still on oxygen on room air. Desats to <80s when O2 is taken off. Patient is resting comfortably in bed. Denies having any pain. Eating and urinating well. Plan of care was described to the patient and all questions were answered. Constitutional: No fever, No chills, No sweats Eyes: No worsening of vision ENT: No hearing loss Respiratory: + shortness of breath, + dyspnea on exertion, No cough, No sputum, No wheezing Cardiovascular: No chest pain Abdomen: No pain, No nausea, No vomiting, No diarrhea, No constipation Musculoskeletal: No joint pain Neurologic: No memory loss Skin: No rash Objective Physical Exam Notes: General Appearance: WD/WN, no apparent distress, + pertinent finding (2L O2 via nasal cannula) Eyes: normal inspection ENT: hearing grossly normal Neck: supple, no adenopathy Respiratory/Chest: chest non-tender, lungs clear, normal breath sounds, no respiratory distress, no accessory muscle use Cardiovascular: regular rate, rhythm, + irregularly irregular Abdomen: normal bowel sounds, non tender, soft Extremities: no pedal edema, no calf tenderness Neurologic/Psychiatric: alert, normal mood/affect, oriented x 3 Skin: normal color, warm/dry, no rash , 2cm lipoma on right side of sternum ( hasn't changed in years). Assessment and Plan 87F with past medical history of chronic diastolic CHF, atrial fibrillation, hypertension, hyperlipidemia, chronic kidney disease, sleep apnea presented to the ED with chest pain and admitted for NSTEMI. Pt underwent cath on 12/[address] Antonio. NSTEMI s/p Cath on 12/28 PCI of late-mid to distal LAD with single BLAYNE. Serial troponin show elevations peaked at 46.5, then downtrended. Echo shows borderline concentric LVH with EF 55-60%. Akinesis of the septum and dyskinesis of the apical portions of the septum and right ventricle. Continue aspirin, clopidogrel (dual-antiplatelet therapy for at least 1 year), metoprolol, losartan, Imdur, atorvastatin. Continue monitoring in telemetry Cardiac rehab referral on discharge Hypoxia likely secondary to fluid overload O2 via nasal cannula per protocol, wean as tolerated c/w furosemide 40mg daily (home med) + extra IV furosemide 40mg today. -800mL out yesterday, 400+mL since admission. Pulm HTN with moderate to severe TR: Echo shows moderate to severe tricuspid regurgitation. Elevated RV systolic pressure at 50-60mmHg, worsened since echo in 2016. CTA chest negative for pulmonary embolism but suggestive of pulmonary edema and small bilateral pleural effusions. - Consider sleep study as outpatient Atrial fibrillation s/p AVR (bioprosthetic valve): Continue metoprolol and digoxin - Patient was supposed to be on warfarin with anticoagulation but did not comply with regimen. INR 1.1 on admission. Discussed with cardiology - recommend placing emphasis on compliance with dual anti-platelet therapy and leaving patient off of anticoagulation. Given age and renal status, patient not a great candidate for NOAC either. Discussed switching metoprolol tartrate to succinate to simplify regimen further, but given patient's sayda episodes in 30s -40s, will leave her on shorter acting doses for now. Hypertension: Continue metoprolol, losartan and Imdur. Hypothyroidism: c/w levothyroxine 25mcg daily. Dementia Mild dementia, which the patient is able to mask well at times. Discussion with patient's PCP, Dr. Childs reveals that patient's licence was recently revoked and despite patient's views to the contrary, patient is not able to manage her own care/medication regimen. Discussion with reveals that patient cares for herself and manages medication administration by herself. He does admit he has to prompt her on occasions. 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 [place] Cognitive Assessment screen administered with score 19/30, which is consistent with mild cognitive impairment - representative phlebotomy services consulted DVT prophylaxis: - Heparin BID SC Resident Involvement: Resident Care Provided Care Provided: Adult Hospital Medicine Reviewed: Pt Seen/Exam by Me History no concerns. Constitutional: denies: fever Respiratory: negative: short of breath Cardiovascular: denies chest pain General Appearance: no apparent distress Respiratory: lungs clear, no respiratory distress Cardiovascular: irregularly irregular Gastrointestinal: soft Neurologic/Psychiatric: alert, oriented x 3 Skin Characteristics: warm/dry Assessment/Plan Resident Physician Supervision Note: I independently interviewed and examined the patient and verified the santamaria history and physical, reviewed labs and image studies, discussed the case with the resident Dr. Yeh and agree with the findings and care plan.
[2018-01-01] MEDS: DIGOXIN 0.125 MG TAB PO SCH (20:48)
[2018-01-02] VITALS: O2SAT 93
[2018-01-02 03:23] VITALS: BP 144/75; PULSE 63; TEMP 37; O2SAT 92
[2018-01-02 04:00] VITALS: O2SAT 93
[2018-01-02] MEDS: LEVOTHYROXINE 25 MCG TAB PO SCH (06:15)
[2018-01-02 07:34] VITALS: BP 120/66; PULSE 56; TEMP 36.8; O2SAT 92
[2018-01-02] MEDS: METOPROLOL TARTRATE 25 MG TAB PO SCH (07:57)
[2018-01-02] MEDS: ATORVASTATIN 40 MG TAB PO SCH (07:57)
[2018-01-02] MEDS: LOSARTAN POTASSIUM 50 MG TAB PO SCH (07:57)
[2018-01-02] MEDS: CLOPIDOGREL BISULFATE 75 MG TAB PO SCH (07:57)
[2018-01-02] MEDS: CHOLECALCIFEROL 1000 INTER.UNIT TAB PO SCH (07:57)
[2018-01-02] MEDS: ISOSORBIDE MONONITRATE 30 MG TABCR PO SCH (07:58)
[2018-01-02] MEDS: MAGNESIUM OXIDE 400 MG TAB PO SCH (07:58)
[2018-01-02] MEDS: FUROSEMIDE 40 MG TAB PO SCH (07:58)
[2018-01-02] MEDS: ASPIRIN 81 MG ECTAB PO SCH (07:58)
[2018-01-02] MEDS: HEPARIN SOD 5000 UNIT/0.5 ML CARP SQ SCH (08:01)
[2018-01-02 08:23] LABS: CREATININE 1.11 mg/dl (0.60-1.20)
[2018-01-02 08:24] LABS: CALCIUM 8.8 mg/dl (8.5-10.1); POTASSIUM 3.7 mmol/L (3.5-5.1)
--- NOTE | 2018-01-02 09:35 | DIAGNOSTIC IMAGING REPORT ---
CHEST ONE VIEW PORTABLE HISTORY: 87 years-old Female continued hypoxia, eval for pulm edema acute posterior COMPARISON: Chest radiograph 12/27/2017, CTA chest 12/27/2017 TECHNIQUE: Portable AP view of the chest FINDINGS: Cardiac silhouette is again enlarged. Prior median sternotomy with prosthetic aortic valve. There is atherosclerosis of the aorta. There is no pneumothorax. Small right pleural effusion is noted with subsegmental bibasilar opacities. Mild pulmonary vascular congestion without overt pulmonary edema. Degenerative changes are seen within the shoulders and spine. IMPRESSION: 1. Cardiomegaly and mild pulmonary vascular congestion with mildly improved aeration of the bilateral lungs from comparison. 2. Small right pleural effusion with bibasilar opacities suggesting atelectasis or pneumonitis. The above report was generated using voice recognition software. It may contain grammatical, syntax or spelling errors. Electronically signed by: Fortino Mcallister M.D. 01/02/2018 9:34 AM Dictated Date/Time: 01/02/2018 9:32 AM
[2018-01-02 11:02] VITALS: BP 117/69; PULSE 68; TEMP 36.4; O2SAT 96
[2018-01-02 12:47] VITALS: BP 117/69; PULSE 68; TEMP 36.4; O2SAT 96
[2018-01-02] MEDS ORDERED: LPT40 PO (12:54)
[2018-01-02] MEDS ORDERED: PLV75 PO (12:54)
[2018-01-02] MEDS ORDERED: CZR50 PO (12:54)
[2018-01-02] MEDS ORDERED: METO25TA56 PO (12:54)
--- NOTE | 2018-01-02 13:29 | Discharge Summary ---
Discharge Summary Date of Service Jan 02, 2018. Discharge Summary Admission Date: Dec 27, 2017 at 06:13 Discharge Date: Jan 02, 2018 Discharge Disposition: Home Principal Diagnosis: NSTEMI Immunizations: Have You Had Influenza Vaccine: Yes Influenza Vaccine Date: Jul 28, 2012 History of Tetanus Vaccine?: Yes History of Pneumococcal: No History of Hepatitis B Vaccine: No Procedures: CARDIAC CATH 12/27/17 : Indication: High-risk NSTEMI Access: 6Fr right radial artery Catheters: [place]; EBU 3.5 guide Findings: LM - Luminal irregularities LAD - Moderate caliber, subtotal late-mid occlusion; severe diffuse distal disease as wraps around apex. Moderate 1st diagonal with luminal irregularities. Circumflex - Dominant, large caliber, 30-40% mid stenosis; moderate OM3 with 50-60% proximal stenosis RCA - Non-dominant, luminal irregularities. Summary: 1. Severe single vessel coronary artery disease - Subtotal late-mid LAD occlusion with distal severe diffuse disease 2. Moderate non-obstructive circumflex disease - Mid segment 30-40%; OM3 50-60% stenosis 3. Successful PCI of late-mid to distal LAD with single BLAYNE (2.25 x 26 Mahesh BLAYNE) . - POBA with 2.0 balloon to severe diffuse apical LAD disease CT ANGIOGRAPHY OF THE CHEST, PULMONARY EMBOLUS PROTOCOL CLINICAL HISTORY: Left-sided chest pain and shortness of breath. COMPARISON STUDY: Chest CT July 17, 2017 and chest radiograph December 27, 2017. TECHNIQUE: Following IV administration of 91 mL of Optiray-320, helical axial images of the chest were obtained utilizing the pulmonary embolus protocol. Maximal intensity projections and sagittal and coronal reformats were viewed on an independent 3D workstation. IV contrast was administered without complication. A dose lowering technique was utilized adhering to the principles of ALARA. CT DOSE: 250.63 mGy.cm FINDINGS: No pulmonary emboli are identified although the segmental and subsegmental pulmonary arteries are suboptimally assessed due to respiratory motion. There are median sternotomy wires and postsurgical findings consistent with bypass grafting. Moderate cardiomegaly is noted. There is a prosthetic aortic valve. There is no pericardial effusion. There are mildly enlarged mediastinal and bilateral bilateral hilar lymph nodes. Index subcarinal lymph node measures 1.1 cm in short axis diameter. 2.4 cm water attenuation right anterior chest wall lesion is unchanged from earlier exams. This is likely benign. This likely reflects a sebaceous cyst. Small right and trace left pleural effusions are present. Is no pneumothorax. There are calcified mediastinal and hilar lymph nodes. There are mild groundglass opacities and interlobular septal thickening within the lungs. A few left lung nodules are unchanged since CT of October 02, 2009. There are no suspicious osseous lesions. There is reflux of contrast into the IVC and hepatic veins. IMPRESSION: 1. No pulmonary emboli identified although segmental and subsegmental pulmonary arteries suboptimally assessed due to respiratory motion. 2. Groundglass opacities and interlobular septal thickening suggestive of pulmonary edema. 3. Small right and trace left pleural effusions. 4. Moderate cardiomegaly. 5. Mild mediastinal and bilateral hilar lymphadenopathy. This is nonspecific. ECHOCARDIOGRAM (12/28/17) : * There is borderline concentric left ventricular hypertrophy. * Left ventricular systolic function is normal. * There are regional wall motion abnormalities as specified. * The left atrium is mildly dilated. * There is a bioprosthetic aortic valve. * There is severe mitral annular calcification. * There is mild to moderate mitral regurgitation. * There is moderate to severe tricuspid regurgitation. * Right ventricular systolic pressure is elevated at 50-60mmHg. * Compared to a study from 04/09/2016, there are new wall motion abnormalities and the pulmonary pressures are slightly higher * Aortic valve gradients appears stable. EKG (12/27/17) : Atrial fibrillation with slow ventricular response Left axis deviation Left bundle branch block Abnormal ECG When compared with ECG of 27-DEC-2017 06:12, No significant change was found Confirmed by POORNIMA BUNCH ([id number]) on 12/28/2017 6:33:25 AM Medication Reconciliation New Medications: Metoprolol Tartrate (Lopressor) (Lopressor) 25 Mg Tab 0.5 TAB PO BID for 30 Days, #30 TAB 5 Refills Atorvastatin (Lipitor) 40 Mg Tab 40 MG PO QAM for 30 Days, #30 TAB Clopidogrel Bisulfate (Clopidogrel) 75 Mg Tab 75 MG PO QAM for 30 Days, #30 TAB Losartan Potassium (Losartan Potassium) 50 Mg Tab 50 MG PO QAM for 30 Days, #30 TAB Continued Medications: Aspirin (Aspirin Ec) 81 Mg Tab 81 MG PO DAILY Cholecalciferol (Vitamin D3) 1,000 Unit Tab 1000 UNIT PO DAILY, TAB 3 Refills Digoxin (Digoxin) 0.125 Mg Tab 0.125 MG PO DAILY Furosemide (Lasix) 40 Mg Tab 40 MG PO DAILY, TAB Isosorbide Mononitrate Ext Rel (Imdur Ext Rel) 30 Mg Tabcr 30 MG PO DAILY Levothyroxine Sodium (Levothyroxine Sodium) 25 Mcg Tab 25 MCG PO DAILY, TAB 3 Refills Magnesium (Magnesium 250 mg) 1 Tab Tab 250 MG PO DAILY Discontinued Medications: Metoprolol Tartrate (Lopressor) (Lopressor) 25 Mg Tab 25 MG PO BID, TAB Warfarin Sod (Jantoven) 5 Mg Tab 5 MG PO DAILY, TAB Discharge Exam Subjective The patient was seen and examined at bedside. No acute overnight events. Telemetry shows periods <30s of Atrial Fibrillation in the 30s when the patient is at rest. Patient has no complaints. When the patient ambulates her heart rate elevates appropriately. Patient still requires oxygen when ambulating and at rest. Patient is resting comfortably in bed. Denies having any pain. Eating and urinating well. Plan of care was described to the patient and all questions were answered. Constitutional: No fever, No chills, No sweats Eyes: No worsening of vision ENT: No hearing loss Respiratory: mild dyspnea on exertion (improved from previous day), No cough , No sputum, No wheezing Cardiovascular: No chest pain Abdomen: No pain, No nausea, No vomiting, No diarrhea, No constipation Musculoskeletal: No joint pain Neurologic: No memory loss Skin: No rash Physical Exam General Appearance: WD/WN, no apparent distress, + pertinent finding (2L O2 via nasal cannula) Eyes: normal inspection ENT: hearing grossly normal Neck: supple, no adenopathy Respiratory/Chest: chest non-tender, lungs clear, normal breath sounds, no respiratory distress, no accessory muscle use Cardiovascular: regular rate, rhythm, + irregularly irregular Abdomen: normal bowel sounds, non tender, soft Extremities: no pedal edema, no calf tenderness Neurologic/Psychiatric: alert, normal mood/affect, oriented x 3 Skin: normal color, warm/dry, no rash , 2cm lipoma on right side of sternum ( hasn't changed in years). Hospital Course 87F with past medical history of chronic diastolic CHF, atrial fibrillation, hypertension, hyperlipidemia, chronic kidney disease, sleep apnea presented to the ED with chest pain and admitted for NSTEMI. Pt underwent cath on 12/[address] Antonio and a BLAYNE was placed in the late-med to distal LAD. Laboratory work of note include a Troponin peak to 46.5. After revascularization patient developed pulmonary edema and was carefully diuresed over a period of several days. On discharge patient should take 40mg of Lasix Daily. Telemetry findings of note include short <30s periods of a low heart rate at rest (A. Fib with a rate in the 30s) and an appropriate chronotropic response to walking (HR elevated up to 120s). Because of the low rate rate the patients metoprolol tartrate was reduced to 12.5mg BID at time of discharge. New medications on discharge include Plavix, Losartan and Atorvastatin. Pt was advised to continue home meds as above, including ASA, Imdur and digoxin. Dual Antiplatelet therapy should go one for at least one year. Regarding the patients Atrial Fibrillation it was discussed that since compliance on Coumadin may be an issue (INR was 1.1 on admission) and renal function and age prohibit the use of NOACs, it was decided to leave the patient off anticoagulation. The risks and benefits of this medication decision were discussion extensively with the patient. Regarding the patient's echocardiogram findings the patient had evidence of severe tricuspid regurgitation. Patient may need a sleep study as outpatient. Patient used oxygen via nasal cannula at night. At present she requires round the clock 2LNC to maintain O2 sats above 88%. Arrangements were made for the patient to have around the clock home oxygen at home. Our case management team has also arranged for [facility] to come into the home and do an assessment regarding her activities of daily living including medication management. 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 [place] Cognitive Assessment screen administered with score 19/30, which is consistent with mild cognitive impairment. Upon discharge close follow up with Cardiology was recommended <[address] Wood and PCP (Dr. Childs) in one week. Total Time Spent: Greater than 30 minutes (34) This includes examination of the patient, discharge planning, medication reconciliation, and communication with other providers. Discharge Instructions Please refer to the electronic Patient Visit Report (Discharge Instructions) for additional information. Additional Copies To RV. Steele MD; Asael Wood M.D. Resident Involvement: Resident Care Provided Care Provided: Adult Hospital Medicine Reviewed: Pt Seen/Exam by Me Constitutional: denies: fever Respiratory: negative: cough, short of breath Cardiovascular: denies chest pain General Appearance: no apparent distress Respiratory: lungs clear, no respiratory distress Cardiovascular: irregularly irregular Gastrointestinal: soft Neurologic/Psychiatric: alert, oriented x 3 Skin Characteristics: warm/dry Assessment/Plan Resident Physician Supervision Note: I independently interviewed and examined the patient and verified the santamaria history and physical, reviewed labs and image studies, discussed the case with the resident Dr. Yeh and agree with the findings and care plan. Time spent in discharge 35 min
--- NOTE | 2018-01-02 13:30 | CARDIOLOGY PROGRESS NOTE ---
DATE: 01/02/2018 TIME: 12:30 p.m. SUBJECTIVE: She denies chest pain, shortness of breath, syncope, near syncope, lightheadedness or edema. She would like to go home. She has ambulated in the hallways and is tolerating it well. She states that at times she can feel her heart racing slightly and other times, she can feel a bit slower, but these symptoms are not overly bothersome to her. They are not affecting her activity level. OBJECTIVE: VITAL SIGNS: Temperature 36.4 degrees, heart rate 68 beats per minute, respiratory rate 20, blood pressure 117/69 mmHg, and oxygen saturation 96% on 1 liter per nasal cannula. I's and O's negative 750 mL yesterday. Weight is 66.5 kg. GENERAL: No acute distress. She is alert. NECK: No JVD. CARDIAC EXAM: No ventricular heave. Irregularly irregular. 2/6 systolic murmur. Normal S1 and S2. LUNGS: Clear to auscultation bilaterally without wheezes, rales or rhonchi. ABDOMEN: Soft, nontender, and nondistended. Normoactive bowel sounds. EXTREMITIES: No cyanosis or pitting edema. PSYCHIATRIC: Affect appears appropriate. MEDICATIONS: Include aspirin 81 mg daily, Plavix 75 mg daily, atorvastatin 40 mg daily, digoxin 0.125 mg daily, Lasix 40 mg p.o. daily, heparin 5000 units subQ q. 12 hours, isosorbide mononitrate 30 mg daily, losartan 50 mg daily, and metoprolol tartrate 25 mg p.o. b.i.d. LABORATORY DATA: Sodium 139, potassium 3.7, BUN 21, and creatinine 1.11. Magnesium 2.1. White blood cell count 9.18, hemoglobin 13, and platelets 240. Telemetry personally reviewed. Atrial fibrillation with heart rate mostly acceptable. There are times where she will transiently be in the 30s, which is correlated with her sitting in bed. Her tachycardic episodes have been documented as when she is out of bed walking. ASSESSMENT AND PLAN: 1. 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 Continue aspirin 81 mg daily indefinitely. Continue Plavix for at least 1 year. She denies any anginal symptoms currently. Continue high intensity statin therapy and beta leslie as tolerated. 2. Atrial fibrillation: Her heart rate is mostly acceptable at this time. She does have transient bradycardia, but is not significantly symptomatic as it appears to be when she is lying in bed. Recommend reducing metoprolol to 12.5 mg twice daily. Ensure that she has appropriate chronotropic response by walking the hallways and reassessing telemetry. If so, would continue her usual dose of digoxin with adjusted dose of metoprolol. Medications can be further adjusted as appropriate. Anticoagulation therapy has not been utilized as she has not been taking it as an outpatient for the past several months according to records. This can be further decided upon as an outpatient by her primary contract accountant, Dr. Wood. 3. Hypertension: Blood pressure acceptable. No changes made at this time, other than adjusting beta leslie based on heart rate. 4. Chronic diastolic congestive heart failure: She appears euvolemic and is asymptomatic. Her diuretic therapy was changed to oral from IV. Continue current dose for now. 5. Tachybrady syndrome: As noted above with her atrial fibrillation, she chronically takes metoprolol and digoxin at home. She did have a 3.5-second pause in the afternoon within the past couple days and has transient bradycardia in the 30s. For this reason, we will reduce beta leslie slightly. Continue to reassess over time to see if a pacemaker may be needed in the future. 6. Disposition: Follow up with cardiology as outlined by Dr. Antonio. She follows with Dr. Wood as her primary contract accountant. The patient's care has been discussed with Dr. Yeh of the primary hospitalist service.
--- NOTE | 2018-01-02 13:38 | Discharge Instructions ---
Discharge Instructions Date of Service Jan 02, 2018. Admission Reason for Admission: Precordial Chest Pain Discharge Discharge Diagnosis / Problem: NSTEMI Discharge Goals Goal(s): Decrease discomfort, Improve function, Increase independence, Improve disease control, Improve nutritional status, Learn about illness Activity Recommendations Activity Limitations: per Instructions/Follow-up section . Instructions / Follow-Up Instructions / Follow-Up Home Care: * Take your medications exactly as directed. Don't skip doses. * Remember that recovery after a heart attack takes time. Plan to rest for at lease 4-8 weeks while you recover. Then return to normal activity when your doctor says it's okay. * Ask your doctor about joining a heart rehabilitation program. * Tell your doctor if you are feeling depressed. Feelings of sadness are common after a heart attack, but it is important that you speak to someone if you are feeling overwhelmed by these feelings. * If you are having chest pain, call 911 for an ambulance. Do NOT drive yourself to the hospital. * Ask your family members to learn CPR. * Learn to take your own blood pressure and pulse. Keep a record of your results. Ask your doctor when you should seek emergency medical attention. He or she will tell you which blood pressure reading is dangerous. Lifestyle Changes: * Maintain a healthy weight. Get help to lose any extra pounds. * Cut back on salt. * Limit canned, dried, packaged, and fast foods. * Don't add salt to your food. * Season foods with herbs instead of salt when you cook. * Break the smoking habit. Enroll in a stop-smoking program to improve your chances of success. * Limit fatty foods. * Ask your doctor about having your lipid levels checked regularly. * Build up your activity according to your doctor's recommendation. * Ask your doctor when it's okay to resume sexual activity. * Try to manage stress. * Please measure your weight every day, if you notice a significant increase in your weight over a short period of time (ex: gaining 5lbs in two days), please arrange to see your primary doctor as soon as possible - especially if you experience worsening shortness of breath. * Three new medications are being added your regimen, including Plavix, Lipitor and Losartan. Information on the medications is printed below. Please take them as prescribed. Follow Up: A cardiology follow up with be made for you within one week with [facility], please keep this appointment. Please follow up with Dr. Steele within on week. [facility] services will be arranged for you to ensure that you are able to take your medications appropriately and to assess any other needs you may have. We have arranged a home oxygen canister to be sent with you. Please use your oxygen 24hours of the day. You may also benefit from a sleep study. This can be ordered by your primary care provider. Please ask your primary care provider about this, especially since images of your heart found evidence of a disease called pulmonary hypertension. * Information on Atrial Fibrillation and the other new medications have been printed for you. Please read this information carefully. Current Hospital Diet Patient's current hospital diet: AHA Diet (Heart Healthy) Discharge Diet Recommended Diet: AHA Diet (Heart Healthy) Pending Studies Studies pending at discharge: no Laboratory Results Lipid Panel Test 12/27/17 02:46 Range/Units Triglycerides Level 124 0-150 mg/dl Cholesterol Level 129 0-200 mg/dl HDL Cholesterol 31 mg/dl Cholesterol/HDL Ratio 4.2 LDL Cholesterol, Calculated 73 mg/dl Medical Emergencies . Who to Call and When: Medical Emergencies: If at any time you feel your situation is an emergency, please call 911 immediately. Call 911 immediately or go to your nearest Emergency Room if you experience any of the following: Warning Signs and Symptoms of a Heart Attack * Chest pain that is not relieved by medication * Shortness of breath . Non-Emergent Contact Non-Emergency issues call your: Primary Care Provider, [facility] Director . . "Provider Documentation" section prepared by Rubio Yeh. . AMI Core Measures Reason no ASA as I/P: Treatment provided - N/A Reason no ASA at D/C: Treatment provided - N/A Reason no statin as I/P: Treatment provided - N/A Reason no statin at D/C: Treatment provided - N/A Resident Involvement: Resident Care Provided Care Provided: Adult Hospital Medicine
[2018-01-02] MEDS: DIGOXIN 0.125 MG TAB PO SCH (15:33)
== END 2018-01-02 16:25 | disposition home health service (06) | DRG 246 ==
LOC: EDBD 02:39 → C.EDB 02:39 → C.2T 06:13 → ENRESERV 06:45
PROVIDERS: ADMIT Family Medicine; ATTEND Family Medicine
PROC: B211YZZ Fluoroscopy of Multiple Coronary Arteries using Other Contrast (ICD-10-PCS; principal; 2017-12-27 12:00)
PROC: 02703ZZ Dilation of Coronary Artery, One Artery, Percutaneous Approach (ICD-10-PCS; principal; 2017-12-27 12:00)
PROC: 027034Z Dilation of Coronary Artery, One Artery with Drug-eluting Intraluminal Device, Percutaneous Approach (ICD-10-PCS; principal; 2017-12-27 12:00)
DX: I21.4 Non-ST elevation (NSTEMI) myocardial infarction (principal); I50.33 Acute on chronic diastolic (congestive) heart failure; I13.0 Hypertensive heart and chronic kidney disease with heart failure and stage 1 through stage 4 chronic kidney disease, or unspecified chronic kidney disease; I25.10 Atherosclerotic heart disease of native coronary artery without angina pectoris; R09.02 Hypoxemia; I48.91 Unspecified atrial fibrillation; I49.5 Sick sinus syndrome; I44.7 Left bundle-branch block, unspecified; I27.20 Pulmonary hypertension, unspecified; I07.1 Rheumatic tricuspid insufficiency; I25.5 Ischemic cardiomyopathy; N18.3 Chronic kidney disease, stage 3 (moderate); E03.9 Hypothyroidism, unspecified; E78.5 Hyperlipidemia, unspecified; F03.90 Unspecified dementia, unspecified severity, without behavioral disturbance, psychotic disturbance, mood disturbance, and anxiety; Z66 Do not resuscitate; Z99.81 Dependence on supplemental oxygen; Z91.14 Patient's other noncompliance with medication regimen; Z95.2 Presence of prosthetic heart valve; Z79.02 Long term (current) use of antithrombotics/antiplatelets; Z79.82 Long term (current) use of aspirin; Z79.899 Other long term (current) drug therapy; Z88.8 Allergy status to other drugs, medicaments and biological substances; Z91.048 Other nonmedicinal substance allergy status; Z82.49 Family history of ischemic heart disease and other diseases of the circulatory system; Z84.1 Family history of disorders of kidney and ureter

== ENCOUNTER 2018-05-29 20:09 | Inpatient (IN) | payer OTHER, MEDICARE ==
[~2018-05-29] VITALS: Ht 149.9 cm; Wt 60.7 kg
[~2018-05-29 20:09] MED LIST changes: -ASPCH81X PO; +ASPI81TA28 PO; -CEFD1CAP14 PO; +CHOL1000 PO; -CHOL2000 PO; -CYAN10005 PO; +CZR50 PO; -DICL1GEL12 TOP; +ISOS30TA35 PO; +LEVO25TA5 PO; +LNX125 PO; +LPT40 PO; +MAGN250T3 PO; -OXGN; +PLV75 PO; -XRL15 PO; -[UNRECOGNIZED DRUG - CODE] OPB
--- NOTE | 2018-05-29 20:33 | EMERGENCY ROOM VISIT NOTE ---
History Report prepared by Oneyda: Coleman Ayala Under the Supervision of: Dr. Vu Bowman M.D. First contact with patient: 20:24 Chief Complaint: SHORTNESS OF BREATH Stated Complaint: SOB Nursing Triage Summary: pt reports started this AM with feeling sob and palpitions pt reports as the day went on palpitations have become worse along with exertional sob and nausea denies cp History of Present Illness The patient is an 87 year old female who presents to the Emergency Room with complaints of an episode of a rapid heart rate that began this morning. The patient describes her symptoms as a "terribly fast heart rate" but denies any chest pain. She also complains of shortness of breath as well as some nausea. The patient notes that she does have a history of heart attack and palpitations. She is not on any blood thinners. Source of History: patient Onset: This morning Position: chest Symptom Intensity: "terribly fast heart rate" Quality: other ("terribly fast heart rate") Associated Symptoms: + SOB, + nausea, No chest pain Review of Systems See HPI for pertinent positives & negatives. A total of 10 systems reviewed and were otherwise negative. 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 (4) Aortocoronary Bypass (5) Atrial fibrillation, currently in sinus rhythm (6) Congestive Heart Failure Nos (7) Encephalopathy acute (8) Hyperlipidemia Nec/Nos (9) Hypertension (10) Hypertension Nos (11) Mobitz type 2 second degree atrioventricular block (12) Paroxysmal atrial fibrillation with rapid ventricular response (13) SVT (supraventricular tachycardia) Family History Cancer Heart disease Hypertension Kidney disease Social History Smoking Status: Never Smoker Alcohol Use: none Drug Use: none Marital Status: Housing Status: lives with family Occupation Status: retired Current/Historical Medications Scheduled Aspirin (Aspir-81), 81 MG PO DAILY Cholecalciferol (Vitamin D3), 1,000 INTER.UNIT PO DAILY Furosemide (Furosemide), 40 MG PO Q2D Isosorbide Mononitrate Ext Rel (Imdur Ext Rel), 30 MG PO DAILY Levothyroxine Sodium (Levothyroxine Sodium), 25 MCG PO DAILY Magnesium Oxide (Magnesium Oxide), 250 MG PO DAILY Metoprolol Tartrate (Lopressor), 12.5 MG PO BID Scheduled PRN Acetaminophen (Tylenol), 325-650 MG PO Q6H PRN for Pain or Fever Nitroglycerin (Nitrostat), 0.4 MG UT UD PRN for Chest Pain Allergies Coded Allergies: Amlodipine (Verified Adverse Reaction, Mild, MUSCLE CRAMPS, 12/27/17) Clonidine (Verified Adverse Reaction, Mild, FATIGUE,DIZZINESS, 12/27/17) Diltiazem (Verified Adverse Reaction, Mild, VILLAGOMEZ/DIZZINESS, 12/27/17) Hydralazine (Verified Adverse Reaction, Mild, VILLAGOMEZ/DIZZINESS, 12/27/17) Hydrochlorothiazide w/Triamterene (Verified Adverse Reaction, Mild, DIZZINESS, 12/27/17) Levothyroxine (Verified Adverse Reaction, Mild, MUSCLE CRAMPS, 12/27/17) Valsartan (Verified Adverse Reaction, Mild, DIZZINESS, 12/27/17) CI Pigment Blue 63 (Verified Adverse Reaction, Unknown, NAUSEA, ?STROKE SYMPTOMS, 12/27/17) Lisinopril (Verified Adverse Reaction, Unknown, `, 12/27/17) Nebivolol (Verified Adverse Reaction, Unknown, NAUSEA, ?STROKE SYMPTOMS, ) Sorbitan (Verified Adverse Reaction, Unknown, NAUSEA, ?STROKE SYMPTOMS, 10/04) Yellow Dye (Verified Adverse Reaction, Unknown, NAUSEA, ?STROKE SYMPTOMS, 12/27/17) Physical Exam Vital Signs Date Time Temp Pulse Resp B/P (MAP) Pulse Ox O2 Delivery O2 Flow Rate FiO2 05/29/18 23:54 88 20 123/81 96 Nasal Cannula 2.0 05/29/18 23:46 112 20 172/98 95 05/29/18 23:22 84 18 172/103 95 Nasal Cannula 2.0 05/29/18 22:30 72 20 159/87 95 Nasal Cannula 2.0 05/29/18 21:13 68 18 155/82 95 Nasal Cannula 2.0 05/29/18 20:40 96 Nasal Cannula 2.0 05/29/18 20:31 76 05/29/18 20:21 96 Nasal Cannula 2.0 05/29/18 20:20 88 Room Air 05/29/18 20:14 37.1 65 20 166/76 88 Room Air Physical Exam GENERAL: Awake, alert, well-appearing, in no acute distress HENT: Normocephalic, atraumatic. Oropharynx unremarkable. EYES: Normal conjunctiva. Sclera non-icteric. NECK: Supple. No nuchal rigidity. FROM. No JVD. RESPIRATORY: Clear to auscultation. CARDIAC: Regular rate, normal rhythm. Extremities warm and well perfused. Pulses equal. ABDOMEN: Soft, non-distended. No tenderness to palpation. No rebound or guarding. No masses. RECTAL: Deferred. MUSCULOSKELETAL: Chest examination reveals no tenderness. The back is symmetrical on inspection without obvious abnormality. There is no CVA tenderness to palpation. No joint edema. LOWER EXTREMITIES: Calves are equal size bilaterally and non-tender. No edema. No discoloration. NEURO: Normal sensorium. No sensory or motor deficits noted. SKIN: No rash or jaundice noted. Medical Decision & Procedures ER Provider Diagnostic Interpretation: Radiology results as stated below per my review and radiologist interpretation: CHEST ONE VIEW PORTABLE CLINICAL HISTORY: Chest pain and shortness of breath. COMPARISON STUDY: Chest radiograph January 02, 2018. FINDINGS: There may be calcific tendinitis of the bilateral rotator contrast. There is no pneumothorax. Small right pleural effusion is noted. Note is made of median sternotomy wires and a prosthetic aortic valve. Moderate cardiomegaly is unchanged. Patient is rotated. Mild interstitial thickening is noted. Mild bibasilar opacities are noted. IMPRESSION: 1. Mild interstitial pulmonary edema and a small right pleural effusion. 2. Mild bibasilar opacities which favor atelectasis. Electronically signed by: George Rubi M.D. 05/29/2018 9:12 PM Dictated Date/Time: 05/29/2018 9:10 PM Laboratory Results 05/29/18 20:20 Red Blood Count 4.66, Mean Corpuscular Volume 86.1, Mean Corpuscular Hemoglobin 27.3, Mean Corpuscular Hemoglobin Concent 31.7, Mean Platelet Volume 11.5, Neutrophils (%) (Auto) 81.1, Lymphocytes (%) (Auto) 7.8, Monocytes (%) (Auto) 8.8, Eosinophils (%) (Auto) 1.9, Basophils (%) (Auto) 0.2, Neutrophils # (Auto) 8.53, Lymphocytes # (Auto) 0.82, Monocytes # (Auto) 0.93, Eosinophils # (Auto) 0.20, Basophils # (Auto) 0.02 05/29/18 20:20 Test 05/29/18 20:20 05/29/18 22:25 05/29/18 23:43 White Blood Count 10.52 K/uL (4.8-10.8) Red Blood Count 4.66 M/uL (4.2-5.4) Hemoglobin 12.7 g/dL (12.0-16.0) Hematocrit 40.1 % (37-47) Mean Corpuscular Volume 86.1 fL (80-100) Mean Corpuscular Hemoglobin 27.3 pg (25-34) Mean Corpuscular Hemoglobin Concent 31.7 g/dl (32-36) Platelet Count 194 K/uL (130-400) Mean Platelet Volume 11.5 fL (7.4-10.4) Neutrophils (%) (Auto) 81.1 % Lymphocytes (%) (Auto) 7.8 % Monocytes (%) (Auto) 8.8 % Eosinophils (%) (Auto) 1.9 % Basophils (%) (Auto) 0.2 % Neutrophils # (Auto) 8.53 K/uL (1.4-6.5) Lymphocytes # (Auto) 0.82 K/uL (1.2-3.4) Monocytes # (Auto) 0.93 K/uL (0.11-0.59) Eosinophils # (Auto) 0.20 K/uL (0-0.5) Basophils # (Auto) 0.02 K/uL (0-0.2) RDW Standard Deviation 52.5 fL (36.4-46.3) RDW Coefficient of Variation 16.6 % (11.5-14.5) Immature Granulocyte % (Auto) 0.2 % Immature Granulocyte # (Auto) 0.02 K/uL (0.00-0.02) Prothrombin Time 11.5 SECONDS (9.0-12.0) Prothromb Time International Ratio 1.1 (0.9-1.1) Anion Gap 7.0 mmol/L (3-11) Est Creatinine Clear Calc Drug Dose 33.5 ml/min Estimated GFR () 61.2 Estimated GFR (Non- 52.8 BUN/Creatinine Ratio 21.5 (10-20) Calcium Level 8.5 mg/dl (8.5-10.1) Total Bilirubin 1.0 mg/dl (0.2-1) Direct Bilirubin 0.4 mg/dl (0-0.2) Aspartate Amino Transf (AST/SGOT) 36 U/L (15-37) Alanine Aminotransferase (ALT/SGPT) 39 U/L (12-78) Alkaline Phosphatase 105 U/L (45-117) Total Creatine Kinase 32 U/L (26-192) Creatine Kinase MB 1.5 ng/ml (0.5-3.6) Creatine Kinase MB Ratio 4.7 (0-3.0) Total Protein 6.6 gm/dl (6.4-8.2) Albumin 3.1 gm/dl (3.4-5.0) Lipase 59 U/L (73-393) Urine Color YELLOW Urine Appearance CLEAR (CLEAR) Urine pH 6.0 (4.5-7.5) Urine Specific Foley 1.015 (1.000-1.030) Urine Protein TRACE (NEG) Urine Glucose (UA) NEG (NEG) Urine Ketones NEG (NEG) Urine Occult Blood NEG (NEG) Urine Nitrite NEG (NEG) Urine Bilirubin NEG (NEG) Urine Urobilinogen NEG (NEG) Urine Leukocyte Esterase TRACE (NEG) Urine WBC (Auto) 1-5 /hpf (0-5) Urine RBC (Auto) 0-4 /hpf (0-4) Urine Hyaline Casts (Auto) 1-5 /lpf (0-5) Urine Epithelial Cells (Auto) >30 /lpf (0-5) Urine Bacteria (Auto) NEG (NEG) Troponin I < 0.015 ng/ml (0-0.045) Labs reviewed by ED physician. Medications Administered Medications (Trade) Dose Ordered Sig/Shandra Route Start Time Stop Time Status Last Admin Dose Admin Sodium Chloride 500 ml @ 999 mls/hr Q31M STAT IV 05/29/18 21:38 05/29/18 22:08 DC 05/29/18 21:38 999 MLS/HR Furosemide (Lasix Inj) 40 mg NOW STAT IV 05/29/18 22:17 05/29/18 22:18 DC 05/29/18 23:05 40 MG Levalbuterol (Xopenex 0.31MG/ 3ML Neb) 0.31 mg NOW STAT INH 05/29/18 22:29 05/29/18 22:30 DC 05/29/18 23:10 0.31 MG ECG Per My Interpretation Indication: palpitations, SOB/dyspnea Rate (beats per minute): 76 Rhythm: atrial fibrillation Findings: LBBB Comparison ECG Date: 12/27/2017 Change: no significant change ED Course 2024: Past medical records reviewed. The patient was evaluated in room B9. A complete history and physical examination was performed. 225: I discussed the case [facility]. He will evaluate the patient for further treatment. Medical Decision Prior records/ancillary studies reviewed. Differential diagnosis: Etiologies such as premature contractions, electrolyte abnormality, cardiac dysrhythmia, thyroid dysfunction, pulmonary embolism, infection, gastrointestinal, as well as others were entertained. This is an 87-year-old female who presents emergency department complaining of A. fib with RVR. The patient was given a dose of Cardizem and her heart rate normalized prior to coming into the emergency department. Here she is requiring oxygen. She was given Xopenex breathing treatments as well as Lasix. Repeat examination revealed the patient to still be hypoxic. She was ambulated by nursing staff and did not do well. For this reason I did discuss the case with the hospitalist service who agreed to admit the patient. Patient was in agreement with the treatment plan. Medication Reconcilliation Current Medication List: was personally reviewed by me Blood Pressure Screening Patient's blood pressure: Elevated blood pressure Referred to hospitalist. Consults Time Called: [phone] Consulting Physician: [facility] Returned Call: [phone] I discussed the case with Dr[facility]. He will evaluate the patient for further treatment. Impression Primary Impression: Hypoxia Additional Impressions: CHF exacerbation Atrial fibrillation with RVR Scribe Attestation The scribe's documentation has been prepared under my direction and personally reviewed by me in its entirety. I confirm that the note above accurately reflects all work, treatment, procedures, and medical decision making performed by me. Departure Information Dispostion Home / Self-Care Referrals RV. Steele MD (PCP) Patient Instructions My [facility] Problem Qualifiers Additional Impressions: CHF exacerbation Heart failure type: unspecified Qualified Codes: I50.9 - Heart failure, unspecified
[2018-05-29 20:43] LABS: BASO % 0.2 %; BASO ABS # 0.02 K/uL (0-0.2); EOS % 1.9 %; HEMATOCRIT 40.1 % (37-47); HEMOGLOBIN 12.7 g/dL (12.0-16.0); IG# 0.02 K/uL (0.00-0.02); LYMPH % 7.8 %; LYMPH ABS # 0.82 K/uL (1.2-3.4); MEAN CELL VOLUME 86.1 fL (80-100); MEAN CORPUSCULAR HEMOGLOBIN 27.3 pg (25-34); MEAN CORPUSCULAR HGB CONC 31.7 g/dl (32-36); MEAN PLATELET VOLUME 11.5 fL (7.4-10.4); MONO % 8.8 %; MONO ABS # 0.93 K/uL (0.11-0.59); NEUT % 81.1 %; NEUT ABS # 8.53 K/uL (1.4-6.5); PLATELET COUNT 194 K/uL (130-400); RED CELL DISTRIBUTION WIDTH CV 16.6 % (11.5-14.5); RED CELL DISTRIBUTION WIDTH SD 52.5 fL (36.4-46.3); WHITE BLOOD COUNT 10.52 K/uL (4.8-10.8)
[2018-05-29 20:51] LABS: INR 1.1 (0.9-1.1)
[2018-05-29 21:04] LABS: ALBUMIN 3.1 gm/dl (3.4-5.0); ALKALINE PHOSPHATASE 105 U/L (45-117); ALT/SGPT 39 U/L (12-78); AST/SGOT 36 U/L (15-37); BLOOD UREA NITROGEN 21 mg/dl (7-18); CALCIUM 8.5 mg/dl (8.5-10.1); CARBON DIOXIDE 28 mmol/L (21-32); CKMB 1.5 ng/ml (0.5-3.6); CREATININE 0.96 mg/dl (0.60-1.20); GLUCOSE 126 mg/dl (70-99); LIPASE 59 U/L (73-393); POTASSIUM 4.1 mmol/L (3.5-5.1); SODIUM 139 mmol/L (136-145); TOTAL PROTEIN 6.6 gm/dl (6.4-8.2)
--- NOTE | 2018-05-29 21:13 | DIAGNOSTIC IMAGING REPORT ---
CHEST ONE VIEW PORTABLE CLINICAL HISTORY: Chest pain and shortness of breath. COMPARISON STUDY: Chest radiograph January 02, 2018. FINDINGS: There may be calcific tendinitis of the bilateral rotator contrast. There is no pneumothorax. Small right pleural effusion is noted. Note is made of median sternotomy wires and a prosthetic aortic valve. Moderate cardiomegaly is unchanged. Patient is rotated. Mild interstitial thickening is noted. Mild bibasilar opacities are noted. IMPRESSION: 1. Mild interstitial pulmonary edema and a small right pleural effusion. 2. Mild bibasilar opacities which favor atelectasis. Electronically signed by: Geroge Rubi M.D. 05/29/2018 9:12 PM Dictated Date/Time: 05/29/2018 9:10 PM
[2018-05-29] MEDS ORDERED: LPR25 PO (21:16)
[2018-05-29] MEDS ORDERED: MAGN250T12 PO (21:16)
[2018-05-29] MEDS ORDERED: LSX40 PO (21:16)
[2018-05-29] MEDS ORDERED: ASPI-232 PO (21:16)
[2018-05-29] MEDS ORDERED: ACET-1311 PO (21:26)
[2018-05-29] MEDS ORDERED: NTRGSL/4 UT (21:26)
[2018-05-29] MEDS ORDERED: SODIUM CHLORIDE 0.9% 500ML 500 ML IV STA (21:38)
[2018-05-29] MEDS ORDERED: FUROSEMIDE 40 MG/4 ML VIAL IV STA (22:17)
[2018-05-29] MEDS ORDERED: LEVALBUTEROL 0.31MG/3 ML VIAL INH STA (22:29)
[2018-05-29] MEDS ORDERED: ONDANSETRON INJ 2 MG/ML 2 ML VIAL IV PRN (23:30)
[2018-05-29] MEDS ORDERED: ACETAMINOPHEN 325 MG TAB PO PRN (23:30)
[2018-05-29] MEDS ORDERED: METOPROLOL TARTRATE 1 MG/ML VIAL IV PRN (23:30)
[2018-05-29] MEDS ORDERED: NITROGLYCERIN 0.4 MG SL PER TAB CHARGE SL PRN (23:30)
[2018-05-30] VITALS (9 sets, daily range): BP systolic 126–147; BP diastolic 47–89; PULSE 57–94; TEMP 36.4–37; O2SAT 92–98; Ht 149.9 cm; Wt 60.7 kg
--- NOTE | 2018-05-30 00:10 | History and Physical ---
History & Physical Date & Time of Service: May 30, 2018 at 00:10. The patient was seen and examined on May 29, 2018 Chief Complaint: SOB Primary Care Physician: RV. Steele MD History of Present Illness Source: patient, hospital records The patient is an 87-year-old female who presents to the emergency department with report of a rapid heart rate began earlier in the morning prior to arrival. She did not have any chest pain associated, but she did have shortness of breath and some nausea, both of which have resolved. She has had palpitations in the past and a heart attack. Past Medical/Surgical History Medical Problems: (1) A-fib (2) Acute CHF (3) Acute Diastolic Hrt Failure (4) Acute Venous Embolism & Thrombosis Unsp Deep Vessels Of Le (5) Anterior chest wall pain (6) Aortocoronary Bypass (7) Atrial fibrillation (8) Atrial fibrillation with rapid ventricular response (9) Atrial fibrillation, currently in sinus rhythm (10) CHF (congestive heart failure) (11) Congestive Heart Failure Nos (12) Encephalopathy acute (13) Heart palpitations (14) Hyperlipidemia Nec/Nos (15) Hypertension (16) Hypertension Nos (17) Hypothyroidism (18) Left sided chest pain (19) Mobitz type 2 second degree atrioventricular block (20) Near syncope (21) Neck pain (22) NSTEMI (non-ST elevated myocardial infarction) (23) Palpitations (24) Palpitations (25) Paroxysmal atrial fibrillation with rapid ventricular response (26) Precordial chest pain (27) Rapid atrial fibrillation (28) Substernal chest pain (29) SVT (supraventricular tachycardia) Family History Cancer Heart disease Hypertension Kidney disease Social History Smoking Status: Never Smoker Smokeless Tobacco Use: No Alcohol Use: none Drug Use: none Marital Status: Housing status: lives with family Occupational Status: retired Immunizations History of Influenza Vaccine: Yes Influenza Vaccine Date: Jul 28, 2012 History of Tetanus Vaccine?: Yes History of Pneumococcal: No History of Hepatitis B Vaccine: No Allergies Coded Allergies: Amlodipine (Verified Adverse Reaction, Mild, MUSCLE CRAMPS, 12/27/17) Clonidine (Verified Adverse Reaction, Mild, FATIGUE,DIZZINESS, 12/27/17) Diltiazem (Verified Adverse Reaction, Mild, VILLAGOMEZ/DIZZINESS, 12/27/17) Hydralazine (Verified Adverse Reaction, Mild, VILLAGOMEZ/DIZZINESS, 3/12/18) Hydrochlorothiazide w/Triamterene (Verified Adverse Reaction, Mild, DIZZINESS, 12/27/17) Levothyroxine (Verified Adverse Reaction, Mild, MUSCLE CRAMPS, 12/27/17) Valsartan (Verified Adverse Reaction, Mild, DIZZINESS, 12/27/17) CI Pigment Blue 63 (Verified Adverse Reaction, Unknown, NAUSEA, ?STROKE SYMPTOMS, 12/27/17) Lisinopril (Verified Adverse Reaction, Unknown, `, 12/27/17) Nebivolol (Verified Adverse Reaction, Unknown, NAUSEA, ?STROKE SYMPTOMS, ) Sorbitan (Verified Adverse Reaction, Unknown, NAUSEA, ?STROKE SYMPTOMS, 10/04) Yellow Dye (Verified Adverse Reaction, Unknown, NAUSEA, ?STROKE SYMPTOMS, 12/27/17) Home Medications Scheduled Aspirin (Aspir-81), 81 MG PO DAILY Cholecalciferol (Vitamin D3), 1,000 INTER.UNIT PO DAILY Furosemide (Furosemide), 40 MG PO Q2D Isosorbide Mononitrate Ext Rel (Imdur Ext Rel), 30 MG PO DAILY Levothyroxine Sodium (Levothyroxine Sodium), 25 MCG PO DAILY Magnesium Oxide (Magnesium Oxide), 250 MG PO DAILY Metoprolol Tartrate (Lopressor), 12.5 MG PO BID Scheduled PRN Acetaminophen (Tylenol), 325-650 MG PO Q6H PRN for Pain or Fever Nitroglycerin (Nitrostat), 0.4 MG UT UD PRN for Chest Pain Review of Systems The patient denies chest pain, cough, lower extremity swelling, sore throat, fevers, chills, sweats, weight change, vomiting, diarrhea, constipation, abdominal pain, pelvic pain, blood in urine or stool, dysuria, urinary frequency or urgency, lightheadedness , dizziness, headache, memory loss, loss of consciousness, rash, abnormal bruising or bleeding, imbalance, focal or generalized weakness, numbness or tingling in arms or legs, generalized arthralgias or myalgias, back or neck pain, or night sweats. The review of systems is otherwise negative other than for that already noted above, and at least 10 systems have been reviewed. Physical Exam Vital Signs Date Time Temp Pulse Resp B/P (MAP) Pulse Ox O2 Delivery O2 Flow Rate FiO2 05/29/18 23:54 88 20 123/81 96 Nasal Cannula 2.0 05/29/18 23:46 112 20 172/98 95 05/29/18 23:22 84 18 172/103 95 Nasal Cannula 2.0 05/29/18 22:30 72 20 159/87 95 Nasal Cannula 2.0 05/29/18 21:13 68 18 155/82 95 Nasal Cannula 2.0 05/29/18 20:40 96 Nasal Cannula 2.0 05/29/18 20:31 76 05/29/18 20:21 96 Nasal Cannula 2.0 05/29/18 20:20 88 Room Air 05/29/18 20:14 37.1 65 20 166/76 88 Room Air The patient is awake, alert and oriented 3, well developed and well nourished, normocephalic and atraumatic, lying in bed and in no acute distress. HEENT--PERRL, EOMI, mucous membranes and oropharynx dry. Neck--supple. No JVD. No bruits. Thyroid normal, trachea midline, no adenopathy. Heart--irregularly irregular. No murmurs, rubs or gallops. Lungs--clear bilaterally, no respiratory distress, no accessory muscle use. Abdomen--normal bowel sounds and soft. Nontender. Nondistended, no hernias or masses, no organomegaly. Extremities--no cyanosis or clubbing. No edema. There are good distal pulses b/ l. Dermatologic--normal skin turgor, normal color, no abnormal lymph nodes, no rash. Neurologic--cranial nerves II through XII grossly intact. Rheumatologic--normal range of motion. Psychiatric--normal affect. Diagnostics Laboratory Results Results Past 24 Hours Test 05/29/18 20:20 05/29/18 22:25 05/29/18 23:43 Range/Units White Blood Count 10.52 4.8-10.8 K/uL Red Blood Count 4.66 4.2-5.4 M/uL Hemoglobin 12.7 12.0-16.0 g/dL Hematocrit 40.1 37-47 % Mean Corpuscular Volume 86.1 80-100 fL Mean Corpuscular Hemoglobin 27.3 25-34 pg Mean Corpuscular Hemoglobin Concent 31.7 32-36 g/dl Platelet Count 194 130-400 K/uL Mean Platelet Volume 11.5 7.4-10.4 fL Neutrophils (%) (Auto) 81.1 % Lymphocytes (%) (Auto) 7.8 % Monocytes (%) (Auto) 8.8 % Eosinophils (%) (Auto) 1.9 % Basophils (%) (Auto) 0.2 % Neutrophils # (Auto) 8.53 1.4-6.5 K/uL Lymphocytes # (Auto) 0.82 1.2-3.4 K/uL Monocytes # (Auto) 0.93 0.11-0.59 K/uL Eosinophils # (Auto) 0.20 0-0.5 K/uL Basophils # (Auto) 0.02 0-0.2 K/uL RDW Standard Deviation 52.5 36.4-46.3 fL RDW Coefficient of Variation 16.6 11.5-14.5 % Immature Granulocyte % (Auto) 0.2 % Immature Granulocyte # (Auto) 0.02 0.00-0.02 K/uL Prothrombin Time 11.5 9.0-12.0 SECONDS Prothromb Time International Ratio 1.1 0.9-1.1 Sodium Level 139 136-145 mmol/L Potassium Level 4.1 3.5-5.1 mmol/L Chloride Level 104 98-107 mmol/L Carbon Dioxide Level 28 21-32 mmol/L Anion Gap 7.0 3-11 mmol/L Blood Urea Nitrogen 21 7-18 mg/dl Creatinine 0.96 0.60-1.20 mg/dl Est Creatinine Clear Calc Drug Dose 33.5 ml/min Estimated GFR () 61.2 Estimated GFR (Non- 52.8 BUN/Creatinine Ratio 21.5 10-20 Random Glucose 126 70-99 mg/dl Calcium Level 8.5 8.5-10.1 mg/dl Total Bilirubin 1.0 0.2-1 mg/dl Direct Bilirubin 0.4 0-0.2 mg/dl Aspartate Amino Transf (AST/SGOT) 36 15-37 U/L Alanine Aminotransferase (ALT/SGPT) 39 12-78 U/L Alkaline Phosphatase 105 45-117 U/L Total Creatine Kinase 32 26-192 U/L Creatine Kinase MB 1.5 0.5-3.6 ng/ml Creatine Kinase MB Ratio 4.7 0-3.0 Troponin I < 0.015 0-0.045 ng/ml Total Protein 6.6 6.4-8.2 gm/dl Albumin 3.1 3.4-5.0 gm/dl Lipase 59 73-393 U/L Urine Color YELLOW Urine Appearance CLEAR CLEAR Urine pH 6.0 4.5-7.5 Urine Specific [place] 1.015 1.000-1.030 Urine Protein TRACE NEG Urine Glucose (UA) NEG NEG Urine Ketones NEG NEG Urine Occult Blood NEG NEG Urine Nitrite NEG NEG Urine Bilirubin NEG NEG Urine Urobilinogen NEG NEG Urine Leukocyte Esterase TRACE NEG Urine WBC (Auto) 1-5 0-5 /hpf Urine RBC (Auto) 0-4 0-4 /hpf Urine Hyaline Casts (Auto) 1-5 0-5 /lpf Urine Epithelial Cells (Auto) >30 0-5 /lpf Urine Bacteria (Auto) NEG NEG Diagnostic Radiology Patient Name: CORONA SUNG Unit Number: [id number] Dictated: 05/29/182109 Transcribed: 05/29/182109 ALFREDO Printed Date/Time: [~ rep prt dt]/[~ rep prt tm] [~ rep ct labl] - [~ rep ct ivnm] [facility] [place] [address] Dictated: 05/29/182109 Transcribed: 05/29/182109 ALFREDO Printed Date/Time: [~ rep prt dt]/[~ rep prt tm] [~ rep ct labl] - [~ rep ct ivnm] CHEST ONE VIEW PORTABLE CLINICAL HISTORY: Chest pain and shortness of breath. COMPARISON STUDY: Chest radiograph January 02, 2018. FINDINGS: There may be calcific tendinitis of the bilateral rotator contrast. There is no pneumothorax. Small right pleural effusion is noted. Note is made of median sternotomy wires and a prosthetic aortic valve. Moderate cardiomegaly is unchanged. Patient is rotated. Mild interstitial thickening is noted. Mild bibasilar opacities are noted. IMPRESSION: 1. Mild interstitial pulmonary edema and a small right pleural effusion. 2. Mild bibasilar opacities which favor atelectasis. Electronically signed by: George Rubi M.D. 05/29/2018 9:12 PM Dictated Date/Time: 05/29/2018 9:10 PM The status of this report is Signed. Draft = Not yet reviewed or approved by Radiologist. Signed = Reviewed and approved by Radiologist. <AttendingPhy></AttendingPhy> <FamilyPhy>Asael Wood M.D.</FamilyPhy> < PrimaryPhy>RV. Steele MD</PrimaryPhy> <UnitNumber>[id number]</ UnitNumber> <VisitNumber>[id number]</VisitNumber> <PatientName>CORONA SUNG </PatientName> <DateOfBirth>1930</DateOfBirth> <Location>C.EDB</Location> <ServiceDate>05/29/18</ServiceDate> <MNE>ESINDI</MNE> <OrderingPhy>Vu Bowman MD</OrderingPhy> <OrderingPhyMNE>f rep ord dr plunkett</OrderingPhyMNE> < DictatingPhyMNE>f rep dict dr plunkett</DictatingPhyMNE> <CCListMNE>f rep ct mne</ CCListMNE> <AdmittingPhyMNE>f pt admit dr plunkett</AdmittingPhyMNE> <AttendingPhyMNE >f pt attend dr plunkett</AttendingPhyMNE> <ConsultingPhyMNE>f pt consult dr plunkett</ConsultingPhyMNE> <FamilyPhyMNE>f pt fam dr plunkett</FamilyPhyMNE> <OtherPhyMNE>f pt other dr plunkett</OtherPhyMNE> < PrimaryPhyMNE>f pt prim care dr plunkett</PrimaryPhyMNE> <ReferringPhyMNE>f pt referring dr plunkett</ReferringPhyMNE> EKG CORONA SUNG ID:[id number] 29-MAY[birth year]2018 20:15:20 MDRAHUL Atrial fibrillation Left axis deviation Left bundle branch block Abnormal ECG When compared with ECG of 27-DEC-2017 16:13, T wave inversion no longer evident in Anterior leads 25mm/s 10mm/mV 150Hz 8.0 SP2 12SL 241 HD HÉCTOR: 12 Referred by: Unconfirmed Vent. rate 76 BPM AL interval * ms QRS duration 146 ms QT/QTc 396/445 ms P-R-T axes * -45 120 1930 (87 yr) Female 1lb Room: Loc:15 Blade Worker:Lana Mckeon Impression Assessment and Plan Acute diastolic CHF/ paroxysmal atrial fibrillation with rapid ventricular response/history of tachybradycardia syndrome/Mobitz type II second-degree AV block/SVT-- Status post PCI with BLAYNE in LAD 12/27. Left axis deviation, left bundle branch block chronic. The patient will be admitted to telemetry for serial cardiac enzymes, serial EKG's, cardiac rhythm monitoring and a 2-D echocardiogram with Dopplers. As noted in record of 01/02/18, the patient has not been on anticoagulation for atrial fibrillation, therefore will not institute at this time. She has had persistent issues with palpitations. Received Lasix 40 mg IV in the ED, and will continue 40 mg IV every morning. Continue aspirin 81 mg daily, isosorbide mononitrate extended release 30 mg daily, metoprolol tartrate 12.5 mg p.o. twice daily. Have available metoprolol tartrate 5 mg IV every 4 hours as needed heart rate greater than 110. Consult cardiology to readdress issues with anticoagulation long-term. We will also ask cardiology to address issue of patient not being on Plavix 75 mg daily post stent. Hypothyroidism-- Continue levothyroxine sodium 25 mcg p.o. daily at breakfast. Resuscitation Status VTE Prophylaxis Will order VTE Prophylaxis: Yes Social Service Consult None Apply
[2018-05-30] MEDS: LEVOTHYROXINE 25 MCG TAB PO SCH (06:11)
[2018-05-30 07:24] LABS: BASO % 0.3 %; BASO ABS # 0.03 K/uL (0-0.2); EOS ABS # 0.22 K/uL (0-0.5); HEMATOCRIT 36.9 % (37-47); HEMOGLOBIN 11.7 g/dL (12.0-16.0); IG# 0.03 K/uL (0.00-0.02); LYMPH % 6.8 %; LYMPH ABS # 0.73 K/uL (1.2-3.4); MEAN CORPUSCULAR HEMOGLOBIN 27.3 pg (25-34); MEAN CORPUSCULAR HGB CONC 31.7 g/dl (32-36); MEAN PLATELET VOLUME 10.6 fL (7.4-10.4); MONO % 11.6 %; MONO ABS # 1.25 K/uL (0.11-0.59); NEUT ABS # 8.48 K/uL (1.4-6.5); PLATELET COUNT 188 K/uL (130-400); RED CELL DISTRIBUTION WIDTH CV 16.7 % (11.5-14.5); RED CELL DISTRIBUTION WIDTH SD 52.3 fL (36.4-46.3); WHITE BLOOD COUNT 10.74 K/uL (4.8-10.8)
[2018-05-30 07:56] LABS: CALCIUM 8.1 mg/dl (8.5-10.1); CREATININE 0.96 mg/dl (0.60-1.20); POTASSIUM 3.6 mmol/L (3.5-5.1)
[2018-05-30] MEDS: ASPIRIN 81 MG ECTAB PO SCH (08:19)
[2018-05-30] MEDS: MAGNESIUM OXIDE 400 MG TAB PO SCH (08:19)
[2018-05-30] MEDS: METOPROLOL TARTRATE 25 MG TAB PO SCH ×2 (08:19→20:41)
[2018-05-30] MEDS: CHOLECALCIFEROL 1000 INTER.UNIT TAB PO SCH (08:20)
[2018-05-30] MEDS: ISOSORBIDE MONONITRATE 30 MG TABCR PO SCH (08:20)
[2018-05-30] MEDS ORDERED: FUROSEMIDE INJ 40 MG in SYRINGE 0 ML IV SCH (09:00)
--- NOTE | 2018-05-30 12:21 | ECHOCARDIOGRAM REPORT ---
*NOTICE TO RECEIVING LIBERTARIAN AGENCY This information is strictly Confidential and protected under [place] law. [place] law prohibits you from making any further disclosure of this information unless further disclosure is expressly permitted by the written consent of the person to whom it pertains or is authorized by law. A general authorization for the release of medical or other information is not sufficient for this purpose. Hospital accepts no responsibility if the information is made available to any other person, INCLUDING THE PATIENT. Interpretation Summary * Name: CORONA SUNG Study Date: 05/30/2018 06:19 AM BP: 144/73 mmHg * Patient Location: C.2E\S\E207\S\1 HR: 78 * : 1930 (M/d/yyy) Gender: Female Height: 59 in * Age: 87 yrs Ethnicity: CA Weight: 140 lb * Ordering Physician: Ken Kang * Referring Physician: Self, Referred * Performed By: Elvira Moore RDCS * * Reason For Study: CHF * BSA: 1.6 m2 * -- Conclusions -- * There is mild concentric left ventricular hypertrophy. * Left ventricular systolic function is normal. * There are regional wall motion abnormalities as specified. * The left atrium is mildly dilated. * The right atrium is mild to moderately dilated. * There is a bioprosthetic aortic valve. * There is severe mitral annular calcification. * There is moderate mitral regurgitation. * Right ventricular systolic pressure is elevated at 50-60mmHg. * Compared to an echocardiogram performed on 12/27/2017, there is no significant difference. Procedure Details * A complete two-dimensional transthoracic echocardiogram was performed (2D, M-mode, Doppler and color flow Doppler). Left Ventricle * The left ventricle is normal in size. * There is mild concentric left ventricular hypertrophy. * Left ventricular systolic function is normal. * Ejection Fraction = 55-60%. * There are regional wall motion abnormalities as specified. * Septal motion is consistent with conduction abnormality. Right Ventricle * The right ventricle is normal in size and function. * The right ventricular systolic function is normal as assessed by tricuspid annular plane systolic excursion (TAPSE) (normal >1.5 cm). Atria * The left atrium is mildly dilated. * The right atrium is mild to moderately dilated. Mitral Valve * There is severe mitral annular calcification. * There is no mitral valve stenosis. * There is moderate mitral regurgitation. Tricuspid Valve * The tricuspid valve is not well visualized, but is grossly normal. * There is mild tricuspid regurgitation. * Right ventricular systolic pressure is elevated at 50-60mmHg. Aortic Valve * There is a bioprosthetic aortic valve. * The prosthetic aortic valve appears to open well. Pulmonic Valve * The pulmonic valve is not well visualized. Great Vessels * The aortic root is normal size. Pericardium/Pleural * There is no pericardial effusion. Great Vessels * Normal inferior vena cava diameter and respiratory variation suggests normal central venous pressure. MMode 2D Measurements and Calculations IVSd 1.6 cm IVSs 1.8 cm LVIDd 4.3 cm LVIDs 3.2 cm LVPWd 1.5 cm LVPWs 1.8 cm IVS/LVPW 1.1 FS 26.5 % EDV(Teich) 84.0 ml ESV(Teich) 40.2 ml EF(Teich) 52.1 % EDV(cubed) 80.6 ml ESV(cubed) 32.1 ml EF(cubed) 60.2 % % IVS thick 12.2 % % LVPW thick 22.7 % LV mass(C)d 271.9 grams LV mass(C)dI 171.6 grams/m\S\2 LV mass(C)s 235.1 grams LV mass(C)sI 148.3 grams/m\S\2 SV(Teich) 43.7 ml SI(Teich) 27.6 ml/m\S\2 SV(cubed) 48.6 ml SI(cubed) 30.7 ml/m\S\2 Ao root diam 2.7 cm Ao root area 5.7 cm\S\2 LA dimension 4.3 cm LA/Ao 1.6 LVAd ap4 25.7 cm\S\2 LVLd ap4 7.1 cm EDV(MOD-sp4) 78.5 ml EDV(sp4-el) 79.5 ml LVAs ap4 17.4 cm\S\2 LVLs ap4 6.9 cm ESV(MOD-sp4) 36.5 ml ESV(sp4-el) 36.9 ml EF(MOD-sp4) 53.5 % EF(sp4-el) 53.6 % LVAd ap2 27.4 cm\S\2 LVLd ap2 7.9 cm EDV(MOD-sp2) 79.7 ml EDV(sp2-el) 80.3 ml LVAs ap2 16.1 cm\S\2 LVLs ap2 7.5 cm ESV(MOD-sp2) 28.7 ml ESV(sp2-el) 29.1 ml EF(MOD-sp2) 64.0 % EF(sp2-el) 63.7 % LVLd %diff 11.1 % EDV(MOD-bp) 84.7 ml LVLs %diff 8.1 % ESV(MOD-bp) 33.9 ml EF(MOD-bp) 59.9 % SV(MOD-sp4) 42.0 ml SI(MOD-sp4) 26.5 ml/m\S\2 SV(MOD-sp2) 51.0 ml SI(MOD-sp2) 32.2 ml/m\S\2 SV(MOD-bp) 50.7 ml SI(MOD-bp) 32.0 ml/m\S\2 SV(sp4-el) 42.6 ml SI(sp4-el) 26.9 ml/m\S\2 SV(sp2-el) 51.1 ml SI(sp2-el) 32.3 ml/m\S\2 Doppler Measurements and Calculations Ao V2 max 250.2 cm/sec Ao max PG 25.0 mmHg Ao max PG (full) 22.9 mmHg Ao V2 mean 158.6 cm/sec Ao mean PG 12.0 mmHg Ao mean PG (full) 10.6 mmHg Ao V2 VTI 54.3 cm LV V1 max PG 2.2 mmHg LV V1 mean PG 1.4 mmHg LV V1 max 73.4 cm/sec LV V1 mean 55.2 cm/sec LV V1 VTI 16.6 cm SV(Ao) 310.7 ml SI(Ao) 196.1 ml/m\S\2 TR max kade 346.9 cm/sec
--- NOTE | 2018-05-30 13:36 | CARDIOLOGY CONSULTATION ---
DATE OF CONSULTATION: 05/30/2018 PERTINENT HISTORY: Mrs. Ralph is an 87-year-old white female admitted yesterday with complaints of tachycardia and noted to be in mild CHF. This consultation was ordered to assist in her management. Of note, patient typically follows with Dr. Wood in the outpatient setting. Patient claims she was in her usual state of health until yesterday when she had the abrupt onset of a "fast heart rate." She began to feel ill and opted to call 911 for further care. On arrival here, patient was noted to be in atrial fibrillation with a rapid ventricular response. Chest x-ray noted mild CHF, and hospitalization was recommended. The patient was just seen by Dr. Wood in the outpatient arena on 05/04/2018. Her digoxin was discontinued at that time due to relative bradycardia during her previous hospitalization. Her Lasix was also changed to every other day from once daily dosing. The patient has not experienced PND or orthopnea. She further denies syncope, presyncope, lower extremity edema, and claudication. The patient was hospitalized back in December with a non-ST elevation IN. Cardiac catheterization performed by Dr. Antonio resulted in a drug-eluting stent in the mid LAD and an angioplasty at the distal LAD. Her dominant left circumflex had a 30% mid stenosis. Procedure was complicated by a small LAD perforation, which was managed appropriately. No tamponade at that time Her echocardiogram performed back in December noted normal left ventricular systolic function with an apical and distal anteroseptal wall motion abnormality. There is mild to moderate mitral and moderate tricuspid regurgitation. Her aortic prosthesis was functioning properly. Currently, patient is resting comfortably in bed without complaints. PAST MEDICAL HISTORY: 1. Coronary artery disease. 2. Non-ST elevation IN, 12/2017. 3. Mid LAD BLAYNE, 12/2017. 4. LAD perforation, 12/2017. 5. Bioprosthetic AVR, 2002. 6. Tachycardia/bradycardia syndrome. 7. Permanent atrial fibrillation. 8. Chronic diastolic CHF. 9. Hypertension. 10. LVH. 11. Left bundle-branch block. 12. Mild to moderate mitral regurgitation. 13. Moderate tricuspid regurgitation. 14. Pulmonary hypertension. 15. Hypothyroidism. 16. Hyperglycemia. 17. Obstructive sleep apnea. 18. Nephrolithiasis. 19. Hysterectomy. 20. Mild dementia. ALLERGIES: Please see list. MEDICATIONS: 1. Metoprolol tartrate 12.5 mg b.i.d. 2. Lasix 40 mg IV q.a.m. 3. Aspirin 81 mg per day. 4. Imdur 30 mg per day. 5. Magnesium oxide 400 mg b.i.d. 6. Synthroid 0.025 mg daily. 7. Vitamin D 1000 international units daily. SOCIAL HISTORY: The patient is and lives with her . She does not use tobacco or alcohol. FAMILY HISTORY: Noncontributory. REVIEW OF SYSTEMS: A 10-point review of systems was completed and negative except for that described above. PHYSICAL EXAMINATION: GENERAL: This is a well developed and well nourished elderly white female lying supine in bed without complaints. VITAL SIGNS: Blood pressure is 128/55, with an irregular pulse of 60, respiratory rate is 16, the patient is afebrile at 36.8 degrees Celsius, saturation is 92% on room air. HEENT: Negative. NECK: Supple, with full carotid upstrokes. There are no carotid bruits. Jugular venous pressure is flat at 90 degrees. There is no thyromegaly. CARDIOVASCULAR: Exam reveals irregular rhythm with distant heart sounds. No obvious murmurs. RESPIRATORY: Lungs are clear without rales, rhonchi, or wheezes. GASTROINTESTINAL: Abdomen is soft and nontender, without bruits. VASCULAR: Extremities reveal intact radial artery pulse bilaterally. Trace pedal edema is noted. LABORATORY DATA: CBC notes hemoglobin 11.7, hematocrit 36.9, white count 10.7, platelet count 188,000. Electrolytes note a sodium of 142, potassium 3.6, chloride 102, bicarbonate 33, BUN 19, creatinine 0.96, glucose 95. Magnesium level is 2.2. Troponin I level is less than 0.015 x3. IMAGING: Chest x-ray notes mild CHF, with a right-sided pleural effusion. EKG notes atrial fibrillation with a controlled ventricular response. There is a left axis deviation and complete left bundle-branch block. personnel monitor notes atrial fibrillation with rates varying from 45 up to 150 beats per minute. IMPRESSION: Mrs. Ralph was admitted with symptomatic atrial fibrillation and a rapid ventricular response. She clearly demonstrates changes in her heart rate suggesting tachycardia/bradycardia syndrome. As she will likely require a higher dose of beta leslie to control her tachycardia, this may exacerbate her bradycardia. The case has been discussed with Dr. Wood and Dr. Jones. We will plan to proceed with a permanent pacemaker. Dr. Wood suggested that we avoid long-term anticoagulation as the patient is felt to be at too high of a risk realizing her dementia, noncompliance, and her advanced age with risk of falling. PLAN: 1. Continue current medications. 2. Consult Dr. Jones for permanent pacemaker.
--- NOTE | 2018-05-30 14:00 | Family Medicine Progress Note ---
Progress Note Date of Service May 30, 2018. Subjective Pt evaluation today including: conversation w/ patient, physical exam, chart review, lab review, review of inpatient medication list Pain: No pain reported PO Intake: Tolerating PO intake Voiding: no voiding problems Ms. Ralph reports she feels well today. She states she has had occasional palpitations, but nothing sustained. She denies chest pain, shortness of breath , lightheadedness or dizziness. Constitutional: No fever, No chills Respiratory: No cough, No shortness of breath Cardiovascular: No chest pain Abdomen: No pain, No nausea, No vomiting All Other Systems: Reviewed and Negative Medications Current Inpatient Medications Medications (Trade) Dose Ordered Sig/Shandra Route Start Time Stop Time Status Last Admin Dose Admin Acetaminophen (Tylenol Tab) 650 mg Q4H PRN PO 05/29/18 23:30 06/28/18 23:29 Nitroglycerin (Nitrostat Tab) 0.4 mg UD PRN SL 05/29/18 23:30 06/28/18 23:29 Aspirin (Ecotrin Tab) 81 mg DAILY PO 05/30/18 09:00 06/29/18 08:59 05/30/18 08:19 81 MG Cholecalciferol (Vitamin D Tab) 1,000 inter.unit DAILY PO 05/30/18 09:00 06/29/18 08:59 05/30/18 08:20 1,000 INTER.UNIT Isosorbide Mononitrate (Imdur Ext Rel Tab) 30 mg DAILY PO 05/30/18 09:00 06/29/18 08:59 05/30/18 08:20 30 MG Levothyroxine Sodium (Synthroid Tab) 25 mcg DAILYBB PO 05/30/18 06:00 06/29/18 06:59 05/30/18 06:11 25 MCG Metoprolol Tartrate (Lopressor Tab) 12.5 mg BID PO 05/30/18 09:00 06/29/18 08:59 05/30/18 08:19 12.5 MG Magnesium Oxide (Mag-Ox Tab) 400 mg QAM PO 05/30/18 09:00 06/29/18 08:59 05/30/18 08:19 400 MG Ondansetron HCl (Zofran Inj) 4 mg Q6H PRN IV 05/29/18 23:30 06/28/18 23:29 Metoprolol Tartrate (Lopressor Iv) 5 mg Q4 PRN IV 05/29/18 23:30 06/28/18 23:29 Furosemide 40 mg/ Syringe 4 ml @ 4 mls/min QAM IV 05/30/18 09:00 06/29/18 08:59 05/30/18 08:19 4 MLS/MIN Objective Vital Signs Date Time Temp Pulse Resp B/P (MAP) Pulse Ox O2 Delivery O2 Flow Rate FiO2 05/30/18 11:10 36.8 61 16 128/55 (79) 92 05/30/18 08:01 37.0 64 18 137/49 (78) 92 05/30/18 08:00 Nasal Cannula 2.0 05/30/18 04:28 36.7 80 17 144/73 (96) 97 Nasal Cannula 2.0 05/30/18 00:30 36.7 94 20 147/89 96 Nasal Cannula 2.0 05/29/18 23:54 88 20 123/81 96 Nasal Cannula 2.0 05/29/18 23:46 112 20 172/98 95 05/29/18 23:22 84 18 172/103 95 Nasal Cannula 2.0 05/29/18 22:30 72 20 159/87 95 Nasal Cannula 2.0 05/29/18 21:13 68 18 155/82 95 Nasal Cannula 2.0 05/29/18 20:40 96 Nasal Cannula 2.0 05/29/18 20:31 76 05/29/18 20:21 96 Nasal Cannula 2.0 05/29/18 20:20 88 Room Air 05/29/18 20:14 37.1 65 20 166/76 88 Room Air Physical Exam General Appearance: WD/WN, no apparent distress Respiratory/Chest: lungs clear, normal breath sounds Cardiovascular: no murmur, + irregularly irregular Abdomen: non tender, soft Extremities: non-tender, + pedal edema (1-2+ pedal edema) Neurologic/Psychiatric: alert, normal mood/affect, oriented x 3 Laboratory Results Last 24 Hours Test 05/29/18 20:20 05/29/18 22:25 05/29/18 23:43 05/30/18 07:17 White Blood Count 10.52 K/uL 10.74 K/uL Red Blood Count 4.66 M/uL 4.29 M/uL Hemoglobin 12.7 g/dL 11.7 g/dL Hematocrit 40.1 % 36.9 % Mean Corpuscular Volume 86.1 fL 86.0 fL Mean Corpuscular Hemoglobin 27.3 pg 27.3 pg Mean Corpuscular Hemoglobin Concent 31.7 g/dl 31.7 g/dl Platelet Count 194 K/uL 188 K/uL Mean Platelet Volume 11.5 fL 10.6 fL Neutrophils (%) (Auto) 81.1 % 79.0 % Lymphocytes (%) (Auto) 7.8 % 6.8 % Monocytes (%) (Auto) 8.8 % 11.6 % Eosinophils (%) (Auto) 1.9 % 2.0 % Basophils (%) (Auto) 0.2 % 0.3 % Neutrophils # (Auto) 8.53 K/uL 8.48 K/uL Lymphocytes # (Auto) 0.82 K/uL 0.73 K/uL Monocytes # (Auto) 0.93 K/uL 1.25 K/uL Eosinophils # (Auto) 0.20 K/uL 0.22 K/uL Basophils # (Auto) 0.02 K/uL 0.03 K/uL RDW Standard Deviation 52.5 fL 52.3 fL RDW Coefficient of Variation 16.6 % 16.7 % Immature Granulocyte % (Auto) 0.2 % 0.3 % Immature Granulocyte # (Auto) 0.02 K/uL 0.03 K/uL Prothrombin Time 11.5 SECONDS Prothromb Time International Ratio 1.1 Sodium Level 139 mmol/L 142 mmol/L Potassium Level 4.1 mmol/L 3.6 mmol/L Chloride Level 104 mmol/L 102 mmol/L Carbon Dioxide Level 28 mmol/L 33 mmol/L Anion Gap 7.0 mmol/L 6.0 mmol/L Blood Urea Nitrogen 21 mg/dl 19 mg/dl Creatinine 0.96 mg/dl 0.96 mg/dl Est Creatinine Clear Calc Drug Dose 33.5 ml/min 36.5 ml/min Estimated GFR () 61.2 61.2 Estimated GFR (Non- 52.8 52.8 BUN/Creatinine Ratio 21.5 20.3 Random Glucose 126 mg/dl 95 mg/dl Calcium Level 8.5 mg/dl 8.1 mg/dl Total Bilirubin 1.0 mg/dl Direct Bilirubin 0.4 mg/dl Aspartate Amino Transf (AST/SGOT) 36 U/L Alanine Aminotransferase (ALT/SGPT) 39 U/L Alkaline Phosphatase 105 U/L Total Creatine Kinase 32 U/L Creatine Kinase MB 1.5 ng/ml Creatine Kinase MB Ratio 4.7 Troponin I < 0.015 ng/ml < 0.015 ng/ml < 0.015 ng/ml Total Protein 6.6 gm/dl Albumin 3.1 gm/dl Lipase 59 U/L Urine Color YELLOW Urine Appearance CLEAR Urine pH 6.0 Urine Specific [place] 1.015 Urine Protein TRACE Urine Glucose (UA) NEG Urine Ketones NEG Urine Occult Blood NEG Urine Nitrite NEG Urine Bilirubin NEG Urine Urobilinogen NEG Urine Leukocyte Esterase TRACE Urine WBC (Auto) 1-5 /hpf Urine RBC (Auto) 0-4 /hpf Urine Hyaline Casts (Auto) 1-5 /lpf Urine Epithelial Cells (Auto) >30 /lpf Urine Bacteria (Auto) NEG Magnesium Level 2.2 mg/dl Assessment and Plan Ms. Ralph is a 87 year old woman with a past medical history of prior [place] w/ stent placement in 12/2017, atrial fibrillation, tachy/sayda syndrome, HTN, mitral and tricuspid regurgitation, and hypothyroidism who presented to [facility] due to palpitations. Atrial fibrillation with rapid ventricular response & history of tachybradycardia syndrome - thank you to cardiology for consultation -> poor anticoagulation candidate given concern for falls & poor compliance -> w/history of tachy/sayda syndrome, pt would benefit from pacemaker placement -> will undergo pacemaker placement tomorrow - trop -ve x4 - ECHO unchanged from 12/2017 ECHO - Continue aspirin 81 mg daily, isosorbide mononitrate extended release 30 mg daily, metoprolol tartrate 12.5 mg p.o. twice daily. - metoprolol tartrate 5 mg IV q4h prn for a heart rate greater than 110, however caution with excessive beta blockade given her history of bradycardia Acute Diastolic CHF - CXR showed mild interstitial pulmonary edema with a small right sided pleural effusion - pt was requiring 2L of O2 in the ED, and was not on any at home. Currently on 1L - likely exacerbated by afib - Received Lasix 40 mg IV in the ED and is currently negative 1.4L - continue Lasix 40 mg PO every morning. Hypothyroidism - Continue levothyroxine sodium 25 mcg p.o. daily DVT Prophylaxis: 5,000 units heparin SQ q12h Disposition: awaiting pacemaker placement Resident Physician Supervision Note: I interviewed and examined the patient. Discussed with the resident physician and agree with findings and plan as documented in the note. I also discussed the case with mailroom personnel as well. Documented By: Shola Quarles Resident Tracking Resident Involvement: Resident Care Provided Care Provided: Adult Hospital Medicine
[2018-05-30] MEDS: HEPARIN SOD 5000 UNIT/0.5 ML CARP SQ SCH (20:48)
[2018-05-31 03:05] VITALS: BP 142/56; PULSE 58; TEMP 36.6; O2SAT 98
[2018-05-31] MEDS: LEVOTHYROXINE 25 MCG TAB PO SCH (05:40)
[2018-05-31] MEDS ORDERED: CEFAZOLIN 1000MG IV PUSH 7.5 ML IV SCH (06:00)
[2018-05-31] MEDS ORDERED: CEFAZOLIN SOD 1000MG/7.5 ML IV PUSH IV SCH (06:00)
[2018-05-31 06:17] LABS: BASO % 0.5 %; BASO ABS # 0.04 K/uL (0-0.2); EOS % 3.2 %; EOS ABS # 0.28 K/uL (0-0.5); HEMATOCRIT 39.9 % (37-47); HEMOGLOBIN 12.5 g/dL (12.0-16.0); IG# 0.02 K/uL (0.00-0.02); LYMPH % 15.8 %; LYMPH ABS # 1.37 K/uL (1.2-3.4); MEAN CELL VOLUME 86.7 fL (80-100); MEAN CORPUSCULAR HEMOGLOBIN 27.2 pg (25-34); MEAN CORPUSCULAR HGB CONC 31.3 g/dl (32-36); MEAN PLATELET VOLUME 11.3 fL (7.4-10.4); MONO ABS # 0.78 K/uL (0.11-0.59); NEUT % 71.3 %; PLATELET COUNT 208 K/uL (130-400); RED CELL DISTRIBUTION WIDTH CV 16.7 % (11.5-14.5); RED CELL DISTRIBUTION WIDTH SD 52.7 fL (36.4-46.3); WHITE BLOOD COUNT 8.69 K/uL (4.8-10.8)
--- NOTE | 2018-05-31 06:37 | Family Medicine Progress Note ---
Progress Note Date of Service May 31, 2018. Subjective Pt evaluation today including: conversation w/ patient, physical exam, chart review, lab review, review of inpatient medication list Pain: No pain reported PO Intake: NPO for pacemaker placement Voiding: no voiding problems Ms. Ralph reports she had an episode of palpitations this morning that lasted 15-30 minutes. She states they resolved on their own. She denies chest pain, shortness of breath, lightheadedness. Constitutional: No fever, No chills Respiratory: No shortness of breath Cardiovascular: + palpitations, No chest pain Abdomen: No pain, No nausea, No vomiting All Other Systems: Reviewed and Negative Medications Current Inpatient Medications Medications (Trade) Dose Ordered Sig/Shandra Route Start Time Stop Time Status Last Admin Dose Admin Acetaminophen (Tylenol Tab) 650 mg Q4H PRN PO 05/29/18 23:30 06/28/18 23:29 Nitroglycerin (Nitrostat Tab) 0.4 mg UD PRN SL 05/29/18 23:30 06/28/18 23:29 Aspirin (Ecotrin Tab) 81 mg DAILY PO 05/30/18 09:00 06/29/18 08:59 05/31/18 07:26 81 MG Cholecalciferol (Vitamin D Tab) 1,000 inter.unit DAILY PO 05/30/18 09:00 06/29/18 08:59 05/31/18 07:25 1,000 INTER.UNIT Isosorbide Mononitrate (Imdur Ext Rel Tab) 30 mg DAILY PO 05/30/18 09:00 06/29/18 08:59 05/31/18 07:26 30 MG Levothyroxine Sodium (Synthroid Tab) 25 mcg DAILYBB PO 05/30/18 06:00 06/29/18 06:59 05/31/18 05:40 25 MCG Metoprolol Tartrate (Lopressor Tab) 12.5 mg BID PO 05/30/18 09:00 06/29/18 08:59 05/31/18 07:25 12.5 MG Magnesium Oxide (Mag-Ox Tab) 400 mg QAM PO 05/30/18 09:00 06/29/18 08:59 05/31/18 07:26 400 MG Ondansetron HCl (Zofran Inj) 4 mg Q6H PRN IV 05/29/18 23:30 06/28/18 23:29 Metoprolol Tartrate (Lopressor Iv) 5 mg Q4 PRN IV 05/29/18 23:30 06/28/18 23:29 Furosemide (Lasix Tab) 40 mg QAM PO 05/31/18 09:00 06/30/18 08:59 Heparin Sodium (Porcine) (Heparin Sq 5000 Unit/0.5ml) 5,000 unit Q12 SQ 05/30/18 21:00 06/29/18 20:59 05/31/18 07:28 5,000 UNIT Cefazolin Sodium 7.5 ml @ 2.5 mls/min PREOP IV 05/31/18 06:00 05/31/18 18:00 Objective Vital Signs Date Time Temp Pulse Resp B/P (MAP) Pulse Ox O2 Delivery O2 Flow Rate FiO2 05/31/18 06:53 36.6 55 19 145/80 (101) 95 Nasal Cannula 1.0 05/31/18 03:05 36.6 58 16 142/56 (84) 98 Room Air 05/30/18 23:59 Nasal Cannula 1.0 05/30/18 23:55 36.9 62 16 126/47 (73) 98 Nasal Cannula 1.0 05/30/18 23:51 36.9 62 16 126/47 (73) 98 1.0 05/30/18 19:16 36.7 66 18 139/77 (97) 97 Nasal Cannula 1.0 05/30/18 16:00 94 Nasal Cannula 2.0 05/30/18 15:08 36.4 57 18 141/63 (89) 94 Nasal Cannula 1.0 05/30/18 11:10 36.8 61 16 128/55 (79) 92 Physical Exam General Appearance: WD/WN, no apparent distress Respiratory/Chest: lungs clear, normal breath sounds, no respiratory distress, no accessory muscle use Cardiovascular: + irregularly irregular Abdomen: non tender, soft Extremities: + pedal edema (trace edema) Neurologic/Psychiatric: alert, normal mood/affect Laboratory Results Last 24 Hours Test 05/30/18 15:17 05/31/18 05:53 Troponin I < 0.015 ng/ml White Blood Count 8.69 K/uL Red Blood Count 4.60 M/uL Hemoglobin 12.5 g/dL Hematocrit 39.9 % Mean Corpuscular Volume 86.7 fL Mean Corpuscular Hemoglobin 27.2 pg Mean Corpuscular Hemoglobin Concent 31.3 g/dl Platelet Count 208 K/uL Mean Platelet Volume 11.3 fL Neutrophils (%) (Auto) 71.3 % Lymphocytes (%) (Auto) 15.8 % Monocytes (%) (Auto) 9.0 % Eosinophils (%) (Auto) 3.2 % Basophils (%) (Auto) 0.5 % Neutrophils # (Auto) 6.20 K/uL Lymphocytes # (Auto) 1.37 K/uL Monocytes # (Auto) 0.78 K/uL Eosinophils # (Auto) 0.28 K/uL Basophils # (Auto) 0.04 K/uL RDW Standard Deviation 52.7 fL RDW Coefficient of Variation 16.7 % Immature Granulocyte % (Auto) 0.2 % Immature Granulocyte # (Auto) 0.02 K/uL Sodium Level 141 mmol/L Potassium Level 3.6 mmol/L Chloride Level 101 mmol/L Carbon Dioxide Level 33 mmol/L Anion Gap 7.0 mmol/L Blood Urea Nitrogen 21 mg/dl Creatinine 0.90 mg/dl Est Creatinine Clear Calc Drug Dose 39.0 ml/min Estimated GFR () 66.2 Estimated GFR (Non- 57.1 BUN/Creatinine Ratio 23.7 Random Glucose 82 mg/dl Calcium Level 8.5 mg/dl Magnesium Level 2.3 mg/dl Assessment and Plan Ms. Ralph is a 87 year old woman with a past medical history of prior [place] w/ stent placement in 12/2017, atrial fibrillation, tachy/sayda syndrome, HTN, mitral and tricuspid regurgitation, and hypothyroidism who presented to [facility] due to palpitations. Atrial fibrillation with rapid ventricular response & history of tachybradycardia syndrome - thank you to cardiology for consultation -> poor anticoagulation candidate given concern for falls & poor compliance -> pacemaker placement today for tachy/sayda syndrome - trop -ve x4 - ECHO unchanged from 12/2017 ECHO - Continue home meds - aspirin 81 mg daily, isosorbide mononitrate extended release 30 mg daily, metoprolol tartrate 12.5 mg p.o. twice daily. Acute Diastolic CHF - CXR showed mild interstitial pulmonary edema with a small right sided pleural effusion - initially had an oxygen requirement of 2L, however she is now currently saturating at 98% on room air - likely exacerbated by afib - Received Lasix 40 mg IV x2 and 1 dose of 40mg PO and is currently negative 3.6L - d/c Lasix Hypothyroidism - Continue levothyroxine sodium 25 mcg p.o. daily DVT Prophylaxis: 5,000 units heparin SQ q12h Disposition: anticipate d/c tomorrow Resident Physician Supervision Note: I was present with the resident physician during the history and exam. I discussed the case with the resident and agree with the findings and plan as documented in the note. Plan is for pacemaker placement today. I also discussed the case with the customer support consultant. Agree that the patient is approaching euvolemic and will discontinue Lasix at this point pending reevaluation in the morning. Documented By: Shola Quarles Resident Tracking Resident Involvement: Resident Care Provided Care Provided: Adult Hospital Medicine
[2018-05-31 06:53] VITALS: BP 145/80; PULSE 55; TEMP 36.6; O2SAT 95
[2018-05-31 06:56] LABS: CALCIUM 8.5 mg/dl (8.5-10.1); CREATININE 0.9 mg/dl (0.60-1.20); POTASSIUM 3.6 mmol/L (3.5-5.1)
[2018-05-31] MEDS: CHOLECALCIFEROL 1000 INTER.UNIT TAB PO SCH (07:25)
[2018-05-31] MEDS: METOPROLOL TARTRATE 25 MG TAB PO SCH ×2 (07:25→21:03)
[2018-05-31] MEDS: ISOSORBIDE MONONITRATE 30 MG TABCR PO SCH (07:26)
[2018-05-31] MEDS: ASPIRIN 81 MG ECTAB PO SCH (07:26)
[2018-05-31] MEDS: MAGNESIUM OXIDE 400 MG TAB PO SCH (07:26)
[2018-05-31] MEDS: HEPARIN SOD 5000 UNIT/0.5 ML CARP SQ SCH ×2 (07:28→21:04)
[2018-05-31] MEDS ORDERED: FUROSEMIDE 40 MG TAB PO SCH (09:00)
[2018-05-31 10:36] VITALS: BP 148/82; PULSE 69; TEMP 36.6; O2SAT 92
[2018-05-31] MEDS ORDERED: BACITRACIN 50000 UNIT VIAL ONE (12:09)
[2018-05-31] MEDS ORDERED: BUPIVACAINE 0.25% 30 ML VIAL ONE (12:09)
[2018-05-31] MEDS ORDERED: LIDOCAINE HCL 1% 20 ML VIAL ONE (12:09)
[2018-05-31] MEDS ORDERED: FENTANYL CITRATE INJ 50 MCG/1 ML 2 ML VIAL ONE (12:21)
[2018-05-31] MEDS ORDERED: MIDAZOLAM HCL 5 MG/ML 1 ML VIAL ONE (12:21)
[2018-05-31] MEDS ORDERED: WATER, STERILE FOR INJ 10 ML VIAL ONE (12:22)
[2018-05-31] MEDS ORDERED: CEFAZOLIN SOD 1 GM VIAL ONE (12:22)
--- NOTE | 2018-05-31 12:31 | Pre Sedation Assessment ---
Pre Sedation Assessment General Date of Sedation: May 31, 2018. Vital Signs Past 12 Hours Date Time Temp Pulse Resp B/P (MAP) Pulse Ox O2 Delivery O2 Flow Rate FiO2 05/31/18 10:36 36.6 69 18 148/82 (104) 92 Room Air 05/31/18 08:00 Room Air 05/31/18 06:53 36.6 55 19 145/80 (101) 95 Nasal Cannula 1.0 05/31/18 03:05 36.6 58 16 142/56 (84) 98 Room Air Review Cardiovascular: + irregularly irregular Lungs: lungs clear Pre-Sedation Airway Assessment Smoking Status: Never Smoker Hx of Sleep Apnea: No Hx of difficult intubation: No Short Thick Neck: No Thyro-mental Distance: > 3 Finger Breadths Oral Cavity: Dentures Mallampati Classification: Class III ASA Classification: Class III Procedure Planning Contraindications for Sedation: None Current Medications Reviewed: Yes Notes The planned sedation has been discussed with the patient. Informed Consent was obtained. I have identified the patient, determined the appropriateness of sedation and have assessed the patient immediately prior to the procedure. All medicine(s) and interventions are by my order.
--- NOTE | 2018-05-31 13:09 | [facility] Operative Report ---
Operative Report Date of Service May 31, 2018. Operative Report Procedure performed: Implantation of single-chamber permanent pacemaker Staff paperhanger apprentice: Red Jones MD Indication: The patient is an 79-year-old woman with a history of tachy-sayda syndrome. She was recently admitted to [facility] with rapid atrial fibrillation. She is noted to have slower rates at times and pauses greater than 3 seconds in duration. In order to facilitate improved rate control she is felt to be a good candidate for permanent pacemaker due to symptomatic non reversible AV node dysfunction. Single-chamber device was selected. She is in permanent atrial fibrillation Procedure in detail: The patient was informed of the risks benefits and alternatives to the intended procedure and she wished to proceed. She was taken to the electrophysiology suite in a fasting state. A preoperative antibiotic had been administered. The patient was monitored electrocardiographically throughout today's procedure and conscious sedation was administered per protocol. The left upper pectoral area is prepped and draped in usual sterile fashion. This area was anesthetized using subcutaneous administration of a xylocaine solution. An incision was made at this site and carried down to the prepectoralis fascia using sharp dissection. Electrocautery was also employed for dissection as well as for hemostasis. A device pocket was fashioned tissues above the pectoralis muscle. Subsequent to this maneuver the left axillary vein was accessed using modified Seldinger technique. A sheath was placed over a guidewire at this site and used to facilitate passage of the pacing lead to the right ventricular apex under fluoroscopic guidance. Adequate sensing and threshold parameters were obtained prior to Active fixation of the lead to the endocardial surface. The proximal portion of the lead was then sutured the prepectoral fascia using nonabsorbable suture. The device pocket was irrigated with antibiotic solution. The lead was then attached to the device. The device and lead were then placed in the pocket and pocket was closed in 3 layers of absorbable suture. Steri-Strips and sterile dressing were applied. The device was tested noninvasively prior to conclusion the procedure. The patient tolerated procedure well there no immediate complications. Equipment used: New pulse generator: Linseed Cake Trimmer [employer]. Model number:[id number] serial number [id number] Right ventricular lead: Linseed Cake Trimmer Med[employer]. Model number: [id number] serial number [id number] Measured data: Right ventricular lead: R-waves measured 7.9 millivolts. Pacing threshold 0.9 volts at 0.4 milliseconds with a pacing impedance of 606 Ohms Impression: Successful implantation of single chamber permanent pacemaker I attest to the content of the Intraoperative Record and any orders documented therein. Any exceptions are noted below.
[2018-05-31 13:37] VITALS: BP 104/64; PULSE 78; TEMP 36.8; O2SAT 98
[2018-05-31 15:14] VITALS: BP 101/50; PULSE 72; TEMP 36.6; O2SAT 92
--- NOTE | 2018-05-31 17:04 | Cardiology Follow-Up ---
Subjective Date of Service: May 31, 2018. Pt evaluation today including: conversation w/ patient, conversation w/ family , physical exam, chart review, lab review, review of studies, review of inpatient medication list History of Present Illness This afternoon the patient was feeling well. She has minimal discomfort at her implant site. She was eating dinner. She denied chest pain or breathing trouble. Overall she claims to be feeling better since admission. Social History Smoking Status: Never Smoker History of Alcohol Use: No Review of Systems Respiratory: No shortness of breath Cardiac: + palpitations, No chest pain Objective Vital Signs Past 12 Hours Date Time Temp Pulse Resp B/P (MAP) Pulse Ox O2 Delivery O2 Flow Rate FiO2 05/31/18 15:14 36.6 72 16 101/50 (67) 92 Room Air 05/31/18 13:37 36.8 78 18 104/64 (77) 98 Room Air 05/31/18 13:15 66 16 104/65 (78) 94 Room Air 05/31/18 13:04 64 16 125/61 (82) 94 Room Air 05/31/18 10:36 36.6 69 18 148/82 (104) 92 Room Air 05/31/18 08:00 Room Air 05/31/18 06:53 36.6 55 19 145/80 (101) 95 Nasal Cannula 1.0 Last Recorded Weight-Kilograms: 78.000 Intake & Output 8-Hour Column 05/31/18 06/01/18 06/01/18 16:00 00:00 08:00 Intake Total 270 ml Output Total 200 ml Balance 70 ml 24-Hour Column 06/01/18 08:00 Intake Total 270 ml Output Total 200 ml Balance 70 ml Physical Exam She is alert and oriented x3. Mood affect appear normal. She answered all questions appropriately. HEENT: Sclerae are anicteric. Pupils are equal and reactive to light and accommodation. Extraocular movements were intact. Neuro: Cranial nerves intact Neck: Examination of the submandibular region did not reveal any significant lymphadenopathy. Carotids are palpable bilaterally and free of bruits on auscultation. There was no evidence of jugular venous distention. The thyroid was not enlarged. Lungs: Lungs are clear to auscultation bilaterally. There are no rales wheezes or rhonchi. She has normal respiratory effort without use of accessory muscles. There is normal pulmonary excursion. Cardiac: The rhythm was irregular. S1 and S2 were normal. Crescendo systolic murmur. The PMI was not markedly displaced on palpation. Chest: Pacemaker implantation site without hematoma or significant ecchymosis. Abdomen: The abdomen was soft and nontender. Extremities: Patient has bilateral radial pulses that are equal in intensity. There is no evidence cyanosis or clubbing. Skin: There are no rashes noted on examination today. Data Laboratory Results: Last 24 Hours Test 05/31/18 05:53 White Blood Count 8.69 K/uL Red Blood Count 4.60 M/uL Hemoglobin 12.5 g/dL Hematocrit 39.9 % Mean Corpuscular Volume 86.7 fL Mean Corpuscular Hemoglobin 27.2 pg Mean Corpuscular Hemoglobin Concent 31.3 g/dl Platelet Count 208 K/uL Mean Platelet Volume 11.3 fL Neutrophils (%) (Auto) 71.3 % Lymphocytes (%) (Auto) 15.8 % Monocytes (%) (Auto) 9.0 % Eosinophils (%) (Auto) 3.2 % Basophils (%) (Auto) 0.5 % Neutrophils # (Auto) 6.20 K/uL Lymphocytes # (Auto) 1.37 K/uL Monocytes # (Auto) 0.78 K/uL Eosinophils # (Auto) 0.28 K/uL Basophils # (Auto) 0.04 K/uL RDW Standard Deviation 52.7 fL RDW Coefficient of Variation 16.7 % Immature Granulocyte % (Auto) 0.2 % Immature Granulocyte # (Auto) 0.02 K/uL Sodium Level 141 mmol/L Potassium Level 3.6 mmol/L Chloride Level 101 mmol/L Carbon Dioxide Level 33 mmol/L Anion Gap 7.0 mmol/L Blood Urea Nitrogen 21 mg/dl Creatinine 0.90 mg/dl Est Creatinine Clear Calc Drug Dose 39.0 ml/min Estimated GFR () 66.2 Estimated GFR (Non- 57.1 BUN/Creatinine Ratio 23.7 Random Glucose 82 mg/dl Calcium Level 8.5 mg/dl Magnesium Level 2.3 mg/dl Telemetry reviewed: Atrial fibrillation with occasional demand ventricular pacing Assessment and Plan 1. Tachy-sayda syndrome: Patient underwent successful implantation of single- chamber permanent pacemaker today. This appears to been uncomplicated. She has some higher rates at times it would seem reasonable to increase her overall beta-leslie for better rate control. No concerns over bradycardia currently due to pacemaker. 2. Valvular heart disease: Normally functioning bioprosthetic aortic valve 3. Congestive heart failure: Likely diastolic in etiology. She diuresed quite significantly over the past 24 hours. Her examination is benign and she is feeling much better. He would seem reasonable to return her to her standard diuretic regimen. Hopefully with better rate control she would be a lower risk of decompensation. 4. Coronary artery disease: No signs of coronary insufficiency. No current symptoms of chest discomfort. Continue aggressive secondary prevention.
[2018-05-31 19:20] VITALS: BP 133/55; PULSE 76; TEMP 36.9; O2SAT 93
[2018-05-31] MEDS: CEFAZOLIN IV 1,000 MG in SYRINGE 0 ML IV SCH (21:02)
[2018-06-01] VITALS (7 sets, daily range): BP systolic 102–160; BP diastolic 45–73; PULSE 62–86; TEMP 36.4–37; O2SAT 90–99
[2018-06-01] MEDS: CEFAZOLIN IV 1,000 MG in SYRINGE 0 ML IV SCH (04:43)
[2018-06-01] MEDS: LEVOTHYROXINE 25 MCG TAB PO SCH (05:44)
[2018-06-01 06:11] LABS: BASO % 0.3 %; BASO ABS # 0.03 K/uL (0-0.2); EOS % 0.8 %; EOS ABS # 0.09 K/uL (0-0.5); HEMATOCRIT 41.7 % (37-47); HEMOGLOBIN 13.5 g/dL (12.0-16.0); IG# 0.03 K/uL (0.00-0.02); LYMPH % 9.8 %; LYMPH ABS # 1.13 K/uL (1.2-3.4); MEAN CELL VOLUME 85.8 fL (80-100); MEAN CORPUSCULAR HEMOGLOBIN 27.8 pg (25-34); MEAN CORPUSCULAR HGB CONC 32.4 g/dl (32-36); MEAN PLATELET VOLUME 11.1 fL (7.4-10.4); MONO % 10.2 %; MONO ABS # 1.18 K/uL (0.11-0.59); NEUT % 78.6 %; NEUT ABS # 9.06 K/uL (1.4-6.5); PLATELET COUNT 221 K/uL (130-400); RED CELL DISTRIBUTION WIDTH CV 16.5 % (11.5-14.5); RED CELL DISTRIBUTION WIDTH SD 51.3 fL (36.4-46.3); WHITE BLOOD COUNT 11.52 K/uL (4.8-10.8)
[2018-06-01 06:41] LABS: CALCIUM 8.9 mg/dl (8.5-10.1); CREATININE 1.11 mg/dl (0.60-1.20); POTASSIUM 4.1 mmol/L (3.5-5.1)
--- NOTE | 2018-06-01 06:59 | DIAGNOSTIC IMAGING REPORT ---
CHEST 2 VIEWS ROUTINE CLINICAL HISTORY: 87 years-old Female presenting with EXACT TIME ORDERED Evaluate for pneumothorax and lead placement. TECHNIQUE: PA and lateral views of the chest were obtained. COMPARISON: 05/29/2018. FINDINGS: There has been interval placement of a left subclavian pacemaker with single lead to the right ventricular apex. The lead is appropriately positioned. Postsurgical changes of median sternotomy with aortic valve replacement. Atherosclerosis of the aortic arch. Cardiac silhouette mildly enlarged. Lungs may be hyperinflated. Heterogeneity of lung parenchyma. Bandlike opacity in the periphery of the left midlung. Overall significant decrease in pulmonary vascular prominence and hazy bibasilar opacities. Small right pleural effusion persists. No pneumothorax. Degenerative changes of the thoracic spine. Upper abdomen normal. IMPRESSION: 1. Status post placement of a left subclavian single lead pacemaker. No pneumothorax. 2. Significantly decreased congestive change and pulmonary edema. 3. Small right pleural effusion. Electronically signed by: Bryan Bautista M.D. 06/01/2018 6:58 AM Dictated Date/Time: 06/01/2018 6:55 AM
[2018-06-01] MEDS: ISOSORBIDE MONONITRATE 30 MG TABCR PO SCH (10:18)
[2018-06-01] MEDS: METOPROLOL TARTRATE 25 MG TAB PO SCH ×2 (10:18→21:33)
[2018-06-01] MEDS: CHOLECALCIFEROL 1000 INTER.UNIT TAB PO SCH (10:18)
[2018-06-01] MEDS: ASPIRIN 81 MG ECTAB PO SCH (10:19)
[2018-06-01] MEDS: MAGNESIUM OXIDE 400 MG TAB PO SCH (10:19)
[2018-06-01] MEDS: HEPARIN SOD 5000 UNIT/0.5 ML CARP SQ SCH ×2 (10:25→21:35)
[2018-06-01] MEDS ORDERED: LPR25 PO (10:58)
--- NOTE | 2018-06-01 11:00 | Cardiology Follow-Up ---
Subjective Date of Service: Jun 01, 2018. Pt evaluation today including: conversation w/ patient, physical exam, chart review, lab review, review of studies, review of inpatient medication list History of Present Illness The patient reports some minor discomfort at the pacemaker implantation site. She seems somewhat disoriented today but not report other pain. She states that her breathing was good. She cannot recall eating breakfast. She did not recall their daughter was here speaking with us yesterday. Social History Smoking Status: Never Smoker History of Alcohol Use: No Review of Systems Respiratory: No shortness of breath Cardiac: + palpitations, No chest pain Objective Vital Signs Past 12 Hours Date Time Temp Pulse Resp B/P (MAP) Pulse Ox O2 Delivery O2 Flow Rate FiO2 06/01/18 08:15 36.9 86 18 123/59 (80) 96 Nasal Cannula 06/01/18 00:07 37.0 67 18 160/73 (102) 91 Room Air Last Recorded Weight-Kilograms: 78.000 Physical Exam She is alert. She did answer questions but occasionally her answers were incorrect. She seemed forgetful. HEENT: Sclerae are anicteric. Pupils are equal and reactive to light and accommodation. Extraocular movements were intact. Neuro: Cranial nerves intact Neck: Examination of the submandibular region did not reveal any significant lymphadenopathy. Carotids are palpable bilaterally and free of bruits on auscultation. There was no evidence of jugular venous distention. The thyroid was not enlarged. Lungs: Lungs are clear to auscultation bilaterally. There are no rales wheezes or rhonchi. She has normal respiratory effort without use of accessory muscles. There is normal pulmonary excursion. Cardiac: The rhythm was irregular. S1 and S2 were normal. Crescendo systolic murmur. The PMI was not markedly displaced on palpation. Chest: Pacemaker implantation site without hematoma or significant ecchymosis. Abdomen: The abdomen was soft and nontender. Extremities: Patient has bilateral radial pulses that are equal in intensity. There is no evidence cyanosis or clubbing. Skin: There are no rashes noted on examination today. Data Laboratory Results: Last 24 Hours Test 06/01/18 05:28 White Blood Count 11.52 K/uL Red Blood Count 4.86 M/uL Hemoglobin 13.5 g/dL Hematocrit 41.7 % Mean Corpuscular Volume 85.8 fL Mean Corpuscular Hemoglobin 27.8 pg Mean Corpuscular Hemoglobin Concent 32.4 g/dl Platelet Count 221 K/uL Mean Platelet Volume 11.1 fL Neutrophils (%) (Auto) 78.6 % Lymphocytes (%) (Auto) 9.8 % Monocytes (%) (Auto) 10.2 % Eosinophils (%) (Auto) 0.8 % Basophils (%) (Auto) 0.3 % Neutrophils # (Auto) 9.06 K/uL Lymphocytes # (Auto) 1.13 K/uL Monocytes # (Auto) 1.18 K/uL Eosinophils # (Auto) 0.09 K/uL Basophils # (Auto) 0.03 K/uL RDW Standard Deviation 51.3 fL RDW Coefficient of Variation 16.5 % Immature Granulocyte % (Auto) 0.3 % Immature Granulocyte # (Auto) 0.03 K/uL Sodium Level 136 mmol/L Potassium Level 4.1 mmol/L Chloride Level 98 mmol/L Carbon Dioxide Level 29 mmol/L Anion Gap 9.0 mmol/L Blood Urea Nitrogen 24 mg/dl Creatinine 1.11 mg/dl Est Creatinine Clear Calc Drug Dose 31.6 ml/min Estimated GFR () 51.3 Estimated GFR (Non- 44.3 BUN/Creatinine Ratio 22.0 Random Glucose 95 mg/dl Calcium Level 8.9 mg/dl Imaging: Chest x-ray demonstrated good lead placement without evidence of pneumothorax. 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 Her beta-leslie was increased last evening. She should be discharged on this higher dose. I would also consider restarting her digoxin either the time of discharge or early in the outpatient setting. 2. Valvular heart disease: Normally functioning bioprosthetic aortic valve 3. Congestive heart failure: Lung examination is benign today. Discharging her on a daily low-dose diuretic would be reasonable with close follow-up of her renal function and volume status. 4. Coronary artery disease: No signs of coronary insufficiency. No current symptoms of chest discomfort. Continue aggressive secondary prevention.
--- NOTE | 2018-06-01 11:16 | Discharge Instructions ---
Discharge Instructions Date of Service Jun 01, 2018. Admission Reason for Admission: Acute Chf, Paroxysmal A-Fib W/ Rvr Discharge Discharge Diagnosis / Problem: Atrial Fibrillation Discharge Goals Goal(s): Decrease discomfort, Improve function, Increase independence, Improve disease control Activity Recommendations Activity Limitations: resume your previous activity . Instructions / Follow-Up Instructions / Follow-Up You were admitted to [facility] due to palpitations (feeling as though your heartbeat was irregular) and feeling short of breath. This was due to an abnormal heart rhythm called atrial fibrillation. You were seen by our cardiologists, who placed a pacemaker into your chest, which will ensure your heart rate does not drop too low. They also increased the dosage of your metoprolol, to help with the atrial fibrillation. You also had some fluid congestion in your lungs, which we treated with Lasix ( same medication as you take at home). We will be discharging you home on 20mg of Lasix a day instead of taking a higher dose every other day. Please keep an eye on your weight, and if you notice it increases more than 2-3 pounds, please let your doctor know. 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 Please also see your primary care provider within the next week. If you experience any chest pain, trouble breathing, or have any episodes where you feel dizzy/faint, please seek medical attention. Your medication changes include: 1) increased metoprolol -> 25mg twice a day instead of 12.5mg twice a day 2) daily Lasix -> 20mg a day instead of 40mg every other day 3) Digoxin -> we placed you back on your old dose of digoxin to help with your abnormal heart rhythm Current Hospital Diet Patient's current hospital diet: AHA Diet (Heart Healthy), Diabetes Type 2 Diet Discharge Diet Recommended Diet: AHA Diet (Heart Healthy) Pending Studies Studies pending at discharge: no Medical Emergencies . Who to Call and When: Medical Emergencies: If at any time you feel your situation is an emergency, please call 911 immediately. . Non-Emergent Contact Non-Emergency issues call your: Primary Care Provider . . "Provider Documentation" section prepared by Luis F Vides. .
[2018-06-01] MEDS ORDERED: LSX20 PO (14:02)
--- NOTE | 2018-06-01 14:23 | Family Medicine Progress Note ---
Progress Note Date of Service Jun 01, 2018. Subjective Pt evaluation today including: conversation w/ patient, physical exam, chart review, lab review, review of inpatient medication list Pain: Mild discomfort reported over pacemaker site PO Intake: Tolerating PO intake Voiding: no voiding problems Ms. Ralph reports she feels well today. She states she has some discomfort over her pacemaker site, but denies overt chest pain. She denies shortness of breath or lightheadedness. Per nursing, she was confused overnight and difficult to reorient. She required a 1:1 sitter. Constitutional: No fever, No chills Respiratory: No shortness of breath Cardiovascular: No chest pain Abdomen: No pain, No nausea, No vomiting All Other Systems: Reviewed and Negative Medications Current Inpatient Medications Medications (Trade) Dose Ordered Sig/Shandra Route Start Time Stop Time Status Last Admin Dose Admin Acetaminophen (Tylenol Tab) 650 mg Q4H PRN PO 05/29/18 23:30 06/28/18 23:29 Nitroglycerin (Nitrostat Tab) 0.4 mg UD PRN SL 05/29/18 23:30 06/28/18 23:29 Aspirin (Ecotrin Tab) 81 mg DAILY PO 05/30/18 09:00 06/29/18 08:59 06/01/18 10:19 81 MG Cholecalciferol (Vitamin D Tab) 1,000 inter.unit DAILY PO 05/30/18 09:00 06/29/18 08:59 06/01/18 10:18 1,000 INTER.UNIT Isosorbide Mononitrate (Imdur Ext Rel Tab) 30 mg DAILY PO 05/30/18 09:00 06/29/18 08:59 06/01/18 10:18 30 MG Levothyroxine Sodium (Synthroid Tab) 25 mcg DAILYBB PO 05/30/18 06:00 06/29/18 06:59 06/01/18 05:44 25 MCG Magnesium Oxide (Mag-Ox Tab) 400 mg QAM PO 05/30/18 09:00 06/29/18 08:59 06/01/18 10:19 400 MG Ondansetron HCl (Zofran Inj) 4 mg Q6H PRN IV 05/29/18 23:30 06/28/18 23:29 Metoprolol Tartrate (Lopressor Iv) 5 mg Q4 PRN IV 05/29/18 23:30 06/28/18 23:29 Heparin Sodium (Porcine) (Heparin Sq 5000 Unit/0.5ml) 5,000 unit Q12 SQ 05/30/18 21:00 06/29/18 20:59 06/01/18 10:25 5,000 UNIT Metoprolol Tartrate (Lopressor Tab) 25 mg BID PO 05/31/18 21:00 06/29/18 08:59 06/01/18 10:18 25 MG Objective Vital Signs Date Time Temp Pulse Resp B/P (MAP) Pulse Ox O2 Delivery O2 Flow Rate FiO2 06/01/18 12:00 36.6 68 18 102/62 (75) 99 Nasal Cannula 3.0 06/01/18 08:15 36.9 86 18 123/59 (80) 96 Nasal Cannula 06/01/18 08:00 Room Air 06/01/18 00:07 37.0 67 18 160/73 (102) 91 Room Air 05/31/18 20:00 Nasal Cannula 2.0 05/31/18 19:20 36.9 76 18 133/55 (81) 93 Room Air 05/31/18 15:14 36.6 72 16 101/50 (67) 92 Room Air Physical Exam General Appearance: WD/WN, no apparent distress Respiratory/Chest: lungs clear, normal breath sounds, no respiratory distress, no accessory muscle use Cardiovascular: regular rate, rhythm, no murmur Abdomen: non tender, soft Extremities: + pedal edema (trace pedal edema) Neurologic/Psychiatric: alert, + disoriented (oriented to person and month but not place) Laboratory Results Last 24 Hours Test 06/01/18 05:28 White Blood Count 11.52 K/uL Red Blood Count 4.86 M/uL Hemoglobin 13.5 g/dL Hematocrit 41.7 % Mean Corpuscular Volume 85.8 fL Mean Corpuscular Hemoglobin 27.8 pg Mean Corpuscular Hemoglobin Concent 32.4 g/dl Platelet Count 221 K/uL Mean Platelet Volume 11.1 fL Neutrophils (%) (Auto) 78.6 % Lymphocytes (%) (Auto) 9.8 % Monocytes (%) (Auto) 10.2 % Eosinophils (%) (Auto) 0.8 % Basophils (%) (Auto) 0.3 % Neutrophils # (Auto) 9.06 K/uL Lymphocytes # (Auto) 1.13 K/uL Monocytes # (Auto) 1.18 K/uL Eosinophils # (Auto) 0.09 K/uL Basophils # (Auto) 0.03 K/uL RDW Standard Deviation 51.3 fL RDW Coefficient of Variation 16.5 % Immature Granulocyte % (Auto) 0.3 % Immature Granulocyte # (Auto) 0.03 K/uL Sodium Level 136 mmol/L Potassium Level 4.1 mmol/L Chloride Level 98 mmol/L Carbon Dioxide Level 29 mmol/L Anion Gap 9.0 mmol/L Blood Urea Nitrogen 24 mg/dl Creatinine 1.11 mg/dl Est Creatinine Clear Calc Drug Dose 31.6 ml/min Estimated GFR () 51.3 Estimated GFR (Non- 44.3 BUN/Creatinine Ratio 22.0 Random Glucose 95 mg/dl Calcium Level 8.9 mg/dl Assessment and Plan Ms. Ralph is a 87 year old woman with a past medical history of prior [place] w/ stent placement in 12/2017, atrial fibrillation, tachy/sayda syndrome, HTN, mitral and tricuspid regurgitation, and hypothyroidism who presented to [facility] due to palpitations. Atrial fibrillation with rapid ventricular response & history of tachybradycardia syndrome - thank you to cardiology for consultation -> poor anticoagulation candidate given concern for falls & poor compliance -> pacemaker placed yesterday -> increased home dose of metoprolol from 12.5mg BID to 25mg BID -> restart digoxin in outpatient setting - ECHO unchanged from 12/2017 ECHO - Continue home meds - aspirin 81 mg daily and isosorbide mononitrate extended release 30 mg daily Acute Diastolic CHF - Repeat CXR showed improvement in pulmonary congestion - likely exacerbated by afib - currently -4.4L - change home dose of Lasix to 20mg daily instead of 40mg q2days AMS - likely delirium given waxing and waning nature - continue 1:1 sitter & monitor Hypothyroidism - Continue levothyroxine sodium 25 mcg p.o. daily DVT Prophylaxis: 5,000 units heparin SQ q12h Disposition: PT/OT eval to determine if patient would require short inpatient rehab stay. As per geriatric social work professor notes, pt lives at home with and daughter. has Alzheimer's and can be aggressive at times - they are trying to have him moved to a home. She states she does feel safe at home. Office of Aging will f/u on discharge. Resident Physician Supervision Note: I was present with the resident physician during the history and exam. I discussed the case with the resident and agree with the findings and plan as documented in the note. Any exceptions or clarifications are listed here: The patient is without complaint late this morning. She is seated at bedside eating her lunch. Case discussed with cardiology. Plan for today's consult physical therapy to determine if the patient is safe to return home; also restart digoxin; her beta-leslie can also be titrated as needed. Documented By: Shola Quarles Resident Tracking Resident Involvement: Resident Care Provided Care Provided: Adult Hospital Medicine
[2018-06-01] MEDS ORDERED: DIGOXIN 0.125 MG TAB PO SCH (16:00)
[2018-06-02 03:05] VITALS: BP 149/56; PULSE 61; TEMP 36.4; O2SAT 91
[2018-06-02 04:34] VITALS: BP 114/60; PULSE 60; TEMP 36.7; O2SAT 96
[2018-06-02] MEDS: LEVOTHYROXINE 25 MCG TAB PO SCH (05:22)
[2018-06-02 06:18] LABS: BASO % 0.4 %; HEMATOCRIT 42.2 % (37-47); HEMOGLOBIN 13.5 g/dL (12.0-16.0); LYMPH % 11.1 %; LYMPH ABS # 1.07 K/uL (1.2-3.4); MEAN CELL VOLUME 86.1 fL (80-100); MEAN CORPUSCULAR HEMOGLOBIN 27.6 pg (25-34); MEAN PLATELET VOLUME 11.3 fL (7.4-10.4); MONO % 12.3 %; MONO ABS # 1.19 K/uL (0.11-0.59); NEUT % 73.8 %; NEUT ABS # 7.14 K/uL (1.4-6.5); PLATELET COUNT 226 K/uL (130-400); RED CELL DISTRIBUTION WIDTH CV 16.8 % (11.5-14.5); RED CELL DISTRIBUTION WIDTH SD 52.3 fL (36.4-46.3); WHITE BLOOD COUNT 9.67 K/uL (4.8-10.8)
[2018-06-02 06:19] LABS: BASO ABS # 0.04 K/uL (0-0.2); EOS ABS # 0.19 K/uL (0-0.5); IG# 0.04 K/uL (0.00-0.02)
[2018-06-02 06:48] LABS: CALCIUM 9.2 mg/dl (8.5-10.1); CREATININE 1.11 mg/dl (0.60-1.20); POTASSIUM 4.3 mmol/L (3.5-5.1)
[2018-06-02 07:22] VITALS: BP 148/69; PULSE 76; TEMP 36.8; O2SAT 93
[2018-06-02] MEDS: METOPROLOL TARTRATE 25 MG TAB PO SCH (07:32)
[2018-06-02] MEDS: CHOLECALCIFEROL 1000 INTER.UNIT TAB PO SCH (07:32)
[2018-06-02] MEDS: ASPIRIN 81 MG ECTAB PO SCH (07:33)
[2018-06-02] MEDS: MAGNESIUM OXIDE 400 MG TAB PO SCH (07:33)
[2018-06-02] MEDS: ISOSORBIDE MONONITRATE 30 MG TABCR PO SCH (07:33)
[2018-06-02] MEDS: HEPARIN SOD 5000 UNIT/0.5 ML CARP SQ SCH (07:37)
[2018-06-02] MEDS ORDERED: FUROSEMIDE 20 MG TAB PO SCH (09:00)
[2018-06-02] MEDS ORDERED: LNX125 PO (10:27)
[2018-06-02] MEDS ORDERED: LPR25 PO (11:17)
[2018-06-02] MEDS ORDERED: LSX20 PO (11:17)
[2018-06-02 11:50] VITALS: BP 131/89; PULSE 72; TEMP 37; O2SAT 93
--- NOTE | 2018-06-02 13:26 | Discharge Summary ---
Discharge Summary Date of Service Jun 02, 2018. Discharge Summary Admission Date: May 29, 2018 at 23:17 Discharge Date: Jun 02, 2018 Discharge Disposition: Home with services Principal Diagnosis: Atrial Fibrillation and Acute CHF Exacerbation Problems/Secondary Diagnoses: 1) history of prior [place] w/stent placement in 12/2017 2) tachy/sayda syndrome 3) HTN 4) mitral regurgitation 5) tricuspid regurgitation 6) hypothyroidism . Immunizations: Have You Had Influenza Vaccine: Yes Influenza Vaccine Date: Jul 28, 2012 History of Tetanus Vaccine?: Yes History of Pneumococcal: No History of Hepatitis B Vaccine: No Procedures: Pacemaker Insertion Consultations: Cardiology Medication Reconciliation New Medications: Digoxin (Digoxin) 0.125 Mg Tab 0.125 MG PO DAILY@16 for 30 Days, #30 TAB 3 Refills Furosemide (Furosemide) 20 Mg Tab 20 MG PO QAM for 30 Days, #30 TAB 3 Refills Metoprolol Tartrate (Lopressor) 25 Mg Tab 25 MG PO BID for 30 Days, #60 TAB 3 Refills Continued Medications: Acetaminophen (Tylenol) 325 Mg Tab 325-650 MG PO Q6H PRN for Pain or Fever, TAB Aspirin (Aspir-81) 81 Mg Tab 81 MG PO DAILY Cholecalciferol (Vitamin D3) 1,000 Unit Tab 1000 INTER.UNIT PO DAILY, TAB Isosorbide Mononitrate Ext Rel (Imdur Ext Rel) 30 Mg Tabcr 30 MG PO DAILY Levothyroxine Sodium (Levothyroxine Sodium) 25 Mcg Tab 25 MCG PO DAILY, TAB Magnesium Oxide (Magnesium Oxide) 250 Mg Tab 250 MG PO DAILY Nitroglycerin (Nitrostat) 0.4 Mg Tab 0.4 MG UT UD PRN for Chest Pain, BTL PLACE ONE TABLET UNDER THE TONGUE EVERY 5 MINUTES FOR UP TO 3 DOSES IF NEEDED FOR CHEST PAIN Discontinued Medications: Furosemide (Furosemide) 40 Mg Tab 40 MG PO Q2D Metoprolol Tartrate (Lopressor) 25 Mg Tab 12.5 MG PO BID Discharge Exam Ms. Ralph reports she feels well today. She denies pain around her pacemaker insertion site. She denies chest pain, shortness of breath and lightheadedness. She states she has good support at home with her daughter whom she lives with. Review of Systems: Constitutional: No fever, No chills Cardiovascular: No chest pain, No edema Abdomen: No pain, No nausea, No vomiting Physical Exam: General Appearance: WD/WN, no apparent distress Respiratory/Chest: lungs clear, normal breath sounds, no respiratory distress, no accessory muscle use Cardiovascular: no edema, no gallop, + irregularly irregular Abdomen / GI: non tender, soft Extremities: + pedal edema (trace pedal edema) Neurologic/Psychiatric: alert, normal mood/affect, oriented x 3 Hospital Course Ms. Ralph is a 87 year old woman with a past medical history of prior [place] w/ stent placement in 12/2017, atrial fibrillation, tachy/sayda syndrome, HTN, mitral and tricuspid regurgitation, and hypothyroidism who presented to [facility] due to palpitations. Atrial fibrillation with rapid ventricular response & history of tachybradycardia syndrome - cardiology consultation -> poor anticoagulation candidate given concern for falls & poor compliance -> pacemaker placed on 05/31 given history of bradycardia -> increased home dose of metoprolol from 12.5mg BID to 25mg BID after pacemaker placed -> restarted digoxin at prior dosage - ECHO during this admission unchanged from 12/2017 ECHO - Continue other home meds - aspirin 81 mg daily and isosorbide mononitrate extended release 30 mg daily Acute Diastolic CHF - likely exacerbated by afib - diuresed -4.5L - Repeat CXR prior to d/c showed improvement in pulmonary congestion - change home dose of Lasix to 20mg daily instead of 40mg q2days AMS - likely delirium given waxing and waning nature, improved prior to d/c Social: - pt lives at home w/ and daughter. has Alzheimer's disease & according to pt, can be aggressive. Office of Aging will f/u on discharge. Pt states she feels safe to return home. Resident Physician Supervision Note: I was present with the resident physician during the history and exam. I discussed the case with the resident and agree with the findings and plan as documented in the note. I also discussed the case with cardiology and case management. The patient herself was pleased with the idea of being discharged and had no complaints this morning. Documented By: Shola Quarles Total Time Spent: Greater than 30 minutes This includes examination of the patient, discharge planning, medication reconciliation, and communication with other providers. Total time spent in all his activities was 40 minutes. Discharge Instructions Please refer to the electronic Patient Visit Report (Discharge Instructions) for additional information. Additional Copies To Asael Wood M.D. Resident Tracking Resident Involvement: Resident Care Provided Care Provided: [facility] Medicine
== END 2018-06-02 12:45 | disposition home health service (06) | DRG 242 ==
LOC: EDSEX 20:09 → EDBD 20:09 → C.EDB 20:10 → C.2E 23:17 → ENRESERV 23:26
PROVIDERS: ADMIT Hospitalist; ATTEND Family Medicine
PROC: 0JH634Z Insertion of Pacemaker, Single Chamber into Chest Subcutaneous Tissue and Fascia, Percutaneous Approach (ICD-10-PCS; principal; 2018-05-31 12:19)
PROC: 02HK3JZ Insertion of Pacemaker Lead into Right Ventricle, Percutaneous Approach (ICD-10-PCS; principal; 2018-05-31 12:19)
DX: I49.5 Sick sinus syndrome (principal); I11.0 Hypertensive heart disease with heart failure; I50.31 Acute diastolic (congestive) heart failure; E78.5 Hyperlipidemia, unspecified; I48.0 Paroxysmal atrial fibrillation; E03.9 Hypothyroidism, unspecified; R41.0 Disorientation, unspecified; G30.9 Alzheimer's disease, unspecified; F02.80 Dementia in other diseases classified elsewhere, unspecified severity, without behavioral disturbance, psychotic disturbance, mood disturbance, and anxiety; Z79.82 Long term (current) use of aspirin; Z79.899 Other long term (current) drug therapy; Z95.5 Presence of coronary angioplasty implant and graft